=== PATIENT | female | born 1985 | race Caucasian/White ===

== ENCOUNTER → 2016-06-22 | Outpatient (CLI) | payer OTHER ==
[2016-06-22 13:43] VITALS: BP 97/74; PULSE 100; RESP 16; TEMP 97.7
--- NOTE | 2016-06-22 14:23 | P.PN ---
Subjective This is follow-up visit for this patient with a history of severe and chronic headache and back pain with radiation to the lower extremity, and she was diagnosed with occipital neuralgia, and also is being worked up for MS, and she had occipital nerve block x1 , and patient reports she has no relief after occipital nerve block , and she had poor reaction to the steroid which increased her anxiety , and she reported that her weakness in the upper and lower extremity increased after occipital nerve block , and is currently on pain medications 1- Motrin 800 mg 3 times a day 2-Neurontin 100 mg 2 tablets 3 times a day Patient denies any side effects of the medication, denies excessive drowsiness or sleepiness, denies suicidal ideation, and reports that the current pain medication is NOT helping To control the pain and improve activity of daily living, she denies any bowel or bladder incontinence Physical Examinations : 1-Constitutiona : Cooperative , not in acute distress . 2-HEENT : nech ; supple , no Lymphadenopathy , no Thyromegaly , normal thyroid size . eyes : no ptosis , no icterus, no photophobia . ENT : normal of hearing , normal oropharynx , no Thrush . 3- Respiratory : Chest clear to auscultations Bilaterally , no wheezing , no Rhonchi . 4- Cardiovascular : regular rate and rhythem , S1 , S2 , no S3 , no S4. 5- Gastrointestinal : abdomen soft no tenderness , bowel sounds positive all four quadrents , no organomegally . 6- Genitourinary : Defferred . 7- neurologic : Cranial nerve II to XII intact , no focal neurological deffecit . 8-psychatric : alert , oriented X 3 , appropriate affect , intact judgment and insight . 9-Lymphatic : no Lymphadenopathy . 10- musculoskeltal : exams of the cervical spine = motor strength normal bilateral upper extremities , normal sensations in the upper extremities Tenderness in the right side in the occipital area, Positive cervical facet loading tenderness exams of the Lumber spine = motor strength lower extremities ,thigh and legs .5/5 deep tendon reflexes : normal Knee Jerk , normal ankle Jerk . lumber facet Loading Test positive strait leg raising test positive at 30 degree RT , 60 degree LT , Assessment and plan = 1-occipital neuralgia 2-cervicogenic headache 3-lumbar spondylosis Patient had a reaction to the occipital nerve block (significant anxiety from the steroid after the block ), also she reports increased pain especially on the right side occipital area, she reports on and off weakness in the upper and lower extremity, the exam was negative for any motor or sensory deficit,, patient walking normally , patient being worked up for MS, and she had the new MRI of the brain done recently at [facility], and she had MRI of the lumbar spine done also recently, she will bring the report in the next few days, I will order MRI of the cervical spine, to evaluate there is any etiology causing her increased pain and headache, patient should continue her current medications Motrin 800 mg when necessary for headache and pain, and also continue on Neurontin 100 mg 2 tablets every 8 hours, and will see the patient in 4 weeks Objective - Vital Signs Vital signs: Vital Signs Temp 97.7 F 06/22/16 13:34 Pulse 100 06/22/16 13:34 Resp 16 06/22/16 13:34 BP 97/74 06/22/16 13:34 Pulse Ox 96 06/22/16 13:34 Intake & Output 06/21/16 06/22/16 06/22/16 18:59 06:59 18:59 Weight 52.617 kg
== END | disposition home or self-care (01) ==
LOC: PNWHC3 12:57
PROVIDERS: ATTEND Specialist
DX: M54.81 Occipital neuralgia (principal); M47.896 Other spondylosis, lumbar region; T38.0X5A Adverse effect of glucocorticoids and synthetic analogues, initial encounter; F41.9 Anxiety disorder, unspecified; Z79.899 Other long term (current) drug therapy
CPT/HCPCS: 99211

== ENCOUNTER 2016-07-14 18:48 | Emergency (ER) | payer OTHER ==
[2016-07-14] MEDS ORDERED: IPRATROPIUM-ALBUTEROL 3 ML NEB INHALATION STA (19:41)
[2016-07-14] MEDS ORDERED: predniSONE 20 MG TAB PO STA (19:41)
--- NOTE | 2016-07-14 20:38 | XR ---
EXAMINATION TYPE: XR chest 2V DATE OF EXAM: 07/14/2016 8:07 PM COMPARISON: December 03, 2013 HISTORY: Dyspnea and cough TECHNIQUE: Frontal and lateral views of the chest are obtained. FINDINGS: There is no focal air space opacity, pleural effusion, or pneumothorax seen. The cardiac silhouette size is within normal limits. The osseous structures are intact. IMPRESSION: No acute cardiopulmonary process.
--- NOTE | 2016-07-14 20:51 | ED ---
SOB HPI - General Chief Complaint: Shortness of Breath Stated Complaint: difficulty breathing Time Seen by Provider: 07/14/16 19:31 Source: patient Mode of arrival: ambulatory Limitations: no limitations - History of Present Illness Initial Comments: Patient complains of a cough. She smokes daily. She feels like her cough is not getting any better. She just started an antibiotic today. She has no fevers, chills, belly or back pain. She has no nausea or vomiting. She has no lightheadedness or dizziness. She has no neck pain or stiffness. - Related Data Home Medications Medication Instructions Recorded Confirmed Ibuprofen [Motrin] 800 mg PO DAILY PRN 02/10/16 07/14/16 Albuterol Inhaler [Ventolin Hfa 1 - 2 puff INHALATION RT-QID PRN 07/14/16 Inhaler] Fluticasone Nasal [place] [Flonase 1 spray EA NOSTRIL DAILY PRN 07/14/16 07/14/16 Nasal [place]] Levofloxacin [Levaquin] 500 mg PO DAILY 07/14/16 07/14/16 Meclizine [Antivert] 12.5 - 25 mg PO BID PRN 07/14/16 07/14/16 Montelukast Sodium [Singulair] 10 mg PO DAILY PRN 07/14/16 07/14/16 Promethazine 6.25MG/5Ml [Phenergan 5 - 10 ml PO QID PRN 07/14/16 07/14/16 Syrup] predniSONE See Taper PO DAILY 07/14/16 07/14/16 Previous Rx's Medication Instructions Recorded Gabapentin [Neurontin] 200 mg PO TID #90 cap 05/18/16 Allergies Allergy/AdvReac Type Severity Reaction Status Date / Time adhesive tape Allergy Rash/Hives Verified 07/14/16 19:55 triamcinolone [From Kenalog] Allergy Dyspnea Verified 07/14/16 19:55 Review of Systems ROS Statement: Those systems with pertinent positive or pertinent negative responses have been documented in the HPI. ROS Other: All systems not noted in ROS Statement are negative. Past Medical History Past Medical History: No Reported History Additional Past Medical History / Comment(s): BACK PAIN AND DEGENERATIVE DISC ISSUES, Migraines,. 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 Will have another MRI 2nd week of November - R/O multiple sclerosis History of Any Multi-Drug Resistant Organisms: None Reported Past Surgical History: Appendectomy Past Anesthesia/Blood Transfusion Reactions: No Reported Reaction Past Psychological History: Anxiety, Depression Smoking Status: Current every day smoker Past Alcohol Use History: None Reported Additional Past Alcohol Use History / Comment(s): started smoking age 14 1ppd Past Drug Use History: None Reported - Past Family History Brother(s) Additional Family Medical History / Comment(s): purnima-sachs General Exam Limitations: no limitations General appearance: alert, in no apparent distress Head exam: Present: atraumatic, normocephalic, normal inspection Eye exam: Present: normal appearance, PERRL, EOMI. Absent: scleral icterus, conjunctival injection, periorbital swelling ENT exam: Present: normal exam, mucous membranes moist Neck exam: Present: normal inspection. Absent: tenderness, meningismus, lymphadenopathy Respiratory exam: Present: normal lung sounds bilaterally. Absent: respiratory distress, wheezes, rales, rhonchi, stridor Cardiovascular Exam: Present: regular rate, normal rhythm, normal heart sounds. Absent: systolic murmur, diastolic murmur, rubs, gallop, clicks GI/Abdominal exam: Present: soft, normal bowel sounds. Absent: distended, tenderness, guarding, rebound, rigid Extremities exam: Present: normal inspection, full ROM, normal capillary refill. Absent: tenderness, pedal edema, joint swelling, calf tenderness Back exam: Present: normal inspection Neurological exam: Present: alert, oriented X3, CN II-XII intact Psychiatric exam: Present: normal affect, normal mood Skin exam: Present: warm, dry, intact, normal color. Absent: rash Course Vital Signs 07/14/16 07/14/16 07/14/16 19:21 20:02 20:21 Temperature 98.4 F Pulse Rate 94 94 Respiratory 20 20 Rate Blood Pressure 132/69 O2 Sat by Pulse 99 Oximetry 07/14/16 20:40 Temperature Pulse Rate 94 Respiratory Rate Blood Pressure O2 Sat by Pulse Oximetry Medical Decision Making - Medical Decision Making Patient complains of a cough. Her physical exam is benign. Patient is feeling better after a breathing treatment. I obtained a chest x-ray which is negative. She has no risk factors for pulmonary embolism or acute coronary syndrome. I don't think there is any other underlying emergency condition. Patient is stable for discharge. Disposition Clinical Impression: Upper respiratory infection Disposition: HOME SELF-CARE Condition: Good Instructions: Upper Respiratory Infection (ED) Time of Disposition: 20:51
[2016-07-14 21:05] VITALS: BP 106/66; PULSE 90; RESP 18; TEMP 98
== END 2016-07-14 21:05 | disposition home or self-care (01) ==
LOC: EC 18:48
DX: J06.9 Acute upper respiratory infection, unspecified (principal); F17.200 Nicotine dependence, unspecified, uncomplicated; Z79.51 Long term (current) use of inhaled steroids; Z79.899 Other long term (current) drug therapy; Z88.8 Allergy status to other drugs, medicaments and biological substances
CPT/HCPCS: 71020; 94640; 99285

== ENCOUNTER → 2016-07-18 | Outpatient (CLI) | payer OTHER ==
--- NOTE | 2016-07-18 23:12 | MR ---
EXAMINATION TYPE: MR cervical spine wo con DATE OF EXAM: 07/18/2016 8:37 PM COMPARISON: NONE HISTORY: Cervicalgia TECHNIQUE: Multiplanar, multisequence images of the cervical spine were acquired. C2-C3: No evidence for degenerative disc disease. No disc bulge/herniation or protrusion. No Canal stenosis. Foramina are patent bilaterally. C3-C4: Mild disc desiccation. Mild uncovertebral joint hypertrophy on the left. No canal stenosis or foraminal encroachment. C4-C5: No evidence for degenerative disc disease. No disc bulge/herniation or protrusion. No Canal stenosis. Foramina are patent bilaterally. C5-C6: No evidence for degenerative disc disease. No disc bulge/herniation or protrusion. No Canal stenosis. Foramina are patent bilaterally. C6-C7: No evidence for degenerative disc disease. No disc bulge/herniation or protrusion. No Canal stenosis. Foramina are patent bilaterally. C7-T1: No evidence for degenerative disc disease. No disc bulge/herniation or protrusion. No Canal stenosis. Foramina are patent bilaterally. Cervical segments are intact. There is normal alignment. Cervical spinal cord is of normal signal. Craniovertebral junction relationships are within normal limits. IMPRESSION: 1. Mild disc desiccation and degenerative disc disease C3-C4.
== END | disposition home or self-care (01) ==
LOC: RADMRIMAIN 20:04
PROVIDERS: ATTEND Specialist
DX: M50.31 Other cervical disc degeneration, high cervical region (principal); G44.89 Other headache syndrome
CPT/HCPCS: 72141

== ENCOUNTER → 2016-07-20 | Outpatient (CLI) | payer OTHER ==
[2016-07-20 14:56] VITALS: BP 107/71; PULSE 86; RESP 16; TEMP 98.3
--- NOTE | 2016-07-22 07:43 | P.PN ---
Subjective This is follow-up visit for this patient with a history of severe and chronic pain and headache and low back pain , diagnosed with occipital neuralgia we have Done occipital nerve block x1 , and she reported that she continued to have headache and neck pain, occasional numbness in the upper extremity Currently. Most of her pain in the low back area, she had a new MRI done recently and it showed patient had multilevel lumbar facet arthropathy She used Neurontin in the past and she had side effects (and her angry and mean ) she stopped using, she denies any motor or sensory deficit Denies any change in the bowel movement or urination, she tried the Topamax in the past without any benefit and she tried Fioricet minimal or no relief Physical examination 1-Constitutiona : Cooperative , not in acute distress . 2-HEENT : nech ; supple , no Lymphadenopathy , no Thyromegaly , normal thyroid size . eyes : no ptosis , no icterus, no photophobia . ENT : normal of hearing , normal oropharynx , no Thrush . 3- Respiratory : Chest clear to auscultations Bilaterally , no wheezing , no Rhonchi . 4- Cardiovascular : regular rate and rhythem , S1 , S2 , no S3 , no S4. 5- Gastrointestinal : abdomen soft no tenderness , bowel sounds positive all four quadrents , no organomegally . 6- Genitourinary : Defferred . 7- neurologic : Cranial nerve II to XII intact , no focal neurological deffecit . 8-psychatric : alert , oriented X 3 , appropriate affect , intact judgment and insight . 9-Lymphatic : no Lymphadenopathy . 10- musculoskeltal : exams of the cervical spine = motor strength normal bilateral upper extremities facet loading test cervical area positive. Multiple trigger point in the cervical paravertebral muscles Tenderness over the occipital nerve bilaterally exams of the Lumber spine = motor strength lower extremities ,thigh and legs .5/5 deep tendon reflexes : normal Knee Jerk , normal ankle Jerk . lumber facet Loading Test positive strait leg raising test negative bilaterally Fabere test negative bilaterally Range of motion: Range of motion in flexion of the lumbar spine 30 degrees Range of motion range of motion of extension of the lumbar spine 10 Assessment and plan = Occipital neuralgia status post occipital nerve block without any benefit Cervical radiculopathy . Myofascial pain syndrome and cervical area Lumbar spondylosis with facet arthropathy without myelopathy - diagnoses, prognosis, and treatment options including but not limited to physical therapy, surgical interventions, interventional therapies , and medication management including narcotics and adjuvant medication were discussed with the patient and all The questions answered -medication management =1-discontinue the Neurontin and start patient on Lyrica 25 mg 3 times a day 2-degrees Motrin to 600 mg every 8 hours -procedure= patient could benefit from diagnostic medial branch block lumbar area at L3 4/L4-5/L5-S1 facets positive twice then we will do radiofrequency ablation of the medial branch lumbar area Patient will be referred to have physical therapy and myofascial release in her cervical area Objective - Vital Signs Vital signs: Vital Signs Temp 98.3 F 07/20/16 14:47 Pulse 86 07/20/16 14:47 Resp 16 07/20/16 14:47 BP 107/71 07/20/16 14:47 Pulse Ox 97 07/20/16 14:47 Intake & Output 07/19/16 07/20/16 07/20/16 18:59 06:59 18:59 Weight 52.163 kg
== END | disposition home or self-care (01) ==
LOC: PNWHC3 14:01
PROVIDERS: ATTEND Specialist
DX: M54.81 Occipital neuralgia (principal); M54.12 Radiculopathy, cervical region; M79.1 Myalgia; M47.816 Spondylosis without myelopathy or radiculopathy, lumbar region; M46.96 Unspecified inflammatory spondylopathy, lumbar region; Z79.899 Other long term (current) drug therapy; T42.6X5A Adverse effect of other antiepileptic and sedative-hypnotic drugs, initial encounter
CPT/HCPCS: 99211

== ENCOUNTER 2016-09-16 10:46 | Observation (INO) | payer OTHER ==
[2016-09-16] MEDS ORDERED: ASPIRIN 81 MG CHEW PO STA (11:37)
[2016-09-16] MEDS ORDERED: NITROGLYCERIN SL TABS 0.4 MG TAB SUBLINGUAL STA (11:37)
--- NOTE | 2016-09-16 11:40 | ED ---
General Adult HPI - General Chief complaint: Chest Pain Stated complaint: SOB,chest pain Time Seen by Provider: 09/16/16 11:15 Source: patient, RN notes reviewed Mode of arrival: wheelchair Limitations: no limitations - History of Present Illness Initial comments: Patient is a pleasant 30-year-old female presenting to the emergency department complaining of chest discomfort. Onset was around 5 AM. Symptoms woke her from sleep. Symptoms have been waxing and waning however generally worsening. Patient states symptoms do increase with deep breaths and certain positions. Discomfort feels like tightness. No history of similar symptoms previously. There is some associated dyspnea. No nausea or diaphoresis. - Related Data Home Medications Medication Instructions Recorded Confirmed Albuterol Inhaler [Ventolin Hfa 1 - 2 puff INHALATION RT-QID PRN 07/14/16 Inhaler] Fluticasone Nasal [place] [Flonase 1 spray EA NOSTRIL DAILY PRN 07/14/16 09/16/16 Nasal [place]] Pregabalin [Lyrica] 25 mg PO TID 08/23/16 09/16/16 Ibuprofen [Motrin] 600 mg PO Q8HR 09/16/16 09/16/16 Allergies Allergy/AdvReac Type Severity Reaction Status Date / Time adhesive tape Allergy Rash/Hives Verified 09/16/16 11:39 triamcinolone [From Kenalog] Allergy Dyspnea/Yony Verified 09/16/16 11:39 h Review of Systems ROS Statement: Those systems with pertinent positive or pertinent negative responses have been documented in the HPI. ROS Other: All systems not noted in ROS Statement are negative. Constitutional: Denies: fever Eyes: Denies: eye pain ENT: Denies: ear pain Respiratory: Reports: dyspnea. Denies: cough Cardiovascular: Reports: chest pain Endocrine: Denies: fatigue Gastrointestinal: Denies: abdominal pain Genitourinary: Denies: dysuria Musculoskeletal: Denies: back pain Skin: Denies: rash Neurological: Denies: weakness Past Medical History Past Medical History: Fibromyalgia Additional Past Medical History / Comment(s): BACK PAIN AND DEGENERATIVE DISC ISSUES, Migraines,. nerve damage to marlene ring and pinky finger up marlene arms, scoliosis, History of Any Multi-Drug Resistant Organisms: None Reported Past Surgical History: Appendectomy Additional Past Surgical History / Comment(s): pain procedure on neck 03/13 Past Anesthesia/Blood Transfusion Reactions: No Reported Reaction Past Psychological History: Anxiety, Depression Smoking Status: Current every day smoker Past Alcohol Use History: None Reported Additional Past Alcohol Use History / Comment(s): started smoking age 14 1ppd Past Drug Use History: None Reported - Past Family History Brother(s) Additional Family Medical History / Comment(s): purnima-sachs General Exam Limitations: no limitations General appearance: alert, in no apparent distress Head exam: Present: atraumatic Eye exam: Present: normal appearance, PERRL ENT exam: Present: normal oropharynx Neck exam: Present: normal inspection Respiratory exam: Present: normal lung sounds bilaterally Cardiovascular Exam: Present: regular rate, normal rhythm Expanded Peripheral pulses: 2+: Radial (R), Radial (L), Posterior Tibialis (R), Posterior Tibialis (L) GI/Abdominal exam: Present: soft. Absent: tenderness Extremities exam: Present: normal inspection. Absent: pedal edema, calf tenderness Neurological exam: Present: alert Psychiatric exam: Present: normal affect, normal mood Skin exam: Absent: rash Course Vital Signs 09/16/16 09/16/16 10:54 11:56 Temperature 98.2 F Pulse Rate 86 67 Respiratory 16 18 Rate Blood Pressure 127/78 98/64 O2 Sat by Pulse 100 97 Oximetry EKG Findings - EKG Comments: EKG Findings:: Normal sinus rhythm 72. Normal intervals. Normal axis. Normal QRS. Normal ST-T. Medical Decision Making - Medical Decision Making Patient reexamined and resting comfortably in bed. Symptoms have improved. Patient is not certain that the nitroglycerin actually helped her however. Patient updated on results and plan. Case discussed with Dr. Knight, who will admit for Dr. Donaldson. - Lab Data Result diagrams: 09/16/16 11:00 09/16/16 11:00 Lab Results 09/16/16 09/16/16 09/16/16 Range/Units 11:00 11:00 11:00 WBC 5.6 (3.8-10.6) k/uL RBC 4.49 (3.80-5.40) m/uL Hgb 13.3 (11.4-16.0) gm/dL Hct 40.0 (34.0-46.0) % MCV 89.3 (80.0-100.0) fL MCH 29.7 (25.0-35.0) pg MCHC 33.3 (31.0-37.0) g/dL RDW 12.6 (11.5-15.5) % Plt Count 270 (150-450) k/uL Neutrophils % 64 % Lymphocytes % 28 % Monocytes % 4 % Eosinophils % 2 % Basophils % 1 % Neutrophils # 3.6 (1.3-7.7) k/uL Lymphocytes # 1.6 (1.0-4.8) k/uL Monocytes # 0.2 (0-1.0) k/uL Eosinophils # 0.1 (0-0.7) k/uL Basophils # 0.0 (0-0.2) k/uL PT (9.0-12.0) sec INR (<1.1) APTT (22.0-30.0) sec D-Dimer (<0.60) mg/L FEU Sodium 144 (137-145) mmol/L Potassium 4.3 (3.5-5.1) mmol/L Chloride 108 H (98-107) mmol/L Carbon Dioxide 24 (22-30) mmol/L Anion Gap 12 mmol/L BUN 12 (7-17) mg/dL Creatinine 0.60 (0.52-1.04) mg/dL Est GFR (MDRD) Af Amer >60 (>60 ml/min/1.73 sqM) Est GFR (MDRD) Non-Af >60 (>60 ml/min/1.73 sqM) Glucose 87 (74-99) mg/dL Calcium 9.9 (8.4-10.2) mg/dL Magnesium 1.8 (1.6-2.3) mg/dL Total Bilirubin 0.4 (0.2-1.3) mg/dL AST 16 (14-36) U/L ALT 21 (9-52) U/L Alkaline Phosphatase 71 (38-126) U/L Total Creatine Kinase 69 (30-135) U/L CK-MB (CK-2) 0.6 (0.0-2.4) ng/mL CK-MB (CK-2) Rel Index 0.9 Troponin I <0.012 (0.000-0.034) ng/mL Total Protein 7.9 (6.3-8.2) g/dL Albumin 4.6 (3.5-5.0) g/dL 09/16/16 Range/Units 11:00 WBC (3.8-10.6) k/uL RBC (3.80-5.40) m/uL Hgb (11.4-16.0) gm/dL Hct (34.0-46.0) % MCV (80.0-100.0) fL MCH (25.0-35.0) pg MCHC (31.0-37.0) g/dL RDW (11.5-15.5) % Plt Count (150-450) k/uL Neutrophils % % Lymphocytes % % Monocytes % % Eosinophils % % Basophils % % Neutrophils # (1.3-7.7) k/uL Lymphocytes # (1.0-4.8) k/uL Monocytes # (0-1.0) k/uL Eosinophils # (0-0.7) k/uL Basophils # (0-0.2) k/uL PT 10.8 (9.0-12.0) sec INR 1.1 (<1.1) APTT 24.3 (22.0-30.0) sec D-Dimer 0.19 (<0.60) mg/L FEU Sodium (137-145) mmol/L Potassium (3.5-5.1) mmol/L Chloride (98-107) mmol/L Carbon Dioxide (22-30) mmol/L Anion Gap mmol/L BUN (7-17) mg/dL Creatinine (0.52-1.04) mg/dL Est GFR (MDRD) Af Amer (>60 ml/min/1.73 sqM) Est GFR (MDRD) Non-Af (>60 ml/min/1.73 sqM) Glucose (74-99) mg/dL Calcium (8.4-10.2) mg/dL Magnesium (1.6-2.3) mg/dL Total Bilirubin (0.2-1.3) mg/dL AST (14-36) U/L ALT (9-52) U/L Alkaline Phosphatase (38-126) U/L Total Creatine Kinase (30-135) U/L CK-MB (CK-2) (0.0-2.4) ng/mL CK-MB (CK-2) Rel Index Troponin I (0.000-0.034) ng/mL Total Protein (6.3-8.2) g/dL Albumin (3.5-5.0) g/dL - Radiology Data Radiology results: image reviewed (Chest x-ray shows suspected nipple shadow otherwise no acute process) Disposition Clinical Impression: Chest pain Disposition: ADMITTED IP TO THIS [facility] Time of Disposition: 13:40
[2016-09-16 11:54] LABS: Basophils % (A) 1 %; CH 30.2; CHCM 33.9; Eosinophils # (A) 0.1 k/uL (0-0.7); Eosinophils % (A) 2 %; HDW 2.51; HGB 13.3 gm/dL (11.4-16.0); Luc # (Auto) 0.08; Luc % (Auto) 2; Lymphocytes # (A) 1.6 k/uL (1.0-4.8); Lymphocytes % (A) 28 %; MCH 29.7 pg (25.0-35.0); MCHC 33.3 g/dL (31.0-37.0); MCV 89.3 fL (80.0-100.0); Monocytes # (A) 0.2 k/uL (0-1.0); Monocytes % (A) 4 %; Neutrophils # (A) 3.6 k/uL (1.3-7.7); Neutrophils % (A) 64 %; RBC 4.49 m/uL (3.80-5.40); RDW 12.6 % (11.5-15.5); WBC 5.6 k/uL (3.8-10.6); WBC (Perox) 5.77
--- NOTE | 2016-09-16 11:59 | XR ---
EXAMINATION TYPE: XR chest 2V DATE OF EXAM: 09/16/2016 11:54 AM COMPARISON: 07/14/2016 HISTORY: 35-year-old female with chest pain and shortness of breath today TECHNIQUE: PA and lateral views FINDINGS: A nodular density at the right base was seen previously and a suspected to represent nipple shadow. T he heart is normal size. Aorta and pulmonary vasculature within normal limits. No consolidation or pl eural effusion. There is a dextroconvex scoliosis of the thoracic spine. IMPRESSION: Nodular density at the right base was seen previously and is suspected to represent nipple shadow. Ot herwise, no acute process seen. Scoliosis.
[2016-09-16 12:07] LABS: ALT 21 U/L (9-52); AST 16 U/L (14-36); Alkaline Phosphatase 71 U/L (38-126); Anion Gap 12 mmol/L; Blood Urea Nitrogen 12 mg/dL (7-17); Calcium 9.9 mg/dL (8.4-10.2); Carbon Dioxide 24 mmol/L (22-30); Chloride 108 mmol/L (98-107); Glucose 87 mg/dL (74-99); Magnesium 1.8 mg/dL (1.6-2.3); Non-African American GFR(MDRD) >60 (>60 ml/min/1.73 sqM); Potassium 4.3 mmol/L (3.5-5.1); Sodium 144 mmol/L (137-145); Total Bilirubin 0.4 mg/dL (0.2-1.3); Total Protein 7.9 g/dL (6.3-8.2)
[2016-09-16 12:09] LABS: INR 1.1 (<1.1); Partial Thromboplastin Time 24.3 sec (22.0-30.0); Prothrombin Time 10.8 sec (9.0-12.0)
[2016-09-16 12:31] LABS: Creatine Kinase 69 U/L (30-135)
[2016-09-16 12:44] LABS: Creatine Kinase MB 0.6 ng/mL (0.0-2.4); Troponin I <0.012 ng/mL (0.000-0.034)
[2016-09-16] MEDS ORDERED: NITROGLYCERIN SL TABS 0.4 MG TAB SUBLINGUAL PRN (13:44)
[2016-09-16] MEDS: NITROGLYCERIN OINT 1 INCH/GM PACKET TOPICAL SCH (17:59)
[2016-09-16] MEDS ORDERED: MAG HYDROX/AL HYDROX/SIMETH 30 ML CUP PO PRN (17:59)
[2016-09-16 18:00] LABS: Creatine Kinase 60 U/L (30-135)
[2016-09-16 18:10] LABS: Creatine Kinase MB 0.5 ng/mL (0.0-2.4); Troponin I <0.012 ng/mL (0.000-0.034)
[2016-09-16 18:16] VITALS: BMI 19.7
[2016-09-16] MEDS: HYDROcodone/APAP 5-325MG 1 EACH TAB PO PRN (18:28)
[2016-09-16] MEDS: PANTOPRAZOLE 40 MG TABLET PO SCH (20:53)
[2016-09-16] MEDS: PREGABALIN 25 MG CAP PO SCH (22:19)
[2016-09-16 23:39] LABS: Creatine Kinase 59 U/L (30-135)
[2016-09-16 23:48] LABS: Creatine Kinase MB 0.6 ng/mL (0.0-2.4); Troponin I <0.012 ng/mL (0.000-0.034)
[2016-09-17] MEDS: NITROGLYCERIN OINT 1 INCH/GM PACKET TOPICAL SCH ×3 (00:02→11:59)
--- NOTE | 2016-09-17 07:40 | HP ---
DATE OF ADMISSION: 09/16/2016 CHIEF COMPLAINT: Chest pain and shortness of breath. HISTORY OF PRESENT ILLNESS: Ms. Richey is a 30-year-old female with known history of probably fibromyalgia and recently getting work-up for MS, came to the hospital with complaints of chest pain. Started on 5 a.m. this morning. Since then the patient is having constant chest pain on and off, lasting usually about 10 minutes, and also she felt left arm numbness in the morning as well. Otherwise the patient denied any dizziness or lightheadedness. No nausea or vomiting. Patient says that she felt hot flashes. The chest pain sometimes worsens with deep breathing. Denied any recent illnesses. No fevers, no chills. No recent travel or sick contacts. The patient otherwise has been taking her Motrin and Pregabalin on a daily basis for her fibromyalgia pain. No nausea or vomiting, no abdominal pain. Patient does smoke about 1 pack per day. Denied any alcohol use. The patient does not have a history of hypertension or hyperlipidemia. Denied any family history of coronary artery disease. The patient is adopted. Patient has been stressed out recently, patient is alone and having 5 kids. REVIEW OF SYSTEMS: CONSTITUTIONAL: No fever. No chills. RESPIRATORY: No cough or sputum production. CARDIOVASCULAR: Chest pain, midsternal. No leg swelling. No palpitations. GASTROINTESTINAL: No nausea, vomiting, abdominal pain. No diarrhea. GENITOURINARY: No dysuria. No hematuria. ENDOCRINE: Negative. PSYCHIATRIC: Anxious. MUSCULOSKELETAL: Negative. All other 14-point review of systems negative except as above. 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 Brice. PAST SURGICAL HISTORY: Appendectomy, pain procedure on neck in 2016. PSYCHOSOCIAL HISTORY: Anxiety and depression. SOCIAL HISTORY: Currently an everyday smoker since age 14, one pack per day. Denied any alcohol use. Denied any drugs or IVDU. FAMILY HISTORY: Brother had Fabrice-Sachs disease. Home medications include: 1. Albuterol. 2. Fluticasone nasal spray. 3. Pregabalin. 4. Ibuprofen. ALLERGIES: ADHESIVE TAPE, TRIAMCINOLONE. PHYSICAL EXAM: A 30-year-old female, lying on the bed, awake, alert, oriented, x3. Appears to be in no apparent distress. VITALS: Blood pressure is 98/61, pulse is 67, respirations 18, temperature afebrile, pulse ox 97% on room air. HEENT: Atraumatic, normocephalic. NECK: Supple. No JVD. CVS: S1, S2 heard. No murmurs, no gallop. LUNGS: Bilateral air entry is present. No wheezing. No crackles. Nonlabored breathing. ABDOMEN: Soft, nontender. Bowel sounds are present. SPECTROGRAPHIC ANALYST: Awake, alert, oriented, x3. No focal deficit. EXTREMITIES: No edema. Pulses palpable bilaterally. No clubbing or cyanosis. PSYCHIATRIC: Cooperative, anxious. LABORATORY DATA: WBC 5.6, hemoglobin 13.3, MCV 89.3, platelets 270, INR 1.1. D-dimer is 0.19, not elevated. Sodium 141, potassium 4.3, chloride 108, bicarb is 24. BUN 12, creatinine 0.6. Liver enzymes are not elevated. Troponin x2 negative. Albumin 4.6. Chest x-ray, nodular density at the right base was seen previously and is suspected to represent nipple shadow. Otherwise no acute process is seen. Scoliosis. EKG showed normal sinus rhythm. IMPRESSION: 1. Chest pain, most likely musculoskeletal. This is also reproducible minimally; rule out acute coronary syndrome. 2. D-dimer negative. 3. Fibromyalgia. 4. Currently being worked up MS. 5. Anxiety and depression. 6. Stressful situation at home. 7. Nicotine addiction 1 pack per day. 8. Chronic NSAID use. PLAN: Patient will be continued on telemetry monitoring with serial EKGs and troponins. Cardiac work-up has been negative so far. Cardiology has been consulted. We will continue the pain medication with [place] 5 and start the patient on Protonix as well. Hold ibuprofen. Follow closely. D-dimer is not elevated, unlikely pulmonary embolism at this time. We will check her TSH level due to hot flashes. Follow closely. Further recommendations based on the clinical course.
[2016-09-17] MEDS: PANTOPRAZOLE 40 MG TABLET PO SCH (08:10)
[2016-09-17] MEDS: PREGABALIN 25 MG CAP PO SCH ×2 (08:10→15:56)
[2016-09-17] MEDS: HYDROcodone/APAP 5-325MG 1 EACH TAB PO PRN ×2 (08:13)
[2016-09-17] MEDS ORDERED: ASPIRIN 325 MG TAB PO SCH (09:00)
--- NOTE | 2016-09-17 11:07 | P.CRDCN ---
History of Present Illness Consult date: 09/17/16 History of present illness: This is a 30-year-old female with no significant past medical history who apparently woke up around 5 AM with severe left-sided chest discomfort. The pain was intermittent and lasted up to 5 hours. Patient finally came to the emergency room. She denied any shortness of breath. The pain doesn't increase on deep breathing. No nausea vomiting or sweating. Since admission patient was treated with sublingual nitro and also Jay. Jay seemed to help to some extent. EKG did not reveal any acute changes. Cardiac enzymes are negative. Her chest pains appear to be atypical. We'll get an echo. If echo doesn't show any wall motion abnormalities, patient could be discharged home. Outpatient Regular stress test could be arranged. Follow-up with primary care physician unless the stress test is positive. Review of Systems As per the chart Past Medical History Past Medical History: Fibromyalgia Additional Past Medical History / Comment(s): BACK PAIN AND DEGENERATIVE DISC ISSUES, Migraines,. nerve damage to marlene ring and pinky finger up marlene arms, scoliosis, possibel MS stephanie worked up for this (dr. Cm managing) History of Any Multi-Drug Resistant Organisms: None Reported Past Surgical History: Appendectomy Additional Past Surgical History / Comment(s): pain procedure on neck 03/13, pain procedure on back at begining of month (August 2016). Past Anesthesia/Blood Transfusion Reactions: No Reported Reaction Past Psychological History: Anxiety, Depression Smoking Status: Current every day smoker Past Alcohol Use History: None Reported Additional Past Alcohol Use History / Comment(s): started smoking age 14 1ppd Past Drug Use History: None Reported - Past Family History Brother(s) Additional Family Medical History / Comment(s): purnima-[facility] Medications and Allergies Home Medications Medication Instructions Recorded Confirmed Type Albuterol Inhaler [Ventolin Hfa 1 - 2 puff INHALATION RT-QID PRN 07/14/16 History Inhaler] Fluticasone Nasal [place] [Flonase 1 spray EA NOSTRIL DAILY PRN 07/14/16 09/16/16 History Nasal [place]] Pregabalin [Lyrica] 25 mg PO TID 08/23/16 09/16/16 History Ibuprofen [Motrin] 600 mg PO Q8HR 09/16/16 09/16/16 History Allergies Allergy/AdvReac Type Severity Reaction Status Date / Time adhesive tape Allergy Rash/Hives Verified 09/16/16 11:39 triamcinolone [From Kenalog] Allergy Dyspnea/Yony Verified 09/16/16 11:39 h Physical Exam Vitals: Vital Signs Temp Pulse Pulse Resp BP BP Pulse Ox 09/17/16 08:00 98.3 F 64 16 95/55 99 09/17/16 04:00 97.9 F 58 L 18 92/60 100 09/17/16 00:00 52 L 16 09/16/16 23:20 57 L 16 88/54 98 09/16/16 20:00 54 L 16 09/16/16 19:53 97.7 F 67 18 116/70 97 09/16/16 17:00 97.8 F 55 L 16 112/71 100 09/16/16 16:32 97.0 F L 63 18 113/71 99 09/16/16 14:16 96.8 F L 69 18 105/72 97 Intake and Output 09/16/16 09/17/16 09/17/16 22:59 06:59 14:59 Intake Total 600 Balance 600 Intake: Oral 600 Other: Voiding Method Toilet Toilet Toilet # Voids 2 2 Weight 53.8 kg GENERAL EXAM: Patient is alert and oriented and doesn't appear to be in any acute distress HEENT: Normocephalic. Normal reaction of pupils, equal size, normal range of extraocular motion. No erythema or exudates in the throat. NECK: No masses, no nuchal rigidity. CHEST: No chest wall deformity. LUNGS: Equal air entry with no crackles or wheeze. HEART: S1 and S2 normal with no audible mumurs or gallops. Regular rhythm, femorals equal on both sides.. ABDOMEN: No hepatosplenomegaly, normal bowel sounds, no guarding or rigidity. SKIN: No rashes CENTRAL NERVOUS SYSTEM: No focal deficits. EXTREMITIES: No cyanosis, clubbing or edema. Results 09/16/16 11:00 09/16/16 11:00 Cardiac Enzymes 09/16/16 09/16/16 Range/Units 17:14 22:43 CK-MB (CK-2) 0.5 0.6 (0.0-2.4) ng/mL Troponin I <0.012 <0.012 (0.000-0.034) ng/mL Current Medications Generic Name Dose Route Start Last Admin Trade Name Freq PRN Reason Stop Dose Admin Hydrocodone Bitart/Acetaminophen 1 each 09/16/16 18:11 09/17/16 08:13 Jay 5-325 PO 1 each Q6HR PRN Administration Pain Al Hydroxide/Mg Hydroxide 30 ml 09/16/16 17:59 Maalox PO Q4HR PRN GI Upset Aspirin 325 mg 09/17/16 09:00 09/17/16 08:11 Aspirin PO 325 mg DAILY MIGUEL A Administration Nitroglycerin 1 inch 09/16/16 18:00 09/17/16 06:25 Nitro-Bid Oint TOPICAL Not Given Q6HR MIGUEL A Nitroglycerin 0.4 mg 09/16/16 13:44 Nitrostat SUBLINGUAL Q5M PRN Chest Pain Pantoprazole Sodium 40 mg 09/16/16 18:15 09/17/16 08:10 Protonix PO 40 mg AC-BRKFST MIGUEL A Administration Pregabalin 25 mg 09/16/16 22:00 09/17/16 08:10 Lyrica PO 25 mg TID MIGUEL A Administration Intake and Output 09/16/16 09/17/16 09/17/16 22:59 06:59 14:59 Intake Total 600 Balance 600 Intake: Oral 600 Other: Voiding Method Toilet Toilet Toilet # Voids 2 2 Weight 53.8 kg EKG Interpretations (text) Sinus rhythm Assessment and Plan (1) Fibromyalgia Status: Acute (2) Chest pain Status: Acute (3) Environmental allergies Status: Acute Plan: Her chest pains are atypical. Enzymes and EKGs are normal. Echocardiogram to be done today. If that is negative patient could be discharged home.
[2016-09-17 12:05] VITALS: BP 91/56; PULSE 59; RESP 18; TEMP 98.2
--- NOTE | 2016-09-17 16:13 | ECHOF ---
Referral Reason:Chest pain and cardiomyopathy MEASUREMENTS -------- HEIGHT: 165.1 cm WEIGHT: 53.5 kg BP: 120/60 RVIDd: 2.1 cm (< 3.3) IVSd: 0.9 cm (0.6 - 1.1) LVIDd: 4.3 cm (3.9 - 5.3) LVPWd: 0.9 cm (0.6 - 1.1) IVSs: 1.0 cm LVIDs: 3.0 cm LVPWs: 1.4 cm LA Diam: 2.5 cm (2.7 - 3.8) Ao Diam: 2.5 cm (2.0 - 3.7) AV Cusp: 1.9 cm (1.5 - 2.6) LA Diam: 3.0 cm (2.7 - 3.8) MV EXCURSION: 19.176 mm (> 18.000) MV EF SLOPE: 124 mm/s (70 - 150) EPSS: 0.4 cm MV E Devon: 0.77 m/s MV DecT: 201 ms MV A [place]: 0.39 m/s MV E/A Ratio: 1.96 RAP: 5.00 mmHg RVSP: 16.07 mmHg FINDINGS -------- Sinus rhythm. This was a technically good study. LV size, wall thickness and systolic function are normal, with an EF greater than 55%. The right ventricle is normal in size. The left atrial size is normal. The right atrial size is normal. The aortic valve is trileaflet, and appears structurally normal. No aortic stenosis or regurgitation. Mild mitral annular calcification present. There is trace mitral regurgitation. Mild tricuspid regurgitation present. There is no evidence of pulmonary hypertension. The right ventricular systolic pressure, as measured by Doppler, is 16.07mmHg. There is no pulmonic regurgitation present. The aortic root size is normal. There is no pericardial effusion. CONCLUSIONS -------- 1. LV size, wall thickness and systolic function are normal, with an EF greater than 55%. 2. Mild mitral annular calcification present. 3. There is trace mitral regurgitation. 4. Mild tricuspid regurgitation present. 5. There is no evidence of pulmonary hypertension. 6. The right ventricular systolic pressure, as measured by Doppler, is 16.07mmHg. 7. There is no pulmonic regurgitation present. 8. There is no pericardial effusion. PACKER DENTURE: Chasity Serrano RDCS
--- NOTE | 2016-09-21 05:26 | DS ---
DATE OF ADMISSION: 09/16/2016 DATE OF DISCHARGE: 09/17/2016 DISCHARGE DIAGNOSES: 1. Chest pain most likely musculoskeletal and reproducible, ruled out coronary artery syndrome. 2. Fibromyalgia. 3. D-dimer negative. 4. Currently being worked for multiple sclerosis as an outpatient. 5. Anxiety and depression. 6. Stressful situation at home. 7. Nicotine addiction 1 pack per day. 8. Chronic NSAID use, recommended stop using Motrin. HOSPITAL COURSE: Ms. Richey is a 30-year-old female with known history of fibromyalgia and currently being worked up for multiple sclerosis. Admitted to the hospital with complaints of ( ) that started about 5 a.m. in the morning, constant on and off lasting about 10 minutes and also question left arm numbness as well. Was on telemonitor in the hospital. Serial EKGs and troponins are negative. Chest pain is more of a musculoskeletal and is reproducible. Cardiology seen the patient, recommended no further workup and 2-D echocardiogram was done and ejection fraction normal and no valvular abnormalities noted. Otherwise, the patient is currently chest pain free and is being discharged home in stable condition. The patient was also advised to quit NSAID use. DISCHARGE PHYSICAL EXAMINATION: A 30-year-old female lying on the bed, comfortable, awake, alert and oriented x3. Appears to be in no apparent distress. VITALS: Blood pressure 91/56, pulse is 59, respirations 18, temperature afebrile, pulse ox 98% on melvin air. LABORATORY DATA: Reviewed. Discharge physical examination done. Discharge medications include: 1. Flonase 1 spray each nostril daily. 2. Lyrica 25 mg p.o. t.i.d. 3. Tylenol 650 mg p.o. q.6 hourly p.r.n. for pain. Activity as tolerated. Heart healthy diet. MTDD
== END 2016-09-17 16:00 | disposition home or self-care (01) ==
LOC: EC 10:46 → 3OBS 13:44
PROVIDERS: ADMIT Internal Medicine; ATTEND Internal Medicine
DX: R07.89 Other chest pain (principal); R06.02 Shortness of breath; R20.0 Anesthesia of skin; M79.7 Fibromyalgia; F41.9 Anxiety disorder, unspecified; F32.9 Major depressive disorder, single episode, unspecified; F17.200 Nicotine dependence, unspecified, uncomplicated; Z79.1 Long term (current) use of non-steroidal anti-inflammatories (NSAID); Z88.8 Allergy status to other drugs, medicaments and biological substances; F43.9 Reaction to severe stress, unspecified; Z79.899 Other long term (current) drug therapy; Z91.048 Other nonmedicinal substance allergy status; N95.1 Menopausal and female climacteric states
CPT/HCPCS: 99285; 36415; 93005; 93306; 85379; 80061; 80053; 84443; 82550; 82553; 83735; 84484; 85025; 85610; 85730; 71020; G0378 ×2

== ENCOUNTER 2016-09-19 14:09 | Emergency (ER) | payer OTHER ==
[2016-09-19] MEDS ORDERED: RX INFO: IV CONTRAST WAS GIVEN 1 EACH MISC MISCELLANE PRN (15:09)
[2016-09-19] MEDS ORDERED: SODIUM CHLORIDE 0.9% 500 ML IV STA (15:09)
[2016-09-19] MEDS ORDERED: SODIUM CHLORIDE 0.9% 1,000 ML IV STA ×2 (15:09)
[2016-09-19] MEDS ORDERED: MORPHINE SULFATE 4 MG/ML SYRINGE IV STA (15:09)
[2016-09-19 15:30] LABS: Basophils % (A) 1 %; CH 30.8; CHCM 34.6; Eosinophils % (A) 1 %; HCT 38.4 % (34.0-46.0); HDW 2.46; HGB 12.7 gm/dL (11.4-16.0); Luc # (Auto) 0.12; Luc % (Auto) 2; Lymphocytes # (A) 1.8 k/uL (1.0-4.8); Lymphocytes % (A) 34 %; MCH 29.6 pg (25.0-35.0); MCHC 33.2 g/dL (31.0-37.0); MCV 89.3 fL (80.0-100.0); Mean Platelet Volume 7.9; Monocytes # (A) 0.2 k/uL (0-1.0); Monocytes % (A) 4 %; Neutrophils % (A) 58 %; RDW 12.5 % (11.5-15.5); WBC 5.2 k/uL (3.8-10.6); WBC (Perox) 5.32
[2016-09-19 15:43] LABS: Partial Thromboplastin Time 23.4 sec (22.0-30.0); Prothrombin Time 10.6 sec (9.0-12.0)
[2016-09-19 15:44] LABS: Creatine Kinase 91 U/L (30-135)
[2016-09-19 15:47] LABS: ALT 22 U/L (9-52); AST 18 U/L (14-36); Alkaline Phosphatase 65 U/L (38-126); Anion Gap 12 mmol/L; Blood Urea Nitrogen 14 mg/dL (7-17); Calcium 9.5 mg/dL (8.4-10.2); Carbon Dioxide 23 mmol/L (22-30); Chloride 106 mmol/L (98-107); Glucose 129 mg/dL (74-99); Non-African American GFR(MDRD) >60 (>60 ml/min/1.73 sqM); Potassium 3.9 mmol/L (3.5-5.1); Sodium 141 mmol/L (137-145); Total Bilirubin 0.5 mg/dL (0.2-1.3); Total Protein 8.3 g/dL (6.3-8.2)
--- NOTE | 2016-09-19 15:54 | ED ---
General Adult HPI - General Stated complaint: chest pain Time Seen by Provider: 09/19/16 14:49 Source: patient, RN notes reviewed, old records reviewed Mode of arrival: wheelchair Limitations: no limitations - History of Present Illness Initial comments: This is a 28-year-old female out of the ER for evaluation. Patient presents here today for evaluation of chest pain. History of chest pain. History of fibromyalgia, no pain medication at this time. Recent hospital admission for chest pain, had echo is negative lab work is negative. Patient states pain is worse now than it was then. No fevers no cough congestion. No significant shards of breath or travel history. - Related Data Home Medications Medication Instructions Recorded Confirmed Fluticasone Nasal [place] [Flonase 1 spray EA NOSTRIL DAILY PRN 07/14/16 09/19/16 Nasal [place]] Pregabalin [Lyrica] 25 mg PO TID 08/23/16 09/19/16 Acetaminophen Tab [Tylenol Tab] 650 mg PO Q6H PRN 09/19/16 09/19/16 Aspirin 325 mg PO DAILY 09/19/16 09/19/16 Allergies Allergy/AdvReac Type Severity Reaction Status Date / Time adhesive tape Allergy Rash/Hives Verified 09/19/16 15:47 triamcinolone [From Kenalog] Allergy Dyspnea/Yony Verified 09/19/16 15:47 h Review of Systems ROS Statement: Those systems with pertinent positive or pertinent negative responses have been documented in the HPI. ROS Other: All systems not noted in ROS Statement are negative. Past Medical History Past Medical History: Fibromyalgia Additional Past Medical History / Comment(s): BACK PAIN AND DEGENERATIVE DISC ISSUES, Migraines,. nerve damage to marlene ring and pinky finger up marlene arms, scoliosis, possibel MS stephanie worked up for this (dr. Cm managing) History of Any Multi-Drug Resistant Organisms: None Reported Past Surgical History: Appendectomy Additional Past Surgical History / Comment(s): pain procedure on neck 03/13, pain procedure on back at begining of month (August 2016). Past Anesthesia/Blood Transfusion Reactions: No Reported Reaction Past Psychological History: Anxiety, Depression Smoking Status: Current every day smoker Past Alcohol Use History: None Reported Additional Past Alcohol Use History / Comment(s): started smoking age 14 1ppd Past Drug Use History: None Reported - Past Family History Brother(s) Additional Family Medical History / Comment(s): purnima-sachs General Exam Limitations: no limitations General appearance: alert, in no apparent distress Head exam: Present: atraumatic, normocephalic, normal inspection Eye exam: Present: normal appearance, PERRL, EOMI. Absent: scleral icterus, conjunctival injection, periorbital swelling ENT exam: Present: normal exam, mucous membranes moist Neck exam: Present: normal inspection. Absent: tenderness, meningismus, lymphadenopathy Respiratory exam: Present: normal lung sounds bilaterally. Absent: respiratory distress, wheezes, rales, rhonchi, stridor Cardiovascular Exam: Present: regular rate, normal rhythm, normal heart sounds. Absent: systolic murmur, diastolic murmur, rubs, gallop, clicks GI/Abdominal exam: Present: soft, normal bowel sounds. Absent: distended, tenderness, guarding, rebound, rigid Extremities exam: Present: normal inspection, full ROM, normal capillary refill. Absent: tenderness, pedal edema, joint swelling, calf tenderness Back exam: Present: normal inspection Neurological exam: Present: alert, oriented X3, CN II-XII intact Psychiatric exam: Present: normal affect, normal mood Skin exam: Present: warm, dry, intact, normal color. Absent: rash Course Vital Signs 09/19/16 09/19/16 09/19/16 14:09 15:18 16:00 Temperature 97.1 F L Pulse Rate 99 85 76 Respiratory 20 18 18 Rate Blood Pressure 127/78 107/67 100/60 O2 Sat by Pulse 97 100 100 Oximetry 09/19/16 16:55 Temperature 98 F Pulse Rate 70 Respiratory 16 Rate Blood Pressure 108/72 O2 Sat by Pulse 99 Oximetry - Reevaluation(s) Reevaluation #1: 09/19/16 15:54 Medical record is completely reviewed including prior hospital visit and hospitalization Medical Decision Making - Medical Decision Making 30 female geothermal myalgia, patient chest pain is controlled, CT negative, lab work and EKG are normal. Throat cardiology to follow patient as an outpatient. Patient is low cardiac risk, we'll discharge home - Lab Data Result diagrams: 09/19/16 15:10 09/19/16 15:10 Lab Results 09/19/16 09/19/16 09/19/16 Range/Units 15:10 15:10 15:10 WBC 5.2 (3.8-10.6) k/uL RBC 4.30 (3.80-5.40) m/uL Hgb 12.7 (11.4-16.0) gm/dL Hct 38.4 (34.0-46.0) % MCV 89.3 (80.0-100.0) fL MCH 29.6 (25.0-35.0) pg MCHC 33.2 (31.0-37.0) g/dL RDW 12.5 (11.5-15.5) % Plt Count 252 (150-450) k/uL Neutrophils % 58 % Lymphocytes % 34 % Monocytes % 4 % Eosinophils % 1 % Basophils % 1 % Neutrophils # 3.0 (1.3-7.7) k/uL Lymphocytes # 1.8 (1.0-4.8) k/uL Monocytes # 0.2 (0-1.0) k/uL Eosinophils # 0.0 (0-0.7) k/uL Basophils # 0.0 (0-0.2) k/uL PT (9.0-12.0) sec INR (<1.1) APTT (22.0-30.0) sec D-Dimer (<0.60) mg/L FEU Sodium 141 (137-145) mmol/L Potassium 3.9 (3.5-5.1) mmol/L Chloride 106 (98-107) mmol/L Carbon Dioxide 23 (22-30) mmol/L Anion Gap 12 mmol/L BUN 14 (7-17) mg/dL Creatinine 0.56 (0.52-1.04) mg/dL Est GFR (MDRD) Af Amer >60 (>60 ml/min/1.73 sqM) Est GFR (MDRD) Non-Af >60 (>60 ml/min/1.73 sqM) Glucose 129 H (74-99) mg/dL Calcium 9.5 (8.4-10.2) mg/dL Magnesium 2.0 (1.6-2.3) mg/dL Total Bilirubin 0.5 (0.2-1.3) mg/dL AST 18 (14-36) U/L ALT 22 (9-52) U/L Alkaline Phosphatase 65 (38-126) U/L Total Creatine Kinase 91 (30-135) U/L CK-MB (CK-2) 0.7 (0.0-2.4) ng/mL CK-MB (CK-2) Rel Index 0.8 Troponin I <0.012 (0.000-0.034) ng/mL NT-Pro-B Natriuret Pep pg/mL Total Protein 8.3 H (6.3-8.2) g/dL Albumin 4.7 (3.5-5.0) g/dL Lipase 109 (23-300) U/L 09/19/16 09/19/16 Range/Units 15:10 15:10 WBC (3.8-10.6) k/uL RBC (3.80-5.40) m/uL Hgb (11.4-16.0) gm/dL Hct (34.0-46.0) % MCV (80.0-100.0) fL MCH (25.0-35.0) pg MCHC (31.0-37.0) g/dL RDW (11.5-15.5) % Plt Count (150-450) k/uL Neutrophils % % Lymphocytes % % Monocytes % % Eosinophils % % Basophils % % Neutrophils # (1.3-7.7) k/uL Lymphocytes # (1.0-4.8) k/uL Monocytes # (0-1.0) k/uL Eosinophils # (0-0.7) k/uL Basophils # (0-0.2) k/uL PT 10.6 (9.0-12.0) sec INR 1.0 (<1.1) APTT 23.4 (22.0-30.0) sec D-Dimer 0.18 (<0.60) mg/L FEU Sodium (137-145) mmol/L Potassium (3.5-5.1) mmol/L Chloride (98-107) mmol/L Carbon Dioxide (22-30) mmol/L Anion Gap mmol/L BUN (7-17) mg/dL Creatinine (0.52-1.04) mg/dL Est GFR (MDRD) Af Amer (>60 ml/min/1.73 sqM) Est GFR (MDRD) Non-Af (>60 ml/min/1.73 sqM) Glucose (74-99) mg/dL Calcium (8.4-10.2) mg/dL Magnesium (1.6-2.3) mg/dL Total Bilirubin (0.2-1.3) mg/dL AST (14-36) U/L ALT (9-52) U/L Alkaline Phosphatase (38-126) U/L Total Creatine Kinase (30-135) U/L CK-MB (CK-2) (0.0-2.4) ng/mL CK-MB (CK-2) Rel Index Troponin I (0.000-0.034) ng/mL NT-Pro-B Natriuret Pep 89 pg/mL Total Protein (6.3-8.2) g/dL Albumin (3.5-5.0) g/dL Lipase (23-300) U/L - Radiology Data Radiology results: report reviewed (CTA negative for acute disease), image reviewed Disposition Clinical Impression: Chest pain Disposition: HOME SELF-CARE Condition: Good Instructions: Chest Pain (ED) Referrals: Rodriguez Power MD [Primary Care Provider] - 1-2 days
[2016-09-19 15:56] LABS: Creatine Kinase MB 0.7 ng/mL (0.0-2.4); Troponin I <0.012 ng/mL (0.000-0.034)
--- NOTE | 2016-09-19 15:59 | CT ---
EXAMINATION TYPE: CT angio chest DATE OF EXAM: 09/19/2016 3:46 PM COMPARISON: 04/09/2011 HISTORY: 30-year-old female with left-sided chest pain for 4 days. TECHNIQUE: Contiguous axial scanning of the chest performed with IV Contrast, patient injected with 7 4 mL of Omnipaque 350. Coronal/sagittal MIP reconstructions performed. CT DLP: 440.14 mGycm Automated exposure control for dose reduction was used. FINDINGS: The heart is normal size without pericardial effusion. Aorta is normal caliber with conventional arch vessel branching anatomy. No thoracic lymphadenopathy by CT size criteria. Satisfactory opacification of the pulmonary arterial system. There is some respiratory motion without evidence for pulmonary embolus. Mild diffuse bronchial wall thickening. No consolidation or pleural effusion. Centrilobular emphysema tous cysts are noted in the posteromedial right upper lobe, axial image 44. Visualized upper abdomen shows no gross abnormality. Bones: No osseous destructive process. IMPRESSION: 1. ALLOWING FOR SOME RESPIRATORY MOTION ARTIFACT, NO EVIDENCE FOR PULMONARY EMBOLUS. 2. MILD DIFFUSE BRONCHIAL WALL THICKENING COULD REPRESENT BRONCHITIS OR CHRONIC ASTHMA. 3. SOME UNDERLYING EMPHYSEMATOUS CYSTS ARE NOTED. CORRELATE FOR SMOKING HISTORY.
[2016-09-19 16:59] VITALS: BP 108/72; PULSE 70; RESP 16; TEMP 98
== END 2016-09-19 16:56 | disposition home or self-care (01) ==
LOC: EC 14:09
DX: R07.9 Chest pain, unspecified (principal); F32.9 Major depressive disorder, single episode, unspecified; F41.9 Anxiety disorder, unspecified; Z79.82 Long term (current) use of aspirin; Z79.899 Other long term (current) drug therapy; Z91.048 Other nonmedicinal substance allergy status; Z88.8 Allergy status to other drugs, medicaments and biological substances
CPT/HCPCS: 36415; 93005; 85379; 83880; 80053; 82550; 82553; 83690; 83735; 84484; 85025; 85610; 85730; 71275; 99285; 96374; 96361 ×2; J2270; Q9967

== ENCOUNTER 2016-09-29 10:42 | Day surgery (SDC) | payer OTHER ==
[~2016-09-29 10:42] MED LIST: LACTATED RINGERS 1,000 ML IV SCH
[2016-09-29] MEDS ORDERED: LIDOCAINE 1% 20 ML VIAL (10MG/ML) FOR IV START INTRADERMA ONE (10:53)
[2016-09-29 10:57] VITALS: RESP 16; TEMP 83
[2016-09-29] MEDS ORDERED: BUPIVACAINE (PF) 0.5% 30 ML VIAL ONE (11:12)
[2016-09-29] MEDS ORDERED: fentaNYL (PF) 50 MCG/ML 2 ML AMP ONE (11:12)
[2016-09-29] MEDS ORDERED: MIDAZOLAM 2 MG/2 ML VIAL ONE (11:12)
--- NOTE | 2016-09-29 11:34 | P.PCN ---
Date of Procedure: 09/29/16 Procedure(s) Performed: PREOPERATIVE DIAGNOSIS : 1- Lumbar spondylosis with Facet Arthropathy without myelopathy . 2-fibromyalgia POSTOPERATIVE DIAGNOSIS: 1- Lumbar spondylosis with Facet Arthropathy without myelopathy . 2- fibromyalgia PROCEDURE: Diagnostic bilateral L3 -4 , L4 -5 , and L5-S1 medial branch block under fluoroscopy#2nd ANESTHESIA: Local with 1% lidocaine 6 ml ; IV sedation with Versed 2 mg and Fentanyl 100 mcg. EBL: Minimal COMPLICATION: None. IV FLUIDS: 100 mL of normal saline. PROCEDURE INDICATION: Chronic low back pain secondary to Facet arthropathy unresponsive to conservative treatment. PROCEDURE DESCRIPTION: the patient was seen and identified in the preop holding area , risks and benefits and possible complications of the procedure and alternative were discussed with the patient, and the patient agreed to proceed with the procedure and signed the consent IV was started and vital signs monitored during the procedure and fluoroscopy was used to maximize the benefit and accuracy of the needle placement, and sedation was given to decrease patient anxiety, patient was taken to the procedure room and placed in prone position vital signs monitored in the back prepped with chlorhexidine X3 then under strict sterile technique using a right oblique fluoroscopy ,the junction of the transverse process and the superior articulating process of the right L3- 4 , L4- 5, and L5-S1 vertebra which corresponding to the fluoroscopy image of the eye of the Zurdo dog on the block side for the medial branches and subsequently , after local infiltration of skin and subcu tissuies with lidocaine 1% one mL at each level ,then 25- gauge Quincke-type needles , 3 needle was used , each one of them placed at the junction of the base of the transverse process and the superior articular process at the appropriate level, and the needle was advanced until the periosteum contacted, needle placement confirmed with AP oblique and lateral view and after appropriate needle placement confirmed, and after negative aspiration for heme and CSF and there was no paresthesia 1-1/2 mL of Marcaine 0.5% used , then half mL injected at each level after negative aspiration the needle subsequently removed and the same procedure repeated for the left side at left side at L3-4, L4- 5 and L5-S1 levels. At the end of the procedure and the needles removed and a bandage applied after the skin was cleaned the cleaning solution patient taken to recovery room in stable condition and monitors in the recovery room for 20-30 minutes and discharged home in stable condition after discharge criteria met and patient will follow up with the pain clinic in 2-4 weeks No steroid was used for the procedure today
--- NOTE | 2016-09-29 11:41 | FL ---
EXAMINATION TYPE: FL guided pain mgmt statistic DATE OF EXAM: 09/29/2016 11:32 AM HISTORY: Pain BILATERAL LUMBAR FACET, FLUORO TIME 7 SECONDS, 4 IMAGES SCANNED,
[2016-09-29] MEDS ORDERED: IV FLUID CONTINUATION 800 ML IV ONE (11:43)
[2016-09-29 11:57] VITALS: BP 96/65; PULSE 68
== END 2016-09-29 12:09 | disposition home or self-care (01) ==
LOC: ORPAIN 10:42
PROVIDERS: ATTEND Specialist
DX: G89.29 Other chronic pain (principal); M54.5 Low back pain; M47.816 Spondylosis without myelopathy or radiculopathy, lumbar region; M46.96 Unspecified inflammatory spondylopathy, lumbar region; M79.7 Fibromyalgia; Z88.8 Allergy status to other drugs, medicaments and biological substances; Z91.09 Other allergy status, other than to drugs and biological substances
CPT/HCPCS: 81025; 64493; 64494; 64495; 99152; J2250; J3010

== ENCOUNTER 2016-10-09 10:22 | Emergency (ER) | payer OTHER ==
[2016-10-09 10:26] VITALS: BP 150/82; PULSE 106; RESP 18; TEMP 97.5
[2016-10-09] MEDS ORDERED: PENICILLIN V POTASSIUM 250 MG TAB PO STA (10:34)
[2016-10-09] MEDS ORDERED: ACETAMINOPHEN TAB 325 MG TAB PO STA (10:38)
--- NOTE | 2016-10-09 10:38 | ED ---
ENT HPI - General Chief complaint: Dental/Oral Stated complaint: DENTAL PAIN Time Seen by Provider: 10/09/16 10:28 Source: patient, RN notes reviewed Mode of arrival: ambulatory Limitations: no limitations - History of Present Illness Initial comments: Patient is a 30-year-old female presents emergency room for evaluation dental pain. Patient states she has a broken left lower tooth. Patient states the pain is bothering her for the past few days. Patient states she was unable to sleep last night due to pain. Patient states she called her dentist on and cannot get an appointment until the end of this month. patient denies any fevers or chills. Patient denies dizziness. Patient denies chest pain or shortness of breath. Patient denies trouble swallowing. Patient denies neck pain. - Related Data Home Medications Medication Instructions Recorded Confirmed Fluticasone Nasal [place] [Flonase 1 spray EA NOSTRIL DAILY PRN 07/14/16 09/28/16 Nasal [place]] Pregabalin [Lyrica] 25 mg PO TID 08/23/16 09/28/16 Acetaminophen Tab [Tylenol Tab] 650 mg PO Q6H PRN 09/19/16 09/28/16 Aspirin 325 mg PO DAILY 09/19/16 09/28/16 Previous Rx's Medication Instructions Recorded HYDROcodone/APAP 5-325MG [[place] 1 tab PO Q6HR PRN #12 tab 10/09/16 5-325] Penicillin V Potassium [Pen Vee K] 500 mg PO QID #28 tab 10/09/16 Allergies Allergy/AdvReac Type Severity Reaction Status Date / Time adhesive tape Allergy Rash/Hives Verified 10/09/16 10:26 triamcinolone [From Kenalog] Allergy Dyspnea/Yony Verified 10/09/16 10:26 h Review of Systems ROS Statement: Those systems with pertinent positive or pertinent negative responses have been documented in the HPI. ROS Other: All systems not noted in ROS Statement are negative. Past Medical History Past Medical History: Fibromyalgia Additional Past Medical History / Comment(s): BACK PAIN AND DEGENERATIVE DISC ISSUES, Migraines,. nerve damage to marlene ring and pinky finger up marlene arms, scoliosis, possibel MS beign worked up for this (dr. Cm managing) History of Any Multi-Drug Resistant Organisms: None Reported Past Surgical History: Appendectomy Additional Past Surgical History / Comment(s): pain procedure on neck 03/13, pain procedure on back at begining of month (August 2016). Past Anesthesia/Blood Transfusion Reactions: No Reported Reaction Past Psychological History: Anxiety, Depression Smoking Status: Current every day smoker Past Alcohol Use History: None Reported Additional Past Alcohol Use History / Comment(s): started smoking age 14 1ppd Past Drug Use History: None Reported - Past Family History Brother(s) Additional Family Medical History / Comment(s): purnima-sachs General Exam - General Exam Comments Initial Comments: exam room , slightly anxious secondary to pain. Limitations: no limitations General appearance: alert Head exam: Present: atraumatic, normocephalic, normal inspection Eye exam: Present: normal appearance, PERRL, EOMI ENT exam: Present: TM's normal bilaterally, normal external ear exam, other ( slight edema along left mandible) Expanded Teeth exam: Present: fractured tooth # (18), dental tenderness # (18) Throat exam: normal inspection Neck exam: Present: normal inspection, full ROM. Absent: tenderness, lymphadenopathy Respiratory exam: Absent: respiratory distress Extremities exam: Present: normal inspection Back exam: Present: normal inspection Neurological exam: Present: alert, oriented X3, CN II-XII intact, normal gait Psychiatric exam: Present: normal affect, normal mood Skin exam: Present: warm, dry, intact, normal color. Absent: rash Course Vital Signs 10/09/16 10:24 Temperature 97.5 F L Pulse Rate 106 H Respiratory 18 Rate Blood Pressure 150/82 O2 Sat by Pulse 100 Oximetry Medical Decision Making - Medical Decision Making patient is a 30-year-old female presents emergency room for evaluation of dental pain from fractured tooth. Place patient on antibiotics and pain medications until she can follow up with a dentist. Will provide patient with dental clinics. Patient states she understands everything that was discussed with her. Return parameters discussed. Case discussed Dr. Kwon. Disposition Clinical Impression: Pain, dental Disposition: HOME SELF-CARE Condition: Good Instructions: Dental Caries (ED), Toothache (ED) Additional Instructions: Please follow up with a dentist. If you do not have a dentist, you may contact [facility]. Phone number is [phone] for existing clients. For new clients you may call [phone]. Another option is you have is the [facility] dental school. Phone number is [phone]. Medications as directed. [place] gargles. Cold fluids can sometimes help with pain as well. Return to the Emergency Room for any worsening or changing symptoms. Use cold compresses to the outside of the face. Prescriptions: HYDROcodone/APAP 5-325MG [[place] 5-325] 1 tab PO Q6HR PRN #12 tab PRN Reason: Pain Penicillin V Potassium [Pen Vee K] 500 mg PO QID #28 tab Referrals: Rodriguez Power MD [Primary Care Provider] - 1-2 days Time of Disposition: 10:36
== END 2016-10-09 10:57 | disposition home or self-care (01) ==
LOC: EC 10:22
DX: K08.89 Other specified disorders of teeth and supporting structures (principal); M79.7 Fibromyalgia; F17.200 Nicotine dependence, unspecified, uncomplicated; Z91.048 Other nonmedicinal substance allergy status; Z88.8 Allergy status to other drugs, medicaments and biological substances; Z79.82 Long term (current) use of aspirin; Z79.899 Other long term (current) drug therapy
CPT/HCPCS: 99282

== ENCOUNTER 2016-10-25 06:42 | Day surgery (SDC) | payer OTHER ==
[2016-10-25 06:57] VITALS: RESP 16; TEMP 98.4
[2016-10-25] MEDS ORDERED: LIDOCAINE 1% 20 ML VIAL (10MG/ML) FOR IV START INTRADERMA ONE (07:00)
[2016-10-25] MEDS ORDERED: fentaNYL (PF) 50 MCG/ML 2 ML AMP ONE (07:45)
[2016-10-25] MEDS ORDERED: DEXAMETHASONE SOD PHOSPHATE 10 MG/ML 1 ML VIAL ONE (07:45)
[2016-10-25] MEDS ORDERED: BUPIVACAINE (PF) 0.5% 30 ML VIAL ONE (07:45)
[2016-10-25] MEDS ORDERED: MIDAZOLAM 2 MG/2 ML VIAL ONE (07:45)
--- NOTE | 2016-10-25 08:26 | P.PCN ---
Date of Procedure: 10/25/16 Preoperative Diagnosis: Postoperative Diagnosis: Procedure(s) Performed: PREOPERATIVE DIAGNOSIS: 1-Lumbar Spondylosis with Facet Arthropathy without myelopathy. POSTOPERATIVE DIAGNOSIS: 1- Lumbar Spondylosis with Facet Arthropathy without myelopathy. PROCEDURES : Right Radiofrequency thermocoagulation, L3-L4, L4-L5, and L5-S1 medial branch, with fluoroscopic guidance ANESTHESIA: IV sedation with versed 4 mg and fentaneyl 100 mcg and local infiltration with lidocaine 1% 6 ml EBL: Minimal PROCEDURE INDICATION: The patient with low back pain secondary to lumbar facet arthropathy who had more than 50% relief of her pain with previous diagnostic lumbar medial branch block with bupivacaine. PROCEDURE DESCRIPTION / TECHNIQUE: The patient was seen and identified in the preoperative area. Risks, benefits, complications, including but not limited to risk of infection ,bleeding , allergic reactions to the medications and no complete pain releife , and alternatives were discussed with the patient, the patient agreed to proceed with the procedure and signed the consent. IV was started. Vital signs remained stable throughout the procedure. Patient was taken to the OR and time out was completed. The patient was placed in the prone position on the procedure table. The lumber area was prepped and draped in the usual sterile fashion. . Vital signs were closely monitored during the procedure .IV sedation was used during the procedure to decrease patients anxiety. Using AP and then oblique fluoroscopy, the ``eye of the Zurdo dog corresponding to the connection between the superior and transverse articular processes of right L3, L4, and L5 were identified, marked, and localized with 1 % lidocaine. Subsequently, a 18 -tu radiofrequency cannula with a 10- mm active tip was advanced guided by fluoroscopy to each of the ``eyes of the Zurdo dog at right L3, L4, and L5. Each site then underwent sensory testing at 50 Hz and 0 to 1 volt and motor testing at 2.5 Hz and 0 to 3 volt with local stimulation, but no radicular symptoms down the legs. Thereafter the right L3-4, L4-5, and L5-S1 sites underwent radiofrequency thermocoagulation at 80 degrees celsius for 90 seconds after injecting 0.5 ml of PF lidocaine 1%. then After the thermocoagulation done , 1 ml of the block solution containing decadrone 10 mg, and 3 ml of marain 0.5% was injected at the right L3-4 , L4-5 , and L5-S1, levels after negative aspiration of CSF and blood and with no paresthesias. Cannulas were retracted while injecting lidocaine 1% until the needle is out. At the end of the procedure, the skin was cleansed and bandages were applied. COMPLICATIONS: No acute complications. DISPOSITION / PLANS: The patient was placed in a supine position and transferred to the recovery area in a stable condition for observation and was discharged from the recovery room after meeting discharge criteria. Home discharge instructions given to the patient by the staff. The patient was reexamined prior to discharge. The patient will schedule a follow up in the clinic in 2-4 weeks. Implants: Indications for Procedure: Operative Findings: Description of Procedure:
[2016-10-25] MEDS ORDERED: IV FLUID CONTINUATION 500 ML IV ONE (08:35)
--- NOTE | 2016-10-25 08:35 | FL ---
Fluoroscopy INDICATION: Pain FINDINGS: Fluoroscopy time: 12 seconds. Images obtained: 3. IMPRESSIONS: 1. Documentation of fluoroscopy.
[2016-10-25 09:12] VITALS: BP 97/67; PULSE 68
== END 2016-10-25 09:15 | disposition home or self-care (01) ==
LOC: ORPAIN 06:42
PROVIDERS: ATTEND Specialist
DX: M46.96 Unspecified inflammatory spondylopathy, lumbar region (principal); M47.816 Spondylosis without myelopathy or radiculopathy, lumbar region; Z88.8 Allergy status to other drugs, medicaments and biological substances
CPT/HCPCS: 81025; 64635; 64636 ×2; 99152; 99153 ×2; J2250; J1100; J3010

== ENCOUNTER 2016-10-30 13:23 | Emergency (ER) | payer OTHER ==
[2016-10-30 13:30] VITALS: BP 128/87; PULSE 90; RESP 20; TEMP 98.6
--- NOTE | 2016-10-30 13:48 | ED ---
General Adult HPI - General Chief complaint: Recheck/Abnormal Lab/Rx Stated complaint: finger injury/nausea Time Seen by Provider: 10/30/16 13:31 Source: patient, RN notes reviewed, old records reviewed Mode of arrival: ambulatory Limitations: no limitations - History of Present Illness Initial comments: This is a 31-year-old female presenting to the emergency department with chief complaint of right finger pain. Patient reports that yesterday she cut it with hedge clippers and went to [facility]. Patient reports that she was safe stitches. No x-ray was completed. Patient reports that she was given sutures and discharge of antibiotics. Patient reports that the pain is severe and that she's having a hard time dealing with the pain. Patient states she feels nauseated. Denies any fever or chills. She states that she is The area covered. No drainage or any signs of infection from the cut.Patient denies any recent fever, chills, shortness of breath, chest pain, back pain, abdominal pain , nausea vomiting, numbness or tingling, dysuria or hematuria, constipation or diarrhea, headaches or visual changes, or any other current symptoms - Related Data Home Medications Medication Instructions Recorded Confirmed Pregabalin [Lyrica] 50 mg PO TID 10/30/16 10/30/16 Previous Rx's Medication Instructions Recorded Acetaminophen-Codeine 300-30mg 1 tab PO Q4H PRN #12 tablet 10/30/16 [Tylenol #3] Allergies Allergy/AdvReac Type Severity Reaction Status Date / Time adhesive tape Allergy Rash/Hives Verified 10/30/16 13:30 triamcinolone [From Kenalog] Allergy Dyspnea/Yony Verified 10/30/16 13:30 h Review of Systems ROS Statement: Those systems with pertinent positive or pertinent negative responses have been documented in the HPI. ROS Other: All systems not noted in ROS Statement are negative. Past Medical History Past Medical History: Fibromyalgia Additional Past Medical History / Comment(s): BACK PAIN AND DEGENERATIVE DISC ISSUES, Migraines,. nerve damage to marlene ring and pinky finger up marlene arms, scoliosis, possibel MS stephanie worked up for this (dr. Cm managing) History of Any Multi-Drug Resistant Organisms: None Reported Past Surgical History: Appendectomy Additional Past Surgical History / Comment(s): pain procedure on neck 03/13, pain procedure on back at begining of month (August 2016). Past Anesthesia/Blood Transfusion Reactions: No Reported Reaction Past Psychological History: Anxiety, Depression Smoking Status: Current every day smoker Past Alcohol Use History: None Reported Additional Past Alcohol Use History / Comment(s): started smoking age 14 1ppd Past Drug Use History: None Reported - Past Family History Brother(s) Additional Family Medical History / Comment(s): purnima-pam General Exam - General Exam Comments Initial Comments: Pleasant 31-year-old female. No acute distress. Limitations: no limitations General appearance: alert, in no apparent distress Head exam: Present: atraumatic, normocephalic, normal inspection Eye exam: Present: normal appearance, PERRL, EOMI. Absent: scleral icterus, conjunctival injection, periorbital swelling ENT exam: Present: normal exam, mucous membranes moist Neck exam: Present: normal inspection. Absent: tenderness, meningismus, lymphadenopathy Respiratory exam: Present: normal lung sounds bilaterally. Absent: respiratory distress, wheezes, rales, rhonchi, stridor Cardiovascular Exam: Present: regular rate, normal rhythm, normal heart sounds. Absent: systolic murmur, diastolic murmur, rubs, gallop, clicks GI/Abdominal exam: Present: soft, normal bowel sounds. Absent: distended, tenderness, guarding, rebound, rigid Extremities exam: Present: normal inspection, full ROM, normal capillary refill. Absent: tenderness, pedal edema, joint swelling, calf tenderness Back exam: Present: normal inspection Neurological exam: Present: alert, oriented X3, CN II-XII intact Psychiatric exam: Present: normal affect, normal mood Skin exam: Present: warm, dry, intact, normal color, other (evidence of finger laceartionclosed with approximately 8 sutures. ). Absent: rash Course Vital Signs 10/30/16 13:27 Temperature 98.6 F Pulse Rate 90 Respiratory 20 Rate Blood Pressure 128/87 O2 Sat by Pulse 99 Oximetry Medical Decision Making - Medical Decision Making This is a 31-year-old female presenting to the emergency department with chief complaint of right finger pain. Patient reports that yesterday she cut it with hedge clippers and went to [facility]. Patient reports that she was safe stitches. No x-ray was completed. Patient reports that she was given sutures and discharge of antibiotics. Patient reports that the pain is severe and that she's having a hard time dealing with the pain. Patient states she feels nauseated. Denies any fever or chills. She states that she is The area covered. No drainage or any signs of infection from the cut.Patient denies any recent fever, chills, shortness of breath, chest pain, back pain, abdominal pain , nausea vomiting, numbness or tingling, dysuria or hematuria, constipation or diarrhea, headaches or visual changes, or any other current symptoms. Xray negative for fracture. No evidence of infection around sutures. PAtietn will be given a short course of pain medication .Discussed monitor for infection and follow up with [facility] for suture removal. Disposition Clinical Impression: Finger pain Disposition: HOME SELF-CARE Condition: Good Instructions: Finger Laceration (ED) Additional Instructions: Patient advised to continue to take antibiotics. He is a medicine as needed. Return to emergency department if any alarming signs or symptoms occur. Prescriptions: Acetaminophen-Codeine 300-30mg [Tylenol #3] 1 tab PO Q4H PRN #12 tablet PRN Reason: Pain Referrals: Rodriguez Power MD [Primary Care Provider] - 1-2 days Jeet Sanchez DO [Doctor of Osteopathic Medicine] - 1-2 days Time of Disposition: 13:55
--- NOTE | 2016-10-30 14:48 | XR ---
EXAMINATION TYPE: XR finger RT DATE OF EXAM: 10/30/2016 1:51 PM COMPARISON: NONE HISTORY: Laceration TECHNIQUE: 3 views FINDINGS: There is soft tissue deformity at the lateral aspect of the proximal phalanx consistent wit h laceration. I see no foreign body. Joint spaces are normal. There is no sign of a fracture. IMPRESSION: Laceration deformity. No fracture.
== END 2016-10-30 14:05 | disposition home or self-care (01) ==
LOC: EC 13:23
DX: M79.644 Pain in right finger(s) (principal); R11.0 Nausea; F17.200 Nicotine dependence, unspecified, uncomplicated; Z79.899 Other long term (current) drug therapy; Z88.8 Allergy status to other drugs, medicaments and biological substances; Z91.09 Other allergy status, other than to drugs and biological substances
CPT/HCPCS: 99283

== ENCOUNTER → 2016-11-01 | Outpatient (CLI) | payer OTHER ==
--- NOTE | 2016-11-01 11:52 | EST ---
DATE OF SERVICE: 11/01/2016 AGE: 31Y SEX: F HT: 65 WT: 120 lbs. Protocol Rock: X Other: Stage: III Dur. of Exercise: 10 minutes *Heart Rate Blood Pressure *Rest: 79 Rest: 112/72 * *Max. Achieved: 139 Maximum BP: 176/58 85% PMHR: 159 100% PMHR: 187 *METS: 11.7 INDICATION OF THE STUDY: Chest pain. MEDICATIONS: STRESS DATA: Pretesting physical examination showed a heart rate of 79, pressure is 112/72 mmHg. Baseline EKG showed sinus rhythm. The patient exercised on the treadmill according to Rock protocol for a total of 10 minutes and achieved 11.7 METs. The max heart rate was 139, which is about 74% of maximum predicted heart rate. Maximum blood pressure was 176/58 mmHg. Clinically, the patient developed chest discomfort in response to exercise. The EKG did not show any significant ST or T wave abnormalities consistent with ischemia or meeting the criteria for ischemia. CONCLUSION: 1. Excellent exercise capacity. 2. The patient developed chest discomfort in response to exercise. 3. Normal EKG in response to exercise up to the level was achieved, which is only 74% of maximum predicted heart rate. 4. Overall this is indeterminate stress test due to patient not achieving 85% of maximum predicted heart rate.
== END | disposition home or self-care (01) ==
LOC: RADNMMAIN 10:21
PROVIDERS: ATTEND Internal Medicine
DX: R07.89 Other chest pain (principal)
CPT/HCPCS: 93017

== ENCOUNTER 2016-12-01 12:32 | Day surgery (SDC) | payer OTHER ==
[2016-11-25 12:20] VITALS: BMI 19.6
[~2016-12-01 12:32] MED LIST changes: +LACTATED RINGERS 1,000 ML IV ONE; -LACTATED RINGERS 1,000 ML IV SCH
[2016-12-01] MEDS ORDERED: LIDOCAINE 1% 20 ML VIAL (10MG/ML) FOR IV START INTRADERMA ONE (12:55)
[2016-12-01 13:00] VITALS: TEMP 98.4
[2016-12-01] MEDS ORDERED: BUPIVACAINE (PF) 0.25% 30 ML VIAL ONE (13:57)
[2016-12-01] MEDS ORDERED: MIDAZOLAM 2 MG/2 ML VIAL ONE (13:57)
[2016-12-01] MEDS ORDERED: fentaNYL (PF) 50 MCG/ML 2 ML AMP ONE (13:57)
--- NOTE | 2016-12-01 14:24 | P.PCN ---
Date of Procedure: 12/01/16 Preoperative Diagnosis: Postoperative Diagnosis: Procedure(s) Performed: PREOPERATIVE DIAGNOSIS: 1-Lumbar Spondylosis with Facet Arthropathy without myelopathy. POSTOPERATIVE DIAGNOSIS: 1- Lumbar Spondylosis with Facet Arthropathy without myelopathy. PROCEDURES : Left Radiofrequency thermocoagulation, L3-L4, L4-L5, and L5-S1 medial branch, with fluoroscopic guidance ANESTHESIA: IV sedation with versed 4 mg and fentaneyl 100 mcg and local infiltration with lidocaine 1% 6 ml EBL: Minimal PROCEDURE INDICATION: The patient with low back pain secondary to lumbar facet arthropathy who had more than 50% relief of her pain with previous diagnostic lumbar medial branch block with bupivacaine. PROCEDURE DESCRIPTION / TECHNIQUE: The patient was seen and identified in the preoperative area. Risks, benefits, complications, including but not limited to risk of infection ,bleeding , allergic reactions to the medications and no complete pain releife , and alternatives were discussed with the patient, the patient agreed to proceed with the procedure and signed the consent. IV was started. Vital signs remained stable throughout the procedure. Patient was taken to the OR and time out was completed. The patient was placed in the prone position on the procedure table. The lumber area was prepped and draped in the usual sterile fashion. . Vital signs were closely monitored during the procedure .IV sedation was used during the procedure to decrease patients anxiety. Using AP and then oblique fluoroscopy, the ``eye of the Zurdo dog corresponding to the connection between the superior and transverse articular processes of left L3, L4, and L5 were identified, marked, and localized with 1 % lidocaine. Subsequently, a [id number] radiofrequency cannula with a 10- mm active tip was advanced guided by fluoroscopy to each of the ``eyes of the Zurdo dog at left L3, L4, and L5. Each site then underwent sensory testing at 50 Hz and 0 to 1 volt and motor testing at 2.5 Hz and 0 to 3 volt with local stimulation, but no radicular symptoms down the legs. Thereafter the left L3-4, L4-5, and L5-S1 sites underwent radiofrequency thermocoagulation at 80 degrees celsius for 90 seconds after injecting 0.5 ml of PF lidocaine 1%. then After the thermocoagulation done , 1 ml of the block solution containing Kenalog 40 mg and 3 ml of marain 0.5% was injected at the left L3-4 , L4-5 , and L5-S1, levels after negative aspiration of CSF and blood and with no paresthesias. Cannulas were retracted while injecting lidocaine 1% until the needle is out. At the end of the procedure, the skin was cleansed and bandages were applied. COMPLICATIONS: No acute complications. DISPOSITION / PLANS: The patient was placed in a supine position and transferred to the recovery area in a stable condition for observation and was discharged from the recovery room after meeting discharge criteria. Home discharge instructions given to the patient by the staff. The patient was reexamined prior to discharge. The patient will schedule a follow up in the clinic in 2-4 weeks. Implants: Indications for Procedure: Operative Findings: Description of Procedure:
[2016-12-01] MEDS ORDERED: IV FLUID CONTINUATION 1,000 ML IV ONE (14:34)
--- NOTE | 2016-12-01 14:37 | FL ---
EXAMINATION TYPE: FL guided pain mgmt statistic DATE OF EXAM: 12/01/2016 HISTORY: Pain 17sec fluoro time. 3 images scanned.
[2016-12-01 14:40] VITALS: RESP 18
[2016-12-01 14:56] VITALS: PULSE 60
[2016-12-01] MEDS ORDERED: KETOROLAC 30 MG/ML 1 ML VIAL IVP ONE (15:10)
[2016-12-01 15:44] VITALS: BP 96/56
== END 2016-12-01 15:44 | disposition home or self-care (01) ==
LOC: ORPAIN 12:32
PROVIDERS: ATTEND Specialist
DX: M47.816 Spondylosis without myelopathy or radiculopathy, lumbar region (principal); M46.96 Unspecified inflammatory spondylopathy, lumbar region; Z88.8 Allergy status to other drugs, medicaments and biological substances; Z91.048 Other nonmedicinal substance allergy status
CPT/HCPCS: 99152; 81025; 64635; 64636; J2250; J3010; J1885

== ENCOUNTER 2017-01-09 15:23 | Emergency (ER) | payer OTHER ==
[2017-01-09 15:30] VITALS: BP 132/82; PULSE 109; RESP 18; TEMP 98.6
--- NOTE | 2017-01-09 16:04 | ED ---
ENT HPI - General Chief complaint: Dental/Oral Stated complaint: dental pain Time Seen by Provider: 01/09/17 15:47 Source: patient, RN notes reviewed Mode of arrival: ambulatory Limitations: no limitations - History of Present Illness Initial comments: 31-year-old female presents emergency Department chief complaint of left lower dental pain. Patient states she had a bad tooth but states that she had cancer appointment because she is having nerves burn to her back and they told her that they did not know when she can get back in foot. Patient states that she has broken tooth and another one cracked. She did call a dentist and has an appointment in over 2 weeks. Patient states that she's had no fever no chills. Patient states that she does not currently take any pain medications. - Related Data Home Medications Medication Instructions Recorded Confirmed Pregabalin [Lyrica] 50 mg PO TID 10/30/16 12/01/16 Acetaminophen Tab [Tylenol Tab] 1,000 mg PO Q6HR PRN 01/09/17 01/09/17 Previous Rx's Medication Instructions Recorded Hydrocodone/Acetaminophen [[address] 1 tab PO Q6HR PRN #20 tab 01/09/17 5-325] Penicillin V Potassium [Pen Vee K] 500 mg PO QID #40 tab 01/09/17 Allergies Allergy/AdvReac Type Severity Reaction Status Date / Time triamcinolone [From Kenalog] Allergy Dyspnea/Yony Verified 01/09/17 15:56 h adhesive tape AdvReac Rash/Hives Verified 01/09/17 15:56 ibuprofen AdvReac GERD Verified 01/09/17 15:56 Review of Systems ROS Statement: Those systems with pertinent positive or pertinent negative responses have been documented in the HPI. ROS Other: All systems not noted in ROS Statement are negative. Past Medical History Past Medical History: Fibromyalgia Additional Past Medical History / Comment(s): BACK PAIN AND DEGENERATIVE DISC ISSUES, Migraines,. nerve damage to marlene ring and pinky finger up marlene arms, scoliosis, possibel MS beign worked up for this (dr. Cm managing) History of Any Multi-Drug Resistant Organisms: None Reported Past Surgical History: Appendectomy Additional Past Surgical History / Comment(s): pain procedure on neck 03/13, pain procedure on back at begining of month (August 2016). Past Anesthesia/Blood Transfusion Reactions: No Reported Reaction Past Psychological History: Anxiety, Depression Smoking Status: Current every day smoker - Past Family History Brother(s) Additional Family Medical History / Comment(s): purnima-sachs General Exam Limitations: no limitations General appearance: alert, in no apparent distress Head exam: Present: atraumatic, normocephalic, normal inspection Eye exam: Present: normal appearance, PERRL, EOMI. Absent: scleral icterus, conjunctival injection, periorbital swelling ENT exam: Present: mucous membranes moist, TM's normal bilaterally, normal external ear exam. Absent: normal oropharynx (Left lower dental fracture, no drainable abscess there is mild erythema of the gumline) Neck exam: Present: normal inspection, full ROM. Absent: tenderness, meningismus, lymphadenopathy Respiratory exam: Present: normal lung sounds bilaterally. Absent: respiratory distress, wheezes, rales, rhonchi, stridor Cardiovascular Exam: Present: regular rate, normal rhythm, normal heart sounds. Absent: systolic murmur, diastolic murmur, rubs, gallop, clicks Course Vital Signs 01/09/17 15:28 Temperature 98.6 F Pulse Rate 109 H Respiratory 18 Rate Blood Pressure 132/82 O2 Sat by Pulse 100 Oximetry Medical Decision Making - Medical Decision Making 31-year-old female presented for dental pain. Patient be started on antibiotics and pain medication she is advised follow-up with dentist as soon as possible return parameters were discussed. Disposition Clinical Impression: Dental abscess, Fracture of tooth Disposition: HOME SELF-CARE Condition: Stable Instructions: Dental Abscess (ED) Additional Instructions: Please return to the Emergency Department if symptoms worsen or any other concerns. Prescriptions: Hydrocodone/Acetaminophen [[address] 5-325] 1 tab PO Q6HR PRN #20 tab PRN Reason: Pain Penicillin V Potassium [Pen Vee K] 500 mg PO QID #40 tab Referrals: Rodriguez Power MD [Primary Care Provider] - 1-2 days Time of Disposition: 16:04
== END 2017-01-09 16:10 | disposition home or self-care (01) ==
LOC: EC 15:23
DX: S02.5XXA Fracture of tooth (traumatic), initial encounter for closed fracture (principal); K04.7 Periapical abscess without sinus; M79.7 Fibromyalgia; F41.9 Anxiety disorder, unspecified; F17.200 Nicotine dependence, unspecified, uncomplicated; Z79.899 Other long term (current) drug therapy; Z88.6 Allergy status to analgesic agent; Z88.8 Allergy status to other drugs, medicaments and biological substances; Z91.048 Other nonmedicinal substance allergy status
CPT/HCPCS: 99282

== ENCOUNTER → 2017-01-18 | Outpatient (CLI) | payer OTHER ==
[2017-01-18 14:22] VITALS: BP 114/70; PULSE 82; RESP 18; TEMP 97.9
--- NOTE | 2017-01-18 20:39 | P.CONS ---
History of Present Illness - Reason for Consult Consult date: 01/18/17 - History of Present Illness This is a follow-up visit for this 31 years old female with a chronic history of severe low back pain she was diagnosed with lumbar spondylosis with facet arthropathy, recently we did a radiofrequency ablation of the medial branch lumbar area, reported that her low back pain improved significantly, but currently she is experiencing mid back pain, otherwise around the shoulder blade area and midthoracic area, denies any fever or night sweats which she denies any change in the bowel movement or urination and she reported that she used Neurontin in the past without any benefit and she is currently on Lyrica without any benefit Past Medical History Past Medical History: Fibromyalgia Additional Past Medical History / Comment(s): BACK PAIN AND DEGENERATIVE DISC ISSUES, Migraines,. nerve damage to marlene ring and pinky finger up marlene arms, scoliosis, possibel MS brown worked up for this (dr. Cm managing) History of Any Multi-Drug Resistant Organisms: None Reported Past Surgical History: Appendectomy Additional Past Surgical History / Comment(s): pain procedure on neck 03/13, pain procedure on back at begining of month (August 2016). Past Anesthesia/Blood Transfusion Reactions: No Reported Reaction Past Psychological History: Anxiety, Depression Smoking Status: Current every day smoker Past Alcohol Use History: None Reported Additional Past Alcohol Use History / Comment(s): started smoking age 14 1ppd Past Drug Use History: None Reported - Past Family History Brother(s) Additional Family Medical History / Comment(s): purnima-sac Medications and Allergies Home Medications Medication Instructions Recorded Confirmed Type Pregabalin [Lyrica] 50 mg PO TID 10/30/16 01/18/17 History Acetaminophen Tab [Tylenol Tab] 1,000 mg PO Q6HR PRN 01/09/17 01/09/17 History Allergies Allergy/AdvReac Type Severity Reaction Status Date / Time triamcinolone [From Kenalog] Allergy Dyspnea/Yony Verified 01/18/17 14:13 h adhesive tape AdvReac Rash/Hives Verified 01/18/17 14:13 ibuprofen AdvReac GERD Verified 01/18/17 14:13 Physical Exam Vitals: Vital Signs Temp Pulse Resp BP 01/18/17 14:15 97.9 F 82 18 114/70 Intake and Output 01/18/17 01/18/1717 06:59 14:59 22:59 Other: Weight 52.617 kg Patient Weight 01/19/17 06:59 Weight 52.617 kg Physical Examinations : 1-Constitutiona : Cooperative , not in acute distress . 2-HEENT : nech ; supple , no Lymphadenopathy , normal thyroid size . eyes : no ptosis , no icterus, no photophobia . ENT : normal of hearing , normal oropharynx , no Thrush . 3- Respiratory : Chest clear to auscultations Bilaterally , no wheezing , no Rhonchi . 4- Cardiovascular : regular rate and rhythem , S1 , S2 , no S3 , no S4. 5- Gastrointestinal : abdomen soft no tenderness , bowel sounds positive all four quadrents , no organomegally . 6- Genitourinary : Defferred . 7- neurologic : Cranial nerve II to XII intact , no focal neurological deffecit . 8-psychatric : alert , oriented X 3 , appropriate affect , intact judgment and insight . 9-Lymphatic : no Lymphadenopathy . 10- musculoskeltal : Low trigger point identified in the thoracic paravertebral muscles from T4 through T9 Lumber spine = normal moter stegnth lower extremities ,thigh and legs .5/5 Assessment and Plan Plan: Assessment and plan= chronic low back pain secondary to lumbar spondylosis with lumbar facet arthropathy , moved after the radiofrequency ablation of the median branch Back pain secondary to myofascial component (new ) Medication managements= patient will be given prescription for 1-Ultram 50 mg half a tablet to 1 tablet twice a day is spent 60 with 1 refile , Flexeril 10 mg twice a day dispence 60 with one refle, Also she could benefit from Voltaren gel 1% to be applied to the midback area twice daily , also patient could benefit from trigger point injections and physical therapy , she reported that she is working currently ,and she cannot go to physical therapy , she will try interventional pain management, before she can commit to physical therapy Time with Patient: Less than 30
== END | disposition home or self-care (01) ==
LOC: PNWHC3 13:50
PROVIDERS: ATTEND Specialist
DX: M47.816 Spondylosis without myelopathy or radiculopathy, lumbar region (principal); M46.86 Other specified inflammatory spondylopathies, lumbar region; M79.7 Fibromyalgia; F41.9 Anxiety disorder, unspecified; F32.9 Major depressive disorder, single episode, unspecified; F17.200 Nicotine dependence, unspecified, uncomplicated; Z79.899 Other long term (current) drug therapy; Z88.6 Allergy status to analgesic agent; Z91.09 Other allergy status, other than to drugs and biological substances
CPT/HCPCS: 99211

== ENCOUNTER 2017-02-03 14:05 | Emergency (ER) | payer OTHER ==
[2017-02-03 14:16] VITALS: BP 138/85; PULSE 112; RESP 18; TEMP 98.8
--- NOTE | 2017-02-03 14:27 | ED ---
ENT HPI - General Chief complaint: ENT Stated complaint: Dental Pain Time Seen by Provider: 02/03/17 14:14 Source: patient, RN notes reviewed, old records reviewed Mode of arrival: ambulatory - History of Present Illness Initial comments: 31-year-old female presents emergency room chief complaint of dental pain. Patient which is any an apple 2 days ago and chipped her tooth 6. Patient states that she has chronically poor dentition. She does see a dentist in [place] but was unable to get in to see them. Patient reports that she has not been able to eat or drink anything due to pain. She is using Orajel regularly. Patient denies any fever or chills. She did take some penicillin she had left over from previous prescription last night. Patient denies any foul odor or discharge around the tooth. Patient that she is normal see Trudy sanchez.Patient denies any recent fever, chills, shortness of breath, chest pain, back pain, abdominal pain, nausea vomiting, numbness or tingling, dysuria or hematuria, constipation or diarrhea, headaches or visual changes, or any other current symptoms - Related Data Home Medications Medication Instructions Recorded Confirmed Pregabalin [Lyrica] 50 mg PO TID 10/30/16 01/18/17 Acetaminophen Tab [Tylenol Tab] 1,000 mg PO Q6HR PRN 01/09/17 01/09/17 traMADol HCl [Ultram] 50 mg PO BID 01/19/17 01/19/17 Previous Rx's Medication Instructions Recorded Acetaminophen-Codeine 300-30mg 1 tab PO Q6H PRN #12 tablet 02/03/17 [Tylenol #3] Penicillin V Potassium [Pen Vee K] 500 mg PO QID #40 tab 02/03/17 Allergies Allergy/AdvReac Type Severity Reaction Status Date / Time triamcinolone [From Kenalog] Allergy Dyspnea/Yony Verified 01/18/17 14:13 h adhesive tape AdvReac Rash/Hives Verified 01/18/17 14:13 ibuprofen AdvReac GERD Verified 01/18/17 14:13 Review of Systems ROS Statement: Those systems with pertinent positive or pertinent negative responses have been documented in the HPI. ROS Other: All systems not noted in ROS Statement are negative. Past Medical History Past Medical History: Fibromyalgia Additional Past Medical History / Comment(s): BACK PAIN AND DEGENERATIVE DISC ISSUES, Migraines,. nerve damage to marlene ring and pinky finger up marlene arms, scoliosis, possibel MS stephanie worked up for this (dr. Cm managing) History of Any Multi-Drug Resistant Organisms: None Reported Past Surgical History: Appendectomy Additional Past Surgical History / Comment(s): pain procedure on neck 03/13, pain procedure on back at begining of month (August 2016). Past Anesthesia/Blood Transfusion Reactions: No Reported Reaction Past Psychological History: Anxiety, Depression Smoking Status: Current every day smoker Past Alcohol Use History: None Reported Past Drug Use History: None Reported - Past Family History Brother(s) Additional Family Medical History / Comment(s): purnima-sachs General Exam - General Exam Comments Initial Comments: Patient is a 31-year-old female. Patient is tearful on exam. General appearance: alert, in no apparent distress Head exam: Present: atraumatic, normocephalic, normal inspection Eye exam: Present: normal appearance, PERRL, EOMI. Absent: scleral icterus, conjunctival injection, periorbital swelling ENT exam: Present: normal exam, mucous membranes moist. Absent: normal oropharynx (Patient has fractured tooth #6 and 7. Multiple dental caries.) Neck exam: Present: normal inspection. Absent: tenderness, meningismus, lymphadenopathy Respiratory exam: Present: normal lung sounds bilaterally Cardiovascular Exam: Present: regular rate, normal rhythm, normal heart sounds. Absent: systolic murmur, diastolic murmur, rubs, gallop, clicks Psychiatric exam: Present: normal affect, normal mood Skin exam: Present: warm, dry, intact, normal color. Absent: rash Course Vital Signs 02/03/17 14:10 Temperature 98.8 F Pulse Rate 112 H Respiratory 18 Rate Blood Pressure 138/85 O2 Sat by Pulse 99 Oximetry Medical Decision Making - Medical Decision Making 31-year-old female with chief complaint of dental pain. Patient has fractured tooth #6 and 7 after biting into an apple 2 days ago. Evidence of what appears to be small abscess behind the tooth. Patient will be started on Pen-Vee K. Patient also instructed reports pain medicine. Discussed follow-up with dental clinic. Discussed return to emergency department if the area of swelling or pain gets worse or return to emergency department if any other alarming symptoms occur. Patient originally plan will comply. Return parameters were discussed. Disposition Clinical Impression: Broken tooth Disposition: HOME SELF-CARE Condition: Good Instructions: Toothache (ED) Additional Instructions: [facility] [address] [place] [address] [phone] (existing clients only) For new clients: [phone] 1st consult: $50 (includes Xrays) Usually 30% less then private dentist for visits after. [employer] Have to pay $50 for Xrays anmd rest is covered. [phone] With anabiotic prescription. Return to emergency department if any alarming signs or symptoms occur. Prescriptions: Acetaminophen-Codeine 300-30mg [Tylenol #3] 1 tab PO Q6H PRN #12 tablet PRN Reason: Pain Penicillin V Potassium [Pen Vee K] 500 mg PO QID #40 tab Referrals: Rodriguez Power MD [Primary Care Provider] - 1-2 days Time of Disposition: 14:25
== END 2017-02-03 14:40 | disposition home or self-care (01) ==
LOC: EC 14:05
DX: S02.5XXA Fracture of tooth (traumatic), initial encounter for closed fracture (principal); M79.7 Fibromyalgia; F17.200 Nicotine dependence, unspecified, uncomplicated; Z88.6 Allergy status to analgesic agent; Z88.8 Allergy status to other drugs, medicaments and biological substances; Z91.048 Other nonmedicinal substance allergy status; Z79.891 Long term (current) use of opiate analgesic; Z79.899 Other long term (current) drug therapy; X58.XXXA Exposure to other specified factors, initial encounter
CPT/HCPCS: 99283

== ENCOUNTER 2017-03-15 07:34 | Day surgery (SDC) | payer OTHER ==
[2017-02-09 15:32] VITALS: BMI 19.3
[~2017-03-15 07:34] MED LIST changes: -LACTATED RINGERS 1,000 ML IV ONE; +LACTATED RINGERS 1,000 ML IV SCH
[2017-03-15 07:58] VITALS: RESP 16; TEMP 97.9
[2017-03-15] MEDS ORDERED: LIDOCAINE 1% 20 ML VIAL (10MG/ML) FOR IV START INTRADERMA ONE (07:59)
[2017-03-15] MEDS ORDERED: IV FLUID CONTINUATION 1,000 ML IV ONE (08:58)
--- NOTE | 2017-03-15 09:00 | P.PCN ---
Date of Procedure: 03/15/17 Procedure(s) Performed: Preoperative diagnoses= 1-myofascial pain syndrome cervicothoracic and lumbar area, 2-lumbar spondylosis and lumbar facet arthropathy without myelopathy Postoperative diagnoses= same as preoperative diagnosis. Procedure= point injections cervical/thoracic/lumbar area total of 10 trigger point injections , 5 on the right (2 cervical , 2 thoracic , 1 lumbar ) 5 on the left side ( 2 cervical, 2 thoracic ,1 lumbar ) Anesthesia= conscious sedation with Versed 2 mg and fentanyl 100 micrograms Estimated blood loss=minimal. Procedure indication= the patient had a history of severe chronic neck , mid , low back pain, diagnosed with myofascial pain syndrome unresponsive to conservative treatment. Procedure description= the patient was seen and identified in the preoperative holding area, risks and benefits and alternative of the procedure and possible complications discussed with the patient, and he agreed with the preceding, patient signed the consent, an IV was started, and vital signs were monitored and were stable throughout the procedure, patient was placed in the prone position or table and the cervical ,thoracic ,,lumbosacral area was prepped and draped with a sterile fashion, vital signs were closely monitored during the procedure, and using 25-gauge needle, each of the trigger point that is marked in the preop holding area, each of the trigger point injected with 2 mL of the mixture of Decadron 20 mg and bupivacaine 0.75 % 20 ml , after negative aspiration for heme and CSF and there was no paresthesia during the injection, , the needle removed, Patient tolerated the procedure well without any complication, The patient returned to supine position after the back was cleaned and a Band- Aid applied, the patient transported to recovery room in stable condition and he was monitored for 30 minutes before he was discharged home and then patient was reexamined before going home and patient was discharged in stable condition and patient will follow up with the pain clinic in a few weeks Patient given prescription for Lyrica 50 mg twice a day increased after on week to 3 times a day, as patient had symptoms suggestive of fibromyalgia, and Lyrica could be beneficial in improving her symptoms, also patient given prescription refill for Ultram 50 mg half to 1 tablet every 6 hours dispensed 60 with 1 refill, and patient will be seen in the pain clinic in 6 weeks, I suggested to the patient referring her to have physical therapy patient applied that she is working and is hard for her to take time off from work , and she will try medication management and injection ,before she can try physical therapy
[2017-03-15 09:16] VITALS: BP 134/80; PULSE 74
== END 2017-03-15 09:34 | disposition home or self-care (01) ==
LOC: ORPAIN 07:34
PROVIDERS: ATTEND Specialist
DX: M79.1 Myalgia (principal); M47.816 Spondylosis without myelopathy or radiculopathy, lumbar region; M46.96 Unspecified inflammatory spondylopathy, lumbar region; Z88.6 Allergy status to analgesic agent; Z91.048 Other nonmedicinal substance allergy status; Z91.09 Other allergy status, other than to drugs and biological substances
CPT/HCPCS: 81025; 20553; J2250; J1100; J3010; 99152

== ENCOUNTER → 2017-06-07 | Outpatient (CLI) | payer OTHER ==
[2017-06-07 14:28] VITALS: BP 112/75; PULSE 85; RESP 16
--- NOTE | 2017-06-07 14:48 | P.PN ---
Subjective Progress Note Date: 06/07/17 This is follow-up visit for this patient with a history of severe and chronic low back pain secondary to myofascial pain syndrome,, lumbar spondylosis with facet arthropathy, we did interventional pain management injection,, radiofrequency ablation of the medial branch lumbar area and trigger point injection , and this helped her low back pain patient recently had the diagnostic lumbar puncture to rule out MS and the patient developed postdural puncture headache and we have to do epidural blood patch , patient needed to the for medication refill and follow-up visit she reported that she is being referred to neurologist to rule out MS , and she is currently undergoing diagnostics to the patient currently on Ultram 50 mg every 6 hours , Lyrica 50 mg twice a day , Flexeril 10 mg daily at bedtime Patient denies any side effects of the medication, denies excessive drowsiness or sleepiness, denies suicidal ideation, and reports that the current pain medication is helping To control the pain and improve activity of daily living . Patient denies any motor or sensory deficit, denies change in bowel movement or urination, patient denies any fever or night sweats and patient here for follow-up visit and medication refill Objective - Vital Signs Vital signs: Vital Signs Temp Pulse 85 06/07/17 14:19 Resp 16 06/07/17 14:19 BP 112/75 06/07/17 14:19 Pulse Ox 99 06/07/17 14:19 Intake & Output 06/06/17 06/07/17 06/07/17 18:59 06:59 18:59 Weight 52.163 kg - Exam Physical Examinations : 1-Constitutiona : Cooperative , not in acute distress . 2-HEENT : nech ; supple , no Lymphadenopathy , normal thyroid size . eyes : no ptosis , no icterus, no photophobia . ENT : normal of hearing , normal oropharynx , no Thrush . 3- Respiratory : Chest clear to auscultations Bilaterally , no wheezing , no Rhonchi . 4- Cardiovascular : regular rate and rhythem , S1 , S2 , no S3 , no S4. 5- Gastrointestinal : abdomen soft no tenderness , bowel sounds positive all four quadrents , no organomegally . 6- Genitourinary : Defferred . 7- neurologic : Cranial nerve II to XII intact , no focal neurological deffecit . 8-psychatric : alert , oriented X 3 , appropriate affect , intact judgment and insight . 9-Lymphatic : no Lymphadenopathy . 10- musculoskeltal : cervical spine = motor stregnth in the deltoid and biceps, motor stregnth biceps and the wrist extensors (C6) . motor stregnth in the triceps muscle . deep tendon reflexes normal at the biceps , normal at Brachioradialis , normal at the Triceps positive cervical facet loading test . , Lumber spine = normal moter stegnth lower extremities ,thigh and legs .5/5 deep tendon reflexes : normal Knee Jerk , normal ankle Jerk . lumber facet Loading Test positive Multiple trigger points identified in the thoracic and lumbar paravertebral muscles and cervical paravertebral muscles Sever tenderness over the Sacroiliac joint on the Right , and Left side Assessment and Plan Plan: Assessment and plan= chronic low back pain secondary to myofascial pain syndrome ,cervical , thoracic and lumbar area , lumbar spondylosis with lumbar facet arthropathy chronic and current use of high-risk medication (opioids) Patient denies any side effects of the current pain medication and the current treatment/medication ML and the patient to do activity of daily living , Diagnoses, prognosis, treatment options, including but not limited to physical therapy, medication management, interventional therapies, and surgery, were discussed with the patient All the questions answered Patient signed the narcotic agreement, and he was orally counseled, not to overuse, not to abuse, not to Divert , not tp sell pain medication, and to take it as prescribed only, Patient was counseled not to drive or operate heavy equipment while using narcotic medication, and advised not to use alcohol or any Illicit drugs while using the narcotis, the patient's verbalized understanding that lack of compliance with any of the above instructions and will likely to cause discharge from the pain service, not to renew his narcotic prescriptions Medication managements= patient will be given prescription refills for 1-Lyrica 50 mg twice a day dispense 60 with 1 refill 2- lyrica 50 mg every 8 hours dispense 120 with one refill 3-Flexeril 10 mg daily at bedtime dispense 30 with one refill Interventional pain management=none Refferal = Follow-up= 2 months , Time with Patient: Less than 30
== END | disposition home or self-care (01) ==
LOC: PNWHC3 13:50
PROVIDERS: ATTEND Specialist
DX: G89.29 Other chronic pain (principal); M54.5 Low back pain; M47.816 Spondylosis without myelopathy or radiculopathy, lumbar region; M46.86 Other specified inflammatory spondylopathies, lumbar region; M79.1 Myalgia; Z79.899 Other long term (current) drug therapy; Z79.891 Long term (current) use of opiate analgesic
CPT/HCPCS: 99211

== ENCOUNTER → 2017-08-02 | Outpatient (CLI) | payer OTHER ==
[2017-08-02 11:34] VITALS: BP 100/64; PULSE 87; RESP 16
--- NOTE | 2017-08-02 11:56 | P.PN ---
Subjective Progress Note Date: 08/02/17 This is follow-up visit for this patient with a history of severe and chronic low back pain secondary to lumbar degenerative disc diseases , lumbar spondylosis with facet arthropathy, And myofascial pain syndrome, Patients currently on Ultram 50 mg every 6 hours when necessary , Flexeril 10 mg daily at bedtime, Lyrica 50 mg twice a day Patient denies any side effects of the medication, denies excessive drowsiness or sleepiness, denies suicidal ideation, and reports that the current pain medication is helping To control the pain , patient currently worked up to rule out MS. And she is complaining of increased frequency of muscle spasm and improve activity of daily living Patient denies any motor or sensory deficit , patient denies any fever or night sweats, denies any change in the bowel movements or urination Physical Examinations : 1-Constitutiona : Cooperative , not in acute distress . 2-HEENT : nech ; supple , no Lymphadenopathy , no Thyromegaly , normal thyroid size . eyes : no ptosis , no icterus, no photophobia . ENT : normal of hearing , normal oropharynx , no Thrush . 3- Respiratory : Chest clear to auscultations Bilaterally , no wheezing , no Rhonchi . 4- Cardiovascular : regular rate and rhythem , S1 , S2 , no S3 , no S4. 5- Gastrointestinal : abdomen soft no tenderness , bowel sounds positive all four quadrents , no organomegally . 6- Genitourinary : Defferred . 7- neurologic : Cranial nerve II to XII intact , no focal neurological deffecit . 8-psychatric : alert , oriented X 3 , appropriate affect , intact judgment and insight . 9-Lymphatic : no Lymphadenopathy . 10- musculoskeltal : exams of the cervical spine = motor strength normal bilateral upper extremities facet loading test cervical area positive. exams of the Lumber spine = motor strength lower extremities ,thigh and legs .5/5 Assessment and plan = Chronic low back pain secondary to lumbar degenerative disc disease , lumbar spondylosis with facet arthropathy without myelopathy , myofascial pain syndrome lumbar area chronic and current use of high-risk medication (Opioids). The patient was counseled about risk of opioid use, psychological risk associated with opioids and was orally counseled to not overuse , divert,or sell dictations to take medications as prescribed only , and to restore medication in safe location , and the patient counseled against driving while using narcotic medications, and also not to use alcohol or any illicit recreational drugs, the patient's verbalized understanding that the lack of compliance will result in failure to renew narcotic prescription and possible discharge from the clinic - diagnoses, prognosis, and treatment options including but not limited to physical therapy, surgical interventions, interventional therapies , and medication management including narcotics and adjuvant medication were discussed with the patient and all the questions answered , patient given e prescription, for 2 months Objective - Vital Signs Vital signs: Vital Signs Temp Pulse 87 08/02/17 11:26 Resp 16 08/02/17 11:26 BP 100/64 08/02/17 11:26 Pulse Ox 98 08/02/17 11:26 Intake & Output 08/01/17 08/02/17 08/02/17 18:59 06:59 18:59 Weight 52.163 kg
== END | disposition home or self-care (01) ==
LOC: PNWHC3 11:18
PROVIDERS: ATTEND Specialist
DX: G89.29 Other chronic pain (principal); M51.36 Other intervertebral disc degeneration, lumbar region; M47.816 Spondylosis without myelopathy or radiculopathy, lumbar region; M46.86 Other specified inflammatory spondylopathies, lumbar region; M79.1 Myalgia; Z79.891 Long term (current) use of opiate analgesic; Z79.899 Other long term (current) drug therapy
CPT/HCPCS: 99211

== ENCOUNTER 2017-08-09 22:58 | Emergency (ER) | payer OTHER ==
[2017-08-09 23:03] VITALS: BP 138/88; PULSE 90; RESP 18; TEMP 97.9
[2017-08-09] MEDS ORDERED: HYDROcodone/APAP 5-325MG 1 EACH TAB PO STA (23:21)
[2017-08-09] MEDS ORDERED: PENICILLIN VK 500MG STARTER 4 TAB BTL PO STA (23:21)
--- NOTE | 2017-08-09 23:21 | ED ---
ENT HPI - General Chief complaint: Dental/Oral Stated complaint: Dental Pain Time Seen by Provider: 08/09/17 23:07 Source: patient, RN notes reviewed, old records reviewed Mode of arrival: ambulatory Limitations: no limitations - History of Present Illness Initial comments: Is a 31-year-old female presents for his records a chief complaint of dental pain. Patient reports that the pain is in the tooth #10. She states that she broke this tooth many months ago but now there is a hole in it whenever she has had a couple drinks it's painful. Patient states she is planning on getting her tooth removed on Monday. She states that the pain is referring to her left ear. She denies any fever or chills. Denies any trismus. No foul taste in her mouth.Patient denies any recent fever, chills, shortness of breath, chest pain, back pain, abdominal pain, nausea vomiting, numbness or tingling, dysuria or hematuria, constipation or diarrhea, headaches or visual changes, or any other current symptoms - Related Data Home Medications Medication Instructions Recorded Confirmed Acetaminophen-Codeine 300-30mg 1 tab PO Q8H PRN 08/09/17 08/09/17 [Tylenol #3] Previous Rx's Medication Instructions Recorded Cyclobenzaprine [Flexeril] 10 mg PO HS #30 tab 08/02/17 Pregabalin [Lyrica] 50 mg PO BID #60 cap 08/02/17 traMADol HCl [Ultram] 50 mg PO Q6H PRN #120 tab 08/02/17 HYDROcodone/APAP 5-325MG [[place] 5] 1 each PO Q6HR PRN #10 tab 08/09/17 Penicillin V Potassium [Pen Vee K] 500 mg PO QID #40 tablet 08/09/17 Allergies Allergy/AdvReac Type Severity Reaction Status Date / Time triamcinolone [From Kenalog] Allergy Dyspnea/Yony Verified 08/09/17 23:10 h adhesive tape AdvReac Rash/Hives Verified 08/09/17 23:10 ibuprofen AdvReac GERD Verified 08/09/17 23:10 Review of Systems ROS Statement: Those systems with pertinent positive or pertinent negative responses have been documented in the HPI. ROS Other: All systems not noted in ROS Statement are negative. Past Medical History Past Medical History: Fibromyalgia, GERD/Reflux Additional Past Medical History / Comment(s): BACK PAIN AND DDD, Migraines,. 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 Cm managing), anemia History of Any Multi-Drug Resistant Organisms: None Reported Past Surgical History: Appendectomy, Back Surgery Additional Past Surgical History / Comment(s): PAIN CLINIC PROCEDURES Past Anesthesia/Blood Transfusion Reactions: No Reported Reaction Past Psychological History: Anxiety, Depression Smoking Status: Current every day smoker Past Alcohol Use History: None Reported Past Drug Use History: None Reported - Past Family History Brother(s) Additional Family Medical History / Comment(s): purnima-[place] Mother Family Medical History: Cancer Additional Family Medical History / Comment(s): LIVER CANCER General Exam - General Exam Comments Initial Comments: This is a 31-year-old female. No distress. Limitations: no limitations General appearance: alert Head exam: Present: atraumatic, normocephalic, normal inspection Eye exam: Present: normal appearance, PERRL, EOMI. Absent: scleral icterus, conjunctival injection, periorbital swelling ENT exam: Present: normal exam, mucous membranes moist. Absent: normal oropharynx (Patient has poor dentition. Patient has evidence of multiple dental caries. She has a decaying tooth #10 with gingival erythema.) Neck exam: Present: normal inspection. Absent: tenderness, meningismus, lymphadenopathy Respiratory exam: Present: normal lung sounds bilaterally. Absent: respiratory distress, wheezes, rales, rhonchi, stridor Cardiovascular Exam: Present: regular rate, normal rhythm, normal heart sounds. Absent: systolic murmur, diastolic murmur, rubs, gallop, clicks Extremities exam: Present: normal inspection, full ROM, normal capillary refill. Absent: tenderness, pedal edema, joint swelling, calf tenderness Back exam: Present: normal inspection Neurological exam: Present: alert, oriented X3, CN II-XII intact Psychiatric exam: Present: normal affect, normal mood Course Vital Signs 08/09/17 23:00 Temperature 97.9 F Pulse Rate 90 Respiratory 18 Rate Blood Pressure 138/88 O2 Sat by Pulse 98 Oximetry Medical Decision Making - Medical Decision Making This is a 31-year-old female presents weren't started to complain of dental pain. She has a fractured tooth #10 with decaying and significant gingival erythema. Patient will be placed on antibiotics for infection as well as internal medicine. Discussed following up with primary care provider. She does plan to get the tooth removed on Monday. Discussed teabags and pain management measures such as Orajel. She understands treatment plan will comply. Return parameters were discussed. Disposition Clinical Impression: Pain, dental Disposition: HOME SELF-CARE Condition: Good Instructions: Dental Caries (ED) Additional Instructions: Patient is advised to use saltwater rinses. Patient should take the medication as prescribed. Follow-up with a dentist on Monday to have sutures removed. Return to the emergency department if any alarming signs or symptoms occur. Prescriptions: HYDROcodone/APAP 5-325MG [[place] 5] 1 each PO Q6HR PRN #10 tab PRN Reason: Pain Penicillin V Potassium [Pen Vee K] 500 mg PO QID #40 tablet Referrals: Rodriguez Power MD [Primary Care Provider] - 1-2 days Time of Disposition: 23:19
== END 2017-08-09 23:40 | disposition home or self-care (01) ==
LOC: EC 22:58
DX: S02.5XXA Fracture of tooth (traumatic), initial encounter for closed fracture (principal); K02.9 Dental caries, unspecified; K04.7 Periapical abscess without sinus; H92.02 Otalgia, left ear; F17.200 Nicotine dependence, unspecified, uncomplicated; Z88.6 Allergy status to analgesic agent; Z88.8 Allergy status to other drugs, medicaments and biological substances; Z91.048 Other nonmedicinal substance allergy status
CPT/HCPCS: 99283

== ENCOUNTER 2017-09-22 00:48 | Emergency (ER) | payer OTHER ==
[2017-09-22 00:52] VITALS: BP 144/91; PULSE 101; RESP 16; TEMP 97.7
[2017-09-22] MEDS ORDERED: BUPIVACAINE (PF) 0.5% 30 ML VIAL SQ STA (01:12)
[2017-09-22] MEDS ORDERED: PENICILLIN VK 500MG STARTER 4 TAB BTL PO STA (01:13)
--- NOTE | 2017-09-22 01:49 | ED ---
ENT HPI - General Chief complaint: Dental/Oral Stated complaint: Dental Pain Time Seen by Provider: 09/22/17 00:57 Source: patient Mode of arrival: ambulatory Limitations: no limitations - History of Present Illness Initial comments: 31-year-old female patient presents to the emergency department today for evaluation of left upper and left lower dental pain. Patient states that she broke her teeth earlier in the day and a cause acute onset of the pain. Patient states that the pain radiates up into her ear. She denies any fevers or chills with this. Denies any facial swelling. Denies any nausea, vomiting, trismus, or difficulty swallowing. He does have an appointment to have the teeth removed and approximate one week. States that she is taking tramadol without relief of symptoms. Patient denies any recent rash, fever, chills, shortness breath, chest pain, abdominal pain, diarrhea, constipation, back pain , numbness, tingling, dizziness, weakness, hematuria, dysuria, urinary urgency, urinary frequency, headache, visual changes, or any other complaints. - Related Data Home Medications Medication Instructions Recorded Confirmed Acetaminophen-Codeine 300-30mg 1 tab PO Q8H PRN 08/09/17 08/09/17 [Tylenol #3] Previous Rx's Medication Instructions Recorded Cyclobenzaprine [Flexeril] 10 mg PO HS #30 tab 08/02/17 Pregabalin [Lyrica] 50 mg PO BID #60 cap 08/02/17 traMADol HCl [Ultram] 50 mg PO Q6H PRN #120 tab 08/02/17 HYDROcodone/APAP 5-325MG [[place] 5] 1 each PO Q6HR PRN #10 tab 08/09/17 Penicillin V Potassium [Pen Vee K] 500 mg PO QID #40 tablet 08/09/17 Hydrocodone/Acetaminophen [[place] 1 tab PO Q6HR PRN #12 tab 09/22/17 5-325] Penicillin V Potassium [Pen Vee K] 500 mg PO Q6H #40 tablet 09/22/17 Allergies Allergy/AdvReac Type Severity Reaction Status Date / Time triamcinolone [From Kenalog] Allergy Dyspnea/Yony Verified 09/22/17 00:52 h adhesive tape AdvReac Rash/Hives Verified 09/22/17 00:52 ibuprofen AdvReac GERD Verified 09/22/17 00:52 Review of Systems ROS Statement: Those systems with pertinent positive or pertinent negative responses have been documented in the HPI. ROS Other: All systems not noted in ROS Statement are negative. Past Medical History Past Medical History: Fibromyalgia, GERD/Reflux Additional Past Medical History / Comment(s): BACK PAIN AND DDD, Migraines,. 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 Cm managing), anemia History of Any Multi-Drug Resistant Organisms: None Reported Past Surgical History: Appendectomy, Back Surgery Additional Past Surgical History / Comment(s): PAIN CLINIC PROCEDURES Past Anesthesia/Blood Transfusion Reactions: No Reported Reaction Past Psychological History: Anxiety, Depression Smoking Status: Current every day smoker Past Alcohol Use History: None Reported Past Drug Use History: None Reported - Past Family History Brother(s) Additional Family Medical History / Comment(s): purnima-[place] Mother Family Medical History: Cancer Additional Family Medical History / Comment(s): LIVER CANCER General Exam Limitations: no limitations General appearance: alert, in no apparent distress, other (This is a well- developed, well-nourished adult female patient in no acute distress. Vital signs upon presentation are temperature 97.7F, pulse 101, respirations 16, blood pressure 144/91, pulse ox 100% on room air.) Eye exam: Present: normal appearance, PERRL, EOMI. Absent: scleral icterus, conjunctival injection, periorbital swelling ENT exam: Present: normal exam, normal oropharynx, mucous membranes moist, other (There is multiple broken teeth and extensive dental caries. There is minimal surrounding erythema noted to the gingiva. No evidence of drainable abscess) Neck exam: Present: normal inspection. Absent: tenderness, meningismus, lymphadenopathy Respiratory exam: Present: normal lung sounds bilaterally. Absent: respiratory distress, wheezes, rales, rhonchi, stridor Cardiovascular Exam: Present: regular rate, normal rhythm, normal heart sounds. Absent: systolic murmur, diastolic murmur, rubs, gallop, clicks Neurological exam: Present: alert, oriented X3, CN II-XII intact Psychiatric exam: Present: normal affect, normal mood Skin exam: Present: warm, dry, intact, normal color. Absent: rash Course Vital Signs 09/22/17 00:50 Temperature 97.7 F Pulse Rate 101 H Respiratory 16 Rate Blood Pressure 144/91 O2 Sat by Pulse 100 Oximetry Procedures - Nerve Block Consent Obtained: verbal consent Local Anesthetic Used: Marcaine 0.5% Amount of anesthesia used: 6 Side: left Intraoral Nerve Block: superior alveolar, inferior alveolar Procedure Successful: Yes Complications: none Patient Tolerated Procedure: well Medical Decision Making - Medical Decision Making 31-year-old female patient presented to the emergency department today for evaluation of left-sided dental pain. Physical examination did reveal poor dentition with multiple dental caries and fractured teeth. There is minimal surrounding erythema to the gingiva noted. No evidence of drainable abscess. Patient did request a oral nerve block. Did perform an inferior alveolar and a superior alveolar nerve block. Patient did have good pain relief with this. We did give her prescription for Pen-Vee K and pain medication. She is instructed follow up with dentistry as soon as possible. She is instructed to return here for any new, worsening, or concerning symptoms. She verbalizes understanding and agrees with this plan. Disposition Clinical Impression: Pain, dental, Fractured tooth Disposition: HOME SELF-CARE Condition: Good Instructions: Dental Caries (ED), Toothache (ED) Additional Instructions: Take medications as instructed. Apply warm compresses to the left side of the face. Follow-up with the dentist as soon as possible. Return here immediately for any new, worsening, or concerning symptoms. Prescriptions: Hydrocodone/Acetaminophen [[place] 5-325] 1 tab PO Q6HR PRN #12 tab PRN Reason: Pain Penicillin V Potassium [Pen Vee K] 500 mg PO Q6H #40 tablet Is patient prescribed a controlled substance at d/c from ED?: Yes If prescribed controlled substance>3 days was MAPS reviewed?: Yes When asked, does pt state using other controlled substances?: Yes Referrals: Rodriguez Power MD [Primary Care Provider] - 1-2 days Time of Disposition: 01:49
[2017-09-22] MEDS ORDERED: HYDROcodone/APAP 5-325MG 1 EACH TAB PO STA (01:57)
== END 2017-09-22 02:02 | disposition home or self-care (01) ==
LOC: EC 00:48
DX: S02.5XXA Fracture of tooth (traumatic), initial encounter for closed fracture (principal); K02.9 Dental caries, unspecified; H92.02 Otalgia, left ear; F17.200 Nicotine dependence, unspecified, uncomplicated; Z88.6 Allergy status to analgesic agent; Z88.8 Allergy status to other drugs, medicaments and biological substances; Z91.048 Other nonmedicinal substance allergy status; X58.XXXA Exposure to other specified factors, initial encounter
CPT/HCPCS: 64400; 99282

== ENCOUNTER → 2017-09-27 | Outpatient (CLI) | payer OTHER ==
[2017-09-27 12:45] VITALS: RESP 16
[2017-09-27 13:08] VITALS: BP 111/78; PULSE 90
--- NOTE | 2017-09-27 13:21 | P.PN ---
Progress Note - Text Progress Note Date: 09/27/17 This is a very pleasant 31-year-old woman with a long-standing history of low back pain. She also has some neurologic symptoms which are currently being evaluated by a neurologist. He has been treated with radiofrequency ablation previously in her back and she reported this was very helpful. It is been greater than 1 year since she had this. She reports decreased sensation in her right arm as well as her right leg. She denies any motor deficits. She reports that her symptoms have been getting worse recently. In addition to above, 13-point review of systems is also negative for chest pain , shortness of breath, changes in vision, changes in hearing, new onset weakness , abdominal pain, diarrhea, extreme fatigue, malaise, fever, skin changes, homicidal or suicidal ideation, or bowel or bladder incontinence. Vital Signs: Reviewed in EMR Gen: WDWN, AAOx3, NAD HEENT: NCAT, EOMI, hearing grossly normal Pulm: resp unlabored Abd: soft, NT, ND Neck: supple, trachea midline TTP lower thoracic spine paravertebral area ROM in flexion lumbar spine: reduced ROM in extension lumbar spine: reduced Lumbar paravertebral tenderness: + Facet loading: + bilateral. Worse on the right side. SI joint tenderness: None Adryan's test: Negative Straight leg raise: Negative Lower extremity: decreased ROM dorsiflexion/plantarflexion strength, hip flexion/extension, and knee flexion/extension secondary to pain Neuro: CN II-XII grossly intact, muscle strength lower extremities PRESERVED Imaging: Reviewed in EMR Assessment: 1. lumbar spinal stenosis 2. lumbar radiculopathy 3. lumbar spondylosis Plan: 1. Explanation: Opioid and psychological risk scores were reviewed. Diagnoses , prognoses, and multiple treatment options including but not limited to physical therapy, interventional therapies, adjuvant medical therapies, narcotic medication therapies, and surgery were discussed with the patient and all questions were answered to the patient's satisfaction. Mass report was reviewed. She has had a couple instances of small amounts of opiate being given by a family practitioner. She was counseled on this and will discontinue this. 2. Opioid agreement: 3. Counseling: The patient was counseled extensively on SMOKING CESSATION, BODY MASS INDEX, EXERCISE. Specifically, the patient was instructed regarding the importance of smoking cessation, obesity, and exercise in the context of both chronic pain and overall health. 4. Procedures: Patient is a good candidate for bilateral lumbar radio frequency ablation in the future. I would like to wait until her workup for multiple sclerosis is complete prior to engaging in this plan. 5. Consultations: None 6. Investigations: None 7. Medications: Patient was given refills for Flexeril, Lyrica, tramadol. She reports that these medicines do seem to help her somewhat. 8. Disposition: She will follow-up for medication management in 1 month PQRS measures: 1-Patient's medications are documented in the chart. 2-Tobacco use is positive, counseling given 3-Patient has not had a pneumococcal vaccine. 4-Advanced care planning discussed, patient unable to give. 5-Opioid contract signed with the patient. 6-Pain positive, follow-up visit or procedure scheduled 7-Patient's blood pressure measured and documented, and WNL. 8-Patient's weight was measured, and body mass index ABOVE the normal limits, and counseling was done. Patient instructed to follow up with PCP. 9-Patient WAS NOT identified as an unhealthy alcohol user.
== END | disposition home or self-care (01) ==
LOC: PNWHC3 12:30
PROVIDERS: ATTEND Pain Medicine Pain Medicine
DX: G89.29 Other chronic pain (principal); M54.5 Low back pain; M48.061 Spinal stenosis, lumbar region without neurogenic claudication; M47.26 Other spondylosis with radiculopathy, lumbar region; Z72.0 Tobacco use
CPT/HCPCS: 99211

== ENCOUNTER 2017-10-18 11:52 | Emergency (ER) | payer OTHER ==
[2017-10-18 12:10] VITALS: BP 127/84; PULSE 83; RESP 16; TEMP 97.7
--- NOTE | 2017-10-18 13:26 | ED ---
General Adult HPI - General Chief complaint: Recheck/Abnormal Lab/Rx Stated complaint: tick bites Time Seen by Provider: 10/18/17 12:16 Source: patient, RN notes reviewed Mode of arrival: ambulatory Limitations: no limitations - History of Present Illness Initial comments: This is a 31-year-old female presents emergency Department with multiple complaints. Patient complains of fatigue, weight loss. She also states that she has nose multiple ticks on her. She states that she thinks her hair is full ticks and that she has ticks all over her body. Patient states that she has no energy. She denies any change in medications. She states she is currently on Lyrica. Patient denies any chest or shortness of breath. Patient states she has sores opening up all over her face, back and abdomen region. and room states that she's had strength behavior recently change in her normal behavior and she does admit that she is under a large amount of stress. Patient denies any nausea vomiting diarrhea constipation. Patient reports no fever no chills. - Related Data Previous Rx's Medication Instructions Recorded Pregabalin [Lyrica] 50 mg PO BID #60 cap 09/27/17 traMADol HCl [Ultram] 50 mg PO Q6H PRN #120 tab 09/27/17 Allergies Allergy/AdvReac Type Severity Reaction Status Date / Time triamcinolone [From Kenalog] Allergy Dyspnea/Yony Verified 10/18/17 12:25 h adhesive tape AdvReac Rash/Hives Verified 10/18/17 12:25 ibuprofen AdvReac GERD Verified 10/18/17 12:25 Review of Systems ROS Statement: Those systems with pertinent positive or pertinent negative responses have been documented in the HPI. ROS Other: All systems not noted in ROS Statement are negative. Past Medical History Past Medical History: Fibromyalgia, GERD/Reflux Additional Past Medical History / Comment(s): BACK PAIN AND DDD, Migraines,. 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 Cm managing), anemia History of Any Multi-Drug Resistant Organisms: None Reported Past Surgical History: Appendectomy, Back Surgery Additional Past Surgical History / Comment(s): PAIN CLINIC PROCEDURES Past Anesthesia/Blood Transfusion Reactions: No Reported Reaction Past Psychological History: Anxiety, Depression Smoking Status: Current every day smoker Past Alcohol Use History: None Reported Past Drug Use History: None Reported - Past Family History Brother(s) Additional Family Medical History / Comment(s): purnima-[place] Mother Family Medical History: Cancer Additional Family Medical History / Comment(s): LIVER CANCER General Exam Limitations: no limitations General appearance: alert, in no apparent distress Head exam: Present: atraumatic, normocephalic, normal inspection, other (No ticks evident on the scalp) Eye exam: Present: normal appearance, PERRL, EOMI. Absent: scleral icterus, conjunctival injection, periorbital swelling ENT exam: Present: normal exam, normal oropharynx, mucous membranes moist, TM's normal bilaterally, normal external ear exam Neck exam: Present: normal inspection, full ROM. Absent: tenderness, meningismus, lymphadenopathy Respiratory exam: Present: normal lung sounds bilaterally. Absent: respiratory distress, wheezes, rales, rhonchi, stridor Cardiovascular Exam: Present: regular rate, normal rhythm, normal heart sounds. Absent: systolic murmur, diastolic murmur, rubs, gallop, clicks Neurological exam: Present: alert, oriented X3, CN II-XII intact Psychiatric exam: Present: anxious, other (Patient is constantly fidgeting in the room) Skin exam: Present: warm, dry, rash (Patient has open wounds and sores noted on the face, back and arm region) Course Vital Signs 10/18/17 12:06 Temperature 97.7 F Pulse Rate 83 Respiratory 16 Rate Blood Pressure 127/84 O2 Sat by Pulse 100 Oximetry Medical Decision Making - Lab Data Result diagrams: 10/18/17 13:09 10/18/17 13:09 Lab Results 10/18/17 10/18/17 10/18/17 Range/Units 13:09 13:09 13:15 WBC 7.6 (3.8-10.6) k/uL RBC 4.54 (3.80-5.40) m/uL Hgb 13.5 (11.4-16.0) gm/dL Hct 39.9 (34.0-46.0) % MCV 87.7 (80.0-100.0) fL MCH 29.8 (25.0-35.0) pg MCHC 34.0 (31.0-37.0) g/dL RDW 12.6 (11.5-15.5) % Plt Count 298 (150-450) k/uL Neutrophils % 65 % Lymphocytes % 26 % Monocytes % 5 % Eosinophils % 1 % Basophils % 1 % Neutrophils # 4.9 (1.3-7.7) k/uL Lymphocytes # 2.0 (1.0-4.8) k/uL Monocytes # 0.4 (0-1.0) k/uL Eosinophils # 0.1 (0-0.7) k/uL Basophils # 0.0 (0-0.2) k/uL Sodium 141 (137-145) mmol/L Potassium 3.7 (3.5-5.1) mmol/L Chloride 103 (98-107) mmol/L Carbon Dioxide 25 (22-30) mmol/L Anion Gap 13 mmol/L BUN 16 (7-17) mg/dL Creatinine 0.57 (0.52-1.04) mg/dL Est GFR (CKD-EPI)AfAm >90 (>60 ml/min/1.73 sqM) Est GFR (CKD-EPI)NonAf >90 (>60 ml/min/1.73 sqM) Glucose 107 H (74-99) mg/dL Calcium 9.5 (8.4-10.2) mg/dL Total Bilirubin 0.4 (0.2-1.3) mg/dL AST 24 (14-36) U/L ALT 36 (9-52) U/L Alkaline Phosphatase 61 (38-126) U/L Total Protein 7.4 (6.3-8.2) g/dL Albumin 4.6 (3.5-5.0) g/dL TSH 1.390 (0.465-4.680) mIU/L Urine Color Yellow Urine Appearance Cloudy H (Clear) Urine pH 6.0 (5.0-8.0) Ur Specific Kim 1.010 (1.001-1.035) Urine Protein Negative (Negative) Urine Glucose (UA) Negative (Negative) Urine Ketones Negative (Negative) Urine Blood Trace H (Negative) Urine Nitrite Positive H (Negative) Urine Bilirubin Negative (Negative) Urine Urobilinogen <2.0 (<2.0) mg/dL Ur Leukocyte Esterase Moderate H (Negative) Urine RBC 1 (0-5) /hpf Urine WBC 6 H (0-5) /hpf Ur Squamous Epith Cells 17 H (0-4) /hpf Urine Bacteria Many H (None) /hpf Urine Mucus Many H (None) /hpf Urine HCG, Qual (Not Detectd) Urine Opiates Screen Detected H (NotDetected) Ur Oxycodone Screen Not Detected (NotDetected) Urine Methadone Screen Not Detected (NotDetected) Ur Propoxyphene Screen Not Detected (NotDetected) Ur Barbiturates Screen Not Detected (NotDetected) U Tricyclic Antidepress Not Detected (NotDetected) Ur Phencyclidine Scrn Not Detected (NotDetected) Ur Amphetamines Screen Detected H (NotDetected) U Methamphetamines Scrn Detected H (NotDetected) U Benzodiazepines Scrn Not Detected (NotDetected) Urine Cocaine Screen Not Detected (NotDetected) U Marijuana (THC) Screen Not Detected (NotDetected) Serum Alcohol <10 mg/dL 10/18/17 Range/Units 13:15 WBC (3.8-10.6) k/uL RBC (3.80-5.40) m/uL Hgb (11.4-16.0) gm/dL Hct (34.0-46.0) % MCV (80.0-100.0) fL MCH (25.0-35.0) pg MCHC (31.0-37.0) g/dL RDW (11.5-15.5) % Plt Count (150-450) k/uL Neutrophils % % Lymphocytes % % Monocytes % % Eosinophils % % Basophils % % Neutrophils # (1.3-7.7) k/uL Lymphocytes # (1.0-4.8) k/uL Monocytes # (0-1.0) k/uL Eosinophils # (0-0.7) k/uL Basophils # (0-0.2) k/uL Sodium (137-145) mmol/L Potassium (3.5-5.1) mmol/L Chloride (98-107) mmol/L Carbon Dioxide (22-30) mmol/L Anion Gap mmol/L BUN (7-17) mg/dL Creatinine (0.52-1.04) mg/dL Est GFR (CKD-EPI)AfAm (>60 ml/min/1.73 sqM) Est GFR (CKD-EPI)NonAf (>60 ml/min/1.73 sqM) Glucose (74-99) mg/dL Calcium (8.4-10.2) mg/dL Total Bilirubin (0.2-1.3) mg/dL AST (14-36) U/L ALT (9-52) U/L Alkaline Phosphatase (38-126) U/L Total Protein (6.3-8.2) g/dL Albumin (3.5-5.0) g/dL TSH (0.465-4.680) mIU/L Urine Color Urine Appearance (Clear) Urine pH (5.0-8.0) Ur Specific Kim (1.001-1.035) Urine Protein (Negative) Urine Glucose (UA) (Negative) Urine Ketones (Negative) Urine Blood (Negative) Urine Nitrite (Negative) Urine Bilirubin (Negative) Urine Urobilinogen (<2.0) mg/dL Ur Leukocyte Esterase (Negative) Urine RBC (0-5) /hpf Urine WBC (0-5) /hpf Ur Squamous Epith Cells (0-4) /hpf Urine Bacteria (None) /hpf Urine Mucus (None) /hpf Urine HCG, Qual Not Detected (Not Detectd) Urine Opiates Screen (NotDetected) Ur Oxycodone Screen (NotDetected) Urine Methadone Screen (NotDetected) Ur Propoxyphene Screen (NotDetected) Ur Barbiturates Screen (NotDetected) U Tricyclic Antidepress (NotDetected) Ur Phencyclidine Scrn (NotDetected) Ur Amphetamines Screen (NotDetected) U Methamphetamines Scrn (NotDetected) U Benzodiazepines Scrn (NotDetected) Urine Cocaine Screen (NotDetected) U Marijuana (THC) Screen (NotDetected) Serum Alcohol mg/dL Disposition Clinical Impression: Methamphetamine abuse, Drug-induced skin rash Disposition: HOME SELF-CARE Condition: Stable Instructions: Methamphetamine Abuse (ED) Additional Instructions: Please return to the Emergency Department if symptoms worsen or any other concerns. Is patient prescribed a controlled substance at d/c from ED?: No Referrals: Rodriguez Power MD [Primary Care Provider] - 1-2 days Time of Disposition: 14:28
[2017-10-18 13:32] LABS: ALT 36 U/L (9-52); AST 24 U/L (14-36); Albumin 4.6 g/dL (3.5-5.0); Alcohol <10 mg/dL; Alkaline Phosphatase 61 U/L (38-126); Anion Gap 13 mmol/L; Blood Urea Nitrogen 16 mg/dL (7-17); Calcium 9.5 mg/dL (8.4-10.2); Carbon Dioxide 25 mmol/L (22-30); Chloride 103 mmol/L (98-107); Glucose 107 mg/dL (74-99); Potassium 3.7 mmol/L (3.5-5.1); Sodium 141 mmol/L (137-145); Total Bilirubin 0.4 mg/dL (0.2-1.3); Total Protein 7.4 g/dL (6.3-8.2)
[2017-10-18 13:45] LABS: Basophils % (A) 1 %; Eosinophils # (A) 0.1 k/uL (0-0.7); Eosinophils % (A) 1 %; HCT 39.9 % (34.0-46.0); HGB 13.5 gm/dL (11.4-16.0); Lymphocytes % (A) 26 %; MCH 29.8 pg (25.0-35.0); MCV 87.7 fL (80.0-100.0); Mean Platelet Volume 7.4; Monocytes # (A) 0.4 k/uL (0-1.0); Monocytes % (A) 5 %; Neutrophils # (A) 4.9 k/uL (1.3-7.7); Neutrophils % (A) 65 %; Platelet Count 298 k/uL (150-450); RBC 4.54 m/uL (3.80-5.40); RDW 12.6 % (11.5-15.5); WBC 7.6 k/uL (3.8-10.6)
[2017-10-18 13:47] LABS: Appearance,Urine Cloudy (Clear); Bacteria,Urine Many /hpf; Bilirubin,Urine Negative (Negative); Blood,Urine Trace (Negative); Color,Urine Yellow; Glucose,Urine (UA) Negative (Negative); Ketones,Urine Negative (Negative); Leukocyte Esterase,Urine Moderate (Negative); Mucus,Urine Many /hpf; Nitrite,Urine Positive (Negative); Protein,Urine Negative (Negative); RBC,Urine 1 /hpf (0-5); Squamous Epithelial Cell,Urine 17 /hpf (0-4); Urobilinogen,Urine <2.0 mg/dL (<2.0); WBC,Urine 6 /hpf (0-5)
[2017-10-18 13:55] LABS: Amphetamine Screen,Urine Detected (NotDetected); Barbiturate Screen,Urine Not Detected (NotDetected); Benzodiazepines Screen,Urine Not Detected (NotDetected); Cocaine Screen,Urine Not Detected (NotDetected); Methadone Screen, Urine Not Detected (NotDetected); Opiate Screen,Urine Detected (NotDetected); Oxycodone Screen, Urine Not Detected (NotDetected); Phencyclidine Screen,Urine Not Detected (NotDetected); Tricyclic Antidepressant,Urine Not Detected (NotDetected); Urn Cannabinoid Scrn Not Detected (NotDetected)
[2017-10-20 13:29] LABS: Lyme IgG/IgM 0.1 Index
== END 2017-10-18 14:44 | disposition home or self-care (01) ==
LOC: EC 11:52
DX: F15.10 Other stimulant abuse, uncomplicated (principal); L27.0 Generalized skin eruption due to drugs and medicaments taken internally; F41.9 Anxiety disorder, unspecified; F17.200 Nicotine dependence, unspecified, uncomplicated; Z88.6 Allergy status to analgesic agent; Z88.8 Allergy status to other drugs, medicaments and biological substances; Z91.09 Other allergy status, other than to drugs and biological substances
CPT/HCPCS: 36415; 80053; 80306; 80320; 81001; 81025; 84443; 85025; 86618; 87086; 99283

== ENCOUNTER 2018-03-08 11:32 | Emergency (ER) | payer OTHER ==
--- NOTE | 2018-03-08 11:55 | ED ---
General Adult HPI - General Chief complaint: Psychiatric Symptoms Stated complaint: suicidal Source: patient Mode of arrival: ambulatory Limitations: no limitations - History of Present Illness Initial comments: Dictation was produced using [employer] dictation software. please excuse any grammatical, word or spelling errors. Chief Complaint: 32-year-old female with no significant history presents with suicidal ideation. History of Present Illness: 32-year-old female witha past medical history presents with suicidal ideation. Patient states that she was recently seen at [facility] whether told her she was crazy for her chief complaint of rash. Patient states she wants to overdose on medications. Patient does not go into detail about which medications. She states she's been suicidal in the past. Patient believes that there is somebody poising her water. She believes since her 's friend she knows doesn't like her. She also thinks that there are several critters in her basement. She states she cleans the basement feverishly however continues to get these rashes that she believes comes from being exposed to substances in the basement. The ROS documented in this emergency department record has been reviewed and confirmed by me. Those systems with pertinent positive or negative responses have been documented in the HPI. All other systems are other negative and/or noncontributory. - Related Data Home Medications Medication Instructions Recorded Confirmed Aspirin/Calcium Carbonate/Mag 650 mg PO Q4H PRN 03/08/18 03/08/18 [Bufferin 325 mg Tablet] Dm/PE/Acetaminophen/Doxylamine 2 cap PO Q6H PRN MDD 10 CAPS 03/08/18 03/08/18 [Chandrika-[place] Plus Day-Night Cp] Allergies Allergy/AdvReac Type Severity Reaction Status Date / Time triamcinolone [From Kenalog] Allergy Dyspnea/Yony Verified 03/08/18 12:03 h adhesive tape AdvReac Rash/Hives Verified 03/08/18 12:03 ibuprofen AdvReac GERD Verified 03/08/18 12:03 Review of Systems ROS Statement: Those systems with pertinent positive or pertinent negative responses have been documented in the HPI. ROS Other: All systems not noted in ROS Statement are negative. Past Medical History Past Medical History: Fibromyalgia, GERD/Reflux Additional Past Medical History / Comment(s): BACK PAIN AND DDD, Migraines,. 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 Cm managing), anemia History of Any Multi-Drug Resistant Organisms: ESBL Date of last positivie culture/infection: 10/18/17 MDRO Source:: ESBL URINE Past Surgical History: Appendectomy, Back Surgery Additional Past Surgical History / Comment(s): PAIN CLINIC PROCEDURES Past Anesthesia/Blood Transfusion Reactions: No Reported Reaction Past Psychological History: Anxiety, Depression Smoking Status: Current every day smoker Past Alcohol Use History: None Reported Past Drug Use History: None Reported - Past Family History Brother(s) Additional Family Medical History / Comment(s): purnima-pam Mother Family Medical History: Cancer Additional Family Medical History / Comment(s): LIVER CANCER General Exam - General Exam Comments Initial Comments: PHYSICAL EXAM: General Impression: Alert and oriented x3, tearful, acute distress HEENT: Normocephalic atraumatic, extra-ocular movements intact, pupils equal and reactive to light bilaterally, mucous membranes moist. Cardiovascular: Heart regular rate and rhythm, S1&S2 audible, no murmurs, rubs or gallops Chest: Lungs clear to auscultation bilaterally, no rhonchi, no wheeze, no rales Abdomen: Bowel sounds present, abdomen soft, non-tender, non-distended, no organomegaly Musculoskeletal: Pulses present and equal in all extremities, no peripheral edema Motor: Power 5/5 bilaterally, no focal deficits noted Neurological: CN II-XII grossly intact, no focal motor or sensory deficits noted Skin: Multiple crusted lesions to the extremities and back. No surrounding erythema. All these wounds are clean dry and intact. No Osler's nodes, splinter hemorrhages or palmar/plantar lesions Psych: Normal affect and mood Limitations: no limitations Course Vital Signs 03/08/18 11:39 Temperature 97.8 F Pulse Rate 105 H Respiratory 20 Rate Blood Pressure 126/81 O2 Sat by Pulse 99 Oximetry Medical Decision Making - Medical Decision Making ED course: 32-year-old female presents with suicidal ideation. Patient has a secondary complaint of rash of unknown etiology. Clinical presentation appears to be consistent with bug bite with localized reaction. Patient is exhibiting signs of psychosis. She is showing signs of delusions and paranoia. Vital signs upon arrival shows heart rate of 105, rest of vital signs within normal limits. Laboratory evaluation obtained showing no abnormal processes. Patient medically cleared for EPS evaluation. Patient evaluated by EPS. They recommend patient be discharged. They give her follow-up with outpatient psychiatry. Patient is agreeable to plan. - Lab Data Result diagrams: 03/08/18 12:09 03/08/18 12:09 Lab Results 03/08/18 03/08/18 03/08/18 Range/Units 12:09 12:09 12:14 WBC 4.8 (3.8-10.6) k/uL RBC 4.35 (3.80-5.40) m/uL Hgb 13.1 (11.4-16.0) gm/dL Hct 39.8 (34.0-46.0) % MCV 91.4 (80.0-100.0) fL MCH 30.0 (25.0-35.0) pg MCHC 32.9 (31.0-37.0) g/dL RDW 12.9 (11.5-15.5) % Plt Count 266 (150-450) k/uL Neutrophils % 65 % Lymphocytes % 26 % Monocytes % 6 % Eosinophils % 1 % Basophils % 0 % Neutrophils # 3.1 (1.3-7.7) k/uL Lymphocytes # 1.3 (1.0-4.8) k/uL Monocytes # 0.3 (0-1.0) k/uL Eosinophils # 0.0 (0-0.7) k/uL Basophils # 0.0 (0-0.2) k/uL Sodium 139 (137-145) mmol/L Potassium 3.6 (3.5-5.1) mmol/L Chloride 104 (98-107) mmol/L Carbon Dioxide 28 (22-30) mmol/L Anion Gap 7 mmol/L BUN 7 (7-17) mg/dL Creatinine 0.54 (0.52-1.04) mg/dL Est GFR (CKD-EPI)AfAm >90 (>60 ml/min/1.73 sqM) Est GFR (CKD-EPI)NonAf >90 (>60 ml/min/1.73 sqM) Glucose 94 (74-99) mg/dL Calcium 9.0 (8.4-10.2) mg/dL Total Bilirubin 0.2 (0.2-1.3) mg/dL AST 16 (14-36) U/L ALT 21 (9-52) U/L Alkaline Phosphatase 55 (38-126) U/L Total Protein 6.8 (6.3-8.2) g/dL Albumin 3.6 (3.5-5.0) g/dL Urine HCG, Qual Not Detected (Not Detectd) Urine Opiates Screen (NotDetected) Ur Oxycodone Screen (NotDetected) Urine Methadone Screen (NotDetected) Ur Propoxyphene Screen (NotDetected) Ur Barbiturates Screen (NotDetected) U Tricyclic Antidepress (NotDetected) Ur Phencyclidine Scrn (NotDetected) Ur Amphetamines Screen (NotDetected) U Methamphetamines Scrn (NotDetected) U Benzodiazepines Scrn (NotDetected) Urine Cocaine Screen (NotDetected) U Marijuana (THC) Screen (NotDetected) Serum Alcohol <10 mg/dL 03/08/18 Range/Units 12:14 WBC (3.8-10.6) k/uL RBC (3.80-5.40) m/uL Hgb (11.4-16.0) gm/dL Hct (34.0-46.0) % MCV (80.0-100.0) fL MCH (25.0-35.0) pg MCHC (31.0-37.0) g/dL RDW (11.5-15.5) % Plt Count (150-450) k/uL Neutrophils % % Lymphocytes % % Monocytes % % Eosinophils % % Basophils % % Neutrophils # (1.3-7.7) k/uL Lymphocytes # (1.0-4.8) k/uL Monocytes # (0-1.0) k/uL Eosinophils # (0-0.7) k/uL Basophils # (0-0.2) k/uL Sodium (137-145) mmol/L Potassium (3.5-5.1) mmol/L Chloride (98-107) mmol/L Carbon Dioxide (22-30) mmol/L Anion Gap mmol/L BUN (7-17) mg/dL Creatinine (0.52-1.04) mg/dL Est GFR (CKD-EPI)AfAm (>60 ml/min/1.73 sqM) Est GFR (CKD-EPI)NonAf (>60 ml/min/1.73 sqM) Glucose (74-99) mg/dL Calcium (8.4-10.2) mg/dL Total Bilirubin (0.2-1.3) mg/dL AST (14-36) U/L ALT (9-52) U/L Alkaline Phosphatase (38-126) U/L Total Protein (6.3-8.2) g/dL Albumin (3.5-5.0) g/dL Urine HCG, Qual (Not Detectd) Urine Opiates Screen Not Detected (NotDetected) Ur Oxycodone Screen Not Detected (NotDetected) Urine Methadone Screen Not Detected (NotDetected) Ur Propoxyphene Screen Not Detected (NotDetected) Ur Barbiturates Screen Not Detected (NotDetected) U Tricyclic Antidepress Not Detected (NotDetected) Ur Phencyclidine Scrn Not Detected (NotDetected) Ur Amphetamines Screen Not Detected (NotDetected) U Methamphetamines Scrn Not Detected (NotDetected) U Benzodiazepines Scrn Not Detected (NotDetected) Urine Cocaine Screen Not Detected (NotDetected) U Marijuana (THC) Screen Not Detected (NotDetected) Serum Alcohol mg/dL Disposition Clinical Impression: Acute anxiety Disposition: HOME SELF-CARE Condition: Good Is patient prescribed a controlled substance at d/c from ED?: No Referrals: None,Stated [Primary Care Provider] - 1-2 days Time of Disposition: 14:42
[2018-03-08 12:33] LABS: Basophils % (A) 0 %; Eosinophils % (A) 1 %; HCT 39.8 % (34.0-46.0); HGB 13.1 gm/dL (11.4-16.0); Lymphocytes # (A) 1.3 k/uL (1.0-4.8); Lymphocytes % (A) 26 %; MCHC 32.9 g/dL (31.0-37.0); MCV 91.4 fL (80.0-100.0); Mean Platelet Volume 7.2; Monocytes # (A) 0.3 k/uL (0-1.0); Monocytes % (A) 6 %; Neutrophils # (A) 3.1 k/uL (1.3-7.7); Neutrophils % (A) 65 %; Platelet Count 266 k/uL (150-450); RBC 4.35 m/uL (3.80-5.40); RDW 12.9 % (11.5-15.5); WBC 4.8 k/uL (3.8-10.6)
[2018-03-08 12:45] LABS: Amphetamine Screen,Urine Not Detected (NotDetected); Barbiturate Screen,Urine Not Detected (NotDetected); Benzodiazepines Screen,Urine Not Detected (NotDetected); Cocaine Screen,Urine Not Detected (NotDetected); Methadone Screen, Urine Not Detected (NotDetected); Opiate Screen,Urine Not Detected (NotDetected); Oxycodone Screen, Urine Not Detected (NotDetected); Phencyclidine Screen,Urine Not Detected (NotDetected); Tricyclic Antidepressant,Urine Not Detected (NotDetected); Urn Cannabinoid Scrn Not Detected (NotDetected)
[2018-03-08 12:49] LABS: ALT 21 U/L (9-52); AST 16 U/L (14-36); Albumin 3.6 g/dL (3.5-5.0); Alcohol <10 mg/dL; Alkaline Phosphatase 55 U/L (38-126); Anion Gap 7 mmol/L; Blood Urea Nitrogen 7 mg/dL (7-17); Carbon Dioxide 28 mmol/L (22-30); Chloride 104 mmol/L (98-107); Glucose 94 mg/dL (74-99); Potassium 3.6 mmol/L (3.5-5.1); Sodium 139 mmol/L (137-145); Total Bilirubin 0.2 mg/dL (0.2-1.3); Total Protein 6.8 g/dL (6.3-8.2)
[2018-03-08 14:52] VITALS: BP 111/79; PULSE 90; RESP 18; TEMP 98.1
== END 2018-03-08 14:53 | disposition home or self-care (01) ==
LOC: EC 11:32
DX: F41.9 Anxiety disorder, unspecified (principal); R45.851 Suicidal ideations; R21 Rash and other nonspecific skin eruption; F17.200 Nicotine dependence, unspecified, uncomplicated; Z90.49 Acquired absence of other specified parts of digestive tract; Z98.890 Other specified postprocedural states; Z88.6 Allergy status to analgesic agent; Z88.8 Allergy status to other drugs, medicaments and biological substances; Z91.048 Other nonmedicinal substance allergy status
CPT/HCPCS: 36415; 80053; 85025; 81025; 80306; 99285; G0480; 80320

== ENCOUNTER 2018-03-11 10:36 | Emergency (ER) | payer OTHER ==
[2018-03-11 10:52] VITALS: RESP 18
[2018-03-11] MEDS ORDERED: LORazepam 1 MG TAB PO STA (11:11)
[2018-03-11] MEDS ORDERED: PANTOPRAZOLE 40 MG/10 ML VIAL IVP STA (11:12)
--- NOTE | 2018-03-11 11:14 | ED ---
Chest Pain HPI - General Chief Complaint: Chest Pain Stated Complaint: chest pain Time Seen by Provider: 03/11/18 11:01 Source: patient, RN notes reviewed, old records reviewed Mode of arrival: wheelchair Limitations: no limitations - History of Present Illness Initial Comments: 32-year-old female well-known to emergency department with a history of anxiety presents today with chief complaint of chest pain. Patient states that she's been having chest pain and difficulty breathing for the past 2 days. Patient states that she has had numbness and tingling to the left side of her body and also complains of a headache. Patient reports that she was here 2 days ago and seen for psychiatric complaints. Patient states that she has had no recent fever or chills. She denies a productive cough. Patient she did vomit once today. - Related Data Home Medications Medication Instructions Recorded Confirmed Aspirin/Calcium Carbonate/Mag 650 mg PO Q4H PRN 03/08/18 03/11/18 [Bufferin 325 mg Tablet] Dm/PE/Acetaminophen/Doxylamine 2 cap PO Q6H PRN MDD 10 CAPS 03/08/18 03/11/18 [Chandrika-[place] Plus Day-Night Cp] Previous Rx's Medication Instructions Recorded Mupirocin 2% Oint [Bactroban 2% 1 applic TOPICAL TID #60 gm 03/11/18 Oint] Allergies Allergy/AdvReac Type Severity Reaction Status Date / Time triamcinolone [From Kenalog] Allergy Dyspnea/Yony Verified 03/11/18 12:32 h adhesive tape AdvReac Rash/Hives Verified 03/11/18 12:32 ibuprofen AdvReac GERD Verified 03/11/18 12:32 Review of Systems ROS Statement: Those systems with pertinent positive or pertinent negative responses have been documented in the HPI. ROS Other: All systems not noted in ROS Statement are negative. EKG Findings - EKG Comments: EKG Findings:: EKG performed at 1142 shows a sinus of the left atrial enlargement. When EKG. Ventricular rate of 90 bpm. AL interval is 146 ms. QRS ration 80 ms. QT QTc is 354/437 ms. Past Medical History Past Medical History: Fibromyalgia, GERD/Reflux Additional Past Medical History / Comment(s): BACK PAIN AND DDD, Migraines,. 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 Cm managing), anemia History of Any Multi-Drug Resistant Organisms: ESBL Date of last positivie culture/infection: 10/18/17 MDRO Source:: ESBL URINE Past Surgical History: Appendectomy, Back Surgery Additional Past Surgical History / Comment(s): PAIN CLINIC PROCEDURES Past Anesthesia/Blood Transfusion Reactions: No Reported Reaction Past Psychological History: Anxiety, Depression Smoking Status: Current every day smoker Past Alcohol Use History: None Reported Past Drug Use History: None Reported - Past Family History Brother(s) Additional Family Medical History / Comment(s): [place] Mother Family Medical History: Cancer Additional Family Medical History / Comment(s): LIVER CANCER General Exam - General Exam Comments Initial Comments: 32-year-old female. Patient appears anxious. Limitations: no limitations General appearance: alert, in no apparent distress Head exam: Present: atraumatic, normocephalic, normal inspection Eye exam: Present: normal appearance, PERRL, EOMI. Absent: scleral icterus, conjunctival injection, periorbital swelling ENT exam: Present: normal exam, mucous membranes moist Neck exam: Present: normal inspection. Absent: tenderness, meningismus, lymphadenopathy Respiratory exam: Present: normal lung sounds bilaterally. Absent: respiratory distress, wheezes, rales, rhonchi, stridor Cardiovascular Exam: Present: regular rate, normal rhythm, normal heart sounds. Absent: systolic murmur, diastolic murmur, rubs, gallop, clicks GI/Abdominal exam: Present: soft, normal bowel sounds. Absent: distended, tenderness, guarding, rebound, rigid Back exam: Present: normal inspection Neurological exam: Present: alert, oriented X3, CN II-XII intact Psychiatric exam: Present: normal mood, anxious Skin exam: Present: warm, dry, intact, normal color. Absent: rash Course Vital Signs 03/11/18 03/11/18 10:49 12:00 Temperature 97.9 F Pulse Rate 98 88 Respiratory 18 18 Rate Blood Pressure 103/64 122/83 O2 Sat by Pulse 98 99 Oximetry Chest Pain MDM - MDM Patient is a 32-year-old female presents emergency room stating multiple complaints. She states she's been having chest pain and a headache for the past 2 days. She has not taken any medication at this time. She states she's been about past few days due to pain and headache. Patient has no focal or lateralizing findings. EKG and troponins were reviewed and negative. Chest x- ray was normal. She also complains of bites over her skin. She wants antibiotic to treat these. Patient will be given Bactroban cream. I discussed that this time and not concerned for any cardiac etiology for chest pain. Discussed that was her symptoms are related to anxiety. Patient will be discharged at this time with antibiotic ointment and advised follow-up with her PCP. Disposition Clinical Impression: Atypical chest pain, Insect bite, Migraine Disposition: HOME SELF-CARE Condition: Good Instructions: Chest Pain (ED) Additional Instructions: Patient is follow-up with primary care provider. Return to emergency department if any alarming signs or symptoms occur. Prescriptions: Mupirocin 2% Oint [Bactroban 2% Oint] 1 applic TOPICAL TID #60 gm Is patient prescribed a controlled substance at d/c from ED?: No Referrals: None,Stated [Primary Care Provider] - 1-2 days Time of Disposition: 13:57
[2018-03-11 12:09] LABS: Basophils # (A) 0.1 k/uL (0-0.2); Basophils % (A) 1 %; Eosinophils # (A) 0.1 k/uL (0-0.7); Eosinophils % (A) 1 %; HCT 42.8 % (34.0-46.0); HGB 14.6 gm/dL (11.4-16.0); Lymphocytes % (A) 29 %; MCH 30.9 pg (25.0-35.0); MCHC 34.1 g/dL (31.0-37.0); MCV 90.6 fL (80.0-100.0); Mean Platelet Volume 7.1; Monocytes # (A) 0.4 k/uL (0-1.0); Monocytes % (A) 6 %; Neutrophils # (A) 4.1 k/uL (1.3-7.7); Neutrophils % (A) 60 %; Platelet Count 278 k/uL (150-450); RBC 4.73 m/uL (3.80-5.40); RDW 12.6 % (11.5-15.5); WBC 6.8 k/uL (3.8-10.6)
[2018-03-11 12:19] LABS: ALT 38 U/L (9-52); AST 21 U/L (14-36); Albumin 4.1 g/dL (3.5-5.0); Alkaline Phosphatase 48 U/L (38-126); Anion Gap 8 mmol/L; Blood Urea Nitrogen 19 mg/dL (7-17); Calcium 9.7 mg/dL (8.4-10.2); Carbon Dioxide 31 mmol/L (22-30); Chloride 100 mmol/L (98-107); Glucose 95 mg/dL (74-99); Lipase 98 U/L (23-300); Magnesium 2.2 mg/dL (1.6-2.3); Potassium 4.5 mmol/L (3.5-5.1); Sodium 139 mmol/L (137-145); Total Bilirubin 0.3 mg/dL (0.2-1.3); Total Protein 7.5 g/dL (6.3-8.2)
[2018-03-11 12:30] LABS: Partial Thromboplastin Time 22.3 sec (22.0-30.0)
[2018-03-11 12:33] LABS: Creatine Kinase 32 U/L (30-135)
--- NOTE | 2018-03-11 12:38 | XR ---
EXAMINATION TYPE: XR chest 2V DATE OF EXAM: 03/11/2018 HISTORY: Chest Pain. REFERENCE: Previous study dated 09/16/2016. FINDINGS: The lungs are clear. Pleural spaces are clear. The heart is not enlarged. There is a mild d extroscoliosis. IMPRESSION: NO ACTIVE INTRATHORACIC DISEASE.
[2018-03-11 12:45] LABS: Creatine Kinase MB <0.2 ng/mL (0.0-2.4); Troponin I <0.012 ng/mL (0.000-0.034)
[2018-03-11 13:36] LABS: Appearance,Urine Clear (Clear); Bilirubin,Urine Negative (Negative); Blood,Urine Negative (Negative); Color,Urine Light Yellow; Glucose,Urine (UA) Negative (Negative); Ketones,Urine Negative (Negative); Leukocyte Esterase,Urine Negative (Negative); Nitrite,Urine Negative (Negative); Protein,Urine Negative (Negative); Specific Gravity,Urine 1.009 (1.001-1.035); Urobilinogen,Urine <2.0 mg/dL (<2.0)
[2018-03-11] MEDS ORDERED: ONDANSETRON 4 MG/2 ML VIAL IVP STA (13:52)
[2018-03-11] MEDS ORDERED: KETOROLAC 30 MG/ML 1 ML VIAL IVP STA (13:52)
[2018-03-11 15:04] VITALS: BP 106/77; PULSE 80; TEMP 99.1
== END 2018-03-11 14:55 | disposition home or self-care (01) ==
LOC: EC 10:36
DX: G43.909 Migraine, unspecified, not intractable, without status migrainosus (principal); R07.89 Other chest pain; R06.00 Dyspnea, unspecified; R20.0 Anesthesia of skin; R20.2 Paresthesia of skin; F41.9 Anxiety disorder, unspecified; K21.9 Gastro-esophageal reflux disease without esophagitis; F17.200 Nicotine dependence, unspecified, uncomplicated; Z91.048 Other nonmedicinal substance allergy status; Z88.6 Allergy status to analgesic agent; Z88.8 Allergy status to other drugs, medicaments and biological substances; W57.XXXA Bitten or stung by nonvenomous insect and other nonvenomous arthropods, initial encounter
CPT/HCPCS: 36415; 93005; 80053; 82550; 82553; 83690; 83735; 84484; 85025; 85610; 85730; 81003; 71046; 99285; 96374; 96375 ×2; J2405; J1885; C9113

== ENCOUNTER 2018-11-27 19:01 | Emergency (ER) | payer OTHER ==
[2018-11-27 19:07] VITALS: BP 131/94; PULSE 90; RESP 18; TEMP 98.1
[2018-11-27] MEDS ORDERED: HYDROcodone/APAP 5-325MG 1 EACH TAB PO STA (19:31)
[2018-11-27] MEDS ORDERED: PENICILLIN VK 500MG STARTER 4 TAB BTL PO STA (19:32)
--- NOTE | 2018-11-27 19:32 | ED ---
General Adult HPI - General Chief complaint: Dental/Oral Stated complaint: dental pain Time Seen by Provider: 11/27/18 19:07 Source: patient, RN notes reviewed Mode of arrival: ambulatory Limitations: no limitations - History of Present Illness Initial comments: 33-year-old female with a past medical history of fibromyalgia, migraines, GERD, possible MS presents to the emergency department for a chief clinic dental pain. Patient states she has had broken teeth and poor dentition for several years. States that she is scheduled to have her teeth removed on December 06. However patient states over the past 3 days she has had right-sided dental pain on the upper and lower jaw. States that it is painful when hot or cold touches the area. Denies any injuries to the teeth. Denies any fevers or chills. States that she has been taking Tylenol without relief.Patient has no other complaints at this time including shortness of breath, chest pain, abdominal pain, nausea or vomiting, headache, or visual changes. - Related Data Home Medications Medication Instructions Recorded Confirmed Aspirin/Calcium Carbonate/Mag 650 mg PO Q4H PRN 03/08/18 03/11/18 [Bufferin 325 mg Tablet] Dm/PE/Acetaminophen/Doxylamine 2 cap PO Q6H PRN MDD 10 CAPS 03/08/18 03/11/18 [[facility]-[place] Plus Day-Night Cp] Previous Rx's Medication Instructions Recorded Mupirocin 2% Oint [Bactroban 2% 1 applic TOPICAL TID #60 gm 03/11/18 Oint] Penicillin V Potassium [Pen Vee K] 500 mg PO Q6H 10 Days #40 tablet 11/27/18 Allergies Allergy/AdvReac Type Severity Reaction Status Date / Time triamcinolone [From Kenalog] Allergy Dyspnea/Yony Verified 11/27/18 19:07 h adhesive tape AdvReac Rash/Hives Verified 11/27/18 19:07 ibuprofen AdvReac GERD Verified 11/27/18 19:07 Review of Systems ROS Statement: Those systems with pertinent positive or pertinent negative responses have been documented in the HPI. ROS Other: All systems not noted in ROS Statement are negative. Past Medical History Past Medical History: Fibromyalgia, GERD/Reflux Additional Past Medical History / Comment(s): BACK PAIN AND DDD, Migraines,. 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 Cm managing), anemia History of Any Multi-Drug Resistant Organisms: ESBL Date of last positivie culture/infection: 10/18/17 MDRO Source:: ESBL URINE Past Surgical History: Appendectomy, Back Surgery Additional Past Surgical History / Comment(s): PAIN CLINIC PROCEDURES Past Anesthesia/Blood Transfusion Reactions: No Reported Reaction Past Psychological History: Anxiety, Depression Smoking Status: Current every day smoker Past Alcohol Use History: None Reported Past Drug Use History: None Reported - Past Family History Brother(s) Additional Family Medical History / Comment(s): [place] Mother Family Medical History: Cancer Additional Family Medical History / Comment(s): LIVER CANCER General Exam Limitations: no limitations General appearance: alert, in no apparent distress Head exam: Present: atraumatic, normocephalic, normal inspection Eye exam: Present: normal appearance, PERRL, EOMI. Absent: scleral icterus, conjunctival injection, periorbital swelling ENT exam: Present: normal exam, mucous membranes moist, TM's normal bilaterally, normal external ear exam. Absent: normal oropharynx (Patient has very poor dentition noted with several fractured teeth noted along the right upper and lower jaws. No dental abscesses noted.) Neck exam: Present: normal inspection, full ROM. Absent: tenderness, meningismus, lymphadenopathy Respiratory exam: Present: normal lung sounds bilaterally. Absent: respiratory distress, wheezes, rales, rhonchi, stridor Cardiovascular Exam: Present: regular rate, normal rhythm, normal heart sounds. Absent: systolic murmur, diastolic murmur, rubs, gallop, clicks Neurological exam: Present: alert, oriented X3, CN II-XII intact Psychiatric exam: Present: normal affect, normal mood Course Vital Signs 11/27/18 19:03 Temperature 98.1 F Pulse Rate 90 Respiratory 18 Rate Blood Pressure 131/94 O2 Sat by Pulse 99 Oximetry Medical Decision Making - Medical Decision Making 33-year-old female presents to the emergency department for chief complaint dental pain. This has been ongoing for the past 3 days. Patient has chronically poor dentition and is scheduled to have teeth extracted on December 06. However pain has worsened in the past 3 days. States it is painful for hot and cold and she is now having pain with eating and drinking. On examination patient does have very poor dentition with several fractured teeth noted on the right side of the mouth. No dental abscesses with elevation of the gumline or visualization of the gumline. Patient was given one [place] for pain here as she is ALLERGIC to Motrin. Patient was given penicillin. Recommended follow-up with dentist. Recommended returning if she has any worsening symptoms or fevers. Disposition Clinical Impression: Pain, dental Disposition: HOME SELF-CARE Condition: Good Instructions (If sedation given, give patient instructions): Dental Caries (ED) Additional Instructions: Please take Motrin and Tylenol for pain. Take antibiotic as directed. Follow- up with primary care in 1-2 days. Return to the emergency department if you have any worsening symptoms. Prescriptions: Penicillin V Potassium [Pen Vee K] 500 mg PO Q6H 10 Days #40 tablet Is patient prescribed a controlled substance at d/c from ED?: No Referrals: Rodriguez Power MD [REFERRING] - 1-2 days Time of Disposition: 19:29
[2018-11-27] MEDS ORDERED: KETOROLAC 30 MG/ML 1 ML VIAL IM STA (19:37)
== END 2018-11-27 19:55 | disposition home or self-care (01) ==
LOC: EC 19:01
DX: K08.89 Other specified disorders of teeth and supporting structures (principal); F17.200 Nicotine dependence, unspecified, uncomplicated; Z88.6 Allergy status to analgesic agent; Z88.8 Allergy status to other drugs, medicaments and biological substances; Z91.048 Other nonmedicinal substance allergy status
CPT/HCPCS: 99282; J1885

== ENCOUNTER 2019-04-14 14:20 | Inpatient (IN) | payer OTHER ==
[2019-04-14] MEDS ORDERED: NITROGLYCERIN SL TABS 0.4 MG TAB SUBLINGUAL STA ×3 (15:11)
[2019-04-14] MEDS ORDERED: ASPIRIN 81 MG PO STA (15:11)
--- NOTE | 2019-04-14 15:22 | ED ---
General Adult HPI - General Chief complaint: Chest Pain Stated complaint: Chest pain Time Seen by Provider: 04/14/19 14:28 Source: patient, RN notes reviewed Mode of arrival: ambulatory Limitations: no limitations - History of Present Illness Initial comments: Patient is a pleasant 33-year-old female presenting to the emergency Department with chest discomfort. Onset of symptoms was yesterday. Discomfort is left anterior chest. Discomfort has been fairly steady. Patient has occasional nausea. No diaphoresis. No dyspnea. Patient did have similar symptoms once years ago however was told there was nothing wrong. Patient states discomfort is somewhat sharp. There is some radiation towards left arm. - Related Data Home Medications Medication Instructions Recorded Confirmed Acetaminophen Tab [Tylenol Tab] 650 mg PO Q4H PRN 04/14/19 04/14/19 Allergies Allergy/AdvReac Type Severity Reaction Status Date / Time triamcinolone [From Kenalog] Allergy Dyspnea/Yony Verified 04/14/19 16:35 h adhesive tape AdvReac Rash/Hives Verified 04/14/19 16:35 ibuprofen AdvReac GERD Verified 04/14/19 16:35 Review of Systems ROS Statement: Those systems with pertinent positive or pertinent negative responses have been documented in the HPI. ROS Other: All systems not noted in ROS Statement are negative. Constitutional: Denies: fever Eyes: Denies: eye pain ENT: Denies: ear pain Respiratory: Denies: cough Cardiovascular: Reports: chest pain Endocrine: Denies: fatigue Gastrointestinal: Denies: abdominal pain Genitourinary: Denies: dysuria Musculoskeletal: Denies: back pain Skin: Denies: rash Neurological: Denies: weakness Past Medical History Past Medical History: Fibromyalgia, GERD/Reflux Additional Past Medical History / Comment(s): BACK PAIN AND DDD, Migraines,. 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 Cm managing), anemia History of Any Multi-Drug Resistant Organisms: ESBL Date of last positivie culture/infection: 10/18/17 MDRO Source:: ESBL URINE Past Surgical History: Appendectomy, Back Surgery Additional Past Surgical History / Comment(s): PAIN CLINIC PROCEDURES Past Anesthesia/Blood Transfusion Reactions: No Reported Reaction Past Psychological History: Anxiety, Depression Smoking Status: Current every day smoker Past Alcohol Use History: None Reported Past Drug Use History: None Reported - Past Family History Brother(s) Additional Family Medical History / Comment(s): [place] Mother Family Medical History: Cancer Additional Family Medical History / Comment(s): LIVER CANCER General Exam Limitations: no limitations General appearance: alert, in no apparent distress Head exam: Present: normocephalic Eye exam: Present: normal appearance, PERRL ENT exam: Present: normal oropharynx Neck exam: Present: normal inspection Respiratory exam: Present: normal lung sounds bilaterally. Absent: chest wall tenderness Cardiovascular Exam: Present: regular rate, normal rhythm Expanded Peripheral pulses: 2+: Radial (R), Radial (L), Posterior Tibialis (R), Posterior Tibialis (L), Dorsalis Pedis (R), Dorsalis Pedis (L) GI/Abdominal exam: Present: soft. Absent: distended, tenderness Extremities exam: Present: normal inspection. Absent: pedal edema, calf tenderness Neurological exam: Present: alert Psychiatric exam: Present: normal affect, normal mood Skin exam: Present: normal color Course Vital Signs 04/14/19 04/14/19 14:24 14:44 Temperature 98 F Pulse Rate 110 H Pulse Rate [ 108 H Hand Flesher ] Respiratory 20 20 Rate Blood Pressure 107/66 O2 Sat by Pulse 96 Oximetry EKG Findings - EKG Comments: EKG Findings:: Sinus tachycardia 101. MA 136. QRS 92. QT 332. QTC 4:30. Normal axis. Normal QRS. No acute ST change. Medical Decision Making - Medical Decision Making Patient reevaluated and is improved following nitroglycerin. Patient updated on results and plan. Case was discussed with Dr. katz, covering for hospital call, who will admit. - Lab Data Result diagrams: 04/14/19 14:38 04/14/19 14:38 Lab Results 04/14/19 04/14/19 04/14/19 Range/Units 14:38 14:38 14:38 WBC 8.7 (3.8-10.6) k/uL RBC 4.49 (3.80-5.40) m/uL Hgb 14.0 (11.4-16.0) gm/dL Hct 40.9 (34.0-46.0) % MCV 91.2 (80.0-100.0) fL MCH 31.1 (25.0-35.0) pg MCHC 34.1 (31.0-37.0) g/dL RDW 12.5 (11.5-15.5) % Plt Count 307 (150-450) k/uL Neutrophils % 73 % Lymphocytes % 20 % Monocytes % 3 % Eosinophils % 2 % Basophils % 1 % Neutrophils # 6.3 (1.3-7.7) k/uL Lymphocytes # 1.7 (1.0-4.8) k/uL Monocytes # 0.3 (0-1.0) k/uL Eosinophils # 0.1 (0-0.7) k/uL Basophils # 0.1 (0-0.2) k/uL PT 9.8 (9.0-12.0) sec INR 0.9 (<1.2) APTT 23.2 (22.0-30.0) sec D-Dimer <0.17 (<0.60) mg/L FEU Sodium 139 (137-145) mmol/L Potassium 3.8 (3.5-5.1) mmol/L Chloride 103 (98-107) mmol/L Carbon Dioxide 25 (22-30) mmol/L Anion Gap 11 mmol/L BUN 17 (7-17) mg/dL Creatinine 0.66 (0.52-1.04) mg/dL Est GFR (CKD-EPI)AfAm >90 (>60 ml/min/1.73 sqM) Est GFR (CKD-EPI)NonAf >90 (>60 ml/min/1.73 sqM) Glucose 133 H (74-99) mg/dL Calcium 9.9 (8.4-10.2) mg/dL Magnesium 2.0 (1.6-2.3) mg/dL Total Bilirubin 0.2 (0.2-1.3) mg/dL AST 17 (14-36) U/L ALT 20 (9-52) U/L Alkaline Phosphatase 52 (38-126) U/L Troponin I (0.000-0.034) ng/mL Total Protein 8.2 (6.3-8.2) g/dL Albumin 4.8 (3.5-5.0) g/dL Urine Opiates Screen (NotDetected) Ur Oxycodone Screen (NotDetected) Urine Methadone Screen (NotDetected) Ur Propoxyphene Screen (NotDetected) Ur Barbiturates Screen (NotDetected) U Tricyclic Antidepress (NotDetected) Ur Phencyclidine Scrn (NotDetected) Ur Amphetamines Screen (NotDetected) U Methamphetamines Scrn (NotDetected) U Benzodiazepines Scrn (NotDetected) Urine Cocaine Screen (NotDetected) U Marijuana (THC) Screen (NotDetected) 04/14/19 04/14/19 Range/Units 14:38 14:38 WBC (3.8-10.6) k/uL RBC (3.80-5.40) m/uL Hgb (11.4-16.0) gm/dL Hct (34.0-46.0) % MCV (80.0-100.0) fL MCH (25.0-35.0) pg MCHC (31.0-37.0) g/dL RDW (11.5-15.5) % Plt Count (150-450) k/uL Neutrophils % % Lymphocytes % % Monocytes % % Eosinophils % % Basophils % % Neutrophils # (1.3-7.7) k/uL Lymphocytes # (1.0-4.8) k/uL Monocytes # (0-1.0) k/uL Eosinophils # (0-0.7) k/uL Basophils # (0-0.2) k/uL PT (9.0-12.0) sec INR (<1.2) APTT (22.0-30.0) sec D-Dimer (<0.60) mg/L FEU Sodium (137-145) mmol/L Potassium (3.5-5.1) mmol/L Chloride (98-107) mmol/L Carbon Dioxide (22-30) mmol/L Anion Gap mmol/L BUN (7-17) mg/dL Creatinine (0.52-1.04) mg/dL Est GFR (CKD-EPI)AfAm (>60 ml/min/1.73 sqM) Est GFR (CKD-EPI)NonAf (>60 ml/min/1.73 sqM) Glucose (74-99) mg/dL Calcium (8.4-10.2) mg/dL Magnesium (1.6-2.3) mg/dL Total Bilirubin (0.2-1.3) mg/dL AST (14-36) U/L ALT (9-52) U/L Alkaline Phosphatase (38-126) U/L Troponin I <0.012 (0.000-0.034) ng/mL Total Protein (6.3-8.2) g/dL Albumin (3.5-5.0) g/dL Urine Opiates Screen Not Detected (NotDetected) Ur Oxycodone Screen Not Detected (NotDetected) Urine Methadone Screen Not Detected (NotDetected) Ur Propoxyphene Screen Not Detected (NotDetected) Ur Barbiturates Screen Not Detected (NotDetected) U Tricyclic Antidepress Not Detected (NotDetected) Ur Phencyclidine Scrn Not Detected (NotDetected) Ur Amphetamines Screen Not Detected (NotDetected) U Methamphetamines Scrn Not Detected (NotDetected) U Benzodiazepines Scrn Not Detected (NotDetected) Urine Cocaine Screen Not Detected (NotDetected) U Marijuana (THC) Screen Not Detected (NotDetected) - Radiology Data Radiology results: image reviewed (Chest x-ray shows no acute process) Disposition Clinical Impression: Chest pain Disposition: ADMITTED IP TO THIS HOSP Is patient prescribed a controlled substance at d/c from ED?: No Decision Time: 16:21
[2019-04-14 15:28] LABS: Basophils # (A) 0.1 k/uL (0-0.2); Basophils % (A) 1 %; Eosinophils # (A) 0.1 k/uL (0-0.7); Eosinophils % (A) 2 %; HCT 40.9 % (34.0-46.0); Lymphocytes # (A) 1.7 k/uL (1.0-4.8); Lymphocytes % (A) 20 %; MCH 31.1 pg (25.0-35.0); MCHC 34.1 g/dL (31.0-37.0); MCV 91.2 fL (80.0-100.0); Mean Platelet Volume 7.2; Monocytes # (A) 0.3 k/uL (0-1.0); Monocytes % (A) 3 %; Neutrophils # (A) 6.3 k/uL (1.3-7.7); Neutrophils % (A) 73 %; Platelet Count 307 k/uL (150-450); RBC 4.49 m/uL (3.80-5.40); RDW 12.5 % (11.5-15.5); WBC 8.7 k/uL (3.8-10.6)
[2019-04-14 15:30] LABS: ALT 20 U/L (9-52); AST 17 U/L (14-36); African American GFR (CKD) >90 (>60 ml/min/1.73 sqM); Albumin 4.8 g/dL (3.5-5.0); Alkaline Phosphatase 52 U/L (38-126); Anion Gap 11 mmol/L; Blood Urea Nitrogen 17 mg/dL (7-17); Calcium 9.9 mg/dL (8.4-10.2); Carbon Dioxide 25 mmol/L (22-30); Chloride 103 mmol/L (98-107); Glucose 133 mg/dL (74-99); Non-African American GFR(CKD) >90 (>60 ml/min/1.73 sqM); Potassium 3.8 mmol/L (3.5-5.1); Sodium 139 mmol/L (137-145); Total Bilirubin 0.2 mg/dL (0.2-1.3); Total Protein 8.2 g/dL (6.3-8.2)
[2019-04-14 15:39] LABS: Cocaine Screen,Urine Not Detected (NotDetected); Phencyclidine Screen,Urine Not Detected (NotDetected); Urn Cannabinoid Scrn Not Detected (NotDetected)
[2019-04-14 15:40] LABS: Amphetamine Screen,Urine Not Detected (NotDetected); Barbiturate Screen,Urine Not Detected (NotDetected); Benzodiazepines Screen,Urine Not Detected (NotDetected); Methadone Screen, Urine Not Detected (NotDetected); Opiate Screen,Urine Not Detected (NotDetected); Oxycodone Screen, Urine Not Detected (NotDetected); Tricyclic Antidepressant,Urine Not Detected (NotDetected)
[2019-04-14 15:43] LABS: D-Dimer <0.17 mg/L FEU (<0.60); INR 0.9 (<1.2); Partial Thromboplastin Time 23.2 sec (22.0-30.0); Prothrombin Time 9.8 sec (9.0-12.0)
--- NOTE | 2019-04-14 16:02 | XR ---
EXAMINATION TYPE: XR chest 2V DATE OF EXAM: 04/14/2019 COMPARISON: 03/11/2018 HISTORY: Chest pain. Short of breath TECHNIQUE: Frontal and lateral views of the chest are obtained. FINDINGS: Heart and mediastinum are normal. Lungs are clear. Diaphragm is normal. There is mild thor acic dextroscoliosis. There are chest leads. IMPRESSION: Normal chest. No active cardiopulmonary disease. Mild thoracic dextroscoliosis.
[2019-04-14] MEDS ORDERED: NITROGLYCERIN SL TABS 0.4 MG TAB SUBLINGUAL PRN (16:21)
[2019-04-14] MEDS ORDERED: MORPHINE SULFATE 4 MG/ML SYRINGE IV STA (16:22)
[2019-04-14] MEDS: NITROGLYCERIN OINT 1 INCH/GM PACKET TOPICAL SCH (17:02)
[2019-04-14] MEDS: ACETAMINOPHEN TAB 325 MG TAB PO PRN (20:36)
[2019-04-15] MEDS: ACETAMINOPHEN TAB 325 MG TAB PO PRN ×3 (05:26→20:22)
[2019-04-15] MEDS: NITROGLYCERIN OINT 1 INCH/GM PACKET TOPICAL SCH ×2 (05:26)
[2019-04-15 06:40] LABS: Cholesterol 164 mg/dL (<200); HDL Cholesterol 49 mg/dL (40-60); LDL Cholesterol,Calculated 86 mg/dL (0-99); Triglycerides 146 mg/dL (<150)
[2019-04-15 08:04] LABS: HGB 12.4 gm/dL (11.4-16.0); MCH 31.1 pg (25.0-35.0); MCHC 33.5 g/dL (31.0-37.0); MCV 92.6 fL (80.0-100.0); Mean Platelet Volume 7.3; Platelet Count 236 k/uL (150-450); RDW 12.6 % (11.5-15.5); WBC 5.2 k/uL (3.8-10.6)
[2019-04-15 08:14] LABS: ALT 17 U/L (9-52); AST 16 U/L (14-36); African American GFR (CKD) >90 (>60 ml/min/1.73 sqM); Alkaline Phosphatase 39 U/L (38-126); Anion Gap 5 mmol/L; Blood Urea Nitrogen 15 mg/dL (7-17); Calcium 8.8 mg/dL (8.4-10.2); Carbon Dioxide 27 mmol/L (22-30); Chloride 107 mmol/L (98-107); Glucose 91 mg/dL (74-99); Non-African American GFR(CKD) >90 (>60 ml/min/1.73 sqM); Potassium 4.5 mmol/L (3.5-5.1); Sodium 139 mmol/L (137-145); Total Bilirubin 0.3 mg/dL (0.2-1.3); Total Protein 6.9 g/dL (6.3-8.2)
--- NOTE | 2019-04-15 08:21 | P.CRDCN ---
History of Present Illness Consult date: 04/15/19 Requesting physician: Amy Loredo Consult reason: chest pain Chief complaint: Chest pain History of present illness: This is a 33-year-old female with history of nicotine dependence, she denies any history of hypertension, no diabetes, no hyperlipidemia, she is unsure family history because she was adopted, she is 33 years of age, very frail looking younger all, she has 5 children. Patient states that over the past one year, actually since September of this year she has lost approximately 50 pounds in weight, she also noticed that her hair is starting to fall out. She has frequent diarrhea. According to her she used to use street drugs, she has not done this for a long time according to the patient. He presents to the hospital on this occasion with symptoms of sharp left-sided chest pain that radiates down her left arm. Pain worsens with deep breathing, and she does have some tenderness in the left chest wall area. She also has some notable bruising on her back, she states that these bruises just seemed to appear out of nowhere. Chest x-ray is normal, mild thoracic dextro scoliosis or EKG on presentation here showed a sinus tachycardia nonspecific ST-T wave changes. White blood cell count 5.2, hemoglobin 12.4, platelet count 236. D-dimer 0.17. Sodium 139, pot assium 3.8, BUN 17, creatinine 0.6. Troponins are negative 3. Cholesterol 164, LDL 86, HDL 49, triglycerides 146. Urine drug screen was negative, patient did use of methamphetamines in the past. Past Medical History Past Medical History: Fibromyalgia, GERD/Reflux Additional Past Medical History / Comment(s): BACK PAIN AND DDD, Migraines,. 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 Cm managing), anemia History of Any Multi-Drug Resistant Organisms: ESBL Date of last positivie culture/infection: 10/18/17 MDRO Source:: ESBL URINE Past Surgical History: Appendectomy, Back Surgery Additional Past Surgical History / Comment(s): PAIN CLINIC PROCEDURES Past Anesthesia/Blood Transfusion Reactions: No Reported Reaction Past Psychological History: Anxiety, Depression Smoking Status: Current every day smoker Past Alcohol Use History: None Reported Past Drug Use History: None Reported - Past Family History Brother(s) Additional Family Medical History / Comment(s): [facility] Mother Family Medical History: Cancer Additional Family Medical History / Comment(s): LIVER CANCER Medications and Allergies Home Medications Medication Instructions Recorded Confirmed Type Acetaminophen Tab [Tylenol Tab] 650 mg PO Q4H PRN 04/14/19 04/14/19 History Allergies Allergy/AdvReac Type Severity Reaction Status Date / Time triamcinolone [From Kenalog] Allergy Dyspnea/Yony Verified 04/14/19 16:35 h adhesive tape AdvReac Rash/Hives Verified 04/14/19 16:35 ibuprofen AdvReac GERD Verified 04/14/19 16:35 Physical Exam Vitals: Vital Signs Temp Pulse Pulse Pulse Resp BP BP 04/15/19 04:00 97.8 F 63 17 89/64 04/14/19 23:53 97.9 F 69 16 103/65 04/14/19 20:00 97.9 F 68 17 105/65 04/14/19 18:31 89 16 04/14/19 18:13 04/14/19 17:26 97.3 F L 89 18 105/62 04/14/19 16:54 85 18 110/72 04/14/19 16:36 97.9 F 89 16 105/62 04/14/19 16:00 87 18 04/14/19 14:44 108 H 20 04/14/19 14:24 98 F 110 H 20 107/66 Pulse Ox 04/15/19 04:00 99 04/14/19 23:53 97 04/14/19 20:00 99 04/14/19 18:31 04/14/19 18:13 98 04/14/19 17:26 99 04/14/19 16:54 98 04/14/19 16:36 99 04/14/19 16:00 98 04/14/19 14:44 04/14/19 14:24 96 Intake and Output 04/14/19 04/15/19 04/15/19 22:59 06:59 14:59 Intake Total 420 490 Balance 420 490 Intake: IV 10 0.9 10 Oral 420 480 Other: Voiding Method Toilet Toilet # Voids 2 4 Weight 51.8 kg PHYSICAL EXAMINATION: GENERAL: 83-year-old female frail, somewhat emaciated, in no acute distress at the time of my examination HEENT: Head is atraumatic, normocephalic. Pupils equal, round. Sclera anicte hernan. Conjunctiva are clear. Mucous membranes of the mouth are moist. Neck is supple. There is no elevated jugular venous pressure. No carotid bruit is heard. Patient has several areas, patches of hair loss HEART EXAMINATION: Heart S1, S2 normal. No murmur or gallop heard. CHEST EXAMINATION: Lungs are clear to auscultation and precussion. No chest wall tenderness is noted on palpation or with deep breathing. Areas of small bruising noted to the patient's back ABDOMEN: Soft, nontender. Bowel sounds are heard. No organomegaly noted. EXTREMITIES: 2+ peripheral pulses with no evidence of peripheral edema and no calf tenderness noted. NEUROLOGIC patient is awake, alert and oriented 3 . . Results 04/15/19 07:46 04/15/19 07:46 Cardiac Enzymes 04/14/19 04/14/19 04/14/19 Range/Units 14:38 14:38 21:18 AST 17 (14-36) U/L Troponin I <0.012 <0.012 (0.000-0.034) ng/mL Coagulation 04/14/19 Range/Units 14:38 PT 9.8 (9.0-12.0) sec APTT 23.2 (22.0-30.0) sec Lipids 04/15/19 Range/Units 05:29 Triglycerides 146 (<150) mg/dL Cholesterol 164 (<200) mg/dL HDL Cholesterol 49 (40-60) mg/dL CBC 04/14/19 Range/Units 14:38 WBC 8.7 (3.8-10.6) k/uL RBC 4.49 (3.80-5.40) m/uL Hgb 14.0 (11.4-16.0) gm/dL Hct 40.9 (34.0-46.0) % Plt Count 307 (150-450) k/uL Comprehensive Metabolic Panel 04/14/19 Range/Units 14:38 Sodium 139 (137-145) mmol/L Potassium 3.8 (3.5-5.1) mmol/L Chloride 103 (98-107) mmol/L Carbon Dioxide 25 (22-30) mmol/L BUN 17 (7-17) mg/dL Creatinine 0.66 (0.52-1.04) mg/dL Glucose 133 H (74-99) mg/dL Calcium 9.9 (8.4-10.2) mg/dL AST 17 (14-36) U/L ALT 20 (9-52) U/L Alkaline Phosphatase 52 (38-126) U/L Total Protein 8.2 (6.3-8.2) g/dL Albumin 4.8 (3.5-5.0) g/dL Current Medications Generic Name Dose Route Start Last Admin Trade Name Freq PRN Reason Stop Dose Admin Acetaminophen 650 mg 04/14/19 20:01 04/15/19 05:26 Tylenol Tab PO 650 mg Q6HR PRN Administration Fever and/ or Pain Aspirin 325 mg 04/15/19 09:00 Aspirin PO DAILY MIGUEL A Nitroglycerin 0.4 mg 04/14/19 16:21 Nitrostat SUBLINGUAL Q5M PRN Chest Pain Nitroglycerin 1 inch 04/14/19 18:00 04/15/19 05:26 Nitro-Bid Oint TOPICAL Not Given Q6HR MIGUEL A Sodium Chloride 10 ml 04/14/19 21:00 04/14/19 20:37 Saline Flush IV 10 ml BID MIGUEL A Administration Intake and Output 04/14/19 04/15/19 04/15/19 22:59 06:59 14:59 Intake Total 420 490 Balance 420 490 Intake: IV 10 0.9 10 Oral 420 480 Other: Voiding Method Toilet Toilet # Voids 2 4 Weight 51.8 kg 04/14/19 14:38 04/14/19 14:38 EKG Interpretations (text) EKG on presentation here shows a sinus tachycardia with nonspecific ST-T wave changes Assessment and Plan Plan: Assessment and plan #1 chest pain, atypical for acute coronary syndrome. Troponins negative 3. EKG shows a sinus tachycardia with nonspecific ST-T wave changes #2 nicotine dependence #3 history of methamphetamine abuse #4 significant weight loss with associated hair loss over the past several months Plan We will obtain an echocardiogram with Doppler study. Discontinue the Nitropaste. Request a TSH level. Check a sed rate. Patient will also be scheduled for stress echocardiographic study today. Further recommendations to follow. DNP note has been reviewed, I agree with a documented findings and plan of care. Patient was seen and examined.
[2019-04-15] MEDS ORDERED: ASPIRIN 325 MG TAB PO SCH (09:00)
--- NOTE | 2019-04-15 11:01 | ECHOF ---
Referral Reason:chest pain MEASUREMENTS -------- HEIGHT: 165.1 cm WEIGHT: 51.7 kg BP: 97/70 RVIDd: 3.2 cm (< 3.3) IVSd: 1.1 cm (0.6 - 1.1) LVIDd: 3.6 cm (3.9 - 5.3) LVPWd: 1.0 cm (0.6 - 1.1) IVSs: 1.5 cm LVIDs: 2.0 cm LVPWs: 1.5 cm LAESV Index (A-L): 15.93 ml/m Ao Diam: 2.7 cm (2.0 - 3.7) AV Cusp: 1.3 cm (1.5 - 2.6) MV E Devon: 0.83 m/s MV DecT: 187 ms MV A Devon: 0.32 m/s MV E/A Ratio: 2.56 RAP: 5.00 mmHg RVSP: 21.91 mmHg FINDINGS -------- Sinus rhythm. This was a technically good study. The left ventricular size is normal. Left ventricular wall thickness is normal. Overall left vent ricular systolic function is normal with, an EF between 60 - 65 %. The diastolic filling pattern is normal for the age of the patient 6.77. The right ventricle is normal in size. Normal LA size by volume 22+/-6 ml/m2. The right atrial size is normal. Interatrial and interventricular septum intact. The aortic valve is trileaflet and appears structurally normal. There is no evidence of aortic regu rgitation. There is no evidence of aortic stenosis. The mitral valve is normal. No mitral regurgitation. Trace tricuspid regurgitation present. There is no evidence of pulmonary hypertension. The right ventricular systolic pressure, as measured by Doppler, is 21.91mmHg. There is no pulmonic regurgitation present. The aortic root size is normal. The inferior vena cava is mildly dilated. There is no pericardial effusion. CONCLUSIONS -------- 1. Sinus rhythm. 2. This was a technically good study. 3. The left ventricular size is normal. 4. Left ventricular wall thickness is normal. 5. Overall left ventricular systolic function is normal with, an EF between 60 - 65 %. 6. The diastolic filling pattern is normal for the age of the patient 6.77 7. The right ventricle is normal in size. 8. Normal LA size by volume 22+/-6 ml/m2. 9. The right atrial size is normal. 10. Interatrial and interventricular septum intact. 11. The aortic valve is trileaflet and appears structurally normal. 12. There is no evidence of aortic regurgitation. 13. There is no evidence of aortic stenosis. 14. The mitral valve is normal. 15. No mitral regurgitation. 16. Trace tricuspid regurgitation present. 17. There is no evidence of pulmonary hypertension. 18. The right ventricular systolic pressure, as measured by Doppler, is 21.91mmHg. 19. There is no pulmonic regurgitation present. 20. The aortic root size is normal. 21. The inferior vena cava is mildly dilated. 22. There is no pericardial effusion. INSOLE PRESSER: Sharona Zhou RDCS
[2019-04-15] MEDS ORDERED: SODIUM CHLORIDE 0.9% 500 ML 500 ML IV ONE (12:01)
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
[2019-04-15] MEDS: ASPIRIN 81 MG PO SCH (12:09)
[2019-04-15] MEDS: FAMOTIDINE 20 MG/2 ML VIAL IV SCH ×2 (12:48→20:23)
[2019-04-15] MEDS: NICOTINE 21MG/24HR PATCH TRANSDERM SCH (12:48)
[2019-04-15] MEDS: SODIUM CHLORIDE 0.9% 1,000 ML IV SCH ×2 (12:49→22:55)
[2019-04-15] MEDS: HEPARIN SODIUM,PORCINE 5,000 UNIT/ML 1 ML VIAL SQ SCH (20:23)
[2019-04-15] MEDS: diphenhydrAMINE 25 MG CAP PO PRN (22:55)
[2019-04-16] MEDS: NICOTINE 21MG/24HR PATCH TRANSDERM SCH (09:03)
[2019-04-16] MEDS: FAMOTIDINE 20 MG/2 ML VIAL IV SCH ×2 (09:03→09:04)
[2019-04-16] MEDS: HEPARIN SODIUM,PORCINE 5,000 UNIT/ML 1 ML VIAL SQ SCH ×2 (09:03→23:19)
[2019-04-16] MEDS: ASPIRIN 81 MG PO SCH (09:03)
[2019-04-16 09:42] LABS: Basophils % (A) 1 %; Eosinophils # (A) 0.2 k/uL (0-0.7); Eosinophils % (A) 3 %; HCT 38.1 % (34.0-46.0); HGB 12.5 gm/dL (11.4-16.0); Lymphocytes # (A) 1.7 k/uL (1.0-4.8); Lymphocytes % (A) 32 %; MCH 30.5 pg (25.0-35.0); MCV 92.5 fL (80.0-100.0); Mean Platelet Volume 7.3; Monocytes # (A) 0.2 k/uL (0-1.0); Monocytes % (A) 4 %; Neutrophils % (A) 58 %; Platelet Count 236 k/uL (150-450); RBC 4.12 m/uL (3.80-5.40); RDW 12.5 % (11.5-15.5); WBC 5.2 k/uL (3.8-10.6)
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
[2019-04-16 09:56] LABS: African American GFR (CKD) >90 (>60 ml/min/1.73 sqM); Anion Gap 6 mmol/L; Blood Urea Nitrogen 19 mg/dL (7-17); Carbon Dioxide 25 mmol/L (22-30); Chloride 109 mmol/L (98-107); Glucose 84 mg/dL (74-99); Non-African American GFR(CKD) 89 (>60 ml/min/1.73 sqM); Potassium 4.5 mmol/L (3.5-5.1); Sodium 140 mmol/L (137-145)
--- NOTE | 2019-04-16 13:10 | P.PN ---
Subjective Progress Note Date: 04/16/19 This is a 33-year-old female with history of nicotine dependence, she denies any history of hypertension, no diabetes, no hyperlipidemia, she is unsure family history because she was adopted, she is 33 years of age, very frail looking younger all, she has 5 children. Patient states that over the past one year, actually since September of this year she has lost approximately 50 pounds in weight, she also noticed that her hair is starting to fall out. She has frequent diarrhea. According to her she used to use street drugs, she has not done this for a long time according to the patient. He presents to the hospital on this occasion with symptoms of sharp left-sided chest pain that radiates down her left arm. Pain worsens with deep breathing, and she does have some tenderness in the left chest wall area. She also has some notable bruising on her back, she states that these bruises just seemed to appear out of nowhere. Chest x-ray is normal, mild thoracic dextro scoliosis or EKG on presentation here showed a sinus tachycardia nonspecific ST-T wave changes. White blood cell count 5.2, hemoglobin 12.4, platelet count 236. D-dimer 0.17. Sodium 139, potassium 3.8, BUN 17, creatinine 0.6. Troponins are negative 3. Cholesterol 164, LDL 86, HDL 49, triglycerides 146. Urine drug screen was negative, patient did use of methamphetamines in the past. 04/16/2019 Patient seen and examined this morning, complaining of some abdominal discomfort, denies any chest pain. Was unable to complete the stress test yesterday and today is refusing to have a stress test. Echocardiogram with Doppler study revealed a normal left ventricular systolic function. Blood pressure 90/50 with a heart rate in the 70s, 90% on room air. White blood cell count 5.2, hemoglobin 12.5, platelet count 236. Sodium 140, potassium 4.5, BUN 19 and creatinine 0.8. Objective - Vital Signs Vital signs: Vital Signs Temp 98.4 F 04/16/19 03:52 Pulse 70 04/16/19 03:54 Resp 18 04/16/19 03:54 BP 91/55 04/16/19 03:52 Pulse Ox 98 04/16/19 03:53 Intake & Output 04/15/19 04/16/19 04/16/19 18:59 06:59 18:59 Intake Total 2009 400 240 Output Total 500 Balance 1510 400 240 Weight 51.8 kg 53.6 kg Intake: IV 10 400 0.9 400 Invasive Line 2 10 Intake, IV Titration 1200 Amount Sodium Chloride 0.9% 1, 700 000 ml @ 150 mls/hr IV . Q6H40M MIGUEL A Rx#:[id number] Sodium Chloride 0.9% 500 500 ml 500 ml @ 999 mls/hr IV .Q31M ONE Rx#:[id number] Oral 800 240 Output: Urine 500 Other: Voiding Method Toilet Toilet # Voids 1 1 - Exam PHYSICAL EXAMINATION: GENERAL: 83-year-old female frail, somewhat emaciated, in no acute distress at the time of my examination HEENT: Head is atraumatic, normocephalic. Pupils equal, round. Sclera anicteric. Conjunctiva are clear. Mucous membranes of the mouth are moist. Neck is supple. There is no elevated jugular venous pressure. No carotid bruit is heard. Patient has several areas, patches of hair loss HEART EXAMINATION: Heart S1, S2 normal. No murmur or gallop heard. CHEST EXAMINATION: Lungs are clear to auscultation and precussion. No chest wall tenderness is noted on palpation or with deep breathing. Areas of small bruising noted to the patient's back ABDOMEN: Soft, nontender. Bowel sounds are heard. No organomegaly noted. EXTREMITIES: 2+ peripheral pulses with no evidence of peripheral edema and no calf tenderness noted. - Labs CBC & Chem 7: 04/16/19 09:03 04/16/19 09:03 Labs: Abnormal Lab Results - Last 24 Hours (Table) 04/16/19 Range/Units 09:03 Chloride 109 H (98-107) mmol/L BUN 19 H (7-17) mg/dL Assessment and Plan Plan: Assessment and plan #1 chest pain, atypical for acute coronary syndrome. Troponins negative 3. EKG shows a sinus tachycardia with nonspecific ST-T wave changes #2 nicotine dependence #3 history of methamphetamine abuse #4 significant weight loss with associated hair loss over the past several months Plan Echocardiogram with Doppler study revealed a normal left ventricular systolic function. From cardiology's perspective, we will follow this patient along with you now on an as-needed basis only, please don't hesitate to call with any questions. We do recommend the patient have a follow-up appointment in the of fice post discharge. Stress test as an outpatient. DNP note has been reviewed, I agree with a documented findings and plan of care. Patient was seen and examined.
[2019-04-16 13:28] LABS: Hemoglobin A1C 5.2 % (4.0-6.0)
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
[2019-04-16 14:25] LABS: Folate, Serum 6.2 ng/mL
[2019-04-16] MEDS ORDERED: IOPAMIDOL CONTRAST (ORAL USE) VIAL PO PRN ×2 (16:53→17:00)
[2019-04-16] MEDS: ACETAMINOPHEN TAB 325 MG TAB PO PRN (17:03)
[2019-04-16 17:04] LABS: Hepatitis A Antibody IgM Non-Reactive (Non-Reactive); Hepatitis B Core IgM Non-Reactive (Non-Reactive); Hepatitis B Surface Antigen Non-Reactive (Non-Reactive); Hepatitis C IgG Antibody Non-Reactive (Non-Reactive)
[2019-04-16 18:20] LABS: HIV 1 AB Non-Reactive (Non-Reactive); HIV 2 AB Non-Reactive (Non-Reactive); HIV AB P24 Non-Reactive (Non-Reactive); HIV P24 AG Non-Reactive (Non-Reactive)
--- NOTE | 2019-04-16 19:14 | CT ---
EXAMINATION TYPE: CT abdomen pelvis w con DATE OF EXAM: 04/16/2019 COMPARISON: 04/09/2011 HISTORY: Generalized pain with nausea. CT DLP: 571.4 mGycm Automated exposure control for dose reduction was used. TECHNIQUE: Helical acquisition of images was performed from the lung bases through the pelvis. CONTRAST: Performed without Oral Contrast and with IV Contrast, patient injected with 100 mL of Isovue 300. FINDINGS: Lung bases are clear. There is no pleural effusion. Heart size is normal. There is no pericardial eff usion. Stomach appears normal. Liver spleen pancreas gallbladder appear normal. Bile ducts are not di lated. There is no adrenal mass. Kidneys show satisfactory contrast opacification. There is no hydronephrosi s. There is no retroperitoneal adenopathy. Bladder distends smoothly. There is no inguinal hernia. Th ere is 1.5 cm cyst on the left ovary. There is no free fluid in the pelvis. Uterus is anteverted. The re is no evidence of ascites. There is no mesenteric edema. There is no sign of free air. There is no sign of thickened appendix. There is 1 cm cyst on the right ovary. Lumbar vertebra have normal spacing and alignment. Posterior elements are intact. Bony pelvis is inta ct. IMPRESSION: NEGATIVE CT SCAN ABDOMEN AND PELVIS. NO SIGN OF TRAUMATIC INJURY.
[2019-04-16] MEDS: SODIUM CHLORIDE 0.9% 1,000 ML IV SCH ×3 (19:43→23:42)
[2019-04-16 20:55] LABS: Glucose,Whole Blood 111 mg/dL (75-99)
[2019-04-16] MEDS ORDERED: CYANOCOBALAMIN 1,000 MCG/ML 1 ML VIAL IM ONE (22:00)
[2019-04-16] MEDS: FAMOTIDINE 20 MG TAB PO SCH (23:19)
[2019-04-16] MEDS: diphenhydrAMINE 25 MG CAP PO PRN (23:39)
[2019-04-17] MEDS: SODIUM CHLORIDE 0.9% 1,000 ML IV SCH ×5 (05:54→23:59)
[2019-04-17 06:37] LABS: African American GFR (CKD) >90 (>60 ml/min/1.73 sqM); Anion Gap 6 mmol/L; Blood Urea Nitrogen 15 mg/dL (7-17); Calcium 8.7 mg/dL (8.4-10.2); Carbon Dioxide 26 mmol/L (22-30); Chloride 108 mmol/L (98-107); Glucose 84 mg/dL (74-99); Non-African American GFR(CKD) >90 (>60 ml/min/1.73 sqM); Potassium 4.6 mmol/L (3.5-5.1); Sodium 140 mmol/L (137-145)
[2019-04-17] MEDS: NICOTINE 21MG/24HR PATCH TRANSDERM SCH (08:26)
[2019-04-17] MEDS: ACETAMINOPHEN TAB 325 MG TAB PO PRN ×3 (08:26→22:57)
[2019-04-17] MEDS: HEPARIN SODIUM,PORCINE 5,000 UNIT/ML 1 ML VIAL SQ SCH ×2 (08:27→20:53)
[2019-04-17] MEDS: FAMOTIDINE 20 MG TAB PO SCH ×2 (08:27→20:53)
[2019-04-17] MEDS: ASPIRIN 81 MG PO SCH (08:27)
--- NOTE | 2019-04-17 09:24 | CDI ---
Documentation Clarification Form Date: 04/17/2019 8:48:22 AM From: Quin Beaulieu RN, CCDS Admit Date: 04/16/2019 1:41:00 PM Patient Name: Lucila Richey Visit Number: [id number] ATTENTION: The Clinical Documentation Specialists (CDI) and [facility] Coding Staff appreciate your assistance in clarifying documentation. Please respond to the clarification below the line at the bottom and electronically sign. The CDI & [facility] Coding staff will review the response and follow-up if needed. Please note: Queries are made part of the Legal Health Record. If you have any questions, please contact the author of this message via ITS. Dr. Curran Sheet The patient has a documented significant weight loss with emaciation and cachexia, can you please provide further clinical significance. History/Risk Factors: MS, Anxiety, Depression, PTSD, Nicotine Dependence, Chronic Paroxysmal migraines, Fibromyalgia Clinical Indicators: 04/16 Cardiology progress note: "she is 33 years of age, very frail looking younger all, she has 5 children. Patient states that over the past one year, actually since September of this year she has lost approximately 50 pounds in weight, she also noticed that her hair is starting to fall out. She has frequent diarrhea. female frail, somewhat emaciated Labs: WNL Current BMI: 19.8 Insufficient energy intake: abdominal pain and diarrhea Weight Loss: 04/16 "despite she has a good appetite she lost weight from 150to 114 since 09/2018." 04/16 Progress Note: "Generalized weakness and hypotension." Treatment: Dietary Consult: 04/15 4783 "24% loss of UBW in 6 months" Supplements: none ordered Lab monitoring: Am Daily In your professional opinion, can you please clarify if these findings signify one of the following conditions? Mild Protein-Calorie Malnutrition Moderate Protein-Calorie Malnutrition Severe Protein-Calorie Malnutrition Other condition, please specify Unable to determine (Last Revision: November 2018) Moderate Protein-Calorie Malnutrition MTDD
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
[2019-04-17] MEDS ORDERED: CYANOCOBALAMIN 1,000 MCG/ML 1 ML VIAL IM ONE (10:30)
[2019-04-17] MEDS: traMADol 50 MG TAB PO PRN (11:45)
[2019-04-17] MEDS: CALCIUM CARB-VIT D 500MG-200UN 1 EACH TAB PO SCH ×2 (11:46→17:41)
--- NOTE | 2019-04-17 15:06 | CONS ---
CONSULTATION DATE OF DICTATION: 04/17/2019 REASON FOR CONSULTATION: Chronic diarrhea, weight loss of 6 months' duration. HISTORY OF PRESENT ILLNESS: Patient is a 33-year-old pleasant white female with history of GERD, fibromyalgia and chronic back pain and questionable multiple sclerosis, who was admitted to the hospital because of severe chest pain for the last few days' duration. She had cardiac workup done and so far everything has been negative. While in the hospital, she has been complaining of progressive weight loss of almost 30 pounds in the last 6 months' duration. She has been having intermittent diarrhea, but lately the diarrhea has been severe and has about 5-6 loose watery bowel movements daily. She complains of diffuse abdominal pain mostly in the periumbilical area, occasionally radiating to the epigastric area and sometimes into the lower abdominal area. She denies any nausea, vomiting. She does have longstanding history of GERD and has been on Pepcid 20 mg daily on outpatient basis. She denies any rectal bleeding or melena. She denies any recent antibiotic use. No new medications that were given to her recently. She was treated with steroids for some skin condition when she went to the emergency room a few months ago. No family history of inflammatory bowel disease. PAST MEDICAL HISTORY: Significant for fibromyalgia and GERD, chronic migraines, back pain. PAST SURGICAL HISTORY: Back surgery, appendectomy. MEDICATIONS: At home include Tylenol p.r.n. ALLERGIES: To KENALOG and ADHESIVE TAPE. SOCIAL HISTORY: Chronic smoker. No alcohol use. FAMILY HISTORY: Brother had disease. Mother had liver cancer. REVIEW OF SYSTEMS: CARDIOPULMONARY: She denies any chest pain, shortness of breath. GENITOURINARY: No dysuria or hematuria. MUSCULOSKELETAL: Chronic back pain. NEUROLOGY: Unremarkable, other than chronic migraine headaches and she sees Dr. Cm on outpatient basis and being worked up for possible multiple sclerosis. PSYCHIATRY: Unremarkable. She does have history of anxiety, depression. ENT/VISION: Unremarkable. CONSTITUTIONAL: Weight loss of 35 pounds, no fever, chills or night sweats. HEMATOLOGY: Unremarkable. ENDOCRINE: Unremarkable. GI: As mentioned above. PHYSICAL EXAMINATION: She appears comfortable. No apparent distress. Vital signs are stable. Blood pressure is 97/67, pulse is 70, temperature 97. HEENT: Examination unremarkable, conjunctivae are pink, sclerae nonicteric, oral cavity no lesions. NECK: No JVD or lymph node enlargement. CHEST: Clear to auscultation. HEART: Regular rate and rhythm. ABDOMEN: Soft. There was very minimal tenderness in the epigastric area. Rest of the abdomen was benign. Bowel sounds are positive. No organomegaly. EXTREMITIES: No pedal edema. SKIN: No rashes. NEUROLOGIC: Alert and oriented x3. No focal deficits. LABS: WBC 8.7, hemoglobin 14, platelets normal. Basic metabolic panel is within normal limits. ALT, AST, T-bilirubin, alkaline phosphatase are normal. TSH 2.1. Hepatitis serologies for A, B and C were negative. IMPRESSION: 1. Atypical chest pain. Cardiac workup was negative. She has been having intermittent chest pain for the last 2-3 days duration. 2. Possible gastroesophageal reflux disease, presently on Pepcid 20 mg twice daily. 3. Chronic intermittent diarrhea of 6 months' duration. She has bowel movements that ranged from 2-6 a day which are loose to watery in consistency with no blood or mucus in the stool, associated diffuse abdominal pain. No recent antibiotic use. Rule out infectious etiology. 4. Progressive weight loss of 35 pounds in the last 6 months' duration. Recent TSH was within normal limits. CT of the abdomen and pelvis done yesterday was unremarkable. RECOMMENDATIONS: 1. Obtain stool studies. 2. Celiac panel. 3. Continue with regular diet. 4. Pepcid 20 mg twice daily. 5. If the stool studies are negative, will consider EGD/colonoscopy during this hospitalization. Thank you for this consultation. Will follow with you closely during hospital stay. MMODL / IJN: [id number] /
[2019-04-17] MEDS: diphenhydrAMINE 25 MG CAP PO PRN (20:55)
[2019-04-18 01:24] LABS: Gliadin AB IgA, Deaminated NEGATIVE (NEGATIVE); Gliadin AB IgA, Unit 9.2 U/mL
[2019-04-18 01:25] LABS: Gliadin AB IgG, Deaminated POSITIVE (NEGATIVE)
[2019-04-18] MEDS: traMADol 50 MG TAB PO PRN (06:58)
[2019-04-18] MEDS: ONDANSETRON 4 MG/2 ML VIAL IVP PRN ×2 (07:01→14:42)
[2019-04-18] MEDS: FAMOTIDINE 20 MG TAB PO SCH ×2 (07:36→20:09)
[2019-04-18] MEDS: CYANOCOBALAMIN 500 MCG TAB PO SCH (07:36)
[2019-04-18] MEDS: CALCIUM CARB-VIT D 500MG-200UN 1 EACH TAB PO SCH ×2 (07:36→17:31)
[2019-04-18] MEDS: NICOTINE 21MG/24HR PATCH TRANSDERM SCH (07:36)
[2019-04-18] MEDS: ASPIRIN 81 MG PO SCH (07:36)
[2019-04-18] MEDS: HEPARIN SODIUM,PORCINE 5,000 UNIT/ML 1 ML VIAL SQ SCH ×2 (07:36→20:08)
[2019-04-18 07:44] LABS: African American GFR (CKD) >90 (>60 ml/min/1.73 sqM); Anion Gap 7 mmol/L; Blood Urea Nitrogen 20 mg/dL (7-17); Calcium 9.6 mg/dL (8.4-10.2); Carbon Dioxide 28 mmol/L (22-30); Chloride 106 mmol/L (98-107); Glucose 89 mg/dL (74-99); Non-African American GFR(CKD) >90 (>60 ml/min/1.73 sqM); Potassium 5.1 mmol/L (3.5-5.1); Sodium 141 mmol/L (137-145)
[2019-04-18] MEDS: ACETAMINOPHEN TAB 325 MG TAB PO PRN ×2 (10:26→16:37)
[2019-04-18] MEDS: DEXTROSE 5%-0.9% NACL 1,000 ML IV SCH ×3 (10:31→23:50)
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
[2019-04-18] MEDS: SODIUM CHLORIDE 0.9% 1,000 ML IV SCH ×2 (15:39→20:09)
--- NOTE | 2019-04-18 17:31 | PN ---
PROGRESS NOTE DATE OF DICTATION: 04/18/2019 The patient is a 33-year-old pleasant white female admitted to the hospital with chest pain. While in the hospital, she has been complaining of abdominal pain, diarrhea, weight loss for the last 3 months' duration. As part of workup, she had stool studies done that were negative. She also had a celiac panel done that was positive for tissue transglutaminase IgA and IgG antibody, suspicious for celiac disease. Patient has no family history of celiac disease. PHYSICAL EXAMINATION: She appears comfortable. No apparent distress. Vital signs are stable. Blood pressure 114/69, pulse rate 95, temperature 98.3. HEENT examination unremarkable. Conjunctivae pink. Sclerae anicteric. Oral cavity no lesions. NECK: No JVD or lymph node enlargement. CHEST: Clear to auscultation. HEART: Regular rate and rhythm. ABDOMEN: Soft. Bowel sounds are positive. No organomegaly. EXTREMITIES: No pedal edema. SKIN: No rashes. NEUROLOGIC: Alert and oriented x3. No focal deficits. LABS: Labs from today show tissue transglutaminase IgG antibody positive at 33, tissue transglutaminase IgA antibody positive, and deaminated IgG gliadin antibody positive. CBC is within normal limits. Stool studies were negative. IMPRESSION: 1. This is a lady with progressive weight loss, abdominal pain, abdominal bloating, diarrhea for the last 6 months' duration; lost about 40 pounds so far. Celiac panel was positive, indicating we are most likely dealing with celiac disease. 2. Atypical chest pain, resolving. RECOMMENDATIONS: Will proceed with EGD with duodenal biopsies tomorrow. I discussed with the patient risks, benefits and complications of the procedure. In the meantime, we discussed about gluten-free diet. The patient seems to understand. We will follow her closely. Thank you for this consultation. MMODL / IJN: [id number] /
[2019-04-18] MEDS: diphenhydrAMINE 25 MG CAP PO PRN (21:05)
[2019-04-18] MEDS ORDERED: CYANOCOBALAMIN 1,000 MCG/ML 1 ML VIAL IM ONE (22:00)
[2019-04-18] MEDS ORDERED: LIDOCAINE 1% 20 ML VIAL (10MG/ML) FOR IV START INTRADERMA PRN (22:43)
[2019-04-18] MEDS: LACTATED RINGERS 1,000 ML IV SCH (23:51)
[2019-04-19] MEDS: SODIUM CHLORIDE 0.9% 1,000 ML IV SCH ×4 (00:58→22:11)
[2019-04-19] MEDS: DEXTROSE 5%-0.9% NACL 1,000 ML IV SCH ×4 (04:59→23:54)
[2019-04-19 07:48] LABS: African American GFR (CKD) >90 (>60 ml/min/1.73 sqM); Anion Gap 6 mmol/L; Blood Urea Nitrogen 14 mg/dL (7-17); Calcium 8.8 mg/dL (8.4-10.2); Carbon Dioxide 26 mmol/L (22-30); Chloride 109 mmol/L (98-107); Glucose 94 mg/dL (74-99); Non-African American GFR(CKD) >90 (>60 ml/min/1.73 sqM); Potassium 4.6 mmol/L (3.5-5.1); Sodium 141 mmol/L (137-145)
[2019-04-19] MEDS: CALCIUM CARB-VIT D 500MG-200UN 1 EACH TAB PO SCH ×2 (09:14→17:17)
[2019-04-19] MEDS: CYANOCOBALAMIN 500 MCG TAB PO SCH (09:14)
[2019-04-19] MEDS: HEPARIN SODIUM,PORCINE 5,000 UNIT/ML 1 ML VIAL SQ SCH ×2 (09:47→20:37)
[2019-04-19] MEDS: FAMOTIDINE 20 MG TAB PO SCH ×2 (09:47→20:37)
[2019-04-19] MEDS: NICOTINE 21MG/24HR PATCH TRANSDERM SCH (09:47)
[2019-04-19] MEDS: ASPIRIN 81 MG PO SCH (09:47)
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
[2019-04-19] MEDS: HYDROcodone/APAP 5-325MG 1 EACH TAB PO PRN ×2 (12:41→18:52)
[2019-04-19] MEDS ORDERED: PROPOFOL 10 MG/ML 20 ML VIAL IV ONE (13:29)
[2019-04-19] MEDS ORDERED: LIDOCAINE 1% INJ 10MG/ML (20 ML MDV) ONE (13:29)
[2019-04-19] MEDS ORDERED: MIDAZOLAM 2 MG/2 ML VIAL ONE (13:29)
[2019-04-19] MEDS ORDERED: IV FLUID CONTINUATION 1,000 ML IV ONE (13:31)
--- NOTE | 2019-04-19 13:40 | P.PCN ---
Date of Procedure: 04/19/19 Procedure(s) Performed: BRIEF HISTORY: Patient is a 33-year-old, pleasant, white female, scheduled for an upper endoscopy as a part of evaluation of chronic diarrhea and progressive weight loss for the last 6 months duration. She has bowel movements anywhere from now 6-8 a day which are loose to watery in consistency. As a part of workup stool studies were negative. Celiac serology was positive. Hence he scheduled for an upper endoscopy with duodenal biopsies today.. PROCEDURE PERFORMED: Esophagogastroduodenoscopy with biopsy. PREOPERATIVE DIAGNOSIS: Chronic diarrhea and positive celiac serology. IV sedation per anesthesia. PROCEDURE: After informed consent was obtained, the patient was brought into the endoscopy unit. IV sedation was administered by Anesthesia under continuous monitoring. Initially the Olympus GIF-140 video endoscope was inserted into the mouth. Esophagus intubated without any difficulty. It was gradually advanced into the stomach and duodenum and carefully examined. The bulb and the second part of the duodenum had mild paucity of the duodenal folds and scalloping of the mucosa.. Biopsies were done from the duodenum to evaluate for celiac disease. The scope at this time was withdrawn to the stomach, adequately insufflated with air, and upon careful examination, mucosa of the antrum had some erythema noted in the prepyloric area which was biopsied. The, body, cardia and the fundus appeared normal. The scope was then withdrawn into the esophagus. The GE junction was located at 39 cm from the incisors. The esophagus appeared normal. There were no erosions or ulcerations seen and the patient tolerated the procedure well. IMPRESSION: 1. Mild possibility of the duodenal folds with scalloping of the mucosa suspicious for celiac disease status post multiple biopsies. 2. Mild antral gastritis. RECOMMENDATIONS: The findings of this examination were discussed with the patient. She was advised to follow with the biopsy results. She will be started on a gluten-free diet. She can be discharged home with outpatient follow-up in one to 2 weeks..
[2019-04-19 16:22] VITALS: BMI 19.5
[2019-04-19] MEDS: LACTATED RINGERS 1,000 ML IV SCH (20:40)
[2019-04-20] MEDS: SODIUM CHLORIDE 0.9% 1,000 ML IV SCH (03:25)
[2019-04-20] MEDS: ONDANSETRON 4 MG/2 ML VIAL IVP PRN (06:51)
[2019-04-20] MEDS: HYDROcodone/APAP 5-325MG 1 EACH TAB PO PRN (06:53)
[2019-04-20 07:21] LABS: African American GFR (CKD) >90 (>60 ml/min/1.73 sqM); Anion Gap 5 mmol/L; Blood Urea Nitrogen 11 mg/dL (7-17); Calcium 8.6 mg/dL (8.4-10.2); Carbon Dioxide 25 mmol/L (22-30); Chloride 110 mmol/L (98-107); Glucose 86 mg/dL (74-99); Non-African American GFR(CKD) >90 (>60 ml/min/1.73 sqM); Potassium 4.1 mmol/L (3.5-5.1); Sodium 140 mmol/L (137-145)
[2019-04-20 07:50] VITALS: BP 98/59; PULSE 67; RESP 16; TEMP 97.5
[2019-04-20] MEDS: NICOTINE 21MG/24HR PATCH TRANSDERM SCH (08:31)
[2019-04-20] MEDS: FAMOTIDINE 20 MG TAB PO SCH (08:31)
[2019-04-20] MEDS: CYANOCOBALAMIN 500 MCG TAB PO SCH (08:31)
[2019-04-20] MEDS: HEPARIN SODIUM,PORCINE 5,000 UNIT/ML 1 ML VIAL SQ SCH (08:31)
[2019-04-20] MEDS: ASPIRIN 81 MG PO SCH (08:31)
[2019-04-20] MEDS: CALCIUM CARB-VIT D 500MG-200UN 1 EACH TAB PO SCH (08:31)
--- NOTE | 2019-04-20 22:44 | DS ---
DISCHARGE SUMMARY DATE OF SERVICE: 04/20/2019 FINAL DIAGNOSES: 1. Subacute diarrhea possibly celiac disease. 2. Chest pain possibly musculoskeletal. 3. Vitamin D deficiency. 4. History of nicotine dependence. 5. Generalized weakness. 6. Multiple complaints including alopecia. 7. Chronic paroxysmal migraines. 8. Degenerative joint disease. 9. Anxiety, depression. 10.Fibromyalgia. 11.gastroesophageal reflux disease. DISCHARGE DISPOSITION: The patient will be discharged in stable condition with guarded prognosis. Total time taken 35 minutes. Discharge cleared by multiple consultants. HISTORY OF PRESENT ILLNESS: This is a 33-year-old woman who was admitted with multiple symptomatology including mainly chronic diarrhea and multiple symptomatology including weight loss, alopecia, and other symptoms. The patient had detailed gastroenterology workup by Dr. Mitchell. Endoscopies showed only mild gastritis. A CT scan of the abdomen and pelvis was also done which showed no acute abnormality. However, as far as the serologies concerned, issue transglutaminase IgG and IgA was positive as well as Gliadin IgG was also positive. C difficile was negative and other serological panels for infection including HIV were negative as well. The patient is recommended outpatient followup. Patient also complaining of migraine attacks. Patient would like to follow up with Dr. Álvarez in the outpatient setting. Outpatient followup is being arranged. On exam, vitals signs stable. Cardiovascular: S1. S2. Abdomen soft, nontender. Nervous System: No focal deficits. DISCHARGE ADVICE AND MEDICATIONS: 1. Discharge diet is cardiac diet. 2. Activity limited until followup. 3. Follow up with Dr. Álvarez in 1 week. 4. Follow up with Gastroenterology and Cardiology as recommended. DISCHARGE MEDICATIONS: Tylenol p.r.n. Further medications and recommendations per outpatient setting. MMODL / IJN: [id number] /
== END 2019-04-20 14:08 | disposition home or self-care (01) | DRG 392 ==
LOC: EC 14:20 → 3SCARD 16:21 → OBSVTOIN 04-16 13:41 → 4SSUR 04-17 21:30
PROVIDERS: ADMIT Internal Medicine; ATTEND Internal Medicine
PROC: 0DB78ZX Excision of Stomach, Pylorus, Via Natural or Artificial Opening Endoscopic, Diagnostic (ICD-10-PCS; 2019-04-19)
PROC: 0DB98ZX Excision of Duodenum, Via Natural or Artificial Opening Endoscopic, Diagnostic (ICD-10-PCS; principal; 2019-04-19 12:20)
DX: K90.0 Celiac disease (principal); E44.0 Moderate protein-calorie malnutrition; Z68.1 Body mass index [BMI] 19.9 or less, adult; I95.9 Hypotension, unspecified; M41.9 Scoliosis, unspecified; G35 Multiple sclerosis; E53.8 Deficiency of other specified B group vitamins; E55.9 Vitamin D deficiency, unspecified; E86.0 Dehydration; E86.1 Hypovolemia; G89.29 Other chronic pain; M54.9 Dorsalgia, unspecified; M79.7 Fibromyalgia; K29.70 Gastritis, unspecified, without bleeding; R63.3 Feeding difficulties; S20.229A Contusion of unspecified back wall of thorax, initial encounter; K21.9 Gastro-esophageal reflux disease without esophagitis; F41.9 Anxiety disorder, unspecified; F32.9 Major depressive disorder, single episode, unspecified; H91.90 Unspecified hearing loss, unspecified ear; L65.9 Nonscarring hair loss, unspecified; M19.90 Unspecified osteoarthritis, unspecified site; G43.909 Migraine, unspecified, not intractable, without status migrainosus; F15.11 Other stimulant abuse, in remission; F17.210 Nicotine dependence, cigarettes, uncomplicated; Z71.6 Tobacco abuse counseling; Z86.19 Personal history of other infectious and parasitic diseases; Z90.49 Acquired absence of other specified parts of digestive tract; Z88.6 Allergy status to analgesic agent; Z88.8 Allergy status to other drugs, medicaments and biological substances; Z91.048 Other nonmedicinal substance allergy status; Z83.49 Family history of other endocrine, nutritional and metabolic diseases; Z80.0 Family history of malignant neoplasm of digestive organs
CPT/HCPCS: 36415; 43239; 71046; 74177; 80048; 80053; 80061; 80074; 80306; 81025; 82306; 82607; 82746; 83036; 83516; 83630; 83735; 84145; 84443; 84484; 85025; 85027; 85379; 85610; 85652; 85730; 87045; 87046; 87324; 87328; 87329; 87390; 88305; 93005; 93306; 99285

== ENCOUNTER → 2019-04-24 | Outpatient (CLI) | payer OTHER ==
[2019-04-24 16:13] LABS: Basophils # (A) 0.1 k/uL (0-0.2); Basophils % (A) 1 %; Eosinophils # (A) 0.1 k/uL (0-0.7); Eosinophils % (A) 2 %; HGB 12.3 gm/dL (11.4-16.0); Lymphocytes % (A) 32 %; MCH 30.5 pg (25.0-35.0); MCHC 33.3 g/dL (31.0-37.0); MCV 91.6 fL (80.0-100.0); Mean Platelet Volume 7.5; Monocytes # (A) 0.4 k/uL (0-1.0); Monocytes % (A) 6 %; Neutrophils # (A) 3.6 k/uL (1.3-7.7); Neutrophils % (A) 58 %; Platelet Count 274 k/uL (150-450); RBC 4.04 m/uL (3.80-5.40); RDW 12.2 % (11.5-15.5); WBC 6.2 k/uL (3.8-10.6)
[2019-04-25 01:05] LABS: African American GFR (CKD) 110.7 (60.0-200.0); Anion Gap 7.5 mmol/L (4.00-12.00); BUN/Creat Ratio 23.75 Ratio (12.00-20.00); Calcium 9.4 mg/dL (8.7-10.3); Carbon Dioxide 27.5 mmol/L (21.6-31.8); Non-African American GFR(CKD) 95.5 (60.0-200.0)
== END | disposition home or self-care (01) ==
LOC: LABWHC1 15:18
PROVIDERS: ATTEND Hospitalist
DX: K90.0 Celiac disease (principal)
CPT/HCPCS: 36415; 80048; 85025

== ENCOUNTER 2019-08-06 19:07 | Inpatient (IN) | payer OTHER ==
[2019-08-06 20:31] LABS: Basophils % (A) 0 %; Eosinophils # (A) 0.1 k/uL (0-0.7); Eosinophils % (A) 2 %; HCT 41.6 % (34.0-46.0); HGB 13.9 gm/dL (11.4-16.0); Lymphocytes # (A) 1.9 k/uL (1.0-4.8); Lymphocytes % (A) 26 %; MCH 30.1 pg (25.0-35.0); MCHC 33.3 g/dL (31.0-37.0); MCV 90.4 fL (80.0-100.0); Mean Platelet Volume 9.1; Monocytes # (A) 0.4 k/uL (0-1.0); Monocytes % (A) 5 %; Neutrophils # (A) 4.7 k/uL (1.3-7.7); Neutrophils % (A) 65 %; Platelet Count 302 k/uL (150-450); RDW 12.1 % (11.5-15.5); WBC 7.3 k/uL (3.8-10.6)
[2019-08-06 20:43] LABS: ALT 15 U/L (4-34); AST 21 U/L (14-36); African American GFR (CKD) >90 (>60 ml/min/1.73 sqM); Albumin 5.1 g/dL (3.5-5.0); Alkaline Phosphatase 52 U/L (38-126); Anion Gap 10 mmol/L; Blood Urea Nitrogen 17 mg/dL (7-17); Calcium 10.3 mg/dL (8.4-10.2); Carbon Dioxide 26 mmol/L (22-30); Chloride 101 mmol/L (98-107); Glucose 103 mg/dL (74-99); Magnesium 1.9 mg/dL (1.6-2.3); Non-African American GFR(CKD) >90 (>60 ml/min/1.73 sqM); Potassium 3.9 mmol/L (3.5-5.1); Sodium 137 mmol/L (137-145); Total Bilirubin 0.3 mg/dL (0.2-1.3); Total Protein 8.4 g/dL (6.3-8.2)
[2019-08-06] MEDS ORDERED: fentaNYL (PF) 50 MCG/ML 2 ML AMP IVP STA (20:44)
[2019-08-06] MEDS ORDERED: ONDANSETRON 4 MG/2 ML VIAL IVP STA (20:45)
--- NOTE | 2019-08-06 21:03 | XR ---
EXAMINATION TYPE: XR chest 2V DATE OF EXAM: 08/06/2019 COMPARISON: 04/14/2019 HISTORY: Cough TECHNIQUE: FINDINGS: Heart and mediastinum are normal. Lungs are clear. Diaphragm is normal. Bony thorax is inta ct. There is mild thoracic dextroscoliosis. IMPRESSION: No active cardiopulmonary disease. Normal heart. No change.
[2019-08-06 21:04] LABS: HCG,Qualitative Serum Not Detected
[2019-08-06 21:12] LABS: INR 0.9 (<1.2); Partial Thromboplastin Time 22.2 sec (22.0-30.0); Prothrombin Time 9.6 sec (9.0-12.0)
--- NOTE | 2019-08-06 21:44 | CT ---
EXAMINATION TYPE: CT brain wo con DATE OF EXAM: 08/06/2019 COMPARISON: 03/31/2016 HISTORY: headache CT DLP: 1091.4 mGycm Automated exposure control for dose reduction was used. Multiple axial sections were obtained of the brain without contrast. Ventricles have normal size. There is no mass effect nor midline shift. There is no sign of intracran ial hemorrhage. Calvarium is intact. IMPRESSION: Negative head CT scan. No change compared to old exam.
[2019-08-06] MEDS ORDERED: NALOXONE 0.4 MG/ML 1 ML VIAL IV PRN (22:20)
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
[2019-08-06] MEDS ORDERED: ASPIRIN 81 MG PO STA (22:22)
[2019-08-07] MEDS: MORPHINE SULFATE 4 MG/ML SYRINGE IV PRN ×2 (00:43→05:30)
[2019-08-07 07:54] LABS: Basophils % (A) 0 %; Eosinophils # (A) 0.2 k/uL (0-0.7); Eosinophils % (A) 3 %; HCT 37.5 % (34.0-46.0); HGB 12.6 gm/dL (11.4-16.0); Lymphocytes # (A) 1.8 k/uL (1.0-4.8); Lymphocytes % (A) 29 %; MCH 30.3 pg (25.0-35.0); MCHC 33.6 g/dL (31.0-37.0); MCV 90.3 fL (80.0-100.0); Mean Platelet Volume 8.1; Monocytes # (A) 0.4 k/uL (0-1.0); Monocytes % (A) 6 %; Neutrophils # (A) 3.9 k/uL (1.3-7.7); Neutrophils % (A) 61 %; Platelet Count 226 k/uL (150-450); RBC 4.15 m/uL (3.80-5.40); RDW 12.1 % (11.5-15.5); WBC 6.4 k/uL (3.8-10.6)
[2019-08-07] MEDS: ASCORBIC ACID 500 MG TAB PO SCH (07:54)
[2019-08-07] MEDS: CYANOCOBALAMIN 500 MCG TAB PO SCH (07:54)
[2019-08-07 08:34] LABS: African American GFR (CKD) >90 (>60 ml/min/1.73 sqM); Anion Gap 6 mmol/L; Blood Urea Nitrogen 17 mg/dL (7-17); Calcium 9.1 mg/dL (8.4-10.2); Carbon Dioxide 26 mmol/L (22-30); Chloride 104 mmol/L (98-107); Glucose 86 mg/dL (74-99); Non-African American GFR(CKD) >90 (>60 ml/min/1.73 sqM); Potassium 3.8 mmol/L (3.5-5.1); Sodium 136 mmol/L (137-145)
[2019-08-07] MEDS ORDERED: DOBUTamine DRIP for NUC MED 500 MG in DEXTROSE/WATER 1 250ML.BAG IV ONE (08:43)
[2019-08-07] MEDS ORDERED: ST JOHN S WORT 150 MG PO SCH (09:00)
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
[2019-08-07] MEDS: SODIUM CHLORIDE 0.9% 1,000 ML IV SCH ×3 (11:30→23:01)
--- NOTE | 2019-08-07 11:55 | ECHOS ---
STRESS ECHOCARDIOGRAM DOBUTAMINE ECHO INDICATIONS: Chest pain. MEDICATIONS: BASELINE HEART RATE: 63 BASELINE BLOOD PRESSURE: 111/49 MAXIMUM HEART RATE: 160 MAXIMUM BLOOD PRESSURE: 136/68 85% MPHR: 157 100% MPHR: 180 METS: MAXIMUM STAGE REACHED: TOTAL EXERCISE TIME: CLINICAL INFORMATION: Baseline EKG shows sinus rhythm, normal axis, normal intervals. The patient was given intravenous dobutamine over a period of 11-1/2 minutes as per protocol, achieving 87% of predicted maximal heart rate without chest pain or diagnostic ST-segment depression. Baseline echo shows normal left ventricular size, wall motion and systolic function. Post dobutamine infusion, there is normal hyperdynamic response of all segments of myocardium noted. CONCLUSIONS: 1. Negative stress test by EKG criteria. 2. Negative dobutamine echo. MMODL / IJN: [id number] /
[2019-08-07] MEDS: ALPRAZolam 0.25 MG TAB PO PRN ×2 (13:58→21:24)
[2019-08-07] MEDS: HYDROcodone/APAP 5-325MG 1 EACH TAB PO PRN ×2 (13:58→21:24)
--- NOTE | 2019-08-07 16:52 | HP ---
HISTORY AND PHYSICAL DATE OF SERVICE: 08/07/2019 CHIEF COMPLAINTS: Chest pain, headache, dizziness and weakness. HISTORY OF PRESENT ILLNESS: This 33-year-old woman with a past medical history of multiple medical problems, including fibromyalgia, history of GERD, history of back pain, DJD, migraine, history of ESBL, history of anxiety, depression, history of nicotine dependence, being followed by Dr. Álvarez, was complaining of left-sided chest pain which radiated to the arm, and the patient also complained of left-sided headache and dizziness. The patient was also feeling weak. She was recently diagnosed to have celiac disease. Patient has seen Dr. Martin Mitchell also. Patient had a stress test today by Cardiology which was negative. Patient was admitted for further evaluation and treatment. There is no history of any fever, rigor or chills. No history of any seizures. No history of hematochezia, melena at this time. No history of any weakness at this time. CT scan of the brain in the ER was negative. PAST MEDICAL HISTORY: Fibromyalgia, GERD, celiac disease, ESBL urine E coli, anxiety, depression. HOME MEDICATIONS: 1. Prabha's Wort 150 mg p.o. daily. 2. Vitamin B12 1000 mcg p.o. daily. 3. Vitamin C 1000 mg p.o. daily. ALLERGIES: KENALOG, ADHESIVE TAPES, IBUPROFEN. FAMILY HISTORY: History of Fabrice-Sachs disease and history of cancer. SOCIAL HISTORY: History of smoking, continued ongoing. REVIEW OF SYSTEMS: ENT: No diminished hearing. No diminished vision. CARDIOVASCULAR SYSTEM: No angina, palpitations. RESPIRATORY SYSTEM: No cough, hemoptysis. GI: As mentioned earlier. : No dysuria or retention. NERVOUS SYSTEM: No numbness, weakness. ALLERGY/IMMUNOLOGY: No asthma, hayfever. MUSCULOSKELETAL: As mentioned earlier. HEMATOLOGY/ONCOLOGY: No history of anemia. ENDOCRINE: No history of diabetes, hypothyroidism. CONSTITUTIONAL: As mentioned earlier. DERMATOLOGY: Negative. RHEUMATOLOGY: Negative. PSYCHIATRY: As mentioned earlier. PHYSICAL EXAMINATION: Patient alert and oriented x3. Pulse 75, blood pressure 102/75, respiration 18, temperature 97.5, pulse ox 99% on room air. No orthostatic changes. HEENT: Conjunctivae normal. NECK: No jugular venous distention. CARDIOVASCULAR SYSTEM: S1, S2 muffled. RESPIRATORY SYSTEM: Breath sounds diminished at the bases. No rhonchi. No crackles. ABDOMEN: Soft, non-tender. No mass palpable. LEGS: No edema. No swelling. NERVOUS SYSTEM: Higher functions as mentioned earlier. Cranial nerves II through XII grossly intact. Moves all 4 limbs. No signs of cerebellar dysfunction. No focal deficit. SKIN: No ulcer, rash, bleeding. JOINTS: No active deforming arthropathy. LYMPHATICS: No lymph node palpable in neck, axillae or groin. LABS: CBC within normal limits. Sodium 136. ASSESSMENT: 1. Chest pain, possibly musculoskeletal, with a negative stress echo. 2. Hyponatremia. 3. Headache, for evaluation. 4. Rule out transient ischemic attack. 5. History of recently diagnosed celiac disease. 6. History of fibromyalgia. 7. Gastroesophageal reflux disease. 8. History of migraine. 9. History of back pain, degenerative joint disease. 10.History of MS workup by Dr. Cm as an outpatient. 11.Extended-spectrum beta-lactamase Escherichia coli in the urine. 12.History of appendectomy. 13.History of back surgery. 14.History of anxiety, depression. 15.Continued ongoing nicotine dependence. 16.Mild protein-calorie malnutrition with a body mass index of 19.6. RECOMMENDATIONS AND DISCUSSION: In this 33-year-old woman who presented with multiple complex medical issues, we will monitor the patient closely, continue the current management medications, continue with symptomatic treatment. Would also recommend MRA. Cardiac workup was negative, as mentioned earlier. I would also recommend that the patient be closely followed with neuro checks. Prognosis guarded. Further recommendations to follow. A copy of this dictation is being forwarded to Dr. Álvarez, who is the primary physician. MMODL / IJN: [id number] /
--- NOTE | 2019-08-07 20:36 | MR ---
EXAMINATION TYPE: MR brain wo/w con DATE OF EXAM: 08/07/2019 COMPARISON: CT brain 08/06/2019 HISTORY: Pressure behind left eye, headache TECHNIQUE: Multiplanar, multisequence images of the brain and brainstem is performed without and with IV contras t, utilizing 5.5 mL intravenous Gadavist . FINDINGS: Diffusion weighted images demonstrate no evidence of a recent infarct or other diffusion ab normality. There is no extra-axial fluid collection. Scattered hyperintensities are present within the deep white matter on inversion recovery T2-weighted sequences approximately 10-15 lesions. Larges t in the left frontal periventricular white matter measures 5 to 6 mm on axial image 18. The ventricu lar system and cisternal spaces are normal in size and appearance. The brain volume is age appropria te. Midline structures demonstrate normal morphology. The craniocervical junction appears within normal limits. Post contrast images demonstrate no abnormal enhancement. The dural venous sinuses appear pa tent. The visualized sinuses are clear and the globes are intact. IMPRESSION: Nonspecific white matter demyelination, consider hypertension, migraine headaches, Lyme d isease, vasculitis, multiple sclerosis in the appropriate clinical setting.
[2019-08-08] MEDS: ALPRAZolam 0.25 MG TAB PO PRN ×2 (06:55→20:48)
[2019-08-08] MEDS: HYDROcodone/APAP 5-325MG 1 EACH TAB PO PRN ×3 (06:55→20:48)
[2019-08-08] MEDS: SODIUM CHLORIDE 0.9% 1,000 ML IV SCH ×2 (06:58→20:37)
[2019-08-08] MEDS: CYANOCOBALAMIN 500 MCG TAB PO SCH (08:47)
[2019-08-08] MEDS: ASCORBIC ACID 500 MG TAB PO SCH (08:47)
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
[2019-08-08] MEDS ORDERED: CYANOCOBALAMIN 1,000 MCG/ML 1 ML VIAL IM SCH (20:00)
[2019-08-08] MEDS: FOLIC ACID 1 MG TAB PO SCH (20:48)
[2019-08-08] MEDS ORDERED: MELATONIN 5 MG TABLET PO PRN (22:57)
[2019-08-09] MEDS: SODIUM CHLORIDE 0.9% 1,000 ML IV SCH ×2 (02:21→08:43)
[2019-08-09 02:44] LABS: Folate, Serum 10.3 ng/mL
[2019-08-09] MEDS: HYDROcodone/APAP 5-325MG 1 EACH TAB PO PRN ×2 (04:19→10:15)
[2019-08-09] MEDS: ALPRAZolam 0.25 MG TAB PO PRN (04:19)
[2019-08-09 07:01] LABS: Anti-DNA, DS unit <1.0 IU/mL; DNA Double-Stranded NEGATIVE (NEGATIVE)
--- NOTE | 2019-08-09 07:47 | DS ---
DISCHARGE SUMMARY FINAL DIAGNOSES: 1. Chest pain, possibly musculoskeletal with negative stress test and stress echo. 2. Headache for evaluation of possible migraine. 3. Hyponatremia. 4. Transient ischemic attack ruled out. 5. History of recently diagnosed celiac disease. 6. Fibromyalgia. 7. Gastroesophageal reflux disease. 8. History of migraine. 9. History of back pain, degenerative joint disease. 10.History of MS workup by Dr. Cm as an outpatient. 11.History ESBL E coli in the urine previously. 12.History of appendectomy. 13.History of back surgery. 14.History of anxiety, depression. 15.Continued ongoing nicotine dependence. 16.Mild protein calorie malnutrition, body mass index 19.6. DISCHARGE DISPOSITION: The patient will be discharged in stable condition with guarded prognosis. HISTORY OF PRESENT ILLNESS: This is a 33-year-old woman with a past medical history of multiple medical problems to be followed by Dr. Álvarez in the outpatient setting, was admitted with chest pain, multiple symptoms and headache also. Cardiology saw the patient. Myocardial infarction ruled out. Stress echo was negative. The patient also had multiple other abnormalities as mentioned earlier. Patient also complains of headache. Patient had MRI scan which showed no acute abnormality at this time and recommend neurology evaluation with neurology clearing the patient for discharge. On exam, vitals are stable. CARDIOVASCULAR: S1, S2. ABDOMEN: Soft. NERVOUS SYSTEM: No focal discharges. DISCHARGE ADVICE: Diet is cardiac diet. Activity limited until followup. Follow up with Dr. Álvarez in 2-3 days. Follow with Cardiology, Neurology as recommended. MEDICATIONS: 1. Prabha's Wort 150 mg daily. 2. Vitamin B12 one thousand mcg p.o. daily. 3. Vitamin C 1000 mg p.o. daily. Once again, the patient will be discharged in stable condition with guarded prognosis. MMODL / IJN: [id number] /
[2019-08-09 08:03] VITALS: BP 88/51; PULSE 78; RESP 18; TEMP 97.6
[2019-08-09] MEDS: CYANOCOBALAMIN 500 MCG TAB PO SCH (09:14)
[2019-08-09] MEDS: FOLIC ACID 1 MG TAB PO SCH (09:15)
[2019-08-09] MEDS: ASCORBIC ACID 500 MG TAB PO SCH (09:15)
--- NOTE | 2019-08-09 12:36 | CONS ---
CONSULTATION DATE OF SERVICE: August 09, 2019. HISTORY: This is a 33-year-old white female with a history of headaches and pressure sensation initially over her left eye and then her right eye as well. The patient states that she also has occasional blurred vision and further went on to state that she had a temporary loss of vision in her left eye that lasted approximately 3 minutes. Since being admitted to the hospital, she has had a CT scan of her head, which was negative. The patient continues to experience pressure sensation over and behind her eyes and then I was asked to evaluate and determine whether there is any ocular pathology. Visual acuity with correction measured 20/20 right eye and 20/50 left eye. The pupils were equal and reactive to light. There was no afferent defect. Extraocular movements were full in all gaze positions. On penlight exam, the lids were normal. The conjunctivae were quiet. Both corneas were clear. The anterior chambers were well formed and the lenses appeared clear. Intraocular pressure was measured at 19 right eye and 17 left eye. IMPRESSION: Visual disturbance. I could find no evidence of ocular pathology in this patient at this time. Upon discharge, I think a computerized visual field test should be performed where we can determine whether there is any evidence of peripheral pathology. Of course sinus etiology for this patient's pressure symptoms should be considered, but in light of her negative CT scan this seems unlikely. Upon discharge, I asked that she follow up with me in my office where a more thorough ocular exam could be performed. Thank you for this consult. YURI / ROLANDON: [id number] /
--- NOTE | 2019-08-09 22:40 | PN ---
PROGRESS NOTE DATE OF SERVICE: 08/08/2019 This 33-year-old woman was admitted with chest pain also had some complaints of headache and associated difficulties also. Neurology consultation was sought. No chest pain. No palpitations. No fever. EXAM: Alert and oriented times three. Pulse is 85. Blood pressure 127/73, respiration 17, temp 98.1, pulse ox 98% on room air. HEENT: Conjunctivae normal. Neck: No JVD or lymph node enlargement. RESPIRATORY: Breath sounds diminished in the bases. No rhonchi. No crackles. ABDOMEN: Soft, nontender. LEGS: No edema. No swelling. Nervous System: No focal deficits. LABS: Noted. CBC, BMP noted. SENIOR RECEPTIONIST was also negative. Stool OB is negative. ASSESSMENT: 1. Chest pain possibly musculoskeletal with negative stress test and stress echo. 2. Headache for evaluation possible migraine. 3. Hypertension. 4. Transient ischemic attack ruled out. 5. Visual difficulties, recently diagnosed iliac disease, fibromyalgia, gastroesophageal reflux disease. 6. Multiple medical issues. RECOMMENDATIONS AND DISCUSSION: Recommend to continue current management, symptomatic treatment. Otherwise, at this time, neurology and ophthalmology evaluation. Monitor closely. See orders for details. Prognosis guarded. Further recommendations to follow. MMODL / IJN: [id number] /
--- NOTE | 2019-08-10 10:51 | DS ---
DISCHARGE SUMMARY DATE OF SERVICE: 08/09/2019 This 33-year-old woman who was admitted with chest pain also had multiple neurologic symptoms and was seen by Neurology as well as [employer], Dr. Hanna. Please refer to above consultants' dictation for discharge diagnosis. On exam, vitals are stable. CARDIOVASCULAR SYSTEM: S1, S2 muffled. ABDOMEN: Soft. NERVOUS SYSTEM: No focal deficit. See the previous dictation for list of medications also. MMODL / IJN: [id number] /
== END 2019-08-09 13:27 | disposition home or self-care (01) | DRG 313 ==
LOC: EC 19:07 → 1SOBS 22:21 → UNDODISOB 08-09 13:27 → OBSVTOIN 08-09 13:27
PROVIDERS: ADMIT Hospitalist; ATTEND Hospitalist
DX: R07.89 Other chest pain (principal); E44.1 Mild protein-calorie malnutrition; E87.1 Hypo-osmolality and hyponatremia; Z68.1 Body mass index [BMI] 19.9 or less, adult; H53.129 Transient visual loss, unspecified eye; I11.9 Hypertensive heart disease without heart failure; M51.24 Other intervertebral disc displacement, thoracic region; M50.31 Other cervical disc degeneration, high cervical region; M51.26 Other intervertebral disc displacement, lumbar region; M19.90 Unspecified osteoarthritis, unspecified site; M79.7 Fibromyalgia; K90.0 Celiac disease; G43.909 Migraine, unspecified, not intractable, without status migrainosus; M41.9 Scoliosis, unspecified; F41.8 Other specified anxiety disorders; K21.9 Gastro-esophageal reflux disease without esophagitis; F17.211 Nicotine dependence, cigarettes, in remission; Z71.6 Tobacco abuse counseling; Z79.899 Other long term (current) drug therapy; Z86.19 Personal history of other infectious and parasitic diseases; Z90.49 Acquired absence of other specified parts of digestive tract; Z98.890 Other specified postprocedural states; Z88.6 Allergy status to analgesic agent; Z88.8 Allergy status to other drugs, medicaments and biological substances; Z91.048 Other nonmedicinal substance allergy status; Z83.49 Family history of other endocrine, nutritional and metabolic diseases; Z80.0 Family history of malignant neoplasm of digestive organs
CPT/HCPCS: 36415; 70450; 70553; 71046; 80048; 80053; 82272; 82607; 82746; 83605; 83690; 83735; 83921; 84443; 84484; 84703; 85025; 85379; 85610; 85652; 85730; 86038; 86140; 86225; 93005; 93351; 96374; 96375; 99285

== ENCOUNTER 2020-06-13 10:24 | Emergency (ER) | payer OTHER ==
[2020-06-13] MEDS ORDERED: SODIUM CHLORIDE 0.9% 1,000 ML IV STA (10:54)
[2020-06-13] MEDS ORDERED: LORazepam 2 MG/ML INJ IV STA (10:55)
--- NOTE | 2020-06-13 11:00 | ED ---
General Adult HPI - General Chief complaint: Recheck/Abnormal Lab/Rx Stated complaint: Multiple complaints Time Seen by Provider: 06/13/20 10:39 Source: patient, RN notes reviewed Mode of arrival: wheelchair Limitations: no limitations - History of Present Illness Initial comments: Patient is a pleasant 34-year-old female presenting to the emergency Department with multiple complaints. Onset of symptoms was once ago, worse today. Patient complains of pain all over including her chest or abdomen and her extremities. Patient feels lightheaded. Patient is tearful. Patient states her eyes are red. Patient states she is having fluid from her ears. Patient states she can feel her feet. Patient has had a mild cough however this was a month ago. Patient also had a fever around a month ago. Patient states she is not unable to get in to see a doctor because she has been taking care of her children who are also sick. - Related Data Home Medications Medication Instructions Recorded Confirmed Acetaminophen [Tylenol] 650 mg PO ONCE PRN 06/13/20 06/13/20 Allergies Allergy/AdvReac Type Severity Reaction Status Date / Time triamcinolone [From Kenalog] Allergy Dyspnea/Yony Verified 06/13/20 12:07 h/Swelling adhesive tape AdvReac Rash/Hives Verified 06/13/20 12:07 ibuprofen AdvReac GERD Verified 06/13/20 12:07 Review of Systems ROS Statement: Those systems with pertinent positive or pertinent negative responses have been documented in the HPI. ROS Other: All systems not noted in ROS Statement are negative. Constitutional: Reports: as per HPI Eyes: Reports: as per HPI ENT: Reports: as per HPI Respiratory: Reports: as per HPI. Denies: dyspnea Cardiovascular: Reports: as per HPI Endocrine: Reports: fatigue Gastrointestinal: Reports: abdominal pain Skin: Reports: change in hair/nails (Hair loss for years). Denies: rash Neurological: Denies: headache Psychiatric: Denies: anxiety (Patient denies feeling anxious) Past Medical History Past Medical History: Fibromyalgia, GERD/Reflux Additional Past Medical History / Comment(s): BACK PAIN AND DDD, Migraines,. 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 Cm managing), anemia History of Any Multi-Drug Resistant Organisms: ESBL Date of last positivie culture/infection: 10/18/17 MDRO Source:: ESBL URINE Past Surgical History: Appendectomy, Back Surgery Additional Past Surgical History / Comment(s): PAIN CLINIC PROCEDURES Past Anesthesia/Blood Transfusion Reactions: No Reported Reaction Past Psychological History: Anxiety, Depression Past Alcohol Use History: None Reported Past Drug Use History: None Reported - Past Family History Brother(s) Additional Family Medical History / Comment(s): purnima-pam Mother Family Medical History: Cancer Additional Family Medical History / Comment(s): LIVER CANCER General Exam Limitations: no limitations General appearance: alert, anxious Head exam: Present: atraumatic Eye exam: Present: PERRL, EOMI. Absent: nystagmus ENT exam: Present: normal oropharynx Neck exam: Present: normal inspection Respiratory exam: Present: normal lung sounds bilaterally Cardiovascular Exam: Present: regular rate, normal rhythm Expanded Peripheral pulses: 2+: Radial (R), Radial (L), Dorsalis Pedis (R), Dorsalis Pedis (L) GI/Abdominal exam: Present: soft. Absent: tenderness Extremities exam: Present: normal inspection. Absent: pedal edema, calf tenderness Back exam: Present: normal inspection Neurological exam: Present: alert, CN II-XII intact. Absent: motor sensory deficit Expanded Neurological exam: Present: protecting the airway Speech: Present: fluid speech Sensory exam: Upper Extremity Light Touch: Normal, Lower Extremity Light Touch: Normal Motor strength exam: RUE: 5, LUE: 5, RLE: 5, LLE: 5 Eye Response: (4) open spontaneously Motor Response: (6) obeys commands Verbal Response: (5) oriented Psychiatric exam: Present: anxious Skin exam: Present: normal color. Absent: rash Course Vital Signs 06/13/20 06/13/20 06/13/20 10:34 11:36 12:28 Temperature 98.7 F Pulse Rate 112 H 85 93 Respiratory 18 18 18 Rate Blood Pressure 126/84 111/75 113/65 O2 Sat by Pulse 100 98 97 Oximetry EKG Findings - EKG Comments: EKG Findings:: Normal sinus rhythm at 80. ID 166. QRS 86. QT 372. QTC 429. Normal axis. Normal QRS. No acute ST change. Medical Decision Making - Medical Decision Making Patient reevaluated and feeling much better. Patient able to ambulate without difficulty. Patient updated on results and need for follow-up. - Lab Data Result diagrams: 06/13/20 11:00 06/13/20 11:00 Lab Results 06/13/20 06/13/20 06/13/20 Range/Units 11:00 11:00 11:00 WBC 9.8 (3.8-10.6) k/uL RBC 4.70 (3.80-5.40) m/uL Hgb 14.4 (11.4-16.0) gm/dL Hct 41.3 (34.0-46.0) % MCV 87.8 (80.0-100.0) fL MCH 30.6 (25.0-35.0) pg MCHC 34.9 (31.0-37.0) g/dL RDW 12.2 (11.5-15.5) % Plt Count 242 (150-450) k/uL MPV 8.4 Neutrophils % 81 % Lymphocytes % 13 % Monocytes % 4 % Eosinophils % 1 % Basophils % 1 % Neutrophils # 7.9 H (1.3-7.7) k/uL Lymphocytes # 1.2 (1.0-4.8) k/uL Monocytes # 0.4 (0-1.0) k/uL Eosinophils # 0.1 (0-0.7) k/uL Basophils # 0.1 (0-0.2) k/uL PT 10.1 (9.0-12.0) sec INR 0.9 (<1.2) APTT 21.5 L (22.0-30.0) sec Sodium 139 (137-145) mmol/L Potassium 4.2 (3.5-5.1) mmol/L Chloride 106 (98-107) mmol/L Carbon Dioxide 24 (22-30) mmol/L Anion Gap 9 mmol/L BUN 12 (7-17) mg/dL Creatinine 0.64 (0.52-1.04) mg/dL Est GFR (CKD-EPI)AfAm >90 (>60 ml/min/1.73 sqM) Est GFR (CKD-EPI)NonAf >90 (>60 ml/min/1.73 sqM) Glucose 102 H (74-99) mg/dL Calcium 10.6 H (8.4-10.2) mg/dL Magnesium 1.9 (1.6-2.3) mg/dL Total Bilirubin 0.6 (0.2-1.3) mg/dL AST 17 (14-36) U/L ALT 9 (4-34) U/L Alkaline Phosphatase 59 (38-126) U/L Troponin I (0.000-0.034) ng/mL Total Protein 8.3 H (6.3-8.2) g/dL Albumin 4.8 (3.5-5.0) g/dL TSH 1.310 (0.465-4.680) mIU/L Free T4 1.08 (0.78-2.19) ng/dL Free T3 pg/mL 4.4 (2.8-5.3) pg/ml Urine Color Urine Appearance (Clear) Urine pH (5.0-8.0) Ur Specific [place] (1.001-1.035) Urine Protein (Negative) Urine Glucose (UA) (Negative) Urine Ketones (Negative) Urine Blood (Negative) Urine Nitrite (Negative) Urine Bilirubin (Negative) Urine Urobilinogen (<2.0) mg/dL Ur Leukocyte Esterase (Negative) Urine RBC (0-5) /hpf Urine WBC (0-5) /hpf Ur Squamous Epith Cells (0-4) /hpf Amorphous Sediment (None) /hpf Urine Bacteria (None) /hpf Urine Mucus (None) /hpf 06/13/20 06/13/20 Range/Units 11:00 11:36 WBC (3.8-10.6) k/uL RBC (3.80-5.40) m/uL Hgb (11.4-16.0) gm/dL Hct (34.0-46.0) % MCV (80.0-100.0) fL MCH (25.0-35.0) pg MCHC (31.0-37.0) g/dL RDW (11.5-15.5) % Plt Count (150-450) k/uL MPV Neutrophils % % Lymphocytes % % Monocytes % % Eosinophils % % Basophils % % Neutrophils # (1.3-7.7) k/uL Lymphocytes # (1.0-4.8) k/uL Monocytes # (0-1.0) k/uL Eosinophils # (0-0.7) k/uL Basophils # (0-0.2) k/uL PT (9.0-12.0) sec INR (<1.2) APTT (22.0-30.0) sec Sodium (137-145) mmol/L Potassium (3.5-5.1) mmol/L Chloride (98-107) mmol/L Carbon Dioxide (22-30) mmol/L Anion Gap mmol/L BUN (7-17) mg/dL Creatinine (0.52-1.04) mg/dL Est GFR (CKD-EPI)AfAm (>60 ml/min/1.73 sqM) Est GFR (CKD-EPI)NonAf (>60 ml/min/1.73 sqM) Glucose (74-99) mg/dL Calcium (8.4-10.2) mg/dL Magnesium (1.6-2.3) mg/dL Total Bilirubin (0.2-1.3) mg/dL AST (14-36) U/L ALT (4-34) U/L Alkaline Phosphatase (38-126) U/L Troponin I <0.012 (0.000-0.034) ng/mL Total Protein (6.3-8.2) g/dL Albumin (3.5-5.0) g/dL TSH (0.465-4.680) mIU/L Free T4 (0.78-2.19) ng/dL Free T3 pg/mL (2.8-5.3) pg/ml Urine Color Light Yellow Urine Appearance Cloudy H (Clear) Urine pH 7.5 (5.0-8.0) Ur Specific [place] 1.013 (1.001-1.035) Urine Protein Negative (Negative) Urine Glucose (UA) Negative (Negative) Urine Ketones Negative (Negative) Urine Blood Negative (Negative) Urine Nitrite Negative (Negative) Urine Bilirubin Negative (Negative) Urine Urobilinogen <2.0 (<2.0) mg/dL Ur Leukocyte Esterase Small H (Negative) Urine RBC 1 (0-5) /hpf Urine WBC 3 (0-5) /hpf Ur Squamous Epith Cells 7 H (0-4) /hpf Amorphous Sediment Rare H (None) /hpf Urine Bacteria Moderate H (None) /hpf Urine Mucus Many H (None) /hpf Disposition Clinical Impression: Paresthesia Disposition: HOME SELF-CARE Condition: Stable Instructions (If sedation given, give patient instructions): Paresthesia (ED), Anxiety (ED) Additional Instructions: Please do follow-up with a primary care physician in the being the week, numbers provided. Return for change or worsening symptoms or other concerns. Is patient prescribed a controlled substance at d/c from ED?: No Referrals: Nai Álvarez MD [STAFF PHYSICIAN] - 1-2 days Rodriguez Power MD [REFERRING] - 1-2 days Time of Disposition: 12:51
[2020-06-13 11:10] LABS: Basophils # (A) 0.1 k/uL (0-0.2); Basophils % (A) 1 %; Eosinophils # (A) 0.1 k/uL (0-0.7); Eosinophils % (A) 1 %; HCT 41.3 % (34.0-46.0); HGB 14.4 gm/dL (11.4-16.0); Lymphocytes # (A) 1.2 k/uL (1.0-4.8); Lymphocytes % (A) 13 %; MCH 30.6 pg (25.0-35.0); MCHC 34.9 g/dL (31.0-37.0); MCV 87.8 fL (80.0-100.0); Mean Platelet Volume 8.4; Monocytes # (A) 0.4 k/uL (0-1.0); Monocytes % (A) 4 %; Neutrophils # (A) 7.9 k/uL (1.3-7.7); Neutrophils % (A) 81 %; Platelet Count 242 k/uL (150-450); RDW 12.2 % (11.5-15.5); WBC 9.8 k/uL (3.8-10.6)
[2020-06-13 11:20] LABS: ALT 9 U/L (4-34); AST 17 U/L (14-36); African American GFR (CKD) >90 (>60 ml/min/1.73 sqM); Albumin 4.8 g/dL (3.5-5.0); Alkaline Phosphatase 59 U/L (38-126); Anion Gap 9 mmol/L; Blood Urea Nitrogen 12 mg/dL (7-17); Calcium 10.6 mg/dL (8.4-10.2); Carbon Dioxide 24 mmol/L (22-30); Chloride 106 mmol/L (98-107); Glucose 102 mg/dL (74-99); Magnesium 1.9 mg/dL (1.6-2.3); Non-African American GFR(CKD) >90 (>60 ml/min/1.73 sqM); Potassium 4.2 mmol/L (3.5-5.1); Sodium 139 mmol/L (137-145); Total Bilirubin 0.6 mg/dL (0.2-1.3); Total Protein 8.3 g/dL (6.3-8.2)
[2020-06-13 11:27] LABS: INR 0.9 (<1.2); Prothrombin Time 10.1 sec (9.0-12.0)
[2020-06-13 11:32] LABS: Partial Thromboplastin Time 21.5 sec (22.0-30.0)
[2020-06-13 11:37] LABS: T4, Free (Free Thyroxine) 1.08 ng/dL (0.78-2.19)
--- NOTE | 2020-06-13 11:49 | XR ---
EXAMINATION TYPE: XR chest 2V DATE OF EXAM: 06/13/2020 COMPARISON: NONE HISTORY: Weakness, chest pain TECHNIQUE: Frontal and lateral views of the chest are obtained. FINDINGS: There is no focal air space opacity, pleural effusion, or pneumothorax seen. The cardiac silhouette size is within normal limits. The osseous structures are intact, Chandra scoliosis of the thoracic spine is again seen. There are overlying cardiac leads, mild pectus deformity may be presen t. IMPRESSION: No acute cardiopulmonary process.
[2020-06-13 12:10] LABS: Amorphous Sediment,Urine Rare /hpf; Appearance,Urine Cloudy (Clear); Bacteria,Urine Moderate /hpf; Bilirubin,Urine Negative (Negative); Blood,Urine Negative (Negative); Color,Urine Light Yellow; Glucose,Urine (UA) Negative (Negative); Ketones,Urine Negative (Negative); Leukocyte Esterase,Urine Small (Negative); Mucus,Urine Many /hpf; Nitrite,Urine Negative (Negative); PH, Urine 7.5 (5.0-8.0); Protein,Urine Negative (Negative); RBC,Urine 1 /hpf (0-5); Specific Gravity,Urine 1.013 (1.001-1.035); Squamous Epithelial Cell,Urine 7 /hpf (0-4); Urobilinogen,Urine <2.0 mg/dL (<2.0); WBC,Urine 3 /hpf (0-5)
[2020-06-13 13:32] VITALS: BP 107/62; PULSE 71; RESP 20; TEMP 98
== END 2020-06-13 13:05 | disposition home or self-care (01) ==
LOC: EC 10:24
DX: R20.2 Paresthesia of skin (principal); R07.9 Chest pain, unspecified; R10.9 Unspecified abdominal pain; R42 Dizziness and giddiness; Z88.1 Allergy status to other antibiotic agents; Z88.6 Allergy status to analgesic agent; Z91.048 Other nonmedicinal substance allergy status; Z90.49 Acquired absence of other specified parts of digestive tract; Z86.69 Personal history of other diseases of the nervous system and sense organs
CPT/HCPCS: 36415; 93005; 84439; 84481; 80053; 83735; 84443; 84484; 85025; 85610; 85730; 81001; 71046; 99285; 96374; 96361 ×2; J2060

== ENCOUNTER 2020-10-06 16:39 | Observation (INO) | payer OTHER ==
[2020-10-06] MEDS ORDERED: MORPHINE SULFATE 4 MG/ML SYRINGE IVP STA (17:19)
[2020-10-06 17:31] LABS: Basophils % (A) 0 %; Eosinophils # (A) 0.1 k/uL (0-0.7); Eosinophils % (A) 1 %; HGB 13.1 gm/dL (11.4-16.0); Lymphocytes # (A) 1.6 k/uL (1.0-4.8); Lymphocytes % (A) 18 %; MCHC 35.3 g/dL (31.0-37.0); MCV 87.7 fL (80.0-100.0); Mean Platelet Volume 8.2; Monocytes # (A) 0.4 k/uL (0-1.0); Monocytes % (A) 5 %; Neutrophils # (A) 6.6 k/uL (1.3-7.7); Neutrophils % (A) 75 %; Platelet Count 265 k/uL (150-450); RBC 4.22 m/uL (3.80-5.40); WBC 8.8 k/uL (3.8-10.6)
[2020-10-06 17:43] LABS: ALT 8 U/L (4-34); AST 16 U/L (14-36); African American GFR (CKD) >90 (>60 ml/min/1.73 sqM); Albumin 4.3 g/dL (3.5-5.0); Alkaline Phosphatase 64 U/L (38-126); Anion Gap 10 mmol/L; Blood Urea Nitrogen 13 mg/dL (7-17); Calcium 9.5 mg/dL (8.4-10.2); Carbon Dioxide 21 mmol/L (22-30); Chloride 107 mmol/L (98-107); Glucose 95 mg/dL (74-99); Magnesium 1.8 mg/dL (1.6-2.3); Non-African American GFR(CKD) >90 (>60 ml/min/1.73 sqM); Potassium 3.8 mmol/L (3.5-5.1); Sodium 138 mmol/L (137-145); Total Bilirubin 0.5 mg/dL (0.2-1.3); Total Protein 7.3 g/dL (6.3-8.2)
--- NOTE | 2020-10-06 17:55 | ED ---
Chest Pain HPI - General Chief Complaint: Chest Pain Stated Complaint: Chest Pain Time Seen by Provider: 10/06/20 16:45 Source: patient, EMS Mode of arrival: EMS Limitations: no limitations - History of Present Illness Initial Comments: Patient is a 34-year-old female with past history of fibromyalgia, GERD who presents emergency Department with reported chest pain and weakness on the left side of her body. She reports that her symptoms have been going on for the past 2-3 days. Chest pain began 3 days ago located over the left side of her chest. Has associated nausea and shortness of breath. She denies previous history of cardiac disease. Denies stress testing. Patient was admitted previously for chest pain and could not tolerate the stress test. She was told to follow up with cardiology in the outpatient setting however states that due to Covid she was unable to. Patient also reports to left upper and lower extremity weakness. Has had visual changes in both eyes which include floaters. She denies previous history of stroke. Admits that she has had difficulty finding her words. The strokelike symptoms have been present for 2 days. She denies any fevers or chills. No head trauma. Patient is not on any blood thinners. No nausea. No other alleviating, precipitating or modifying factors - Related Data Home Medications Medication Instructions Recorded Confirmed Unknown Otc Allergy Tab (Unknown 3 tab PO ONCE PRN 10/06/20 10/06/20 Strength) Allergies Allergy/AdvReac Type Severity Reaction Status Date / Time triamcinolone [From Kenalog] Allergy Dyspnea/Yony Verified 10/06/20 19:12 h/Swelling adhesive tape AdvReac Rash/Hives Verified 10/06/20 19:12 ibuprofen AdvReac GERD Verified 10/06/20 19:12 Review of Systems ROS Statement: Those systems with pertinent positive or pertinent negative responses have been documented in the HPI. ROS Other: All systems not noted in ROS Statement are negative. EKG Findings - EKG Comments: EKG Findings:: EKG demonstrates a sinus rhythm with a ventricular rate of 82. ND interval 164. QRS 76. QTC 441. No acute ST segment elevations or depressions Past Medical History Past Medical History: Fibromyalgia, GERD/Reflux Additional Past Medical History / Comment(s): BACK PAIN AND DDD, Migraines,. 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 Cm managing), anemia History of Any Multi-Drug Resistant Organisms: ESBL Date of last positivie culture/infection: 10/18/17 MDRO Source:: ESBL URINE Past Surgical History: Appendectomy, Back Surgery Additional Past Surgical History / Comment(s): PAIN CLINIC PROCEDURES Past Anesthesia/Blood Transfusion Reactions: No Reported Reaction Past Psychological History: Anxiety, Depression Smoking Status: Former smoker Past Alcohol Use History: None Reported Past Drug Use History: None Reported - Past Family History Brother(s) Additional Family Medical History / Comment(s): parker Mother Family Medical History: Cancer Additional Family Medical History / Comment(s): LIVER CANCER General Exam Limitations: no limitations Course Vital Signs 10/06/20 10/06/20 10/06/20 16:44 17:30 18:00 Temperature 98.1 F Pulse Rate 75 67 69 Respiratory 20 20 20 Rate Blood Pressure 113/80 107/67 100/67 O2 Sat by Pulse 100 100 100 Oximetry 10/06/20 19:00 Temperature Pulse Rate 64 Respiratory 18 Rate Blood Pressure 116/74 O2 Sat by Pulse Oximetry Chest Pain MDM - MDM Upon arrival patient is placed into room 18. A thorough history and physical exam was performed. Stroke is not activated as the patient reports to symptoms for the past 2 days. She does have some left upper and left lower extremity weakness. Does have difficulty identifying several objects on the paperwork and therefore she is given an NIH of 3. Laboratory studies are reviewed and are all within normal limits. CT of the brain is performed as well as CT angiography which demonstrates no acute ischemic changes or occlusions. Chest x-ray demonstrates no acute process. I discussed results of the patient. She is given an aspirin. Due to left-sided weakness did recommend admission with neurology consultation. Patient agreed to this. She'll be admitted to [facility]. Patient remained in stable condition awaiting a bed Disposition Clinical Impression: Left-sided weakness, Chest pain Disposition: ADMITTED IP TO THIS HOSP Condition: Stable Is patient prescribed a controlled substance at d/c from ED?: No Referrals: None,Stated [Primary Care Provider] - 1-2 days Decision to Admit Reason: Admit from EC Decision Date: 10/06/20 Decision Time: 20:16
[2020-10-06 17:59] LABS: D-Dimer 0.25 mg/L FEU (<0.60); Prothrombin Time 10.9 sec (9.0-12.0)
--- NOTE | 2020-10-06 18:36 | CT ---
EXAMINATION TYPE: CT brain wo con DATE OF EXAM: 10/06/2020 COMPARISON: 08/06/2019 HISTORY: Left sided weakness. CT DLP: 1102.8 mGycm Automated exposure control for dose reduction was used. Ventricles and sulci appear normal. There is no mass effect nor midline shift. There is no sign of in tracranial hemorrhage. The calvarium is intact. There is no evidence of cerebral edema. IMPRESSION: Negative unenhanced head CT scan. No change.
--- NOTE | 2020-10-06 18:52 | XR ---
EXAMINATION TYPE: XR chest 2V DATE OF EXAM: 10/06/2020 COMPARISON: 06/13/2020 HISTORY: Chest pain TECHNIQUE: FINDINGS: Heart and mediastinum are normal. Lungs are clear. Diaphragm is normal. Bony thorax appears normal. There are chest leads. IMPRESSION: Normal chest. No change.
--- NOTE | 2020-10-06 19:03 | CT ---
EXAMINATION TYPE: CT angio head neck DATE OF EXAM: 10/06/2020 COMPARISON: None HISTORY: Left sided weakness. CT DLP: 379.7 mGycm Automated exposure control for dose reduction was used. CONTRAST: Performed with IV Contrast, patient injected with 65 mL of Isovue 370. Images obtained from the aortic arch to the vertex of the brain with IV contrast. There are 3-D post processed images . Findings There is normal branching pattern of the great vessels on the aortic arch. There is bilateral arteria l flow in the subclavian arteries. There is arterial flow in the common internal and external carotid arteries bilaterally. There is wide patency of the carotid artery bifurcations. There is arterial fl ow in both vertebral arteries. There is no evidence of carotid or vertebral artery aneurysm or dissec tion. There is arterial flow in the anterior middle and posterior cerebral arteries. I see no evidence of h emodynamic stenosis. There is no evidence of aneurysm or neovascularity. There is no mass effect. The re is normal enhancement of the venous sinuses. IMPRESSION: Normal CT angiogram of the neck. Normal CT angiogram of the brain.
[2020-10-06] MEDS ORDERED: NALOXONE 0.4 MG/ML 1 ML VIAL IV PRN (20:18)
[2020-10-06] MEDS ORDERED: ASPIRIN 325 MG TAB PO STA (20:29)
[2020-10-06] MEDS ORDERED: MORPHINE SULFATE 2 MG/ML SYRINGE IVP ONE (20:31)
[2020-10-06] MEDS ORDERED: ATORVASTATIN 40 MG TAB PO STA (20:32)
--- NOTE | 2020-10-07 00:32 | P.HPIM ---
History of Present Illness H&P Date: 10/06/20 The patient is a 34-year-old female with a PMH of fibromyalgia and GERD who presented to the emergency room with complaints of chest pain, weakness of the left side of the body, and urinary incontinence. The patient reports that her symptoms came on gradually over the past 2-3 days, initially started as a tingling and numbness of the left arm and leg, and progressed to severe weakness of the left extremities along with the chest pain after she woke up this morning. Reports that the chest pain is on the left side, intermittent, 5 out of 10, sharp and pressure-like, and radiating to the left arm. Patient also reports that yesterday she noticed that she was standing in her kitchen when she suddenly had an episode of urinary incontinence. Also reports seeing floaters throughout her visual gibbons. She denied any previous such episodes. Denied any previous history of strokes. She denied experiencing shortness of breath, nausea, vomiting, palpitations. Also denied fever, chills, cough, headache, or dizziness. CT angiogram of the head and neck was unremarkable in the emergency room. Chest x-ray was unremarkable. EKG revealed normal sinus rhythm at [address]/T-wave changes noted as reviewed by me. Laboratory evaluation revealed troponin less than 0.012. Review of Systems Pertinent positives and negatives as discussed in HPI, a complete review of systems was performed and all other systems are negative. Past Medical History Past Medical History: Fibromyalgia, GERD/Reflux Additional Past Medical History / Comment(s): BACK PAIN AND DDD, Migraines,. 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 Cm managing), anemia History of Any Multi-Drug Resistant Organisms: ESBL Date of last positivie culture/infection: 10/18/17 MDRO Source:: ESBL URINE Past Surgical History: Appendectomy, Back Surgery Additional Past Surgical History / Comment(s): PAIN CLINIC PROCEDURES Past Anesthesia/Blood Transfusion Reactions: No Reported Reaction Past Psychological History: Anxiety, Depression Smoking Status: Former smoker Past Alcohol Use History: None Reported Past Drug Use History: None Reported - Past Family History Brother(s) Additional Family Medical History / Comment(s): purnima-sachs Mother Family Medical History: Cancer Additional Family Medical History / Comment(s): LIVER CANCER Medications and Allergies Home Medications Medication Instructions Recorded Confirmed Type Unknown Otc Allergy Tab (Unknown 3 tab PO ONCE PRN 10/06/20 10/06/20 History Strength) Allergies Allergy/AdvReac Type Severity Reaction Status Date / Time triamcinolone [From Kenalog] Allergy Dyspnea/Yony Verified 10/06/20 19:12 h/Swelling adhesive tape AdvReac Rash/Hives Verified 10/06/20 19:12 ibuprofen AdvReac GERD Verified 10/06/20 19:12 Physical Exam Vitals: Vital Signs Temp Pulse Resp BP Pulse Ox 10/06/20 21:48 75 19 105/64 99 10/06/20 19:00 64 18 116/74 10/06/20 18:00 69 20 100/67 100 10/06/20 17:30 67 20 107/67 100 10/06/20 16:44 98.1 F 75 20 113/80 100 Intake and Output 10/06/20 10/06/20 10/06/20 06:59 14:59 22:59 Other: Weight 58.967 kg General: non toxic, no distress, appears older than stated age, normal weight Derm: no unusual rashes/lesions no unusual ecchymoses, warm, dry Head: atraumatic, normocephalic, symmetric Eyes: EOMI, no lid lag, anicteric sclera, pupils equal round reactive to light ENT: Nose and ears atraumatic, no thrush, no pharyngeal erythema Neck: No thyromegaly, no cervical lymphadenopathy, trachea midline, supple Mouth: no lip lesion, mucus membranes moist Cardiovascular: S1S2 reg, no murmur, positive posterior tibial pulse bilateral, no edema, capillary refill less than 2 seconds Lungs: CTA bilateral, no rhonchi, no rales , no accessory muscle use Abdominal: soft, nontender to palpation, no guarding, no appreciable organomegaly, normal bowel sounds Ext: no gross muscle atrophy, no contractures, Neuro: CN II-XI grossly intact, dliminished light touch of LUE to shoulder and LLE to hip, strength 2/5 of LUE and LLE, strength 5/5 of RUE and RLE, Psych: Alert, oriented, tearful affect Results CBC & Chem 7: 10/06/20 17:25 10/06/20 17:25 Labs: Abnormal Lab Results - Last 24 Hours (Table) 10/06/20 Range/Units 17:25 Carbon Dioxide 21 L (22-30) mmol/L Assessment and Plan Plan: L sided weakness, urinary incontinence, visual disturbance -Differential includes multiple sclerosis versus CVA -Neurology consult -Defer further imaging to the consulting service -Echocardiogram -Cardiac monitoring -Continue with aspirin and Lipitor Chest pain, atypical -Cardiac monitoring for now -Trend troponin DVT prophylaxis -Heparin subq The patient is admitted with an anticipated less than 2 midnight stay for evaluation of chest pain CODE STATUS: Full COde Discussed with: Patient Anticipated discharge date: in am Anticipated discharge place: Home A total of 35 minutes was spent on the care of this complex patient more than 50% of the time was spent in counseling and care coordination.
[2020-10-07 07:18] LABS: Basophils % (A) 1 %; Eosinophils # (A) 0.1 k/uL (0-0.7); Eosinophils % (A) 2 %; HGB 11.4 gm/dL (11.4-16.0); Lymphocytes # (A) 1.7 k/uL (1.0-4.8); Lymphocytes % (A) 26 %; MCHC 34.7 g/dL (31.0-37.0); MCV 89.5 fL (80.0-100.0); Mean Platelet Volume 9.4; Monocytes # (A) 0.4 k/uL (0-1.0); Monocytes % (A) 6 %; Neutrophils # (A) 4.3 k/uL (1.3-7.7); Neutrophils % (A) 66 %; Platelet Count 227 k/uL (150-450); RBC 3.68 m/uL (3.80-5.40); WBC 6.5 k/uL (3.8-10.6)
[2020-10-07 07:48] LABS: African American GFR (CKD) >90 (>60 ml/min/1.73 sqM); Anion Gap 5 mmol/L; Blood Urea Nitrogen 13 mg/dL (7-17); Calcium 8.8 mg/dL (8.4-10.2); Carbon Dioxide 26 mmol/L (22-30); Chloride 105 mmol/L (98-107); Glucose 84 mg/dL (74-99); Non-African American GFR(CKD) >90 (>60 ml/min/1.73 sqM); Potassium 4.2 mmol/L (3.5-5.1); Sodium 136 mmol/L (137-145)
[2020-10-07] MEDS: ACETAMINOPHEN TAB 325 MG TAB PO PRN ×3 (07:59→20:29)
--- NOTE | 2020-10-07 11:18 | P.CNNES ---
History of Present Illness Consult date: 10/07/20 Requesting physician: Monica White Reason for Consult: acute left sided weakness History of Present Illness: a 34-year-old the woman with medical history of migraine, celiac disease, anxiety, depression fibromyalgia, GERD that presented to the emergency department on 10/06/2020 for chest pain and weakness over the left side of the body. Patient stated that for the last 34 days she's been having chest pain i t's over the left chest that's going the to the left shoulder arm region. She said that yesterday she left at around 8:30 in the morning and then when she woke up around 2 to 2:30 PM in the afternoon yesterday she noticed that her left arm was heavy and she could not lift it up then later she noticed her left leg was heavy. She feels her left-sided is weak and she has numbness over the left side. She also noticed that the she is having the blurry vision over the left eye and difficulty getting the words out. And she said that in the last 2 days and she felt like when she is walking and she's feeling dizzy and does not feel right. She feels her brain is not working right. Patient denies any headache associate with her symptoms. She stated that she does have history of migraine but the last migraine was a couple years ago possibly 3. According to the patient she had a similar episode like this about a year ago but not as severe and was told everything was fine and likely was due to an anxiety at. She said that she has a chest pain been going on for some time as well and last time she had at the O was about a month ago and she came to the ED because of chest pain and she was told that as he was because of an anxiety and she was given something and for anxiety in the ED. She denies of being on any antiplatelet or anticoagulation. Denies of being on any statins. She said that she is on any medication. She does smoke and she said she stopped about a month ago. Regarding her social status she said that she has 5 kids and her is incarcerated for about the last 2 years. She does not feel any stress currently that she's complaining of. She said that she is adopted and does not know her family history. Some of the workup in the hospital consisted of: Initial vital signs: Blood pressure of 113/80, heart rate of 75, respiratory of 20, temperature of 98.1 Fahrenheit oral and pulse ox of 100% room air. CT of the head is reported as negative unenhanced head CT scan there is no change. CT angiography of the head and neck was reported as normal for both EKG is reported as normal sinus rhythm. Possible left atrial enlargement. Borderline EKG. White blood cell is 8.8 which is normal. Initial serum glucose 95 which is also considered normal. The basic electrolyte panel was reviewed and unremarkable. Rankin virus PCR was not detected. Review of Systems Review of system: The 12 point system was reviewed and apparent positive and negative per HPI. Past Medical History Past Medical History: Fibromyalgia, GERD/Reflux Additional Past Medical History / Comment(s): BACK PAIN AND DDD, Migraines,. 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 Cm managing), anemia, Celiac disease History of Any Multi-Drug Resistant Organisms: ESBL Date of last positivie culture/infection: 10/18/17 MDRO Source:: ESBL URINE Past Surgical History: Appendectomy, Back Surgery Additional Past Surgical History / Comment(s): PAIN CLINIC PROCEDURES, 3rd degree michaels to spine from heater 2019 Past Anesthesia/Blood Transfusion Reactions: No Reported Reaction Past Psychological History: Anxiety, Depression Smoking Status: Former smoker Past Alcohol Use History: None Reported Additional Past Alcohol Use History / Comment(s): started smoking age 14 [id number] Past Drug Use History: None Reported Additional Drug Use History / Comment(s): 2017 smoking meth - Past Family History Brother(s) Additional Family Medical History / Comment(s): purnima-sac Mother Family Medical History: Cancer Additional Family Medical History / Comment(s): LIVER CANCER Medications and Allergies Home Medications Medication Instructions Recorded Confirmed Type Unknown Otc Allergy Tab (Unknown 3 tab PO ONCE PRN 10/06/20 10/06/20 History Strength) Allergies Allergy/AdvReac Type Severity Reaction Status Date / Time triamcinolone [From Kenalog] Allergy Dyspnea/Yony Verified 10/06/20 19:12 h/Swelling adhesive tape AdvReac Rash/Hives Verified 10/06/20 19:12 ibuprofen AdvReac GERD Verified 10/06/20 19:12 Physical Examination - Vital Signs Vital Signs: Vital Signs Temp Pulse Pulse Resp BP BP Pulse Ox 10/07/20 07:00 98.5 F 73 16 108/64 99 10/07/20 02:36 55 L 18 104/69 99 10/06/20 21:48 75 19 105/64 99 10/06/20 19:00 64 18 116/74 10/06/20 18:00 69 20 100/67 100 10/06/20 17:30 67 20 107/67 100 10/06/20 16:44 98.1 F 75 20 113/80 100 Intake and Output 10/06/20 10/07/20 10/07/20 22:59 06:59 14:59 Intake Total 118 Balance 118 Intake: Oral 118 Other: Weight 58.967 kg 58.967 kg GENERAL: The patient is lying in bed and seems very anxious. She looks older than her age. CHEST: The heart rate is regular rate rhythm. No murmurs to auscultation. No carotid bruit bilaterally. LUNG: Clear to auscultation bilaterally no wheezing noted throughout. Not labored breathing. ABDOMEN/GI: Bowel sounds present in all 4 quadrants. No tenderness to palpation throughout. PSYCH: Is very anxious. NEUROLOGICAL: Higher mental function: The patient is awake, alert, oriented to self, place and time. Patient is following commands. No aphasia and no neglect. Cranial nerves: The pupils are round, equal and reactive to light and accommodation. Visual gibbons are full to confrontation throughout. Extraocular movement is intact no nystagmus is noted. Facial sensation is decreased to touch over the entire left side to touch. The facial strength is normal throughout. Hearing is normal bilaterally to hand rub. Tongue is midline and moved [id number] without any difficulty. No dysarthria is noted. Shoulder shrug could not assess left because of weakness otherwise normal over the right. Motor: Gait is deferred. The strength is upon asking the patient to lift the left upper extremity above gravity she was only raising left wrist antigravity and she said she cannot. But when i lifted her entire upper extremity above gravity she maintained above gravity without drift. With lower extremity same thing she said she cannot lift lower extremity but upon bending her knee and leaving it there she was able to maintain it and when lifting lower extremity she was able to hold it then withing 5 second gradually felt down the bed. Normal tone and bulk. Cerebellum: Could not assess left up normal on the right finger to nose. Sensation: Sensation is decreased to touch over the entire left side. Reflexes (right/left): 2+ throughout except patellar are 3+ bilaterally. Plantars are downgoing bilaterally. Results - Laboratory Findings CBC and BMP: 10/07/20 04:44 10/07/20 04:44 Abnormal Lab Findings: Abnormal Labs 10/06/20 10/07/20 10/07/20 17:25 04:44 04:44 RBC 3.68 L Hct 33.0 L Sodium 136 L Carbon Dioxide 21 L Assessment and Plan Assessment: Acute left-sided weakness, numbness, left visual disturbance, difficulty getting her words out. I feel this is more pseudostroke (coversion) from her underlying anxiety/depression. I cannot definitely exclude stroke. On examination it was not consistent with pure stroke (since she said she cannot lift upper or lower extremity above gravity but upon manually lifting her extremities above gravity she was able to support them up). Acute left Chest pain History of low vitamin B12 (215 on 07/2019) Anxiety Depression Celiac disease History of migraine headache. Ex-tobacco use History of fibromyalgia Plan: CT of the head is reported as negative unenhanced head CT scan there is no change. CT angiography of the head and neck was reported as normal for both. In the ED the patient was given aspirin 325 once as well as Lipitor once. I started the patient on aspirin 81 mg and Lipitor 40 mg for secondary stroke prophylaxis. I ordered MRI Brain STAT. Also ordered MRI Cervical spine. Ordered 2-D echo, lipid panel, TSH, Vitamin B12 level, homocysteine and Methylmalonic acid. Q4 hour neuro checks. On continous cardiac monitoring Consulting physical therapy and occupation therapy I consulted the psychiatry team Recommend consulting cardiology team regarding reported left chest pain. The plan was discussed with the patient's nurse Thank you for the consultation. Darren Silva M.D. Neuro-hospitalist Time with Patient: Greater than 30
[2020-10-07] MEDS: ASPIRIN 81 MG PO SCH (11:23)
--- NOTE | 2020-10-07 13:31 | ECHOF ---
Referral Reason:stroke. Do with bubble study MEASUREMENTS -------- HEIGHT: 165.1 cm WEIGHT: 59.0 kg BP: 108/64 RVIDd: 2.9 cm (< 3.3) IVSd: 0.9 cm (0.6 - 1.1) LVIDd: 4.3 cm (3.9 - 5.3) LVPWd: 1.1 cm (0.6 - 1.1) IVSs: 1.3 cm LVIDs: 2.8 cm LVPWs: 1.5 cm LAESV Index (A-L): 18.59 ml/m Ao Diam: 2.6 cm (2.0 - 3.7) AV Cusp: 2.1 cm (1.5 - 2.6) LA Diam: 2.9 cm (2.7 - 3.8) MV EXCURSION: 22.018 mm (> 18.000) MV EF SLOPE: 73 mm/s (70 - 150) EPSS: 0.1 cm MV E Devon: 0.96 m/s MV DecT: 239 ms MV A Devon: 0.54 m/s MV E/A Ratio: 1.78 RAP: 5.00 mmHg RVSP: 14.14 mmHg FINDINGS -------- Resting bradycardia (HR<60bpm). This was a technically good study. The left ventricular size is normal. Left ventricular wall thickness is normal. Overall left vent ricular systolic function is normal with, an EF between 55 - 60 %. The diastolic filling pattern is normal for the age of the patient 9.14. The right ventricle is normal in size. Normal LA size by volume 22+/-6 ml/m2. The right atrial size is normal. Contrast study was performed with 2 iv injections of 8 ccs of agitated normal saline, at rest, and po st-Valsalva. Interatrial and interventricular septum intact. Negative saline study for a PFO The aortic valve is trileaflet and appears structurally normal. There is no evidence of aortic regu rgitation. There is no evidence of aortic stenosis. No mitral regurgitation. Mild tricuspid regurgitation present. There is no evidence of pulmonary hypertension. The right v entricular systolic pressure, as measured by Doppler, is 14.14mmHg. Trace/mild (physiologic) pulmonic regurgitation. The aortic root size is normal. Normal inferior vena cava with normal inspiratory collapse consistent with estimated right atrial pre ssure of 5 mmHg. There is no pericardial effusion. CONCLUSIONS -------- 1. The left ventricular size is normal. 2. Left ventricular wall thickness is normal. 3. Overall left ventricular systolic function is normal with, an EF between 55 - 60 %. 4. The diastolic filling pattern is normal for the age of the patient 9.14 5. Contrast study was performed with 2 iv injections of 8 ccs of agitated normal saline, at rest, and post-Valsalva. 6. Negative saline study for a PFO 7. Mild tricuspid regurgitation present. 8. Trace/mild (physiologic) pulmonic regurgitation. MULTI OPERATION FORMING MACHINE SETTER: Sharona Zhou RDCS
--- NOTE | 2020-10-07 13:57 | P.CN ---
Psychiatric Consult - . Consult date: 10/07/20 Consult:: 10/07/20 13:42 IDENTIFYING DATA: This patient is a 34-year-old female who currently lives with her 5 kids in a trailer and is unemployed. Patient is currently however is currently incarcerated. REASON FOR REFERRAL: Psychiatry was consulted for "anxiety, preudostroke from exam" HISTORY OF PRESENT ILLNESS: The patient presented to the hospital on 511 complaining with chest pain and weakness on her left side. According to ER report patient has been complaining of this for 2-3 days. Patient also had associated symptoms of nausea and shortness of breath. She had word finding difficulties initially. Patient's computed tomography scan did not show any acute findings. Neurology was on board and evaluated patient and place consult for psychiatry. Patient's nurse claims that patient was tearful at the bedside however was denying any stress in her life. She was seen at the bedside and agreeable to speak to senior grant writer. Patient was fairly appropriate however claimed repeatedly that she is not having any stress in her life. She states that she was having chest pain and weakness on her arms and legs on the left side. She states that she also has "I've problems" and states that she was having pain in her left eye and having visual changes. She states that she does have older kids that she lives with 5 of them, however states that "I don't need help taking care of my kids" and states that her is being released from custodial at the end of the month. She states that he was incarcerated for 2 years for buying a stolen furnace. She claims that she is feeling "indifferent" about it. She states that she also has 1 son who is 9 years old and that has Asperger's. She states that he goes to counseling and therapy regularly which has been helping him. She is denying any depression at this time or any anxiety. She states that the chest pain has been going on and off for one month now. She claims that she was being worked up for MS in the past and claims that there was "tovar matter changes" and was seeing a neurologist. She states that she has been sleeping more since being in the hospital. At this time patient denies any suicidal or homical ideations, intent or plan. Patient denies any auditory, visual hallucinations and denies any paranoia or delusions. Patients admits to using no recreational drugs PAST PSYCHIATRIC HISTORY: Patient has a a history of anxiety and depression. Patient denies being on any psychiatric medications. Patient denies any previous psychiatric hospitalizations. She does not have a outpatient psychiatrist at this time however did go to counseling several years ago at [facility]. Patient denies any history of suicide attempts in the past. PAST MEDICAL HISTORY: Fibromyalgia, GERD, migraines, back pain. ALLERGIES: as per EMR. CHEMICAL DEPENDENCY HISTORY: as per HPI. FAMILY PSYCHIATRIC/SUBSTANCE USE HISTORY: She claims that both her mother and sister have some form of mental illness. SOCIAL HISTORY: Patient was born and raised in [place] and also in [place]. She claims that she was adopted at the age of 75 years old. She states that she completed high school and completed a certificate in cosmetology. She states that she worked various jobs in the past however is currently unemployed. She states that she was in group home from 2015 for drug related charges.. MENTAL STATUS EXAM: General Appearance: Patient appears to be thin, wearing a bandanna, stated age is alert, pleasant, and attempts to be cooperative. Patient appears to have fair hygiene and grooming wearing hospital gown with fair eye contact. Behavior: Patient is calmly lying in bed without any agitated behavior. Speech: Patient's speech is fluent and nonpressured. Mood/Affect: Patient reports their mood is "ok", affect is congruent Suicidality/Homicidality: Patient denies having any suicidal or homicidal ideation intent or plan. Perceptions: Patient denies any visual hallucinations and denies any auditory hallucinations Though content/process: There is no evidence of any delusional thought content and thought process is linear and goal-directed. Focused on her physical symptoms. Memory and concentration: AOX3, grossly intact for the purposes of this session. Can spell "WORLD" backwards Judgment and insight: fair IMPRESSIONS: Conversion disorder versus organic general medical/neurological condition (possibly MS??) history of depression and anxiety PLAN: -At this time patient DOES NOT meet criteria for inpatient psychiatric admission. -Would recommend the following medication changes/additions: At this time no psychiatric medications are indicated as patient claims that her mood and anxiety symptoms are relatively controlled and does not want medications. -tea tree farm worker to provide patient with outpatient mental health/psychiatry resources for appropriate follow up upon discharge -appreciate neurology recs, will await results of MRI w and w/o contrast to rule out any organic neurological abnormalities. -Communicated plan to patient's nurse -Will follow along as needed or if requested. -Please contact with any questions.
--- NOTE | 2020-10-07 16:34 | P.PN ---
Subjective Progress Note Date: 10/07/20 Patient was evaluated by me today. She is still complaining of left-sided chest pain radiating to her arm. She denies any shortness of breath. She reported that the weakness is improved. Objective - Vital Signs Vital signs: Vital Signs Temp 98.2 F 10/07/20 14:36 Pulse 58 L 10/07/20 14:36 Resp 16 10/07/20 14:36 BP 88/57 10/07/20 14:36 Pulse Ox 99 10/07/20 14:36 Intake & Output 10/06/20 10/07/20 10/07/20 18:59 06:59 18:59 Intake Total 118 Balance 118 Weight 58.967 kg 58.967 kg Intake: Oral 118 Other: # Voids 1 - Exam General: The patient is awake and alert, in no distress Eye: there is normal conjunctiva bilaterally. Neck: The neck is supple, there is no JVD. Cardiovascular: Normal S1-S2, no S3-S4, no murmurs. Respiratory: Lungs clear to auscultation bilaterally Gastrointestinal: Abdomen is soft, nontender Musculoskeletal: There is no pedal edema. Neurological:. Speech is normal. Skin: Skin is warm and dry - Labs CBC & Chem 7: 10/07/20 04:44 10/07/20 04:44 Labs: Abnormal Lab Results - Last 24 Hours (Table) 10/06/20 10/07/20 10/07/20 Range/Units 17:25 04:44 04:44 RBC 3.68 L (3.80-5.40) m/uL Hct 33.0 L (34.0-46.0) % Sodium 136 L (137-145) mmol/L Carbon Dioxide 21 L (22-30) mmol/L Assessment and Plan Assessment: This is a 34-year-old female that presented to the emergency room with a complaint of left-sided weakness, numbness, and visual disturbances. Patient was evaluated in the ER and placed on observation for further management of her medical problems noted below. 1. Left-sided weakness and numbness, exact etiology unclear. Concern about underlying conversion disorder. Computed tomography scan of the head negative. CT angiogram of the head and neck also negative. Patient was seen and evaluated by neurology. MRI of the brain ordered. Echocardiogram ordered by neurology showed preserved ejection fraction with no evidence of PFO. Patient started on aspirin and Lipitor 2. Chest pain, most likely atypical in nature. ACS ruled out. D-dimer is normal. Cardiology consulted for further evaluation. 3. Underlying depression and anxiety, seen and evaluated by psychiatry. Patient is refusing to take any medication recommended by psychiatry We will continue to monitor closely. Anticipate discharge home tomorrow.
[2020-10-07] MEDS ORDERED: MORPHINE SULFATE 2 MG/ML SYRINGE IVP STA (18:11)
[2020-10-07] MEDS ORDERED: ATORVASTATIN 40 MG TAB PO SCH (21:00)
[2020-10-08] MEDS: ACETAMINOPHEN TAB 325 MG TAB PO PRN ×2 (02:23→08:50)
[2020-10-08 03:33] VITALS: TEMP 98.1
[2020-10-08 07:57] VITALS: BP 99/60; PULSE 57; RESP 18
[2020-10-08] MEDS: ASPIRIN 81 MG PO SCH (08:52)
--- NOTE | 2020-10-08 10:39 | P.CRDCN ---
History of Present Illness Consult date: 10/08/20 History of present illness: HISTORY OF PRESENT ILLNESS: This is a 34-year-old female with a past medical history significant for fibromyalgia, GERD, back pain, anxiety, depression, nicotine dependence and methamphetamine use. 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 We have been asked to see the patient in consultation for chest pain. Patient examined at the bedside. Patient states she presented to the hospital secondary to left-sided a rm and leg weakness. She states that she began having left-sided chest pain a couple days ago. Patient states the pain is worse with deep inspiration. Patient also has tenderness upon palpation of left-sided chest wall. She denies any radiation of the pain. She denies shortness of breath. EKG reveals sinus mechanism with no signs of acute ischemia Chest xray negative for acute process Laboratory data: WBC 6.5. Hemoglobin 11.4. Platelet count 227. Sodium 136. Potassium 4.2. BUN 13. Creatinine 0.69. Troponin negative 3. Current home cardiac medications include none Echocardiogram performed revealed ejection fraction 55-60%. Negative agitated bubble study REVIEW OF SYSTEMS: At the time of my exam: CONSTITUTIONAL: Denies fever or chills. HEENT: Denies blurred vision, vision changes, or eye pain. Denies hemoptysis CARDIOVASCULAR: Denies chest pain. Denies orthopnea. Denies PND. Denies palpitations RESPIRATORY: Denies shortness of breath. GASTROINTESTINAL: Denies abdominal pain. Denies nausea or vomiting. HEMATOLOGIC: Denies bleeding disorders. GENITOURINARY: Denies any blood in urine. SKIN: Denies pruitis. Denies rash. PHYSICAL EXAM: VITAL SIGNS: Reviewed. GENERAL: Well-developed in no acute distress. HEENT: Head is normocephalic. Pupils are equal, round. Sclerae anicteric. Mucous membranes of the mouth are moist. Neck supple. No JVD or thyromegaly LUNGS: Respirations even and unlabored. Lungs essentially clear to auscultation bilaterally. HEART: Regular rate and rhythm. S1 and S2 heard. Tenderness with palpation of left-sided chest wall ABDOMEN: Soft. Nondistended. Nontender. EXTREMITIES: No clubbing or cyanosis. Peripheral pulses intact. No lower extremity edema NEUROLOGIC: Awake and alert. Oriented x 3. ASSESSMENT: Left sided weakness Chest pain, reproducible with chest wall palpation, troponins negative 3 Fibromyalgia GERD Anxiety Depression Nicotine dependence Former methamphetamine use PLAN: An acute coronary event has been ruled out Neurology following Patient is declining to have stress test performed at this time. She may follow up outpatient with Dr. Healy for stress testing in the future We will sign off. Please reconsult if needed Nurse practitioner note has been reviewed by physician. Signing provider agrees with the documented findings, assessment, and plan of care. Past Medical History Past Medical History: Fibromyalgia, GERD/Reflux Additional Past Medical History / Comment(s): BACK PAIN AND DDD, Migraines,. 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 Cm managing), anemia, Celiac disease History of Any Multi-Drug Resistant Organisms: ESBL Date of last positivie culture/infection: 10/18/17 MDRO Source:: ESBL URINE Past Surgical History: Appendectomy, Back Surgery Additional Past Surgical History / Comment(s): PAIN CLINIC PROCEDURES, 3rd degree michaels to spine from heater 2019 Past Anesthesia/Blood Transfusion Reactions: No Reported Reaction Past Psychological History: Anxiety, Depression Smoking Status: Former smoker Past Alcohol Use History: None Reported Additional Past Alcohol Use History / Comment(s): started smoking age 14 [id number] Past Drug Use History: None Reported Additional Drug Use History / Comment(s): 2016 smoking meth - Past Family History Brother(s) Additional Family Medical History / Comment(s): purnima-sachs Mother Family Medical History: Cancer Additional Family Medical History / Comment(s): LIVER CANCER Medications and Allergies Home Medications Medication Instructions Recorded Confirmed Type Unknown Otc Allergy Tab (Unknown 3 tab PO ONCE PRN 10/06/20 10/06/20 History Strength) Allergies Allergy/AdvReac Type Severity Reaction Status Date / Time triamcinolone [From Kenalog] Allergy Dyspnea/Yony Verified 10/06/20 19:12 h/Swelling adhesive tape AdvReac Rash/Hives Verified 10/06/20 19:12 ibuprofen AdvReac GERD Verified 10/06/20 19:12 Physical Exam Vitals: Vital Signs Temp Pulse Resp BP Pulse Ox 10/08/20 07:00 98.1 F 57 L 18 99/60 99 10/08/20 02:15 16 10/08/20 02:00 98.1 F 49 L 17 102/67 100 10/07/20 20:32 107/67 10/07/20 20:00 98.4 F 57 L 17 90/58 98 10/07/20 14:36 98.2 F 58 L 16 88/57 99 Intake and Output 10/07/20 10/08/20 10/08/20 22:59 06:59 14:59 Other: Voiding Method Toilet # Voids 1 1 Results 10/07/20 04:44 10/07/20 04:44 Current Medications Generic Name Dose Route Start Last Admin Trade Name Freq PRN Reason Stop Dose Admin Acetaminophen 650 mg 10/06/20 20:30 10/08/20 02:23 Acetaminophen Tab 325 Mg Tab PO 650 mg Q6HR PRN Administration Pain Aspirin 81 mg 10/07/20 11:00 10/07/20 11:23 Aspirin 81 Mg PO 81 mg DAILY MIGUEL A Administration Atorvastatin Calcium 40 mg 10/07/20 21:00 10/07/20 20:29 Atorvastatin 40 Mg Tab PO 40 mg HS MIGUEL A Administration Naloxone HCl 0.2 mg 10/06/20 20:18 Naloxone 0.4 Mg/Ml 1 Ml Vial IV Q2M PRN Opioid Reversal Intake and Output 10/07/20 10/08/20 10/08/20 22:59 06:59 14:59 Other: Voiding Method Toilet # Voids 1 1 10/07/20 04:44 10/07/20 04:44
--- NOTE | 2020-10-08 11:48 | MR ---
PRE AND POSTCONTRAST ENHANCED MRI OF THE BRAIN: CLINICAL HISTORY: Left sided weakness, concern for stroke, head feels heavy. CONTRAST: Gadavist 6ml. Multiplanar and multispin-echo imaging of the brain was performed both before and after the administr ation of contrast. The ventricles, basal cisterns and sulci overlying the cerebral convexities are within normal limits. There is no evidence for midline shift or mass effect. Acute intracranial hemorrhage or extra-axial collection is not evident. Noted within the deep and subcortical white matter of both cerebral hemispheres are small foci of inc reased signal on T2 FLAIR imaging and measuring up to 3.5 mm. Total number of lesions on the right is between 8 and 10 and on the left between 10 and 12. The lesions are of uncertain etiology and could reflect sequela of chronic migraine headaches, Lyme's disease, vasculitis, demyelination and less lik kemi chronic small vessel ischemia. Following contrast administration, there is no evidence for pathologic enhancement or enhancing mass. The paranasal sinuses and mastoid air cells are well-aerated. IMPRESSION: 1. Nonspecific T2 lesions. Correlate clinically. EXAMINATION TYPE: MR brain/cspine wo/w DATE OF EXAM: 10/08/2020 11:33 AM COMPARISON: NONE HISTORY: Left sided weakness, concern for stroke, head feels heavy. CONTRAST: The patient was injected with 6 mL intravenous Gadavist gadolinium contrast. Multiplanar MultiSpin echo imaging of the cervical spine was performed. C2-C3: No evidence for degenerative disc disease. No disc bulge/herniation or protrusion. No Canal stenosis. Foramina are patent bilaterally. C3-C4: No evidence for degenerative disc disease. No disc bulge/herniation or protrusion. No Canal stenosis. Foramina are patent bilaterally. C4-C5: No evidence for degenerative disc disease. No disc bulge/herniation or protrusion. No Canal stenosis. Foramina are patent bilaterally. C5-C6: No evidence for degenerative disc disease. No disc bulge/herniation or protrusion. No Canal stenosis. Foramina are patent bilaterally. C6-C7:No evidence for degenerative disc disease. No disc bulge/herniation or protrusion. No Canal s tenosis. Foramina are patent bilaterally. C7-T1: No evidence for degenerative disc disease. No disc bulge/herniation or protrusion. No Canal stenosis. Foramina are patent bilaterally. No cervical spine fracture. There is normal alignment. Cervical spinal cord is of normal signal. C raniovertebral junction relationships are within normal limits. No pathologic enhancement. IMPRESSION: 1. No significant abnormality appreciated.
--- NOTE | 2020-10-08 14:09 | P.PN ---
Progress Note - Text Progress Note Date: 10/08/20 Interval History: Patient was seen today for psychiatric follow-up regarding patient's condition. Patient had her MRI completed which did not show any abnormalities. Patient was seen today at the bedside and agreeable to speak to sheet writer. She appeared to have a mildly improved affect however states that she "doesn't know what's going on". She states that she still having some "I problems" and also states that her brain feels "foggy" at times. She states that overall she is improving sinc e yesterday. She states that her strength has been improving as well. She was minimizing some of her stressors at home. She did admit to having some mild depression and anxiety. She claims that she is able to sleep fairly throughout the night last night. She was agreeable to start antidepressant today. She is denying any suicidal or homicidal ideations intent or plan. She is denying any auditory or visual hallucinations. Mental Status Exam: General Appearance: Patient appears to be thin, wearing a bandanna, stated age is alert, pleasant, and attempts to be cooperative. Patient appears to have fair hygiene and grooming wearing hospital gown with fair eye contact. Behavior: Patient is calmly lying in bed without any agitated behavior. Speech: Patient's speech is fluent and nonpressured. Mood/Affect: Patient reports their mood is "better", affect is congruent and constricted Suicidality/Homicidality: Patient denies having any suicidal or homicidal ideation intent or plan. Perceptions: Patient denies any visual hallucinations and denies any auditory hallucinations Though content/process: There is no evidence of any delusional thought content and thought process is linear and goal-directed. less Focused on her physical symptoms. Memory and concentration: AOX3, grossly intact for the purposes of this session. Judgment and insight: fair Assessment Likely conversion disorder Depressive disorder unspecified Plan: -At this time patient DOES NOT meet criteria for inpatient psychiatric admission. -Would recommend the following medication changes/additions: Patient claims that she is willing to try Lexapro at a low dose. Start 5 mg daily for mood/anxiety. -aquaculture worker to provide patient with outpatient mental health/psychiatry resources for appropriate follow up upon discharge -appreciate neurology recs. spoke with neurology about this case today -Reviewed MRI report. -At this time psychiatry will sign off. -Please contact with any questions.
[2020-10-08] MEDS ORDERED: ESCITALOPRAM 5 MG TAB PO SCH (14:15)
--- NOTE | 2020-10-08 14:41 | P.DS ---
Providers Date of admission: 10/06/20 20:18 Expected date of discharge: 10/08/20 Attending physician: Sandy Diaz MD Consults: 10/06/20 20:19 Consult Physician Urgent Consulting Provider: Darren Silva Consult Reason/Comments: acute left sided weakness Do you want consulting provider notified?: Yes 10/07/20 10:55 Consult Physician Urgent Consulting Provider: Hernandez Ambrosio Consult Reason/Comments: anxiety. Appears Pseudostroke from exam. Do you want consulting provider notified?: Yes Primary care physician: Stated None Hospital Course: This is a 34-year-old female that presented to the emergency room with a nonspecific complaint of left-sided weakness, numbness, and visual disturbances. Patient was evaluated in the ER and placed on observation for further managemen t of her medical problems noted below. 1. Left-sided weakness and numbness, exact etiology unclear. Concern about underlying conversion disorder. Computed tomography scan of the head negative. CT angiogram of the head and neck also negative. Patient was seen and evaluated by neurology. MRI of the cervical spine was normal. MRI of the brain showed nonspecific T2 lesions of unclear etiology. Patient advised to follow-up with neurology outpatient. Echocardiogram ordered by neurology showed preserved ejection fraction with no evidence of PFO. Patient started on aspirin and Lipitor 2. Chest pain, atypical in nature and reproducible on exam. ACS ruled out. D- dimer is normal. Cardiology consulted but patient refused cardiac stress testing. She can follow up outpatient as directed. 3. Underlying depression and anxiety: Now with conversion disorder. seen and evaluated by psychiatry. Patient initially refused treatment then she agreed to Lexapro 5 mg daily. Follow up outpatient as directed. Patient will be discharged home in a stable condition. For further details about this hospitalization please refer to the electronic chart. Time spent on discharge > 30 minutes including counseling and coordination of care Patient Condition at Discharge: Stable Plan - Discharge Summary Discharge Rx Participant: No New Discharge Prescriptions: New Aspirin 81 mg PO DAILY #30 chewable Atorvastatin Calcium [Lipitor] 20 mg PO HS #30 tab Escitalopram [Lexapro] 5 mg PO DAILY #30 tab Continue Unknown Otc Allergy Tab (Unknown Strength) 3 tab PO ONCE PRN PRN Reason: Cold Symptoms Discharge Medication List Unknown Otc Allergy Tab (Unknown Strength) 3 tab PO ONCE PRN 10/06/20 [History] Aspirin 81 mg PO DAILY #30 chewable 10/08/20 [Rx] Atorvastatin Calcium [Lipitor] 20 mg PO HS #30 tab 10/08/20 [Rx] Escitalopram [Lexapro] 5 mg PO DAILY #30 tab 10/08/20 [Rx] Follow up Appointment(s)/Referral(s): Gabi Mendoza MD [Medical Doctor] - 1 Week None,Stated [Primary Care Provider] - 1-2 days Neli Healy MD [STAFF PHYSICIAN] - 1 Week Discharge Disposition: HOME SELF-CARE
--- NOTE | 2020-10-08 15:44 | P.PN ---
Subjective Progress Note Date: 10/08/20 She was seen at bedside and she was complaining that she is having pain over the left side as well as weakness but feels her weakness is slightly improving today compared to yesterday. Objective - Vital Signs Vital signs: Vital Signs Temp 98.1 F 10/08/20 07:00 Pulse 57 L 10/08/20 07:00 Resp 18 10/08/20 07:00 BP 99/60 10/08/20 07:00 Pulse Ox 99 10/08/20 07:00 Intake & Output 10/07/20 10/08/20 10/08/20 18:59 06:59 18:59 Intake Total 118 236 Balance 118 236 Weight 58.967 kg Intake: Oral 118 236 Other: Voiding Method Toilet Toilet # Voids 1 1 - Exam GENERAL: The patient is lying in bed and seems very anxious. She looks older th an her age. PSYCH: Is very anxious. NEUROLOGICAL: Higher mental function: The patient is awake, alert, oriented to self, place and time. Patient is following commands. No aphasia and no neglect. Cranial nerves: The pupils are round, equal and reactive to light and accommodation. Visual gibbons are full to confrontation throughout. Extraocular movement is intact no nystagmus is noted. Facial sensation is decreased to touch over the entire left side to touch. The facial strength is normal thr oughout. Hearing is normal bilaterally to hand rub. Tongue is midline and moved [id number] without any difficulty. No dysarthria is noted. Shoulder shrug could not assess left because of weakness otherwise normal over the right. Motor: Gait is deferred. The strength is raising the left side above gravity but there is a lot of effort related.. Normal tone and bulk. Cerebellum: Could not assess left up normal on the right finger to nose. Sensation: Sensation is decreased to touch over the entire left side. Reflexes (right/left): 2+ throughout except patellar are 3+ bilaterally. - Labs CBC & Chem 7: 10/07/20 04:44 10/07/20 04:44 Assessment and Plan Assessment: Acute left-sided weakness, numbness, left visual disturbance, difficulty getting her words out. Seems conversion (effort related on examination). MRI Brain negative for acute or subactue ischemic stroke. Acute left Chest pain History of low vitamin B12 (215 on 07/2019) Anxiety Depression Celiac disease History of migraine headache. Ex-tobacco use History of fibromyalgia Plan: * CT of the head is reported as negative unenhanced head CT scan there is no change. * CT angiography of the head and neck was reported as normal for both. * MRI the brain is reported as nonspecific T2 legion. Correlate clinically. There is no acute ischemic or subacute ischemia seen upon the reviewing. * The area it is mentioned that the patient is noted to have deep and subcortical white matter of both cerebral hemisphere are small foci of increased signal on T2 flair imaging and measuring up to 3.5 mm. Total number of lesions on the right is between 8 and 10 on the left between 10 and 12. The lesions are of uncertain etiology and could reflect sequela of chronic migraine headaches, Lyme disease, vasculitis, demyelinating and less likely chronic small vessel ischemia. * 2-D echo was reported as overall left ventricle systolic function is normal with ejection fraction of 55-60%. Negative PFO. Normal left atrial size by volume. * Homocysteine level is 10.17 which is considered normal. * TSH is 2.5 which is normal * Continue aspirin 81 mg and Lipitor 40 mg for secondary stroke prophylaxis. * Q4 hour neuro checks. * On continous cardiac monitoring * Physical therapy and occupation therapy are consulted. * Vitamin B12 is 368 which is on the low normal size and I recommend the patient to be on vitamin B12 1000 micrograms daily. * Psychiatry team is on board * Cardiology team is consulted. * I recommend the patient to follow-up with a neurologist as an outpatient within 1-2 weeks and recommend the use a lumbar puncture as an outpatient to rule out demylinating disease. Also recommend further workup as an outpatient. The patient the symptoms are not a stroke. * The plan was discussed with the patient's nurse. Darren Silva M.D. Neuro-hospitalist Time with Patient: Less than 30
== END 2020-10-08 15:50 | disposition home or self-care (01) ==
LOC: EC 16:39 → 6NMEDSUR 20:18
PROVIDERS: ADMIT Internal Medicine; ATTEND Internal Medicine
DX: R07.89 Other chest pain (principal); R53.1 Weakness; R20.0 Anesthesia of skin; R06.02 Shortness of breath; H43.393 Other vitreous opacities, bilateral; R11.0 Nausea; H53.8 Other visual disturbances; R32 Unspecified urinary incontinence; R20.2 Paresthesia of skin; R42 Dizziness and giddiness; M79.7 Fibromyalgia; K90.0 Celiac disease; F44.9 Dissociative and conversion disorder, unspecified; K21.9 Gastro-esophageal reflux disease without esophagitis; M54.9 Dorsalgia, unspecified; G43.909 Migraine, unspecified, not intractable, without status migrainosus; D64.9 Anemia, unspecified; F41.9 Anxiety disorder, unspecified; F32.9 Major depressive disorder, single episode, unspecified; Z20.822 Contact with and (suspected) exposure to COVID-19; Z87.891 Personal history of nicotine dependence; Z88.8 Allergy status to other drugs, medicaments and biological substances; Z91.048 Other nonmedicinal substance allergy status; Z90.49 Acquired absence of other specified parts of digestive tract; Z16.24 Resistance to multiple antibiotics; Z56.0 Unemployment, unspecified; Z80.0 Family history of malignant neoplasm of digestive organs; Z82.0 Family history of epilepsy and other diseases of the nervous system
CPT/HCPCS: 96376 ×2; 96374; 99285; 36415; 93005; 93306; 97162; 97166; 83921; 85379; 80053; 80048; 84443; 82607; 83735; 84484 ×2; 85025 ×2; 85610; 85730; 83090; 87635; 71046; 70496; 70450; 70498; 70553; 72156; G0378 ×3; J2270 ×2; A9585; Q9967

== ENCOUNTER 2020-11-12 16:36 | Observation (INO) | payer OTHER ==
[2020-11-12] MEDS ORDERED: LORazepam 2 MG/ML INJ IV STA (17:27)
[2020-11-12] MEDS ORDERED: ASPIRIN 81 MG PO STA (17:27)
--- NOTE | 2020-11-12 17:28 | ED ---
General Adult HPI - General Chief complaint: Chest Pain Stated complaint: Chest Pain Time Seen by Provider: 11/12/20 17:10 Source: patient, RN notes reviewed Mode of arrival: ambulatory Limitations: no limitations - History of Present Illness Initial comments: Patient is a pleasant 35-year-old female presenting to the emergency Department with complaints of chest discomfort. Onset of symptoms was around 6 months ago. Patient was having an outpatient stress test done today. Patient states her symptoms started getting worse. Patient states in addition she started feeling near syncopal. Patient states they checked her blood pressure and it was low and they gave her water. Patient states they tried to contact cardiology but ended up discharging her. Patient has continued symptoms. Patient admits to feeling anxious. Patient does have some associated dyspnea. - Related Data Previous Rx's Medication Instructions Recorded Aspirin 81 mg PO DAILY #30 chewable 10/08/20 Atorvastatin Calcium [Lipitor] 20 mg PO HS #30 tab 10/08/20 Escitalopram [Lexapro] 5 mg PO DAILY #30 tab 10/08/20 Allergies Allergy/AdvReac Type Severity Reaction Status Date / Time triamcinolone [From Kenalog] Allergy Dyspnea/Yony Verified 11/12/20 18:48 h/Swelling adhesive tape AdvReac Rash/Hives Verified 11/12/20 18:48 ibuprofen AdvReac GERD Verified 11/12/20 18:48 Review of Systems ROS Statement: Those systems with pertinent positive or pertinent negative responses have been documented in the HPI. ROS Other: All systems not noted in ROS Statement are negative. Constitutional: Denies: fever Eyes: Denies: eye pain ENT: Denies: ear pain Respiratory: Reports: as per HPI Cardiovascular: Reports: as per HPI, chest pain, palpitations Endocrine: Denies: fatigue Gastrointestinal: Denies: abdominal pain Genitourinary: Denies: dysuria Musculoskeletal: Denies: back pain Skin: Denies: rash Neurological: Denies: weakness Psychiatric: Reports: anxiety Past Medical History Past Medical History: Fibromyalgia, GERD/Reflux Additional Past Medical History / Comment(s): BACK PAIN AND DDD, Migraines,. 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 Cm managing), anemia History of Any Multi-Drug Resistant Organisms: ESBL Date of last positivie culture/infection: 10/18/17 MDRO Source:: ESBL URINE Past Surgical History: Appendectomy, Back Surgery Additional Past Surgical History / Comment(s): PAIN CLINIC PROCEDURES Past Anesthesia/Blood Transfusion Reactions: No Reported Reaction Past Psychological History: Anxiety, Depression Smoking Status: Former smoker Past Alcohol Use History: None Reported Past Drug Use History: None Reported - Past Family History Brother(s) Additional Family Medical History / Comment(s): purnima-[place] Mother Family Medical History: Cancer Additional Family Medical History / Comment(s): LIVER CANCER General Exam Limitations: no limitations General appearance: alert, in no apparent distress Head exam: Present: normocephalic Eye exam: Present: normal appearance Neck exam: Present: normal inspection Respiratory exam: Present: normal lung sounds bilaterally Cardiovascular Exam: Present: regular rate, normal rhythm Expanded Peripheral pulses: 2+: Radial (R), Radial (L), Dorsalis Pedis (R), Dorsalis Pedis (L) GI/Abdominal exam: Present: soft. Absent: tenderness Extremities exam: Present: normal inspection. Absent: pedal edema, calf tenderness Neurological exam: Present: alert Psychiatric exam: Present: normal affect, normal mood Skin exam: Present: normal color Course Vital Signs 11/12/20 16:39 Temperature 98.4 F Pulse Rate 74 Respiratory 18 Rate Blood Pressure 125/84 O2 Sat by Pulse 98 Oximetry EKG Findings - EKG Comments: EKG Findings:: Normal sinus rhythm with rate of 63. [place] 168. QRS 88. QT 426. QTc 435. Normal axis. Normal QRS. No acute ST change. Medical Decision Making - Medical Decision Making Patient reevaluated and unchanged. Patient updated on results and plan. Case was discussed with Dr. Knight, who will admit covering hospital call. - Lab Data Result diagrams: 11/12/20 17:34 11/12/20 17:34 Lab Results 11/12/20 11/12/20 11/12/20 Range/Units 17:34 17:34 17:34 WBC 6.3 (3.8-10.6) k/uL RBC 4.01 (3.80-5.40) m/uL Hgb 12.2 (11.4-16.0) gm/dL Hct 35.2 (34.0-46.0) % MCV 87.7 (80.0-100.0) fL MCH 30.5 (25.0-35.0) pg MCHC 34.8 (31.0-37.0) g/dL RDW 12.3 (11.5-15.5) % Plt Count 242 (150-450) k/uL MPV 8.7 Neutrophils % 59 % Lymphocytes % 31 % Monocytes % 5 % Eosinophils % 3 % Basophils % 1 % Neutrophils # 3.7 (1.3-7.7) k/uL Lymphocytes # 2.0 (1.0-4.8) k/uL Monocytes # 0.3 (0-1.0) k/uL Eosinophils # 0.2 (0-0.7) k/uL Basophils # 0.1 (0-0.2) k/uL PT 9.9 (9.0-12.0) sec INR 0.9 (<1.2) APTT 22.5 (22.0-30.0) sec D-Dimer 0.22 (<0.60) mg/L FEU Sodium 138 (137-145) mmol/L Potassium 4.0 (3.5-5.1) mmol/L Chloride 105 (98-107) mmol/L Carbon Dioxide 25 (22-30) mmol/L Anion Gap 8 mmol/L BUN 11 (7-17) mg/dL Creatinine 0.62 (0.52-1.04) mg/dL Est GFR (CKD-EPI)AfAm >90 (>60 ml/min/1.73 sqM) Est GFR (CKD-EPI)NonAf >90 (>60 ml/min/1.73 sqM) Glucose 92 (74-99) mg/dL Calcium 9.9 (8.4-10.2) mg/dL Magnesium 2.2 (1.6-2.3) mg/dL Total Bilirubin 0.2 (0.2-1.3) mg/dL AST 19 (14-36) U/L ALT 9 (4-34) U/L Alkaline Phosphatase 63 (38-126) U/L Troponin I (0.000-0.034) ng/mL Total Protein 7.4 (6.3-8.2) g/dL Albumin 4.6 (3.5-5.0) g/dL 11/12/20 Range/Units 17:34 WBC (3.8-10.6) k/uL RBC (3.80-5.40) m/uL Hgb (11.4-16.0) gm/dL Hct (34.0-46.0) % MCV (80.0-100.0) fL MCH (25.0-35.0) pg MCHC (31.0-37.0) g/dL RDW (11.5-15.5) % Plt Count (150-450) k/uL MPV Neutrophils % % Lymphocytes % % Monocytes % % Eosinophils % % Basophils % % Neutrophils # (1.3-7.7) k/uL Lymphocytes # (1.0-4.8) k/uL Monocytes # (0-1.0) k/uL Eosinophils # (0-0.7) k/uL Basophils # (0-0.2) k/uL PT (9.0-12.0) sec INR (<1.2) APTT (22.0-30.0) sec D-Dimer (<0.60) mg/L FEU Sodium (137-145) mmol/L Potassium (3.5-5.1) mmol/L Chloride (98-107) mmol/L Carbon Dioxide (22-30) mmol/L Anion Gap mmol/L BUN (7-17) mg/dL Creatinine (0.52-1.04) mg/dL Est GFR (CKD-EPI)AfAm (>60 ml/min/1.73 sqM) Est GFR (CKD-EPI)NonAf (>60 ml/min/1.73 sqM) Glucose (74-99) mg/dL Calcium (8.4-10.2) mg/dL Magnesium (1.6-2.3) mg/dL Total Bilirubin (0.2-1.3) mg/dL AST (14-36) U/L ALT (4-34) U/L Alkaline Phosphatase (38-126) U/L Troponin I <0.012 (0.000-0.034) ng/mL Total Protein (6.3-8.2) g/dL Albumin (3.5-5.0) g/dL - Radiology Data Radiology results: image reviewed (Chest x-ray shows no acute process) Disposition Clinical Impression: Chest pain Disposition: ADMITTED IP TO THIS [facility] Is patient prescribed a controlled substance at d/c from ED?: No Referrals: None,Stated [Primary Care Provider] - 1-2 days Decision Time: 18:54
[2020-11-12 17:48] LABS: Basophils # (A) 0.1 k/uL (0-0.2); Basophils % (A) 1 %; Eosinophils # (A) 0.2 k/uL (0-0.7); Eosinophils % (A) 3 %; HCT 35.2 % (34.0-46.0); HGB 12.2 gm/dL (11.4-16.0); Lymphocytes % (A) 31 %; MCH 30.5 pg (25.0-35.0); MCHC 34.8 g/dL (31.0-37.0); MCV 87.7 fL (80.0-100.0); Mean Platelet Volume 8.7; Monocytes # (A) 0.3 k/uL (0-1.0); Monocytes % (A) 5 %; Neutrophils # (A) 3.7 k/uL (1.3-7.7); Neutrophils % (A) 59 %; Platelet Count 242 k/uL (150-450); RBC 4.01 m/uL (3.80-5.40); RDW 12.3 % (11.5-15.5); WBC 6.3 k/uL (3.8-10.6)
[2020-11-12 18:00] LABS: D-Dimer 0.22 mg/L FEU (<0.60); INR 0.9 (<1.2); Partial Thromboplastin Time 22.5 sec (22.0-30.0); Prothrombin Time 9.9 sec (9.0-12.0)
[2020-11-12 18:02] LABS: ALT 9 U/L (4-34); AST 19 U/L (14-36); African American GFR (CKD) >90 (>60 ml/min/1.73 sqM); Albumin 4.6 g/dL (3.5-5.0); Alkaline Phosphatase 63 U/L (38-126); Anion Gap 8 mmol/L; Blood Urea Nitrogen 11 mg/dL (7-17); Calcium 9.9 mg/dL (8.4-10.2); Carbon Dioxide 25 mmol/L (22-30); Chloride 105 mmol/L (98-107); Glucose 92 mg/dL (74-99); Magnesium 2.2 mg/dL (1.6-2.3); Non-African American GFR(CKD) >90 (>60 ml/min/1.73 sqM); Sodium 138 mmol/L (137-145); Total Bilirubin 0.2 mg/dL (0.2-1.3); Total Protein 7.4 g/dL (6.3-8.2)
--- NOTE | 2020-11-12 18:03 | XR ---
EXAMINATION TYPE: XR chest 2V DATE OF EXAM: 11/12/2020 COMPARISON: 10/06/2020 HISTORY: Weakness TECHNIQUE: FINDINGS: Heart and mediastinum are normal. Lungs are clear. Diaphragm is normal. There is slight tho racic dextroscoliosis. There are chest leads. Bony thorax is intact. IMPRESSION: No active cardiopulmonary disease. Mild thoracic dextroscoliosis. Normal heart. No change .
[2020-11-12] MEDS ORDERED: NITROGLYCERIN SL TABS 0.4 MG TAB SUBLINGUAL PRN (18:57)
[2020-11-12] MEDS ORDERED: MORPHINE SULFATE 4 MG/ML SYRINGE IVP STA (19:43)
[2020-11-13] MEDS: NITROGLYCERIN OINT 1 INCH/GM PACKET TOPICAL SCH ×2 (02:16→07:12)
[2020-11-13] MEDS ORDERED: ASPIRIN 325 MG TAB PO SCH (09:00)
[2020-11-13 09:24] VITALS: RESP 18; TEMP 97.6
[2020-11-13 09:25] LABS: Chol/HDL Ratio 2.64
--- NOTE | 2020-11-13 10:35 | CONS ---
CONSULTATION Mrs. Richey is a 35-year-old female who presented to the emergency room with symptoms of chest discomfort. The patient had a regular stress test yesterday walked on the treadmill for close to 8 minutes, had no EKG changes. She had chest discomfort for a while and yesterday after the stress test, she felt quite anxious, came into the emergency room and subsequently was admitted. The patient has symptoms of chest discomfort and non exertion pattern. She has dyspnea on exertion. She has dizziness, palpitation. She has a history of anxiety and a prior history of drug use, but not recently. She was in the hospital recently and at that time had normal cardiac enzymes and no acute EKG changes. She had an echocardiogram that revealed a preserved left ventricular size and systolic function. The patient had a prior history of methamphetamine use as well history of tobacco use. She has history of hyperlipidemia, but no history of diabetes or documented hypertension. She had a dobutamine stress echocardiogram in July of 2019 that was unremarkable. She is average in exercise tolerance and has no exertional chest discomfort. She denies any documented arrhythmia. She was evaluated by the psychiatric service during her last admission and was diagnosed with depression and anxiety. The patient was started on Lexapro at the time of discharge, but apparently she ran out of it. MEDICATION: Medications at home included Lexapro, Lipitor, and aspirin. REVIEW OF SYSTEMS: Respiratory system: She has dyspnea on exertion. No recent wheezing. No fever. GI system: No recent GI bleeding. No peptic ulcer disease. system: No dysuria or hematuria. Nervous :System no stroke or seizure. PHYSICAL EXAMINATION: She is a 35-year-old female, alert, oriented, in no apparent distress. Blood pressure 103/70 with a heart rate in the 50s to 60s. She blood pressure in the 90s earlier. HEAD: Normocephalic. Eyes sclerae anicteric. NECK: Good carotid upstroke. No bruit. No jugular venous distention. LUNGS: Clear to auscultation. HEART: Regular rate and rhythm, S1, S2. No S3. No S4. No murmur or rub. ABDOMEN: Soft, nontender. Positive bowel sounds. No organomegaly. EXTREMITIES: No edema. Intact distal pulses. LAB DATA: Lab data revealed BUN and creatinine of 11 and 0.62, potassium 4.0. Troponin less than 0.012 for 3 samples. Cholesterol 116, LDL of 55, hemoglobin of 12.2. EKG revealed a sinus mechanism, normal axis and intervals. No acute changes. Chest x-ray shows no acute infiltrate. IMPRESSION: 1. Chest discomfort atypical for ischemic heart disease. No evidence to suggest acute coronary syndrome. Patient had a regular stress test yesterday that was reported to be normal. 2. History of anxiety. 3. Prior history of drug use, has not used drugs in a few years. RECOMMENDATIONS: From the cardiac standpoint I see no evidence of acute coronary syndrome. Patient should be able to be discharged home and follow up as an outpatient with Dr. Her. Thank you for this consult. We will follow with you. MMODL / IJN: [id number] /
[2020-11-13 12:05] VITALS: BP 98/66; PULSE 66
--- NOTE | 2020-11-13 12:11 | P.HPIM ---
History of Present Illness 35-year-old female had an outpatient stress test because of her on and off chest pain which is pressure like sensation radiating to down the left arm. Patient had exercise stress test without any EKG changes. Patient the stress test was reviewed by cardiology and it was negative. Patient was discharged home and patient was shopping at [employer] and started having chest pain again on and off with the diaphoresis patient was also described a pleuritic competent unsure whether it's acid reflux. Patient was also complaining of dizziness and palpitations has just had dyspnea on exertion. Patient was a admitted a month ago because of her complaints of left-sided weakness all the workup was negative and patient was believed to have psychosomatic are conversion disorder. Patient was discharged on statin and patient is requesting the prescription again. Patient felt better with her previous prescription doesn't have a primary doctor. Patient had a d-dimer that was negative. Patient chest pain worsens with deep breathing. No pneumonia on the chest x-ray Review of Systems REVIEW OF SYSTEMS: CONSTITUTIONAL: No fever, no malaise, no fatigue. HEENT: No recent visual problems or hearing problems. Denied any sore throat. CARDIOVASCULAR: No orthopnea, PND, no palpitations, no syncope. PULMONARY: No shortness of breath, no cough, no hemoptysis. GASTROINTESTINAL: No diarrhea, no nausea, no vomiting, no abdominal pain. NEUROLOGICAL: No headaches, no weakness, no numbness. HEMATOLOGICAL: Denies any bleeding or petechiae. GENITOURINARY: Denies any burning micturition, frequency, or urgency. MUSCULOSKELETAL/RHEUMATOLOGICAL: Denies any joint pain, swelling, or any muscle pain. ENDOCRINE: Denies any polyuria or polydipsia. The rest of the 14-point review of systems is negative. Past Medical History Past Medical History: Fibromyalgia, GERD/Reflux Additional Past Medical History / Comment(s): BACK PAIN AND DDD, Migraines,. 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 Cm managing), anemia History of Any Multi-Drug Resistant Organisms: ESBL Date of last positivie culture/infection: 10/18/17 MDRO Source:: ESBL URINE Past Surgical History: Appendectomy, Back Surgery Additional Past Surgical History / Comment(s): PAIN CLINIC PROCEDURES Past Anesthesia/Blood Transfusion Reactions: No Reported Reaction Past Psychological History: Anxiety, Depression Smoking Status: Former smoker Past Alcohol Use History: None Reported Past Drug Use History: None Reported - Past Family History Brother(s) Additional Family Medical History / Comment(s): purnima-[place] Mother Family Medical History: Cancer Additional Family Medical History / Comment(s): LIVER CANCER Medications and Allergies Home Medications Medication Instructions Recorded Confirmed Type Aspirin 81 mg PO DAILY #30 chewable 10/08/20 11/12/20 Rx Atorvastatin Calcium [Lipitor] 20 mg PO HS #30 tab 10/08/20 11/12/20 Rx Escitalopram [Lexapro] 5 mg PO DAILY #30 tab 10/08/20 11/12/20 Rx Allergies Allergy/AdvReac Type Severity Reaction Status Date / Time triamcinolone [From Kenalog] Allergy Dyspnea/Yony Verified 11/12/20 18:48 h/Swelling adhesive tape AdvReac Rash/Hives Verified 11/12/20 18:48 ibuprofen AdvReac GERD Verified 11/12/20 18:48 Physical Exam Vitals: Vital Signs Temp Pulse Resp BP Pulse Ox 11/13/20 09:22 97.6 F 54 L 18 103/72 100 11/13/20 06:00 49 L 16 84/52 96 11/13/20 00:00 75 16 98/64 97 11/12/20 20:00 62 16 106/77 97 11/12/20 16:39 98.4 F 74 18 125/84 98 Intake and Output 11/12/20 11/13/20 11/13/20 22:59 06:59 14:59 Other: Weight 58.967 kg PHYSICAL EXAMINATION: GENERAL: The patient is alert and oriented x3, not in any acute distress. Well developed, well nourished. HEENT: Pupils are round and equally reacting to light. EOMI. No scleral icterus. No conjunctival pallor. Normocephalic, atraumatic. No pharyngeal erythema. No thyromegaly. CARDIOVASCULAR: S1 and S2 present. No murmurs, rubs, or gallops. PULMONARY: Chest is clear to auscultation, no wheezing or crackles. ABDOMEN: Soft, nontender, nondistended, normoactive bowel sounds. No palpable organomegaly. MUSCULOSKELETAL: No joint swelling or deformity. EXTREMITIES: No cyanosis, clubbing, or pedal edema. NEUROLOGICAL: Gross neurological examination did not reveal any focal deficits. SKIN: No rashes. Results CBC & Chem 7: 11/12/20 17:34 11/12/20 17:34 Assessment and Plan Plan: -Chest pain: Ruled out acute coronary syndromes and also ruled out pulmonary embolism, doesn't have any pneumonia stress test was negative. Patient will be discharged cleared by cardiology. Patient will be referred to PCP. Possible etiologies conversion disorder or psychosomatic. -Hyperlipidemia -Depression -
--- NOTE | 2020-11-13 12:11 | P.DS ---
Providers Date of admission: 11/12/20 18:58 Attending physician: Rachel Knight Primary care physician: Stated None Hospital Course: As mentioned in HPI Plan - Discharge Summary New Discharge Prescriptions: Continue Aspirin 81 mg PO DAILY #30 chewable Escitalopram [Lexapro] 5 mg PO DAILY #30 tab Atorvastatin Calcium [Lipitor] 20 mg PO HS #30 tab Discharge Medication List Aspirin 81 mg PO DAILY #30 chewable 11/13/20 [Rx] Atorvastatin Calcium [Lipitor] 20 mg PO HS #30 tab 11/13/20 [Rx] Escitalopram [Lexapro] 5 mg PO DAILY #30 tab 11/13/20 [Rx] Follow up Appointment(s)/Referral(s): Rodriguez Power MD [REFERRING] - 1 Week Joel Her MD [STAFF PHYSICIAN] - 1 Week
== END 2020-11-13 12:24 | disposition home or self-care (01) ==
LOC: EC 16:36 → 6NMEDSUR 18:58
PROVIDERS: ADMIT Internal Medicine; ATTEND Internal Medicine
DX: R07.1 Chest pain on breathing (principal); R00.2 Palpitations; F41.9 Anxiety disorder, unspecified; R42 Dizziness and giddiness; E78.5 Hyperlipidemia, unspecified; R53.1 Weakness; F32.9 Major depressive disorder, single episode, unspecified; Z20.822 Contact with and (suspected) exposure to COVID-19; M41.9 Scoliosis, unspecified; M79.7 Fibromyalgia; M51.36 Other intervertebral disc degeneration, lumbar region; M54.9 Dorsalgia, unspecified; Z79.82 Long term (current) use of aspirin; Z79.899 Other long term (current) drug therapy; Z91.048 Other nonmedicinal substance allergy status; Z88.6 Allergy status to analgesic agent; Z88.1 Allergy status to other antibiotic agents; Z16.24 Resistance to multiple antibiotics; Z87.891 Personal history of nicotine dependence; Z87.898 Personal history of other specified conditions; Z90.49 Acquired absence of other specified parts of digestive tract; Z80.0 Family history of malignant neoplasm of digestive organs; Z83.49 Family history of other endocrine, nutritional and metabolic diseases
CPT/HCPCS: 96374; 96375; 99285; 36415; 93005 ×2; 85379; 80061; 80053; 83735; 84484 ×2; 85025; 85610; 85730; 87635; 71046; G0378 ×2; J2060; J2270

== ENCOUNTER 2020-12-17 12:03 | Emergency (ER) | payer OTHER ==
[2020-12-17 12:45] VITALS: RESP 18
[2020-12-17] MEDS ORDERED: HYDROmorphone 1 MG/ML 1 ML SYRINGE IVP STA (13:15)
[2020-12-17] MEDS ORDERED: ONDANSETRON 4 MG/2 ML VIAL IVP STA ×2 (13:15→14:41)
[2020-12-17] MEDS ORDERED: SODIUM CHLORIDE 0.9% 1,000 ML IV STA (13:15)
[2020-12-17 13:58] LABS: Basophils % (A) 0 %; Eosinophils % (A) 0 %; HCT 39.4 % (34.0-46.0); HGB 13.1 gm/dL (11.4-16.0); Lymphocytes # (A) 1.6 k/uL (1.0-4.8); Lymphocytes % (A) 16 %; MCH 30.2 pg (25.0-35.0); MCHC 33.3 g/dL (31.0-37.0); MCV 90.6 fL (80.0-100.0); Mean Platelet Volume 8.7; Monocytes # (A) 0.5 k/uL (0-1.0); Monocytes % (A) 5 %; Neutrophils # (A) 7.7 k/uL (1.3-7.7); Neutrophils % (A) 77 %; Platelet Count 309 k/uL (150-450); RBC 4.34 m/uL (3.80-5.40); RDW 12.6 % (11.5-15.5)
[2020-12-17 14:16] LABS: INR 0.9 (<1.2); Prothrombin Time 10.2 sec (9.0-12.0)
[2020-12-17 14:23] LABS: ALT 15 U/L (4-34); AST 22 U/L (14-36); African American GFR (CKD) >90 (>60 ml/min/1.73 sqM); Albumin 4.9 g/dL (3.5-5.0); Alkaline Phosphatase 86 U/L (38-126); Anion Gap 11 mmol/L; Blood Urea Nitrogen 13 mg/dL (7-17); Calcium 10.4 mg/dL (8.4-10.2); Carbon Dioxide 25 mmol/L (22-30); Chloride 104 mmol/L (98-107); Glucose 82 mg/dL (74-99); Lipase 100 U/L (23-300); Non-African American GFR(CKD) >90 (>60 ml/min/1.73 sqM); Partial Thromboplastin Time 21.5 sec (22.0-30.0); Potassium 4.1 mmol/L (3.5-5.1); Sodium 140 mmol/L (137-145); Total Bilirubin 0.2 mg/dL (0.2-1.3)
--- NOTE | 2020-12-17 14:33 | CT ---
EXAMINATION TYPE: CT abdomen pelvis w con DATE OF EXAM: 12/17/2020 COMPARISON: 04/16/2019 HISTORY: tarry stool, vomiting blood CT DLP: 521 mGycm CONTRAST: CT scan of the abdomen and pelvis is performed without Oral Contrast and with IV Contrast, patient in jected with 100 mL of Isovue 300. FINDINGS: LUNG BASES-: No visible nodule. No infiltrate. LIVER/GB: No calcified gallstones. No space occupying hepatic lesion. Biliary tree is of normal ca liber. PANCREAS: No inflammation. No distinct mass. SPLEEN: No splenic enlargement. No lesion seen. ADRENALS: No nodule. No thickening. KIDNEYS/BLADDER: No hydronephrosis. No nephrolithiasis. No distinct renal mass. Urinary bladder g rossly unremarkable. BOWEL: Normal appendix. Normal bowel caliber. No inflammation. GENITAL ORGANS: No gross abnormality. LYMPH NODES: No greater than 1cm abdominal or pelvic lymph nodes are appreciated. AORTA: No significant abnormality. OSSEOUS STRUCTURES: No significant abnormality is seen. OTHER: No significant additional abnormality is seen. IMPRESSION: 1. No significant abnormality to account for the patient's symptoms.
[2020-12-17 14:51] LABS: Appearance,Urine Clear (Clear); Bilirubin,Urine Negative (Negative); Blood,Urine Negative (Negative); Color,Urine Light Yellow; Glucose,Urine (UA) Negative (Negative); Ketones,Urine Negative (Negative); Leukocyte Esterase,Urine Negative (Negative); Nitrite,Urine Negative (Negative); PH, Urine 6.5 (5.0-8.0); Protein,Urine Negative (Negative); Urobilinogen,Urine <2.0 mg/dL (<2.0)
[2020-12-17 14:53] LABS: Specific Gravity,Urine >1.050 (1.001-1.035)
[2020-12-17 15:13] LABS: Amphetamine Screen,Urine Not Detected (NotDetected); Barbiturate Screen,Urine Not Detected (NotDetected); Benzodiazepines Screen,Urine Not Detected (NotDetected); Cocaine Screen,Urine Not Detected (NotDetected); Methadone Screen, Urine Not Detected (NotDetected); Opiate Screen,Urine Detected (NotDetected); Oxycodone Screen, Urine Not Detected (NotDetected); Phencyclidine Screen,Urine Not Detected (NotDetected); Tricyclic Antidepressant,Urine Not Detected (NotDetected); Urn Cannabinoid Scrn Not Detected (NotDetected)
--- NOTE | 2020-12-17 15:28 | ED ---
General Adult HPI - General Chief complaint: GI Bleed Stated complaint: Vomiting Blood Time Seen by Provider: 12/17/20 12:50 Source: patient, RN notes reviewed Mode of arrival: ambulatory Limitations: no limitations - History of Present Illness Initial comments: Patient is a 35-year-old female that presents to emergency department complaining of black tarry stools and nausea vomiting. She notes that he does have a history of celiac disease and is 19 wound in a while. Patient was a frail 35-year-old female that does not appear to be in any pain just minimal discomfort. She noted that she has been unable to keep any food or drinks down. She denied any chest pain shortness of breath headache diarrhea fever fatigue chills. - Related Data Previous Rx's Medication Instructions Recorded Aspirin 81 mg PO DAILY #30 chewable 11/13/20 Atorvastatin Calcium [Lipitor] 20 mg PO HS #30 tab 11/13/20 Escitalopram [Lexapro] 5 mg PO DAILY #30 tab 11/13/20 Ondansetron Odt [Zofran Odt] 4 mg PO Q8HR PRN #10 tab 12/17/20 Allergies Allergy/AdvReac Type Severity Reaction Status Date / Time adhesive tape Allergy Rash/Hives Verified 12/17/20 13:51 triamcinolone [From Kenalog] Allergy Dyspnea/Yony Verified 12/17/20 13:51 h/Swelling ibuprofen AdvReac GERD Verified 12/17/20 13:51 Review of Systems ROS Statement: Those systems with pertinent positive or pertinent negative responses have been documented in the HPI. ROS Other: All systems not noted in ROS Statement are negative. Past Medical History Past Medical History: Fibromyalgia, GERD/Reflux Additional Past Medical History / Comment(s): BACK PAIN AND DDD, Migraines,. 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 Cm managing), anemia History of Any Multi-Drug Resistant Organisms: ESBL Date of last positivie culture/infection: 10/18/17 MDRO Source:: ESBL URINE Past Surgical History: Appendectomy, Back Surgery Additional Past Surgical History / Comment(s): PAIN CLINIC PROCEDURES Past Anesthesia/Blood Transfusion Reactions: No Reported Reaction Past Psychological History: Anxiety, Depression Smoking Status: Former smoker Past Alcohol Use History: None Reported Past Drug Use History: None Reported, Heroin, Marijuana, Methamphetamine - Past Family History Brother(s) Additional Family Medical History / Comment(s): purnima-[place] Mother Family Medical History: Cancer Additional Family Medical History / Comment(s): LIVER CANCER General Exam Limitations: no limitations General appearance: alert, in no apparent distress Head exam: Present: atraumatic, normocephalic, normal inspection Eye exam: Present: normal appearance, PERRL, EOMI. Absent: scleral icterus, conjunctival injection, periorbital swelling Neck exam: Present: normal inspection Respiratory exam: Present: normal lung sounds bilaterally. Absent: respiratory distress, wheezes, rales, rhonchi, stridor Cardiovascular Exam: Present: regular rate, normal rhythm, normal heart sounds. Absent: systolic murmur, diastolic murmur, rubs, gallop, clicks GI/Abdominal exam: Present: soft, normal bowel sounds, other (Discomfort in all quadrants.). Absent: distended, tenderness, guarding, rebound, rigid Rectal exam: Present: normal inspection, normal rectal tone Extremities exam: Present: normal inspection, full ROM, normal capillary refill. Absent: tenderness, pedal edema, joint swelling, calf tenderness Neurological exam: Present: alert, oriented X3 Psychiatric exam: Present: normal affect, normal mood Skin exam: Present: warm, dry, intact, normal color. Absent: rash Course Vital Signs 12/17/20 12:41 Temperature 98.4 F Pulse Rate 101 H Respiratory 18 Rate Blood Pressure 112/57 O2 Sat by Pulse 99 Oximetry Medical Decision Making - Medical Decision Making 35-year-old female complaining of black tarry stools and nausea vomiting. Labs, CT of the abdomen and pelvis, 4 mg of morphine, 4 mg of Zofran, 1 L normal saline ordered. Labs unremarkable. Computed tomography scan negative for any acute process. For mole milligrams of Zofran given for nausea. Case discussed with Dr. Oneill, patient can discharge home with follow-up to GI specialist and primary care. - Lab Data Result diagrams: 12/17/20 13:26 12/17/20 13:26 Lab Results 12/17/20 12/17/20 12/17/20 Range/Units 13:26 13:26 13:26 WBC 10.0 (3.8-10.6) k/uL RBC 4.34 (3.80-5.40) m/uL Hgb 13.1 (11.4-16.0) gm/dL Hct 39.4 (34.0-46.0) % MCV 90.6 (80.0-100.0) fL MCH 30.2 (25.0-35.0) pg MCHC 33.3 (31.0-37.0) g/dL RDW 12.6 (11.5-15.5) % Plt Count 309 (150-450) k/uL MPV 8.7 Neutrophils % 77 % Lymphocytes % 16 % Monocytes % 5 % Eosinophils % 0 % Basophils % 0 % Neutrophils # 7.7 (1.3-7.7) k/uL Lymphocytes # 1.6 (1.0-4.8) k/uL Monocytes # 0.5 (0-1.0) k/uL Eosinophils # 0.0 (0-0.7) k/uL Basophils # 0.0 (0-0.2) k/uL PT 10.2 (9.0-12.0) sec INR 0.9 (<1.2) APTT 21.5 L (22.0-30.0) sec Sodium (137-145) mmol/L Potassium (3.5-5.1) mmol/L Chloride (98-107) mmol/L Carbon Dioxide (22-30) mmol/L Anion Gap mmol/L BUN (7-17) mg/dL Creatinine (0.52-1.04) mg/dL Est GFR (CKD-EPI)AfAm (>60 ml/min/1.73 sqM) Est GFR (CKD-EPI)NonAf (>60 ml/min/1.73 sqM) Glucose (74-99) mg/dL Plasma Lactic Acid Abdulaziz (0.7-2.0) mmol/L Calcium (8.4-10.2) mg/dL Magnesium (1.6-2.3) mg/dL Total Bilirubin (0.2-1.3) mg/dL AST (14-36) U/L ALT (4-34) U/L Alkaline Phosphatase (38-126) U/L Troponin I (0.000-0.034) ng/mL Total Protein (6.3-8.2) g/dL Albumin (3.5-5.0) g/dL Lipase (23-300) U/L Urine Color Urine Appearance (Clear) Urine pH (5.0-8.0) Ur Specific [place] (1.001-1.035) Urine Protein (Negative) Urine Glucose (UA) (Negative) Urine Ketones (Negative) Urine Blood (Negative) Urine Nitrite (Negative) Urine Bilirubin (Negative) Urine Urobilinogen (<2.0) mg/dL Ur Leukocyte Esterase (Negative) Stool Occult Blood Negative (Negative) Urine Opiates Screen (NotDetected) Ur Oxycodone Screen (NotDetected) Urine Methadone Screen (NotDetected) Ur Propoxyphene Screen (NotDetected) Ur Barbiturates Screen (NotDetected) U Tricyclic Antidepress (NotDetected) Ur Phencyclidine Scrn (NotDetected) Ur Amphetamines Screen (NotDetected) U Methamphetamines Scrn (NotDetected) U Benzodiazepines Scrn (NotDetected) Urine Cocaine Screen (NotDetected) U Marijuana (THC) Screen (NotDetected) Blood Type Blood Type Recheck Bld Type Recheck Status Antibody Screen Spec Expiration Date 12/17/20 12/17/20 12/17/20 Range/Units 13:26 13:26 13:26 WBC (3.8-10.6) k/uL RBC (3.80-5.40) m/uL Hgb (11.4-16.0) gm/dL Hct (34.0-46.0) % MCV (80.0-100.0) fL MCH (25.0-35.0) pg MCHC (31.0-37.0) g/dL RDW (11.5-15.5) % Plt Count (150-450) k/uL MPV Neutrophils % % Lymphocytes % % Monocytes % % Eosinophils % % Basophils % % Neutrophils # (1.3-7.7) k/uL Lymphocytes # (1.0-4.8) k/uL Monocytes # (0-1.0) k/uL Eosinophils # (0-0.7) k/uL Basophils # (0-0.2) k/uL PT (9.0-12.0) sec INR (<1.2) APTT (22.0-30.0) sec Sodium 140 (137-145) mmol/L Potassium 4.1 (3.5-5.1) mmol/L Chloride 104 (98-107) mmol/L Carbon Dioxide 25 (22-30) mmol/L Anion Gap 11 mmol/L BUN 13 (7-17) mg/dL Creatinine 0.58 (0.52-1.04) mg/dL Est GFR (CKD-EPI)AfAm >90 (>60 ml/min/1.73 sqM) Est GFR (CKD-EPI)NonAf >90 (>60 ml/min/1.73 sqM) Glucose 82 (74-99) mg/dL Plasma Lactic Acid Abdulaziz 1.3 (0.7-2.0) mmol/L Calcium 10.4 H (8.4-10.2) mg/dL Magnesium 2.0 (1.6-2.3) mg/dL Total Bilirubin 0.2 (0.2-1.3) mg/dL AST 22 (14-36) U/L ALT 15 (4-34) U/L Alkaline Phosphatase 86 (38-126) U/L Troponin I <0.012 (0.000-0.034) ng/mL Total Protein 8.0 (6.3-8.2) g/dL Albumin 4.9 (3.5-5.0) g/dL Lipase 100 (23-300) U/L Urine Color Urine Appearance (Clear) Urine pH (5.0-8.0) Ur Specific [place] (1.001-1.035) Urine Protein (Negative) Urine Glucose (UA) (Negative) Urine Ketones (Negative) Urine Blood (Negative) Urine Nitrite (Negative) Urine Bilirubin (Negative) Urine Urobilinogen (<2.0) mg/dL Ur Leukocyte Esterase (Negative) Stool Occult Blood (Negative) Urine Opiates Screen (NotDetected) Ur Oxycodone Screen (NotDetected) Urine Methadone Screen (NotDetected) Ur Propoxyphene Screen (NotDetected) Ur Barbiturates Screen (NotDetected) U Tricyclic Antidepress (NotDetected) Ur Phencyclidine Scrn (NotDetected) Ur Amphetamines Screen (NotDetected) U Methamphetamines Scrn (NotDetected) U Benzodiazepines Scrn (NotDetected) Urine Cocaine Screen (NotDetected) U Marijuana (THC) Screen (NotDetected) Blood Type Blood Type Recheck Bld Type Recheck Status Antibody Screen Spec Expiration Date 12/17/20 12/17/20 12/17/20 Range/Units 13:26 13:26 13:26 WBC (3.8-10.6) k/uL RBC (3.80-5.40) m/uL Hgb (11.4-16.0) gm/dL Hct (34.0-46.0) % MCV (80.0-100.0) fL MCH (25.0-35.0) pg MCHC (31.0-37.0) g/dL RDW (11.5-15.5) % Plt Count (150-450) k/uL MPV Neutrophils % % Lymphocytes % % Monocytes % % Eosinophils % % Basophils % % Neutrophils # (1.3-7.7) k/uL Lymphocytes # (1.0-4.8) k/uL Monocytes # (0-1.0) k/uL Eosinophils # (0-0.7) k/uL Basophils # (0-0.2) k/uL PT (9.0-12.0) sec INR (<1.2) APTT (22.0-30.0) sec Sodium (137-145) mmol/L Potassium (3.5-5.1) mmol/L Chloride (98-107) mmol/L Carbon Dioxide (22-30) mmol/L Anion Gap mmol/L BUN (7-17) mg/dL Creatinine (0.52-1.04) mg/dL Est GFR (CKD-EPI)AfAm (>60 ml/min/1.73 sqM) Est GFR (CKD-EPI)NonAf (>60 ml/min/1.73 sqM) Glucose (74-99) mg/dL Plasma Lactic Acid Abdulaziz (0.7-2.0) mmol/L Calcium (8.4-10.2) mg/dL Magnesium (1.6-2.3) mg/dL Total Bilirubin (0.2-1.3) mg/dL AST (14-36) U/L ALT (4-34) U/L Alkaline Phosphatase (38-126) U/L Troponin I (0.000-0.034) ng/mL Total Protein (6.3-8.2) g/dL Albumin (3.5-5.0) g/dL Lipase (23-300) U/L Urine Color Light Yellow Urine Appearance Clear (Clear) Urine pH 6.5 (5.0-8.0) Ur Specific [place] >1.050 H (1.001-1.035) Urine Protein Negative (Negative) Urine Glucose (UA) Negative (Negative) Urine Ketones Negative (Negative) Urine Blood Negative (Negative) Urine Nitrite Negative (Negative) Urine Bilirubin Negative (Negative) Urine Urobilinogen <2.0 (<2.0) mg/dL Ur Leukocyte Esterase Negative (Negative) Stool Occult Blood (Negative) Urine Opiates Screen Detected H (NotDetected) Ur Oxycodone Screen Not Detected (NotDetected) Urine Methadone Screen Not Detected (NotDetected) Ur Propoxyphene Screen Not Detected (NotDetected) Ur Barbiturates Screen Not Detected (NotDetected) U Tricyclic Antidepress Not Detected (NotDetected) Ur Phencyclidine Scrn Not Detected (NotDetected) Ur Amphetamines Screen Not Detected (NotDetected) U Methamphetamines Scrn Not Detected (NotDetected) U Benzodiazepines Scrn Not Detected (NotDetected) Urine Cocaine Screen Not Detected (NotDetected) U Marijuana (THC) Screen Not Detected (NotDetected) Blood Type AB Positive Blood Type Recheck AB Pos Bld Type Recheck Status No Antibody Screen NEGATIVE Spec Expiration Date 12/20/20202325 - Radiology Data Radiology results: report reviewed, image reviewed CT of the abdomen and pelvissignificant abnormality to account for patient's symptoms. Disposition Clinical Impression: Abdominal pain Disposition: HOME SELF-CARE Condition: Stable Instructions (If sedation given, give patient instructions): Abdominal Pain (ED) Additional Instructions: Please return to the Emergency Department if symptoms worsen or any other concerns. Follow-up with primary care and GI specialists in the next several days. Take Zofran as prescribed. Is patient prescribed a controlled substance at d/c from ED?: No Referrals: None,Stated [Primary Care Provider] - 1-2 days Gregorio Zepeda MD [STAFF PHYSICIAN] - 1-2 days Time of Disposition: 16:06
[2020-12-17] MEDS ORDERED: ACET/COD 300 MG/30 MG STARTER PACK 6 TAB BTL PO STA (16:14)
[2020-12-17 16:35] VITALS: BP 109/75; PULSE 74; TEMP 98
== END 2020-12-17 16:29 | disposition home or self-care (01) ==
LOC: EC 12:03
DX: R10.84 Generalized abdominal pain (principal); K21.9 Gastro-esophageal reflux disease without esophagitis; M79.7 Fibromyalgia; Z79.82 Long term (current) use of aspirin; Z79.899 Other long term (current) drug therapy; Z87.891 Personal history of nicotine dependence; Z88.6 Allergy status to analgesic agent
CPT/HCPCS: 36415; 86900; 86901; 80053; 83605; 83690; 83735; 84484; 85025; 85610; 85730; 86850; 82272; 81003; 80306; 74177; 96374; 96375; 96376; 96361; 99284; J2405; J1170; Q9967

== ENCOUNTER 2020-12-20 12:45 | Emergency (ER) | payer OTHER ==
[2020-12-20] MEDS ORDERED: SODIUM CHLORIDE 0.9% 1,000 ML IV STA (12:50)
[2020-12-20] MEDS ORDERED: MORPHINE SULFATE 4 MG/ML SYRINGE IV STA (12:50)
[2020-12-20] MEDS ORDERED: METOCLOPRAMIDE 5 MG/ML 2 ML VIAL IVP STA (12:50)
[2020-12-20 12:52] VITALS: RESP 16; TEMP 97.7
[2020-12-20 13:10] LABS: Basophils % (A) 1 %; Eosinophils # (A) 0.1 k/uL (0-0.7); Eosinophils % (A) 1 %; HCT 34.9 % (34.0-46.0); HGB 11.7 gm/dL (11.4-16.0); Lymphocytes # (A) 1.2 k/uL (1.0-4.8); Lymphocytes % (A) 21 %; MCH 30.5 pg (25.0-35.0); MCHC 33.6 g/dL (31.0-37.0); MCV 90.6 fL (80.0-100.0); Mean Platelet Volume 8.5; Monocytes # (A) 0.3 k/uL (0-1.0); Monocytes % (A) 6 %; Neutrophils % (A) 70 %; Platelet Count 260 k/uL (150-450); RBC 3.85 m/uL (3.80-5.40); RDW 12.4 % (11.5-15.5); WBC 5.7 k/uL (3.8-10.6)
[2020-12-20 13:17] LABS: Appearance,Urine Clear (Clear); Bilirubin,Urine Negative (Negative); Blood,Urine Negative (Negative); Color,Urine Light Yellow; Glucose,Urine (UA) Negative (Negative); Ketones,Urine Negative (Negative); Leukocyte Esterase,Urine Negative (Negative); Nitrite,Urine Negative (Negative); Protein,Urine Negative (Negative); Specific Gravity,Urine 1.004 (1.001-1.035); Urobilinogen,Urine <2.0 mg/dL (<2.0)
[2020-12-20 13:22] LABS: ALT 10 U/L (4-34); AST 18 U/L (14-36); African American GFR (CKD) >90 (>60 ml/min/1.73 sqM); Albumin 3.9 g/dL (3.5-5.0); Alkaline Phosphatase 70 U/L (38-126); Amylase 57 U/L (30-110); Anion Gap 9 mmol/L; Blood Urea Nitrogen 6 mg/dL (7-17); Calcium 8.9 mg/dL (8.4-10.2); Carbon Dioxide 22 mmol/L (22-30); Chloride 108 mmol/L (98-107); Glucose 102 mg/dL (74-99); Lipase 109 U/L (23-300); Non-African American GFR(CKD) >90 (>60 ml/min/1.73 sqM); Potassium 3.7 mmol/L (3.5-5.1); Sodium 139 mmol/L (137-145); Total Bilirubin 0.3 mg/dL (0.2-1.3); Total Protein 6.7 g/dL (6.3-8.2)
--- NOTE | 2020-12-20 13:47 | ED ---
Abdominal Pain HPI - General Chief Complaint: Abdominal Pain Stated Complaint: Abd Pain Time Seen by Provider: 12/20/20 12:47 Source: EMS, RN notes reviewed Mode of arrival: EMS Limitations: no limitations - History of Present Illness Initial Comments: Patient is a 35-year-old female that presents to the emergency department complaining of nausea vomiting abdominal pain. She was recently seen on the where labs were within normal limits computed tomography scan was negative for any acute process. Patient is otherwise a well-appearing 35-year-old female. She did not appear to be in any acute distress or pain while sitting up in bed during exam and interview. She denied any chest pain shortness of breath headache diarrhea constipation fever fatigue chills. - Related Data Previous Rx's Medication Instructions Recorded Aspirin 81 mg PO DAILY #30 chewable 11/13/20 Atorvastatin Calcium [Lipitor] 20 mg PO HS #30 tab 11/13/20 Escitalopram [Lexapro] 5 mg PO DAILY #30 tab 11/13/20 Ondansetron Odt [Zofran Odt] 4 mg PO Q8HR PRN #10 tab 12/17/20 Allergies Allergy/AdvReac Type Severity Reaction Status Date / Time adhesive tape Allergy Rash/Hives Verified 12/17/20 13:51 triamcinolone [From Kenalog] Allergy Dyspnea/Yony Verified 12/17/20 13:51 h/Swelling ibuprofen AdvReac GERD Verified 12/17/20 13:51 Review of Systems ROS Statement: Those systems with pertinent positive or pertinent negative responses have been documented in the HPI. ROS Other: All systems not noted in ROS Statement are negative. Past Medical History Past Medical History: Fibromyalgia, GERD/Reflux Additional Past Medical History / Comment(s): BACK PAIN AND DDD, Migraines,. 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 Cm managing), anemia History of Any Multi-Drug Resistant Organisms: ESBL Date of last positivie culture/infection: 10/18/17 MDRO Source:: ESBL URINE Past Surgical History: Appendectomy, Back Surgery Additional Past Surgical History / Comment(s): PAIN CLINIC PROCEDURES Past Anesthesia/Blood Transfusion Reactions: No Reported Reaction Past Psychological History: Anxiety, Depression Smoking Status: Former smoker Past Alcohol Use History: None Reported Past Drug Use History: None Reported, Heroin, Marijuana, Methamphetamine - Past Family History Brother(s) Additional Family Medical History / Comment(s): [place] Mother Family Medical History: Cancer Additional Family Medical History / Comment(s): LIVER CANCER General Exam Limitations: no limitations General appearance: alert, in no apparent distress Head exam: Present: atraumatic, normocephalic, normal inspection Eye exam: Present: normal appearance, PERRL, EOMI. Absent: scleral icterus, conjunctival injection, periorbital swelling Neck exam: Present: normal inspection Respiratory exam: Present: normal lung sounds bilaterally. Absent: respiratory distress, wheezes, rales, rhonchi, stridor Cardiovascular Exam: Present: regular rate, normal rhythm, normal heart sounds. Absent: systolic murmur, diastolic murmur, rubs, gallop, clicks GI/Abdominal exam: Present: soft, normal bowel sounds, other (Generalized abdominal discomfort in all quadrants.). Absent: distended, tenderness, guarding, rebound, rigid Extremities exam: Present: normal inspection, full ROM, normal capillary refill. Absent: tenderness, pedal edema, joint swelling, calf tenderness Neurological exam: Present: alert, oriented X3 Psychiatric exam: Present: normal affect, normal mood Skin exam: Present: warm, dry, intact, normal color. Absent: rash Course Vital Signs 12/20/20 12:47 Temperature 97.7 F Pulse Rate 78 Respiratory 16 Rate Blood Pressure 126/91 O2 Sat by Pulse 95 Oximetry Medical Decision Making - Medical Decision Making 35-year-old female complaining of nausea vomiting and abdominal pain. Labs, 1 L normal saline, 4 mg of morphine, and milligrams of Reglan, KUB ordered. Labs unremarkable from previous, slight improvement from 12/17/2020. KUB nonacute abdomen. Patient will be given oral tolerance test and then discharged home for follow-up with GI. Patient was able tolerate oral fluids Case discussed with Dr. Oneill, patient discharge home in stable condition with follow-up to primary care and GI specialist. - Lab Data Result diagrams: 12/20/20 Unknown 12/20/20 Unknown Lab Results 12/20/20 12/20/20 12/20/20 Range/Units Unknown Unknown Unknown WBC 5.7 (3.8-10.6) k/uL RBC 3.85 (3.80-5.40) m/uL Hgb 11.7 (11.4-16.0) gm/dL Hct 34.9 (34.0-46.0) % MCV 90.6 (80.0-100.0) fL MCH 30.5 (25.0-35.0) pg MCHC 33.6 (31.0-37.0) g/dL RDW 12.4 (11.5-15.5) % Plt Count 260 (150-450) k/uL MPV 8.5 Neutrophils % 70 % Lymphocytes % 21 % Monocytes % 6 % Eosinophils % 1 % Basophils % 1 % Neutrophils # 4.0 (1.3-7.7) k/uL Lymphocytes # 1.2 (1.0-4.8) k/uL Monocytes # 0.3 (0-1.0) k/uL Eosinophils # 0.1 (0-0.7) k/uL Basophils # 0.0 (0-0.2) k/uL Sodium (137-145) mmol/L Potassium (3.5-5.1) mmol/L Chloride (98-107) mmol/L Carbon Dioxide (22-30) mmol/L Anion Gap mmol/L BUN (7-17) mg/dL Creatinine (0.52-1.04) mg/dL Est GFR (CKD-EPI)AfAm (>60 ml/min/1.73 sqM) Est GFR (CKD-EPI)NonAf (>60 ml/min/1.73 sqM) Glucose (74-99) mg/dL Calcium (8.4-10.2) mg/dL Total Bilirubin (0.2-1.3) mg/dL AST (14-36) U/L ALT (4-34) U/L Alkaline Phosphatase (38-126) U/L Total Protein (6.3-8.2) g/dL Albumin (3.5-5.0) g/dL Amylase (30-110) U/L Lipase (23-300) U/L Urine Color Light Yellow Urine Appearance Clear (Clear) Urine pH 7.0 (5.0-8.0) Ur Specific [place] 1.004 (1.001-1.035) Urine Protein Negative (Negative) Urine Glucose (UA) Negative (Negative) Urine Ketones Negative (Negative) Urine Blood Negative (Negative) Urine Nitrite Negative (Negative) Urine Bilirubin Negative (Negative) Urine Urobilinogen <2.0 (<2.0) mg/dL Ur Leukocyte Esterase Negative (Negative) Urine HCG, Qual Not Detected (Not Detectd) 12/20/20 Range/Units Unknown WBC (3.8-10.6) k/uL RBC (3.80-5.40) m/uL Hgb (11.4-16.0) gm/dL Hct (34.0-46.0) % MCV (80.0-100.0) fL MCH (25.0-35.0) pg MCHC (31.0-37.0) g/dL RDW (11.5-15.5) % Plt Count (150-450) k/uL MPV Neutrophils % % Lymphocytes % % Monocytes % % Eosinophils % % Basophils % % Neutrophils # (1.3-7.7) k/uL Lymphocytes # (1.0-4.8) k/uL Monocytes # (0-1.0) k/uL Eosinophils # (0-0.7) k/uL Basophils # (0-0.2) k/uL Sodium 139 (137-145) mmol/L Potassium 3.7 (3.5-5.1) mmol/L Chloride 108 H (98-107) mmol/L Carbon Dioxide 22 (22-30) mmol/L Anion Gap 9 mmol/L BUN 6 L (7-17) mg/dL Creatinine 0.59 (0.52-1.04) mg/dL Est GFR (CKD-EPI)AfAm >90 (>60 ml/min/1.73 sqM) Est GFR (CKD-EPI)NonAf >90 (>60 ml/min/1.73 sqM) Glucose 102 H (74-99) mg/dL Calcium 8.9 (8.4-10.2) mg/dL Total Bilirubin 0.3 (0.2-1.3) mg/dL AST 18 (14-36) U/L ALT 10 (4-34) U/L Alkaline Phosphatase 70 (38-126) U/L Total Protein 6.7 (6.3-8.2) g/dL Albumin 3.9 (3.5-5.0) g/dL Amylase 57 (30-110) U/L Lipase 109 (23-300) U/L Urine Color Urine Appearance (Clear) Urine pH (5.0-8.0) Ur Specific [place] (1.001-1.035) Urine Protein (Negative) Urine Glucose (UA) (Negative) Urine Ketones (Negative) Urine Blood (Negative) Urine Nitrite (Negative) Urine Bilirubin (Negative) Urine Urobilinogen (<2.0) mg/dL Ur Leukocyte Esterase (Negative) Urine HCG, Qual (Not Detectd) - Radiology Data Radiology results: report reviewed, image reviewed Disposition Clinical Impression: Abdominal pain Disposition: HOME SELF-CARE Condition: Stable Instructions (If sedation given, give patient instructions): Abdominal Pain (ED) Additional Instructions: Please return to the Emergency Department if symptoms worsen or any other concerns. Follow-up with primary care next 1-2 days. Follow with GI specialist in the next 1-2 days. Eat a bland diet, with easy digestion. Is patient prescribed a controlled substance at d/c from ED?: No Referrals: None,Stated [Primary Care Provider] - 1-2 days Gregorio Zepeda MD [STAFF PHYSICIAN] - 1-2 days Time of Disposition: 14:01
[2020-12-20 14:10] VITALS: BP 106/67; PULSE 60
--- NOTE | 2020-12-20 14:38 | XR ---
EXAMINATION TYPE: XR KUB DATE OF EXAM: 12/20/2020 COMPARISON: NONE HISTORY: Abdominal pain TECHNIQUE: 2 views FINDINGS: 2 views upright show no sign of intestinal obstruction or pneumoperitoneum. Fecal pattern i s normal. There is mild lumbar levoscoliosis. There is no evidence of a mass. There are no pathologic calcifications over the kidneys. Lung bases are clear. IMPRESSION: Nonacute abdomen.
== END 2020-12-20 14:09 | disposition home or self-care (01) ==
LOC: EC 12:45
DX: R10.84 Generalized abdominal pain (principal); M79.7 Fibromyalgia; K21.9 Gastro-esophageal reflux disease without esophagitis; Z90.89 Acquired absence of other organs; F32.9 Major depressive disorder, single episode, unspecified; Z87.891 Personal history of nicotine dependence
CPT/HCPCS: 36415; 80053; 82150; 83690; 85025; 81003; 81025; 74018; 99284; 96374; 96375; J2270; J2765

== ENCOUNTER → 2021-04-16 | Outpatient (CLI) | payer OTHER ==
[2021-04-16 18:45] LABS: Basophils # (A) 0.02 X 10*3/uL (0.00-0.10); Basophils % (A) 0.2 %; Eosinophils # (A) 0.06 X 10*3/uL (0.04-0.35); Eosinophils % (A) 0.6 %; HCT 36.2 % (37.2-46.3); HGB 11.6 g/dL (12.0-15.0); Lymphocytes # (A) 2.14 X 10*3/uL (0.90-5.00); Lymphocytes % (A) 22.2 %; MCH 29.2 pg (27.0-32.0); MCV 91.2 fL (80.0-97.0); Monocytes # (A) 0.64 X 10*3/uL (0.20-1.00); Monocytes % (A) 6.6 %; Neutrophils # (A) 6.76 X 10*3/uL (1.80-7.70); Neutrophils % (A) 70.2 %; Platelet Count 237 X 10*3/uL (140-440); RBC 3.97 X 10*6/uL (4.10-5.20); RDW 12.3 % (11.5-14.5); Reticulocyte % 1.03 % (0.10-1.80); WBC 9.64 X 10*3/uL (4.50-10.00)
[2021-04-16 20:08] LABS: African American GFR (CKD) 128.3 (60.0-200.0); Blood Urea Nitrogen 11.1 mg/dL (9.0-27.0); Non-African American GFR(CKD) 110.7 (60.0-200.0)
== END | disposition home or self-care (01) ==
LOC: LABWHC1 12:44
PROVIDERS: ATTEND Physician Assistant Medical
DX: L30.9 Dermatitis, unspecified (principal)
CPT/HCPCS: 36415; 82565; 82955; 84520; 85025; 85045

== ENCOUNTER 2021-05-10 14:56 | Emergency (ER) | payer OTHER ==
[2021-05-10] MEDS ORDERED: ONDANSETRON 4 MG/2 ML VIAL IVP STA (16:20)
[2021-05-10] MEDS ORDERED: KETOROLAC 15 MG/ML 1 ML VIAL IVP STA (16:20)
[2021-05-10] MEDS ORDERED: SODIUM CHLORIDE 0.9% 1,000 ML IV ONE (16:20)
--- NOTE | 2021-05-10 16:37 | ED ---
URI HPI - General Chief Complaint: Upper Respiratory Infection Stated Complaint: Difficulty Breathing, COVID+ Time Seen by Provider: 05/10/21 16:09 Source: patient Mode of arrival: ambulatory Limitations: no limitations - History of Present Illness Initial Comments: 35 year-old female patient presents for evaluation of cough, shortness of breath, and pain with breathing. States she has been sick for the last couple of months but worsened about 6 days ago. States that she has been having fevers, loss of appetite, and persistent cough. States she feels short of breath. States over the last couple of months she has been on two separate antibiotics and steroid prescriptions. She denies taking any medication for fever today. Denies vomiting but states she has been having diarrhea. Does have celiac disease. Denies any other medical problems. - Related Data Previous Rx's Medication Instructions Recorded Aspirin 81 mg PO DAILY #30 chewable 11/13/20 Atorvastatin Calcium [Lipitor] 20 mg PO HS #30 tab 11/13/20 Escitalopram [Lexapro] 5 mg PO DAILY #30 tab 11/13/20 Ondansetron Odt [Zofran Odt] 4 mg PO Q8HR PRN #10 tab 12/17/20 Allergies Allergy/AdvReac Type Severity Reaction Status Date / Time adhesive tape Allergy Rash/Hives Verified 05/10/21 16:00 triamcinolone [From Kenalog] Allergy Dyspnea/Yony Verified 05/10/21 16:00 h/Swelling ibuprofen AdvReac GERD Verified 05/10/21 16:00 Review of Systems ROS Statement: Those systems with pertinent positive or pertinent negative responses have been documented in the HPI. ROS Other: All systems not noted in ROS Statement are negative. Past Medical History Past Medical History: Fibromyalgia, GERD/Reflux Additional Past Medical History / Comment(s): BACK PAIN AND DDD, Migraines,. 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 Absent: scleral icterus, conjunctival injection, periorbital swelling ENT exam: Present: normal oropharynx Respiratory exam: Present: normal lung sounds bilaterally. Absent: respiratory distress, wheezes, rales, rhonchi, stridor Cardiovascular Exam: Present: regular rate, normal rhythm, normal heart sounds. Absent: systolic murmur, diastolic murmur, rubs, gallop, clicks Neurological exam: Present: alert, oriented X3, CN II-XII intact Psychiatric exam: Present: normal affect, normal mood Skin exam: Present: warm, dry, intact, normal color. Absent: rash Course Vital Signs 05/10/21 05/10/21 05/10/21 15:56 17:01 17:46 Temperature 98.1 F 98.2 F Pulse Rate 92 72 73 Respiratory 20 20 18 Rate Blood Pressure 108/79 102/62 100/65 O2 Sat by Pulse 98 99 98 Oximetry Medical Decision Making - Medical Decision Making 35 year-old female patient presents for evaluation of shortness of breath and chest discomfort after testing postive for COVID. Physical exam was unremarkable. Lungs clear to auscultation. Oxygen saturation 98% on room air. Chest xray negative. She had IV inserted, given toradol and fluids. She received monoclonal antibody infusion, tolerated this well. She'll be discharged to follow-up with her primary care physician for recheck in 1-2 days. Return parameters were discussed in detail. She verbalizes understanding and agrees with this plan. My attending is Dr. Celaya. - Radiology Data Radiology results: report reviewed, image reviewed Two-view x-ray of the chest is obtained. Report was reviewed in its entirety. Impression by Dr. Ferrell shows no acute cardiopulmonary process. Disposition Clinical Impression: COVID-19 Disposition: HOME SELF-CARE Condition: Good Instructions (If sedation given, give patient instructions): Coronavirus Disease 2019 (COVID-19) Additional Instructions: Tips to help you feel better: -Maintain adequate fluid intake - especially water. -Rest, you are healing your body will require extra sleep. -Eat even if you do not feel like it - broth, jello, toast are fine if you cannot eat full meals. -Take tylenol and motrin alternating (if you have no allergies or have not been instructed to avoid these medications) to help with body aches and fevers. -Obtain over the counter vitamin C, zinc, and vitamin D3. -Take medications as prescribed. Follow-up with your primary care physician for recheck in 1-2 days. Return for any new, worsening, or concerning symptoms. Is patient prescribed a controlled substance at d/c from ED?: No Referrals: None,Stated [Primary Care Provider] - 1-2 days Time of Disposition: 18:30
[2021-05-10] MEDS ORDERED: SODIUM CHLORIDE 0.9% 50 ML IVPB ONE (16:45)
--- NOTE | 2021-05-10 16:55 | XR ---
EXAMINATION TYPE: XR chest 2V DATE OF EXAM: 05/10/2021 COMPARISON: 11/12/2020 HISTORY: Cough and shortness of breath TECHNIQUE: Frontal and lateral views of the chest are obtained. FINDINGS: There is no focal air space opacity, pleural effusion, or pneumothorax seen. The cardiac silhouette size is within normal limits. The osseous structures are intact. IMPRESSION: No acute cardiopulmonary process.
[2021-05-10] MEDS ORDERED: BAMLANIVIMAB (EUA) 700 MG, ETESEVIMAB (EUA) 1,400 MG in SODIUM CHLORIDE 0.9% 50 ML IVPB ONE (17:00)
[2021-05-10 17:06] VITALS: TEMP 98.2
[2021-05-10 17:46] VITALS: PULSE 73; RESP 18
[2021-05-10 18:55] VITALS: BP 103/67
== END 2021-05-10 16:41 | disposition home or self-care (01) ==
LOC: EC 14:56
DX: U07.1 COVID-19 (principal); Z91.09 Other allergy status, other than to drugs and biological substances; Z88.4 Allergy status to anesthetic agent; Z88.6 Allergy status to analgesic agent; Z87.891 Personal history of nicotine dependence
CPT/HCPCS: 71046; 99285; 96374; 96361; J2405; J1885; J3490

== ENCOUNTER 2021-05-12 03:30 | Emergency (ER) | payer OTHER ==
[2021-05-12 03:37] VITALS: BP 110/79; PULSE 86; RESP 18; TEMP 98.3
--- NOTE | 2021-05-12 04:07 | ED ---
General Adult HPI - General Chief complaint: Skin/Abscess/Foreign Body Stated complaint: Covid+, rash Time Seen by Provider: 05/12/21 03:53 Source: patient, RN notes reviewed Mode of arrival: ambulatory Limitations: no limitations - History of Present Illness Initial comments: Patient is a pleasant 35-year-old female presenting to the emergency department with rash. Patient states she received monoclonal antibodies just a couple of days ago. Patient states she had COVID-19 symptoms for a month or 2 prior to this. Patient states rash was on her chest and abdomen and arm on the right side. Patient states it looked like red spots. Patient states that has now resolved. Patient states earlier she did have some heart racing however that has resolved as well. Patient is having some discomfort of her mouth. Patient had difficulty placing her dentures in. Patient recently has been on steroids. - Related Data Previous Rx's Medication Instructions Recorded Aspirin 81 mg PO DAILY #30 chewable 11/13/20 Atorvastatin Calcium [Lipitor] 20 mg PO HS #30 tab 11/13/20 Escitalopram [Lexapro] 5 mg PO DAILY #30 tab 11/13/20 Ondansetron Odt [Zofran Odt] 4 mg PO Q8HR PRN #10 tab 12/17/20 Nystatin [Nystatin Oral Susp] 5 ml PO BID #100 ml 05/12/21 Allergies Allergy/AdvReac Type Severity Reaction Status Date / Time adhesive tape Allergy Rash/Hives Verified 05/12/21 03:36 triamcinolone [From Kenalog] Allergy Dyspnea/Yony Verified 05/12/21 03:36 h/Swelling ibuprofen AdvReac GERD Verified 05/12/21 03:36 Review of Systems ROS Statement: Those systems with pertinent positive or pertinent negative responses have been documented in the HPI. ROS Other: All systems not noted in ROS Statement are negative. Constitutional: Denies: fever Eyes: Denies: eye pain ENT: Reports: as per HPI. Denies: ear pain Respiratory: Denies: dyspnea Cardiovascular: Reports: palpitations. Denies: chest pain Endocrine: Denies: fatigue Gastrointestinal: Denies: abdominal pain Genitourinary: Denies: dysuria Musculoskeletal: Denies: back pain Skin: Reports: as per HPI Neurological: Denies: weakness Past Medical History Past Medical History: Fibromyalgia, GERD/Reflux Additional Past Medical History / Comment(s): BACK PAIN AND DDD, Migraines,. 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 Cm managing), anemia History of Any Multi-Drug Resistant Organisms: ESBL Date of last positivie culture/infection: 10/18/17 MDRO Source:: ESBL URINE Past Surgical History: Appendectomy, Back Surgery Additional Past Surgical History / Comment(s): PAIN CLINIC PROCEDURES Past Anesthesia/Blood Transfusion Reactions: No Reported Reaction Past Psychological History: Anxiety, Depression Smoking Status: Former smoker Past Alcohol Use History: None Reported Past Drug Use History: None Reported, Heroin, Marijuana, Methamphetamine - Past Family History Brother(s) Additional Family Medical History / Comment(s): purnima-[place] Mother Family Medical History: Cancer Additional Family Medical History / Comment(s): LIVER CANCER General Exam Limitations: no limitations General appearance: alert, in no apparent distress Head exam: Present: normocephalic Eye exam: Present: normal appearance ENT exam: Present: other (There is a minimal whitish coating on the tongue) Neck exam: Present: normal inspection Respiratory exam: Present: normal lung sounds bilaterally Cardiovascular Exam: Present: regular rate, normal rhythm GI/Abdominal exam: Present: soft. Absent: tenderness Extremities exam: Present: normal inspection Back exam: Present: normal inspection Neurological exam: Present: alert Psychiatric exam: Present: normal affect, normal mood Skin exam: Present: warm, dry, normal color. Absent: rash, erythema, urticaria, vesicles, petechiae Course Vital Signs 05/12/21 03:33 Temperature 98.3 F Pulse Rate 86 Respiratory 18 Rate Blood Pressure 110/79 O2 Sat by Pulse 100 Oximetry Medical Decision Making - Medical Decision Making Patient recently and steroids with possibility of mild thrush. Patient will be placed on nystatin swish and swallow. Rash has resolved. Disposition Clinical Impression: Thrush Disposition: HOME SELF-CARE Condition: Stable Instructions (If sedation given, give patient instructions): Oral Candidiasis (ED) Additional Instructions: Prescription has been sent to pharmacy. Please follow-up with primary care physician in the next day or 2 for recheck. Return for difficulty breathing, not tolerating fluids, return of rash or fever, worsening symptoms or other concerns. Prescriptions: Nystatin [Nystatin Oral Susp] 5 ml PO BID #100 ml Is patient prescribed a controlled substance at d/c from ED?: No Referrals: Lachelle Almanzar MD [STAFF PHYSICIAN] - 1-2 days
== END 2021-05-12 04:21 | disposition home or self-care (01) ==
LOC: EC 03:30
DX: B37.9 Candidiasis, unspecified (principal); K21.9 Gastro-esophageal reflux disease without esophagitis; M79.7 Fibromyalgia; F41.9 Anxiety disorder, unspecified; F32.A Depression, unspecified; F12.90 Cannabis use, unspecified, uncomplicated; Z79.82 Long term (current) use of aspirin; Z88.6 Allergy status to analgesic agent; Z88.1 Allergy status to other antibiotic agents; Z90.49 Acquired absence of other specified parts of digestive tract; Z87.891 Personal history of nicotine dependence
CPT/HCPCS: 99282

== ENCOUNTER 2021-05-25 17:13 | Emergency (ER) | payer OTHER ==
[2021-05-25 18:00] VITALS: TEMP 97.6
[2021-05-25] MEDS ORDERED: MORPHINE SULFATE 2 MG/ML SYRINGE IVP STA (18:56)
[2021-05-25] MEDS ORDERED: ONDANSETRON 4 MG/2 ML VIAL IVP STA (18:56)
[2021-05-25] MEDS ORDERED: ASPIRIN 81 MG PO STA (18:56)
[2021-05-25] MEDS ORDERED: SODIUM CHLORIDE 0.9% 1,000 ML IV STA (18:56)
--- NOTE | 2021-05-25 19:44 | ED ---
General Adult HPI - General Source: patient Mode of arrival: ambulatory <Felicia Kebede - Last Filed: 05/25/21 21:14> <Monica White - Last Filed: 05/28/21 23:52> - General Chief complaint: Chest Pain Stated complaint: chest pain Time Seen by Provider: 05/25/21 18:39 - History of Present Illness Initial comments: Presents to the emergency department with chest pain and shortness of breath that began this morning. Patient states she was diagnosed with COVID-19 in the past month, but has had [id number] symptoms for the past couple of months. She states she received antibody infusion on May 12. She states after the infusion she felt okay for 2 days following infusion and has been having extreme fatigue ever since. Patient states she has no appetite. She states when she woke up this morning, she has had chest pain and pain with taking deep breaths. He shouldn't states she feels short of breath. Patient denies any vomiting or dizziness. (Felicia Kebede) - Related Data Home Medications Medication Instructions Recorded Confirmed No Known Home Medications 05/25/21 05/25/21 Allergies Allergy/AdvReac Type Severity Reaction Status Date / Time adhesive tape Allergy Rash/Hives Verified 05/25/21 21:05 triamcinolone [From Kenalog] Allergy Dyspnea/Yony Verified 05/25/21 21:05 h/Swelling ibuprofen AdvReac GERD Verified 05/25/21 21:05 Review of Systems ROS Other: All systems not noted in ROS Statement are negative. <Felicia Kebede - Last Filed: 05/25/21 21:14> ROS Other: All systems not noted in ROS Statement are negative. <Monica White - Last Filed: 05/28/21 23:52> ROS Statement: Those systems with pertinent positive or pertinent negative responses have been documented in the HPI. Past Medical History Past Medical History: Fibromyalgia, GERD/Reflux Additional Past Medical History / Comment(s): BACK PAIN AND DDD, Migraines,. 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 Cm managing), anemia History of Any Multi-Drug Resistant Organisms: ESBL Date of last positivie culture/infection: 10/18/17 MDRO Source:: ESBL URINE Past Surgical History: Appendectomy, Back Surgery Additional Past Surgical History / Comment(s): PAIN CLINIC PROCEDURES Past Anesthesia/Blood Transfusion Reactions: No Reported Reaction Past Psychological History: Anxiety, Depression Smoking Status: Former smoker Past Alcohol Use History: None Reported Past Drug Use History: None Reported, Heroin, Marijuana, Methamphetamine - Past Family History Brother(s) Additional Family Medical History / Comment(s): [place] Mother Family Medical History: Cancer Additional Family Medical History / Comment(s): LIVER CANCER <Felicia Kebede - Last Filed: 05/25/21 21:14> General Exam General appearance: alert, in no apparent distress Head exam: Present: atraumatic, normocephalic, normal inspection Respiratory exam: Present: normal lung sounds bilaterally. Absent: respiratory distress, wheezes, rales, rhonchi, stridor Cardiovascular Exam: Present: regular rate, normal rhythm, normal heart sounds. Absent: systolic murmur, diastolic murmur, rubs, gallop, clicks GI/Abdominal exam: Present: soft, normal bowel sounds. Absent: distended, tenderness, guarding, rebound, rigid Neurological exam: Present: alert, oriented X3 Psychiatric exam: Present: normal affect Skin exam: Present: warm, dry, intact, normal color. Absent: rash <Felicia Kebede - Last Filed: 05/25/21 21:14> Course Vital Signs 05/25/21 05/25/21 05/25/21 17:56 19:10 19:20 Temperature 97.6 F Pulse Rate 98 66 Respiratory 18 25 H Rate Blood Pressure 131/79 116/83 O2 Sat by Pulse 100 100 100 Oximetry 05/25/21 05/25/21 05/25/21 21:00 21:30 21:40 Temperature Pulse Rate 54 L Respiratory 16 Rate Blood Pressure 116/83 100/60 O2 Sat by Pulse 100 Oximetry 05/25/21 21:50 Temperature Pulse Rate 56 L Respiratory 22 Rate Blood Pressure O2 Sat by Pulse Oximetry EKG Findings - EKG Comments: EKG Findings:: Ventricular rate77 bpm. NH interval 156ms. RS duration 88ms and QT/QTc [id number]. PRT axes 70 79 53. Sinus rhythm <Felicia Kebede - Last Filed: 05/25/21 21:14> Medical Decision Making - Lab Data Result diagrams: 05/25/21 18:56 05/25/21 18:56 <Felicia Kebede - Last Filed: 05/25/21 21:14> - Lab Data Result diagrams: 05/25/21 18:56 05/25/21 18:56 <Monica White - Last Filed: 05/28/21 23:52> - Medical Decision Making This 35-year-old female past medical history of COVID-19 in the last month presents today with shortness of breath and chest pain. She states she received anybody infusions on May 12 and felt okay for a few days but then began feeling extremely fatigued. She states today when she woke up she had shortness of breath. Labs came back unremarkable. CTA with no pulmonary embolism. EKG with no abnormalities. Vitals stable. Patient sent home in stable condition. Patient to take vitamin C, vitamin D, zinc. Strict return precautions given. Advised to get a pulse oximeter home and to come back to the emergency de partment if oxygen is less than 90%. Told to follow up with primary care provider in next 1-2 days. (Felicia Kebede) I was available for consultation in the emergency department. The history and physical exam were done by the midlevel provider. I was consulted for this patie nts care. I reviewed the case with the midlevel provider and based on their presentation of the patient, I agree with the assessment, medical decision making and plan of care as documented. Chart was dictated using [employer] dictation software. Attempts were made to correct any dictation errors however some typographical errors may persist. Patient was seen during a national state of emergency due to the Covid-19 pandemic. (Monica White) - Lab Data Lab Results 05/25/21 05/25/21 05/25/21 Range/Units 18:56 18:56 18:56 WBC 5.3 (3.8-10.6) k/uL RBC 3.97 (3.80-5.40) m/uL Hgb 12.2 (11.4-16.0) gm/dL Hct 36.4 (34.0-46.0) % MCV 91.6 (80.0-100.0) fL MCH 30.6 (25.0-35.0) pg MCHC 33.4 (31.0-37.0) g/dL RDW 12.6 (11.5-15.5) % Plt Count 302 (150-450) k/uL MPV 8.2 Neutrophils % 69 % Lymphocytes % 23 % Monocytes % 6 % Eosinophils % 1 % Basophils % 1 % Neutrophils # 3.7 (1.3-7.7) k/uL Lymphocytes # 1.2 (1.0-4.8) k/uL Monocytes # 0.3 (0-1.0) k/uL Eosinophils # 0.0 (0-0.7) k/uL Basophils # 0.0 (0-0.2) k/uL PT 10.3 (9.0-12.0) sec INR 1.0 (<1.2) APTT 22.0 (22.0-30.0) sec D-Dimer 0.27 (<0.60) mg/L FEU Sodium (137-145) mmol/L Potassium (3.5-5.1) mmol/L Chloride (98-107) mmol/L Carbon Dioxide (22-30) mmol/L Anion Gap mmol/L BUN (7-17) mg/dL Creatinine (0.52-1.04) mg/dL Est GFR (CKD-EPI)AfAm (>60 ml/min/1.73 sqM) Est GFR (CKD-EPI)NonAf (>60 ml/min/1.73 sqM) Glucose (74-99) mg/dL Calcium (8.4-10.2) mg/dL Magnesium (1.6-2.3) mg/dL Total Bilirubin (0.2-1.3) mg/dL AST (14-36) U/L ALT (4-34) U/L Alkaline Phosphatase (38-126) U/L Lactate Dehydrogenase (313-618) U/L Troponin I (0.000-0.034) ng/mL C-Reactive Protein (<1.0) mg/dL Total Protein (6.3-8.2) g/dL Albumin (3.5-5.0) g/dL Urine Color Light Yellow Urine Appearance Clear (Clear) Urine pH 7.5 (5.0-8.0) Ur Specific Chestnut 1.029 (1.001-1.035) Urine Protein Negative (Negative) Urine Glucose (UA) Negative (Negative) Urine Ketones Negative (Negative) Urine Blood Negative (Negative) Urine Nitrite Negative (Negative) Urine Bilirubin Negative (Negative) Urine Urobilinogen <2.0 (<2.0) mg/dL Ur Leukocyte Esterase Trace H (Negative) Urine RBC <1 (0-5) /hpf Urine WBC 2 (0-5) /hpf Ur Squamous Epith Cells 1 (0-4) /hpf Urine Bacteria Rare H (None) /hpf 05/25/21 05/25/21 Range/Units 18:56 18:56 WBC (3.8-10.6) k/uL RBC (3.80-5.40) m/uL Hgb (11.4-16.0) gm/dL Hct (34.0-46.0) % MCV (80.0-100.0) fL MCH (25.0-35.0) pg MCHC (31.0-37.0) g/dL RDW (11.5-15.5) % Plt Count (150-450) k/uL MPV Neutrophils % % Lymphocytes % % Monocytes % % Eosinophils % % Basophils % % Neutrophils # (1.3-7.7) k/uL Lymphocytes # (1.0-4.8) k/uL Monocytes # (0-1.0) k/uL Eosinophils # (0-0.7) k/uL Basophils # (0-0.2) k/uL PT (9.0-12.0) sec INR (<1.2) APTT (22.0-30.0) sec D-Dimer (<0.60) mg/L FEU Sodium 139 (137-145) mmol/L Potassium 4.3 (3.5-5.1) mmol/L Chloride 101 (98-107) mmol/L Carbon Dioxide 27 (22-30) mmol/L Anion Gap 11 mmol/L BUN 15 (7-17) mg/dL Creatinine 0.61 (0.52-1.04) mg/dL Est GFR (CKD-EPI)AfAm >90 (>60 ml/min/1.73 sqM) Est GFR (CKD-EPI)NonAf >90 (>60 ml/min/1.73 sqM) Glucose 89 (74-99) mg/dL Calcium 9.3 (8.4-10.2) mg/dL Magnesium 2.1 (1.6-2.3) mg/dL Total Bilirubin 0.3 (0.2-1.3) mg/dL AST 18 (14-36) U/L ALT 9 (4-34) U/L Alkaline Phosphatase 56 (38-126) U/L Lactate Dehydrogenase 365 (313-618) U/L Troponin I <0.012 (0.000-0.034) ng/mL C-Reactive Protein <0.5 (<1.0) mg/dL Total Protein 7.6 (6.3-8.2) g/dL Albumin 4.3 (3.5-5.0) g/dL Urine Color Urine Appearance (Clear) Urine pH (5.0-8.0) Ur Specific Chestnut (1.001-1.035) Urine Protein (Negative) Urine Glucose (UA) (Negative) Urine Ketones (Negative) Urine Blood (Negative) Urine Nitrite (Negative) Urine Bilirubin (Negative) Urine Urobilinogen (<2.0) mg/dL Ur Leukocyte Esterase (Negative) Urine RBC (0-5) /hpf Urine WBC (0-5) /hpf Ur Squamous Epith Cells (0-4) /hpf Urine Bacteria (None) /hpf Disposition Is patient prescribed a controlled substance at d/c from ED?: No Time of Disposition: 21:14 <Felicia Kebede - Last Filed: 05/25/21 21:14> <Monica White - Last Filed: 05/28/21 23:52> Clinical Impression: COVID-19 Disposition: HOME SELF-CARE Condition: Stable Additional Instructions: Return to the emergency department if symptoms worsen. Take sink, vitamin D, vitamin C. Pulse oximeter from [facility] come back to the emergency department if oxygen less than 90%. Follow-up with primary care provider in next 1-2 days. Referrals: None,Stated [Primary Care Provider] - 1-2 days
[2021-05-25 19:46] LABS: Basophils % (A) 1 %; Eosinophils % (A) 1 %; HCT 36.4 % (34.0-46.0); HGB 12.2 gm/dL (11.4-16.0); Lymphocytes # (A) 1.2 k/uL (1.0-4.8); Lymphocytes % (A) 23 %; MCH 30.6 pg (25.0-35.0); MCHC 33.4 g/dL (31.0-37.0); MCV 91.6 fL (80.0-100.0); Mean Platelet Volume 8.2; Monocytes # (A) 0.3 k/uL (0-1.0); Monocytes % (A) 6 %; Neutrophils # (A) 3.7 k/uL (1.3-7.7); Neutrophils % (A) 69 %; Platelet Count 302 k/uL (150-450); RBC 3.97 m/uL (3.80-5.40); RDW 12.6 % (11.5-15.5); WBC 5.3 k/uL (3.8-10.6)
[2021-05-25 19:59] LABS: ALT 9 U/L (4-34); AST 18 U/L (14-36); African American GFR (CKD) >90 (>60 ml/min/1.73 sqM); Albumin 4.3 g/dL (3.5-5.0); Alkaline Phosphatase 56 U/L (38-126); Anion Gap 11 mmol/L; Blood Urea Nitrogen 15 mg/dL (7-17); C Reactive Protein <0.5 mg/dL (<1.0); Calcium 9.3 mg/dL (8.4-10.2); Carbon Dioxide 27 mmol/L (22-30); Chloride 101 mmol/L (98-107); Glucose 89 mg/dL (74-99); LDH 365 U/L (313-618); Magnesium 2.1 mg/dL (1.6-2.3); Non-African American GFR(CKD) >90 (>60 ml/min/1.73 sqM); Potassium 4.3 mmol/L (3.5-5.1); Sodium 139 mmol/L (137-145); Total Bilirubin 0.3 mg/dL (0.2-1.3); Total Protein 7.6 g/dL (6.3-8.2)
[2021-05-25 20:24] LABS: Prothrombin Time 10.3 sec (9.0-12.0)
--- NOTE | 2021-05-25 20:30 | CT ---
EXAMINATION TYPE: CT chest angio for PE CT DLP: 176.4 mGycm, Automated exposure control for dose reduction was used. DATE OF EXAM: 05/25/2021 7:53 PM COMPARISON: Chest radiograph from same day. CLINICAL INDICATION:Female, 35 years old with history of chest pain, sob; PHH, h/o covid and fatigue TECHNIQUE/CONTRAST: CTA scan of the thorax is performed with IV Contrast, patient injected with 100 mL of Isovue 370, pul monary embolism protocol. MIP images are created and reviewed. FINDINGS: Pulmonary Artery: There is no evidence for a filling defect within the pulmonary vasculature to sugge st acute pulmonary embolism. The pulmonary artery is of normal size. Lungs/Pleura: No evidence of focal consolidation, pleural effusion or pneumothorax. Right lower lobe groundglass opacity identified. Airway: Patent and grossly unremarkable. Heart: Within normal limits for size. Vasculature: No evidence of aortic aneurysm. Mediastinum: No gross evidence of adenopathy. Musculoskeletal: No acute osseous abnormalities Soft Tissues: Unremarkable. Lower neck: No significant findings. Upper Abdomen: No significant findings. IMPRESSION: 1. No evidence of pulmonary embolism. 2. Single right lower lobe groundglass pulmonary opacity which may represent an atypical pulmonary in fection such as COVID-19.
[2021-05-25 20:41] LABS: Appearance,Urine Clear (Clear); Bacteria,Urine Rare /hpf; Bilirubin,Urine Negative (Negative); Blood,Urine Negative (Negative); Color,Urine Light Yellow; Glucose,Urine (UA) Negative (Negative); Ketones,Urine Negative (Negative); Leukocyte Esterase,Urine Trace (Negative); Nitrite,Urine Negative (Negative); PH, Urine 7.5 (5.0-8.0); Protein,Urine Negative (Negative); RBC,Urine <1 /hpf (0-5); Specific Gravity,Urine 1.029 (1.001-1.035); Squamous Epithelial Cell,Urine 1 /hpf (0-4); Urobilinogen,Urine <2.0 mg/dL (<2.0); WBC,Urine 2 /hpf (0-5)
[2021-05-25 22:03] VITALS: BP 100/60; PULSE 56; RESP 22
== END 2021-05-25 22:03 | disposition home or self-care (01) ==
LOC: EC 17:13
DX: U07.1 COVID-19 (principal); K21.9 Gastro-esophageal reflux disease without esophagitis; M79.7 Fibromyalgia; F41.9 Anxiety disorder, unspecified; F32.A Depression, unspecified; F12.90 Cannabis use, unspecified, uncomplicated; Z88.1 Allergy status to other antibiotic agents; Z88.6 Allergy status to analgesic agent; Z90.49 Acquired absence of other specified parts of digestive tract; Z87.891 Personal history of nicotine dependence
CPT/HCPCS: 99285; 96374; 96375; 36415; 93005; 85379; 80053; 83615; 83735; 84484; 85025; 85610; 85730; 86140; 81001; 71275; J2405; J2270; Q9967

== ENCOUNTER 2021-07-01 01:34 | Observation (INO) | payer OTHER ==
[2021-07-01] MEDS ORDERED: SODIUM CHLORIDE 0.9% 500 ML 500 ML IV STA (02:33)
[2021-07-01] MEDS ORDERED: MAG HYDROX/AL HYDROX/SIMETH 30 ML, HYOSCYAMINE ELIXIR 10 ML, LIDOCAINE VISCOUS 2% 10 ML PO STA ×3 (02:34)
[2021-07-01] MEDS ORDERED: MORPHINE SULFATE 4 MG/ML SYRINGE IV STA (02:57)
[2021-07-01] MEDS ORDERED: METOCLOPRAMIDE 5 MG/ML 2 ML VIAL IVP STA (02:57)
[2021-07-01 02:58] LABS: Basophils % (A) 1 %; Eosinophils # (A) 0.1 k/uL (0-0.7); Eosinophils % (A) 1 %; HCT 38.5 % (34.0-46.0); HGB 12.7 gm/dL (11.4-16.0); Lymphocytes # (A) 1.6 k/uL (1.0-4.8); Lymphocytes % (A) 38 %; MCH 30.2 pg (25.0-35.0); MCHC 33.1 g/dL (31.0-37.0); MCV 91.5 fL (80.0-100.0); Mean Platelet Volume 7.9; Monocytes # (A) 0.3 k/uL (0-1.0); Monocytes % (A) 7 %; Neutrophils # (A) 2.2 k/uL (1.3-7.7); Neutrophils % (A) 51 %; Platelet Count 279 k/uL (150-450); RBC 4.21 m/uL (3.80-5.40); RDW 13.1 % (11.5-15.5); WBC 4.3 k/uL (3.8-10.6)
[2021-07-01 03:03] LABS: Appearance,Urine Clear (Clear); Bilirubin,Urine Negative (Negative); Blood,Urine Negative (Negative); Color,Urine Yellow; Glucose,Urine (UA) Negative (Negative); Ketones,Urine Negative (Negative); Leukocyte Esterase,Urine Negative (Negative); Nitrite,Urine Negative (Negative); PH, Urine 5.5 (5.0-8.0); Protein,Urine Negative (Negative); Specific Gravity,Urine 1.022 (1.001-1.035); Urobilinogen,Urine <2.0 mg/dL (<2.0)
[2021-07-01 03:14] LABS: ALT 10 U/L (4-34); AST 16 U/L (14-36); African American GFR (CKD) >90 (>60 ml/min/1.73 sqM); Albumin 4.5 g/dL (3.5-5.0); Alkaline Phosphatase 46 U/L (38-126); Amylase 76 U/L (30-110); Anion Gap 7 mmol/L; Blood Urea Nitrogen 15 mg/dL (7-17); Calcium 9.8 mg/dL (8.4-10.2); Carbon Dioxide 25 mmol/L (22-30); Chloride 104 mmol/L (98-107); Glucose 94 mg/dL (74-99); Lipase 98 U/L (23-300); Non-African American GFR(CKD) >90 (>60 ml/min/1.73 sqM); Potassium 3.9 mmol/L (3.5-5.1); Sodium 136 mmol/L (137-145); Total Bilirubin 0.4 mg/dL (0.2-1.3); Total Protein 7.9 g/dL (6.3-8.2)
[2021-07-01 03:29] LABS: Amphetamine Screen,Urine Not Detected (NotDetected); Barbiturate Screen,Urine Not Detected (NotDetected); Benzodiazepines Screen,Urine Not Detected (NotDetected); Cocaine Screen,Urine Not Detected (NotDetected); Methadone Screen, Urine Not Detected (NotDetected); Opiate Screen,Urine Not Detected (NotDetected); Oxycodone Screen, Urine Not Detected (NotDetected); Phencyclidine Screen,Urine Not Detected (NotDetected); Tricyclic Antidepressant,Urine Not Detected (NotDetected); Urn Cannabinoid Scrn Not Detected (NotDetected)
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
[2021-07-01] MEDS ORDERED: NALOXONE 0.4 MG/ML 1 ML VIAL IV PRN (06:37)
[2021-07-01] MEDS ORDERED: MORPHINE SULFATE 4 MG/ML SYRINGE IV PRN (06:37)
[2021-07-01] MEDS: SODIUM CHLORIDE 0.9% 1,000 ML IV SCH ×2 (06:51→21:25)
[2021-07-01] MEDS ORDERED: PANTOPRAZOLE 40 MG/10 ML VIAL IV SCH (09:00)
--- NOTE | 2021-07-01 09:09 | US ---
EXAMINATION TYPE: US gallbladder DATE OF EXAM: 07/01/2021 COMPARISON: CT A&P 12/17/2020 CLINICAL HISTORY: gall stones. Patient has known celiac disease; patient presents with epigastric juliane n for weeks. EXAM MEASUREMENTS: Liver Length: 16.3 cm Gallbladder Wall: 0.16 cm CBD: 0.27 cm Right Kidney: 10.6 x 3.6 x 4.7 cm Pancreas: wnl as seen Liver: Appears wnl Gallbladder: Appears wnl Evidence for sonographic Randall's sign: Yes CBD: wnl Right Kidney: No hydronephrosis or masses seen Pancreas remains within normal limits. Visualized liver shows no worrisome mass or ductal dilatation. Mild hepatomegaly is redemonstrated. No intraluminal gallstones. No right-sided hydronephrosis IMPRESSION: No gallstones or ultrasound evidence for acute cholecystitis.
[2021-07-01] MEDS ORDERED: ACETAMINOPHEN TAB 325 MG TAB PO PRN (10:31)
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
--- NOTE | 2021-07-01 10:43 | P.DS ---
Providers Date of admission: 07/01/21 06:37 Attending physician: Shraddha [place] Consults: 07/01/21 06:38 Consult Physician Routine Consulting Provider: Sandra Mitchell Consult Reason/Comments: Intractable abdominal pain. Your patient. Do you want consulting provider notified?: Yes Primary care physician: Stated None Hospital Course: Please refer to my history of present illness for further details Patient Condition at Discharge: Fair Plan - Discharge Summary Discharge Rx Participant: No New Discharge Prescriptions: New Omeprazole [PriLOSEC] 40 mg PO AC-BRKFST #14 cap Discontinued hydrOXYzine HCL 10 mg PO HS PRN PRN Reason: Itching No Action Acetaminophen Tab [Tylenol] 650 mg PO Q4H PRN PRN Reason: Pain Clobex Topical Solution 1 applic TOPICAL HS PRN PRN Reason: scalp irritation Cetirizine HCl 10 mg PO DAILY Discharge Medication List Acetaminophen Tab [Tylenol] 650 mg PO Q4H PRN 07/01/21 [History] Cetirizine HCl 10 mg PO DAILY 07/01/21 [History] Clobex Topical Solution 1 applic TOPICAL HS PRN 07/01/21 [History] Omeprazole [PriLOSEC] 40 mg PO AC-BRKFST #14 cap 07/01/21 [Rx] Follow up Appointment(s)/Referral(s): Sandra Mitchell MD [STAFF PHYSICIAN] - 1 Week Arnulfo Babb [STAFF PHYSICIAN] - 1 Week Patient Instructions/Handouts: Abdominal Pain (ED) Discharge Disposition: HOME SELF-CARE
[2021-07-01] MEDS: PANTOPRAZOLE 40 MG/10 ML VIAL IV SCH ×2 (13:33→21:18)
[2021-07-01] MEDS: traMADol 50 MG TAB PO PRN ×2 (13:42→21:23)
[2021-07-01] MEDS ORDERED: PEG 3350-NA SULF,BICARB,CL/KCL 4,000 ML BOTTLE PO ONE (16:00)
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
[2021-07-01 20:01] LABS: Urine Alcohol Negative (Negative); Urine Barbiturate Negative (Negative); Urine Cocaine Negative (Negative); Urine Methadone Negative (Negative); Urine Opiates Positive (Negative); Urine Phencyclidine Negative (Negative)
[2021-07-01 21:31] LABS: Gliadin AB IgA, Deaminated NEGATIVE (NEGATIVE); Gliadin AB IgA, Unit 3.9 U/mL; Gliadin AB IgG, Deaminated POSITIVE (NEGATIVE); Gliadin AB IgG, Unit 17.4 U/mL; Tis Transglutaminase IgA Unit 8.4 AI; Tissue Transglutaminase IgA NEGATIVE (NEGATIVE); Tissue Transglutaminase IgG NEGATIVE (NEGATIVE)
[2021-07-02] MEDS ORDERED: PHENYLEPHRINE-0.9% NACL SYG 1,000 MCG/10 ML SYRINGE ONE (06:35)
[2021-07-02] MEDS ORDERED: LIDOCAINE 1% INJ 10MG/ML (20 ML MDV) ONE (06:35)
[2021-07-02] MEDS ORDERED: PROPOFOL 10 MG/ML 20 ML VIAL IV ONE (06:35)
[2021-07-02] MEDS ORDERED: GLYCOPYRROLATE 0.2 MG/ML 2 ML VIAL ONE (06:35)
[2021-07-02] MEDS ORDERED: SODIUM CHLORIDE 0.9% 1,000 ML IV ONE ×2 (07:13)
--- NOTE | 2021-07-02 07:20 | P.PCN ---
Date of Procedure: 07/02/21 Procedure(s) Performed: Brief history: Patient is a pleasant 35-year-old white female admitted hospital with abdominal pain, severe diarrhea and progressive weight is a 30 pounds in the last 2 months duration. He was diagnosed with celiac disease) 3 years ago and has been on a strict gluten-free diet. Stool studies were negative. Because of the persistent symptoms she is scheduled for an upper endoscopy as well as colonoscopy. Procedure performed: Esophagogastroduodenoscopy with biopsy Colonoscopy with random biopsies. Preoperative diagnosis: Chronic severe abdominal pain History of celiac disease Chronic diarrhea and progressive weight loss of 30 pounds Anesthesia: MAC Procedure: After informed consent was obtained from the patient was brought into the endoscopy unit and IV sedation was administered by anesthesia under continuous monitoring. Initially upper endoscopy was done. The Olympus GF 160 video endoscope was inserted inserted into the mouth and esophagus intubated without any difficulty and was gradually advanced into the stomach and duodenum and carefully examined. The bulb and second part of the duodenum had decreased duodenal folds and multiple biopsies were done from this area to evaluate for celiac disease. . The scope was then withdrawn into the stomach adequately insufflated with air and upon careful examination the antrum had patchy areas of erythema and biopsies were done from this area. The body, cardia and fundus appeared normal. The scope was then withdrawn into the esophagus. The GE junction was located at 40 cm to the incisors. It appeared regular with no erythema erosions or ulcerations. Rest of the esophagus appeared normal. Jus burgos tolerated the procedure well. At this time the patient continued to remain sedation. Initial digital rectal examination was normal. Olympus CF 160 video colonoscope was then inserted into the rectum and gradually advanced to the cecum without any difficulty. Careful examination was performed as the scope was gradually being withdrawn. The prep was excellent. terminal ileum intubated and 20 cm visualized and appeared normal. Random biopsies were done from this area. The cecum, ascending colon, transverse colon, descending colon, sigmoid colon and rectum appeared normal. random biopsies were done from ascending and descending colon to rule out metastases/collagenous colitis. Retroflexion was performed in the rectum and no lesions were noted. Patient tolerated the procedure well. Impression: 1. upper endoscopy revealed minimal antral gastritis and mild positive the duodenal folds status post multiple biopsies 2. Colonoscopy was within normal limits with no evidence of colitis or colorectal neoplasia. Recommendations: Findings of this examination were discussed with the patient as well as a her family. She was advised to follow with the biopsy results. Diet will be advanced as tolerated and she can be discharged home today with outpatient follow-up in one week.
[2021-07-02 07:44] VITALS: TEMP 98
[2021-07-02] MEDS: PANTOPRAZOLE 40 MG/10 ML VIAL IV SCH (07:50)
[2021-07-02] MEDS: traMADol 50 MG TAB PO PRN (07:51)
[2021-07-02] MEDS ORDERED: LORATADINE 10 MG TAB PO SCH (09:00)
[2021-07-02 11:01] LABS: Cryptosporidium Antigen Negative (Negative)
[2021-07-02] MEDS: SODIUM CHLORIDE 0.9% 1,000 ML IV SCH (11:29)
[2021-07-02 11:30] VITALS: BP 104/79; PULSE 64; RESP 18
--- NOTE | 2021-07-02 15:56 | P.DS ---
Providers Date of admission: 07/01/21 06:37 Attending physician: Shraddha [place] Consults: 07/01/21 06:38 Consult Physician Routine Consulting Provider: Sandra Mitchell Consult Reason/Comments: Intractable abdominal pain. Your patient. Do you want consulting provider notified?: Yes Primary care physician: Stated None Hospital Course: Final Diagnosis History of celiac disease, gluten-free diet Complaints of dark stools, hemoglobin stable at 12 no evidence for dark stools Complaints of diarrhea, presently with no diarrhea noted Complains of weight loss, further workup needed outpatient, patient of benefit from seeing a dietitian History of gastroesophageal reflux disease History of anxiety depression History of chronic drug use with heroin, marijuana, methamphetamine recently quit History of chronic tobacco use, recently quit Discharge disposition Patient stable for discharge she has been cleared from GI services after EGD today to follow up in the office in one week. Hospital course This is a 35-year-old feeling presents to the with complaints of dark stools, diarrhea, weight loss. She does state that she was diagnosis celiac disease and follows a gluten-free diet outpatient. Also complains of abdominal pain that is worse with eating. She was evaluated by GI services thsi admission underwent a gallbladder ultrasound which showed no gallstones or ultrasound evidence for acute cholecystitis. She underwent EGD/Colonoscopy which revealed minimal antral gastritis and mild positive duodenal folds status post multiple biopsies, colonoscopy was within normal limits with no evidence of colitis or colorectal neoplasia. Biopsies were taken. Labs are unremarkable, stool negative, urine drug toxicology positive for opiates that she did receive tramadol this admission, Gliadin IgG positive. C. diff and COVID Negative. Vital signs, patient is afebrile, heart rate 64, blood pressure 104/79 and she is 98% on room air. 07/02/2021 Patient evaluated the bedside status post EGD colonoscopy. She still complains of abdominal pain that is improving, advised to follow a more bland diet and increase her diet as tolerated and to follow up with Dr. Mitchell the office next week to discuss EGD colonoscopy as well as biopsy results. Vital signs are currently stable, labs are unremarkable. There is no evidence for an acute bleed. She denies any chest pain, shortness of breath, denies any vomiting diarrhea. Lungs are clear to auscultation, S1-S2 auscultated, normoactive bowel sounds and abdomen is nontender with palpation. Focal neurological exam is negative. We did discharge patient on a PPI. Please see medication reconciliation for a list of current medications. Thank you for allowing us to participate in the care of this patient. Patient Condition at Discharge: Stable Plan - Discharge Summary Discharge Rx Participant: No New Discharge Prescriptions: New Omeprazole [PriLOSEC] 40 mg PO AC-BRKFST #14 cap Continue Acetaminophen Tab [Tylenol] 650 mg PO Q4H PRN PRN Reason: Pain Clobex Topical Solution 1 applic TOPICAL HS PRN PRN Reason: scalp irritation Cetirizine HCl 10 mg PO DAILY Discontinued hydrOXYzine HCL 10 mg PO HS PRN PRN Reason: Itching Discharge Medication List Acetaminophen Tab [Tylenol] 650 mg PO Q4H PRN 07/01/21 [History] Cetirizine HCl 10 mg PO DAILY 07/01/21 [History] Clobex Topical Solution 1 applic TOPICAL HS PRN 07/01/21 [History] Omeprazole [PriLOSEC] 40 mg PO AC-BRKFST #14 cap 07/01/21 [Rx] Follow up Appointment(s)/Referral(s): Hernandez Hua DO [STAFF PHYSICIAN] - 07/05/21 (please make follow up appointment for primary care provider. ) Sandra Mitchell MD [STAFF PHYSICIAN] - 07/07/21 2:30 pm Patient Instructions/Handouts: Abdominal Pain (ED) Activity/Diet/Wound Care/Special Instructions: . Discharge Disposition: HOME SELF-CARE
== END 2021-07-02 11:40 | disposition home or self-care (01) ==
LOC: EC 01:34 → 6NMEDSUR 06:37
PROVIDERS: ADMIT Hospitalist; ATTEND Hospitalist
DX: K90.0 Celiac disease (principal); K29.50 Unspecified chronic gastritis without bleeding; K21.9 Gastro-esophageal reflux disease without esophagitis; R19.5 Other fecal abnormalities; M79.7 Fibromyalgia; R00.1 Bradycardia, unspecified; D64.9 Anemia, unspecified; G43.909 Migraine, unspecified, not intractable, without status migrainosus; R16.0 Hepatomegaly, not elsewhere classified; F41.9 Anxiety disorder, unspecified; F32.A Depression, unspecified; G89.29 Other chronic pain; M54.9 Dorsalgia, unspecified; M41.9 Scoliosis, unspecified; Z16.12 Extended spectrum beta lactamase (ESBL) resistance; Z20.822 Contact with and (suspected) exposure to COVID-19; Z71.3 Dietary counseling and surveillance; Z79.899 Other long term (current) drug therapy; Z88.6 Allergy status to analgesic agent; Z88.8 Allergy status to other drugs, medicaments and biological substances; Z91.048 Other nonmedicinal substance allergy status; Z87.828 Personal history of other (healed) physical injury and trauma; Z90.49 Acquired absence of other specified parts of digestive tract; Z87.891 Personal history of nicotine dependence; Z87.2 Personal history of diseases of the skin and subcutaneous tissue; Z87.898 Personal history of other specified conditions; Z98.890 Other specified postprocedural states; Z80.0 Family history of malignant neoplasm of digestive organs; Z83.49 Family history of other endocrine, nutritional and metabolic diseases; Z83.3 Family history of diabetes mellitus
CPT/HCPCS: 96376 ×2; 96375 ×2; 96361; 96374; 99285; 36415; 93005; 88305; 80053; 84443; 82150; 83690; 84484; 85025; 81003; 87324; 80306 ×2; 83516 ×4; 87045; 87329; 87328; 87046; 87635; 76705; 45380; 43239; G0378 ×2; J2270; J2765; J2001; J2370; J2704; C9113 ×2

== ENCOUNTER 2021-08-27 23:16 | Emergency (ER) | payer OTHER ==
[2021-08-27 23:50] VITALS: TEMP 98.4
[2021-08-28 00:22] LABS: Basophils % (A) 1 %; Eosinophils # (A) 0.2 k/uL (0-0.7); Eosinophils % (A) 2 %; HCT 39.8 % (34.0-46.0); HGB 13.4 gm/dL (11.4-16.0); Lymphocytes # (A) 2.4 k/uL (1.0-4.8); Lymphocytes % (A) 37 %; MCH 30.4 pg (25.0-35.0); MCHC 33.8 g/dL (31.0-37.0); MCV 90.2 fL (80.0-100.0); Mean Platelet Volume 8.1; Monocytes # (A) 0.4 k/uL (0-1.0); Monocytes % (A) 6 %; Neutrophils # (A) 3.5 k/uL (1.3-7.7); Neutrophils % (A) 53 %; Platelet Count 318 k/uL (150-450); RBC 4.42 m/uL (3.80-5.40); RDW 12.8 % (11.5-15.5); WBC 6.6 k/uL (3.8-10.6)
[2021-08-28 00:28] LABS: INR 0.9 (<1.2); Prothrombin Time 10.4 sec (9.0-12.0)
[2021-08-28 00:29] LABS: Partial Thromboplastin Time 22.5 sec (22.0-30.0)
[2021-08-28 00:31] LABS: ALT 10 U/L (4-34); AST 18 U/L (14-36); African American GFR (CKD) >90 (>60 ml/min/1.73 sqM); Albumin 4.5 g/dL (3.5-5.0); Alkaline Phosphatase 47 U/L (38-126); Anion Gap 9 mmol/L; Blood Urea Nitrogen 12 mg/dL (7-17); Calcium 9.4 mg/dL (8.4-10.2); Carbon Dioxide 22 mmol/L (22-30); Chloride 106 mmol/L (98-107); Glucose 91 mg/dL (74-99); Non-African American GFR(CKD) >90 (>60 ml/min/1.73 sqM); Potassium 3.8 mmol/L (3.5-5.1); Sodium 137 mmol/L (137-145); Total Bilirubin 0.4 mg/dL (0.2-1.3); Total Protein 7.8 g/dL (6.3-8.2)
--- NOTE | 2021-08-28 03:13 | XR ---
EXAMINATION TYPE: XR chest 2V DATE OF EXAM: 08/28/2021 COMPARISON: 05/10/2021 HISTORY: Chest pain TECHNIQUE: 2 views FINDINGS: There is mild thoracic dextroscoliosis. Heart and mediastinum are normal. Diaphragm is norm al. There are no hilar masses. Bony thorax is intact. IMPRESSION: No active cardiopulmonary disease. Normal heart. No change.
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
[2021-08-28 05:19] VITALS: BP 106/71; PULSE 74; RESP 20
== END 2021-08-28 06:06 | disposition home or self-care (01) ==
LOC: EC 23:16
DX: R07.89 Other chest pain (principal); K21.9 Gastro-esophageal reflux disease without esophagitis; F32.A Depression, unspecified; F41.9 Anxiety disorder, unspecified; Z87.891 Personal history of nicotine dependence; Z79.899 Other long term (current) drug therapy
CPT/HCPCS: 36415; 71046; 80053; 83735; 84484; 85025; 85379; 85610; 85730; 87635; 93005; 99285

== ENCOUNTER 2021-08-29 22:20 | Observation (INO) | payer OTHER ==
[2021-08-30] MEDS ORDERED: SODIUM CHLORIDE 0.9% 1,000 ML IV STA ×2 (00:19)
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
[2021-08-30 01:06] LABS: Basophils # (A) 0.1 k/uL (0-0.2); Basophils % (A) 1 %; Eosinophils # (A) 0.1 k/uL (0-0.7); Eosinophils % (A) 2 %; HCT 41.3 % (34.0-46.0); HGB 14.1 gm/dL (11.4-16.0); Lymphocytes # (A) 2.5 k/uL (1.0-4.8); Lymphocytes % (A) 34 %; MCH 30.9 pg (25.0-35.0); MCHC 34.1 g/dL (31.0-37.0); MCV 90.7 fL (80.0-100.0); Mean Platelet Volume 8.2; Monocytes # (A) 0.3 k/uL (0-1.0); Monocytes % (A) 5 %; Neutrophils # (A) 4.1 k/uL (1.3-7.7); Neutrophils % (A) 57 %; Platelet Count 304 k/uL (150-450); RBC 4.55 m/uL (3.80-5.40); RDW 12.7 % (11.5-15.5); WBC 7.2 k/uL (3.8-10.6)
--- NOTE | 2021-08-30 01:15 | CT ---
EXAMINATION TYPE: CT brain wo con DATE OF EXAM: 08/30/2021 COMPARISON: 10/06/2020 HISTORY: weakness/dizziness. prior on PACS CT DLP: 1086.4 mGycm Automated exposure control for dose reduction was used. Ventricles and sulci appear normal. There is no mass effect or midline shift. There is no sign of int racranial hemorrhage. Calvarium is intact. There is normal aeration of the mastoids sinuses. IMPRESSION: Negative unenhanced head CT scan. No change
[2021-08-30 01:17] LABS: Partial Thromboplastin Time 23.5 sec (22.0-30.0); Prothrombin Time 10.8 sec (9.0-12.0)
[2021-08-30 01:26] LABS: Albumin 4.9 g/dL (3.5-5.0); Glucose 90 mg/dL (74-99); Total Protein 8.5 g/dL (6.3-8.2)
[2021-08-30] MEDS ORDERED: NALOXONE 0.4 MG/ML 1 ML VIAL IV PRN (01:27)
[2021-08-30] MEDS ORDERED: ONDANSETRON 4 MG/2 ML VIAL IVP PRN (01:27)
[2021-08-30 01:28] LABS: ALT 11 U/L (4-34); AST 19 U/L (14-36); Acetaminophen <10.0 ug/mL; African American GFR (CKD) >90 (>60 ml/min/1.73 sqM); Alcohol <10 mg/dL; Alkaline Phosphatase 55 U/L (38-126); Anion Gap 9 mmol/L; Blood Urea Nitrogen 13 mg/dL (7-17); Calcium 9.5 mg/dL (8.4-10.2); Carbon Dioxide 25 mmol/L (22-30); Chloride 103 mmol/L (98-107); Magnesium 2.2 mg/dL (1.6-2.3); Non-African American GFR(CKD) >90 (>60 ml/min/1.73 sqM); Phosphorus 3.7 mg/dL (2.5-4.5); Salicylate <1.0 mg/dL; Sodium 137 mmol/L (137-145); Total Bilirubin 0.6 mg/dL (0.2-1.3)
[2021-08-30] MEDS: LORazepam 2 MG/ML INJ IV PRN ×2 (02:52→16:19)
[2021-08-30] MEDS: SODIUM CHLORIDE 0.9% 1,000 ML IV SCH ×4 (02:53→23:44)
[2021-08-30 03:09] LABS: Appearance,Urine Cloudy (Clear); Bacteria,Urine Moderate /hpf; Bilirubin,Urine Negative (Negative); Blood,Urine Negative (Negative); Color,Urine Yellow; Glucose,Urine (UA) Negative (Negative); Ketones,Urine Trace (Negative); Leukocyte Esterase,Urine Moderate (Negative); Mucus,Urine Many /hpf; Nitrite,Urine Positive (Negative); Protein,Urine Negative (Negative); RBC,Urine 1 /hpf (0-5); Specific Gravity,Urine 1.021 (1.001-1.035); Squamous Epithelial Cell,Urine 12 /hpf (0-4); Urobilinogen,Urine <2.0 mg/dL (<2.0); WBC,Urine 15 /hpf (0-5)
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
[2021-08-30] MEDS: PANTOPRAZOLE 40 MG TABLET PO SCH (08:38)
--- NOTE | 2021-08-30 09:21 | P.PN ---
Subjective Progress Note Date: 08/30/21 Hospital course: Patient is a very pleasant 35-year-old female with a past medical history celiac disease, GERD, and polysubstance abuse. Patient presented to the ER with multiple complaints. Patient reports that her hair is sensitive and if she touches her hair she feels pain all the way down her spine. Patient reports that she is also been weak and dizzy described as feeling as though the room is spinning and when she closes her eyes she sometimes sees rainbows and floaters. Patient states in addition to this she is having numbness and tingling in bilateral hands and feet in which she states is a little worse on the left. Patient reports she has also had increased episodes of anxiety and has been depressed. Patient reports having significant anxiety causing issues with her bowels and significant weight loss. Patient reports this depression and anxiety is also resulted in weakness and inability to carry out her necessary activities of daily living. Patient has history of IVDA with heroin and methamphetamine and has had multiple visits to the ER for same complaints. Patient was recently hospitalized back in June and underwent an extensive GI workup with EGD and colonoscopies revealing gastritis, biopsies were all negative. In the emergency department patient again receiving full evaluation with CBC, CMP, and coags all unremarkable. Urinalysis contaminated, but showing no signs of infection. An EKG was completed revealing normal sinus rhythm at 71 bpm with no noted T-wave or ST abnormalities. CT brain negative for acute process. Patient was admitted under our services to observation with consultation to psychiatry and neurology. Vital signs unremarkable. Plans for discharge later today. Physical exam: Patient seen and fully evaluated at the bedside this morning. Difficult to decipher what patient is experiencing or feeling as any questions asked, the patient then stated that she was now having those same complaints. Patient yomaira l signs unremarkable. She appeared to be resting comfortably. Vital signs reviewed and stable. Thin, Frail, emaciated appearance. General: Nontoxic, no distress and appears stated age. Derm: Skin warm and dry, normal coloration for ethnicity. Head: Atraumatic, normocephalic and symmetric. Eyes: EOMs intact, no lid lag, and anicteric sclera Mouth: no lip lesions, mucus membranes moist Cardiovascular: regular rate and rhythm with normal S1S2, no murmur, positive posterior tibial pulses bilaterally, and cap refill < 2 seconds. Lungs: Respirations even, regular, and unlabored on room air. Lungs CTA bilaterally, no rhonchi, no rales, no wheezing, and no accessory muscle usage. Abdominal: soft, nontender to palpation, no guarding, no appreciable organomegaly Ext: ROM intact. No gross muscle atrophy, no edema, no contractures Neuro: Speech clear, face symmetrical and CN II-XII grossly intact with no noted focal neuro deficits Psych: Alert and oriented to person, place, time, and situation. Appropriate and pleasant affect. Assessment and Plan of Care: Anxiety, depression, generalized weakness and dizzy spells Polysubstance abuse Generalized pain -CT brain negative -Neurology consulted, appreciate recommendations. -Psychiatry consulted, appreciate recommendations. -Urine drug screen -Orthostatic vitals -Telemetry monitoring -Urine hCG History of GERD History of celiac disease -Continue with gluten-free diet -Continue with Protonix CODE STATUS: Full code DVT prophylaxis: Heparin Discussed with: Patient and RN Anticipated discharge date: Plans for discharge later today Anticipated discharge place: Home versus inpatient psychiatric unit A total of 34 minutes was spent on the care of this complex patient more than 50% of the time was spent in counseling and care coordination. I reviewed the documentation as provided by the STEPHAN above, who is the original author of this note. I agree with the documented assessment and plan, with the following changes: None Objective - Vital Signs Vital signs: Vital Signs Temp 97.6 F 08/30/21 07:00 Pulse 66 08/30/21 07:00 Resp 18 08/30/21 07:00 BP 99/64 08/30/21 07:00 Pulse Ox 99 08/30/21 07:00 Intake & Output 08/29/21 08/30/21 08/30/21 18:59 06:59 18:59 Weight 49.895 kg - Labs CBC & Chem 7: 08/30/21 00:53 08/30/21 00:53 Labs: Abnormal Lab Results - Last 24 Hours (Table) 08/30/21 08/30/21 Range/Units 00:53 02:56 Total Protein 8.5 H (6.3-8.2) g/dL Urine Appearance Cloudy H (Clear) Urine Ketones Trace H (Negative) Urine Nitrite Positive H (Negative) Ur Leukocyte Esterase Moderate H (Negative) Urine WBC 15 H (0-5) /hpf Ur Squamous Epith Cells 12 H (0-4) /hpf Urine Bacteria Moderate H (None) /hpf Urine Mucus Many H (None) /hpf
[2021-08-30] MEDS: HEPARIN SODIUM,PORCINE/PF 5,000 UNIT/0.5 ML SYRINGE SQ SCH ×3 (09:38→23:41)
[2021-08-30 11:44] VITALS: BMI 18.3
--- NOTE | 2021-08-30 14:34 | P.CN ---
Psychiatric Consult - . Consult date: 08/30/21 Consult:: 08/30/21 13:16 IDENTIFYING DATA: This patient is a 34-year-old female who currently lives with her 5 kids in a in a house, unemployed, living with her boyfriend. Has 5 kids. REASON FOR REFERRAL: Psychiatry was consulted for anxiety and depression HISTORY OF PRESENT ILLNESS: The patient presented to the hospital on 08/30 with complaints of weakness, weight loss anxiety. Patient was also noted to be anxious and emotional during conversations in the ER. She apparently was recently discharged from the ER about 2 days ago. She was admitted medically after receiving a CT of her brain which is negative. Patient's nurse states that patient is not endorsing any suicidal thoughts. Patient was seen lying in her bed and agreeable to speak further. She was fairly calm and directable during conversation. She did appear to be upset at times when speaking mainly about her somatic symptoms. She claims that she was having chest pain and numbness and tingling in her hands and feet. She states that she was also feeling dizzy mainly after she ate. She states that she does have a history of weight loss about 60 pounds for the past 6 months. She states that she had an EGD and colonoscopy in June for her celiac disease however states that the actimize architect feeds that her celiac is "getting better". She states that she is trying to eat gluten-free. She claims that she has been mainly stressed lately and relates it back to her somatic symptoms. She states that she does have mild anxiety. Denying any depression at this time. She states that she has been under a lot of stress rate recently. At this time patient denies any suicidal or homical ideations, intent or plan. Patient denies any auditory, visual hallucinations and denies any paranoia or delusions. Patients admits to using no recreational drugs. He is denying any access to guns or weapons. She states that her appetite has been poor. Sleep has been fair. PAST PSYCHIATRIC HISTORY: Patient has a a history of anxiety and depression. P atient denies being on any psychiatric medications. Patient denies any previous psychiatric hospitalizations. She does not have a outpatient psychiatrist at this time however did go to counseling several years ago at [facility]. Patient denies any history of suicide attempts in the past. PAST MEDICAL HISTORY: Fibromyalgia, GERD, migraines, back pain. ALLERGIES: as per EMR. CHEMICAL DEPENDENCY HISTORY: as per HPI. FAMILY PSYCHIATRIC/SUBSTANCE USE HISTORY: She claims that both her mother and sister have some form of mental illness. SOCIAL HISTORY: Patient was born and raised in [place] and also in [place]. She claims that she was adopted at the age of 75 years old. She states that she completed high school and completed a certificate in cosmetology. She states that she worked various jobs in the past however is currently unemployed. She states that she was in longterm from 2015 for drug related charges.. MENTAL STATUS EXAM: General Appearance: Patient appears to be thin, stated age is alert, pleasant, and attempts to be cooperative. Patient appears to have fair hygiene and grooming wearing hospital gown with fair eye contact. Behavior: Patient is calmly lying in bed without any agitated behavior. Speech: Patient's speech is fluent and nonpressured. Mood/Affect: Patient reports their mood is "fine just upset", affect is congruent and constricted Suicidality/Homicidality: Patient denies having any suicidal or homicidal ideation intent or plan. Perceptions: Patient denies any visual hallucinations and denies any auditory hallucinations Though content/process: There is no evidence of any delusional thought content and thought process is linear and goal-directed. Focused on her physical symptoms. Memory and concentration: AOX3, grossly intact for the purposes of this session. Can spell "WORLD" backwards Judgment and insight: fair IMPRESSIONS: Adjustment disorder with distrubances in mood and anxiety Conversion disorder versus organic general medical/neurological condition? PLAN: -At this time patient DOES NOT meet criteria for inpatient psychiatric admission. -Would recommend the following medication changes/additions: Started Remeron 15 mg daily at bedtime for insomnia/mood/anxiety. -compensator worker to provide patient with outpatient mental health/psychiatry resources for appropriate follow up upon discharge -appreciate neurology recs, patient should continue to follow up with one primary care doctor to prevent multiple work ups, and excessive testing. -Communicated plan to patient's nurse -at this time psychiatry will sign off. -Please contact with any questions.
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
[2021-08-30] MEDS: ACETAMINOPHEN TAB 325 MG TAB PO PRN (20:44)
[2021-08-30 20:49] LABS: Urine Alcohol Negative (Negative); Urine Barbiturate Negative (Negative); Urine Cocaine Negative (Negative); Urine Methadone Negative (Negative); Urine Opiates Negative (Negative); Urine Phencyclidine Negative (Negative)
[2021-08-30] MEDS ORDERED: MIRTAZAPINE 15 MG TAB PO SCH (21:00)
[2021-08-31] MEDS: ACETAMINOPHEN TAB 325 MG TAB PO PRN ×2 (07:33→13:22)
[2021-08-31] MEDS: HEPARIN SODIUM,PORCINE/PF 5,000 UNIT/0.5 ML SYRINGE SQ SCH (08:36)
[2021-08-31] MEDS: PANTOPRAZOLE 40 MG TABLET PO SCH (08:36)
[2021-08-31] MEDS: SODIUM CHLORIDE 0.9% 1,000 ML IV SCH (10:10)
--- NOTE | 2021-08-31 11:10 | MR ---
EXAMINATION TYPE: MR brain wo/w con DATE OF EXAM: 08/31/2021 COMPARISON: MR brain 10/08/2020, CT brain 08/30/2021 HISTORY: Numbness tingling, rule out MS. TECHNIQUE: Multiplanar, multisequence images of the brain and brainstem is performed without and with IV contras t, utilizing 5 mL intravenous Gadavist . FINDINGS: Diffusion weighted images demonstrate no evidence of a recent infarct or other diffusion ab normality. There is no extra-axial fluid collection or significant change in white matter signal abn ormality, 2-3 lesions appears somewhat less conspicuous. The ventricular system and cisternal spaces are normal in size and appearance. The brain volume is age appropriate. Midline structures demonstrate normal morphology. The craniocervical junction appears within normal limits. Post contrast images demonstrate no abnormal enhancement. The dural venous sinuses appear pa tent. The visualized sinuses are clear and the globes are intact. Minimal inflammatory change present in the mastoid air cells on the left IMPRESSION: Essentially stable nonspecific white matter demyelination as described, to 3 lesions appe ar less conspicuous, no enhancing mass. No evident subacute ischemia.
[2021-08-31] MEDS ORDERED: FOLIC ACID 1 MG TAB PO SCH (13:00)
[2021-08-31] MEDS ORDERED: CYANOCOBALAMIN 500 MCG TAB PO SCH (13:00)
[2021-08-31 13:43] VITALS: BP 102/64; PULSE 82; RESP 17; TEMP 97.5
--- NOTE | 2021-08-31 13:48 | P.DS ---
Providers Date of admission: 08/30/21 01:27 Expected date of discharge: 08/31/21 Attending physician: German Bermudez MD Consults: 08/30/21 01:27 Consult Physician Routine Consulting Provider: Darren Silva Consult Reason/Comments: paresthesias Do you want consulting provider notified?: Yes Consult Physician Routine Consulting Provider: Renata Ma Consult Reason/Comments: psych Do you want consulting provider notified?: Yes 08/30/21 06:41 Consult Physician Routine Consulting Provider: Hernandez Ambrosio Consult Reason/Comments: anxiety, depression Do you want consulting provider notified?: Yes Consult Physician Routine Consulting Provider: Marii Dawson Consult Reason/Comments: dizzy episodes, headaches Do you want consulting provider notified?: Yes Primary care physician: Stated None Hospital Course: Discharge Diagnosis: Anxiety, depression, generalized weakness and dizzy spells. Evaluated by psychiatry who recommended patient being started on Remeron 15 mg nightly. Polysubstance abuse, recommend continued cessation of all drug use. UDS was negative at time of admission. Generalized pain, follow-up with neurology outpatient for continued long-term monitoring and management. History of GERD History of celiac disease, Continue with gluten-free diet Hospital Course: Patient is a very pleasant 35-year-old female with a past medical history celiac disease, GERD, and polysubstance abuse. Patient presented to the ER with multiple complaints. Patient reported that her hair is sensitive and if she touches her hair she feels pain all the way down her spine. Patient reports that she is also been weak and dizzy and described as feeling as though the room is spinning and when she closes her eyes she sometimes sees rainbows and floaters. Patient states in addition to this she is having numbness and tingling in bilateral hands and feet in which she states is a little worse on the left. Patient reports she has also had increased episodes of anxiety and has been depressed. Patient reports having significant anxiety causing issues with her bowels and significant weight loss. Patient reports this depression and anxiety is also resulted in weakness and inability to carry out her necessary activities of daily living. Patient has history of IVDA with heroin and methamphetamine and has had multiple visits to the ER for same complaints. Patient was recently hospitalized back in June and underwent an extensive GI workup with EGD and colonoscopies revealing gastritis, biopsies were all negative. In the emergency department patient again receiving full evaluation with CBC, CMP, and coags all unremarkable. Urinalysis contaminated, but showing no signs of infection. An EKG was completed revealing normal sinus rhythm at 71 bpm with no noted T-wave or ST abnormalities. CT brain negative for acute process. Patient was admitted under our services to observation with consultation to psychiatry and neurology. Vital signs unremarkable. Orthostatic vitals negatives for orthostatic hypotension. Patient was evaluated by psychiatry who recommended patient being started on Remeron 15 mg nightly for treatment of her mood/anxiety/insomnia and to follow up outpatient with psychiatry as recommended. Neurology evaluated recommended MRI to rule out MS. MRI brain with and without contrast was negative for acute intercranial process revealing essentially stable nonspecific white matter demyelination with 3 lesions appearing less consideration was and no enhancing mass. Additional labs revealing Folate low end of normal at 6.30 and vitamin B12 321.0. Patient started on oral folic acid and B12 supplements. Neurology also recommending starting on daily low-dose aspirin 81 mg and cleared pt for outpatient follow- up. Patient medically stable for discharge. Vital signs unremarkable, patient ambulatory in room with a steady gait. Patient requesting additional medications for her anxiety. Informed patient that controlled substance will not be given at time of discharge. Patient started on hydroxyzine 25 mg 4 times daily as needed for anxiety. Patient instructed that she will need to follow up outpatient with psychiatry and neurology for continued medical management. Physical exam: Vital signs reviewed and stable. Thin, Frail, emaciated appearance. General: Nontoxic, no distress and appears stated age. Derm: Skin warm and dry, normal coloration for ethnicity. Head: Atraumatic, normocephalic and symmetric. Eyes: EOMs intact, no lid lag, and anicteric sclera Mouth: no lip lesions, mucus membranes moist Cardiovascular: regular rate and rhythm with normal S1S2, no murmur, positive posterior tibial pulses bilaterally, and cap refill < 2 seconds. Lungs: Respirations even, regular, and unlabored on room air. Lungs CTA bilaterally, no rhonchi, no rales, no wheezing, and no accessory muscle usage. Abdominal: soft, nontender to palpation, no guarding, no appreciable organomegaly Ext: ROM intact. No gross muscle atrophy, no edema, no contractures Neuro: Speech clear, face symmetrical and CN II-XII grossly intact with no noted focal neuro deficits Psych: Alert and oriented to person, place, time, and situation. Appropriate and pleasant affect. A total of 36 minutes of time were spent preparing this complex discharge summary. I reviewed the documentation as provided by the STEPHAN above, who is the original author of this note. I agree with the documented assessment and plan, with the following changes: None Patient Condition at Discharge: Stable Plan - Discharge Summary Discharge Rx Participant: Yes New Discharge Prescriptions: New Mirtazapine [Remeron] 15 mg PO HS 30 Days #30 tab hydrOXYzine pamoate [Vistaril] 25 mg PO QID PRN #120 cap PRN Reason: Anxiety Folic Acid 1 mg PO DAILY 30 Days #30 tab Cyanocobalamin [Vitamin B-12] 1,000 mcg PO DAILY 30 Days #60 tab Aspirin 81 mg PO DAILY 30 Days #30 tab Discharge Medication List Aspirin 81 mg PO DAILY 30 Days #30 tab 08/31/21 [Rx] Cyanocobalamin [Vitamin B-12] 1,000 mcg PO DAILY 30 Days #60 tab 08/31/21 [Rx] Folic Acid 1 mg PO DAILY 30 Days #30 tab 08/31/21 [Rx] Mirtazapine [Remeron] 15 mg PO HS 30 Days #30 tab 08/31/21 [Rx] hydrOXYzine pamoate [Vistaril] 25 mg PO QID PRN #120 cap 08/31/21 [Rx] Follow up Appointment(s)/Referral(s): Gabi Mendoza MD [Medical Doctor] - 1 Week (office will call you to set up an appointment ) Arnulfo Babb [STAFF PHYSICIAN] - 1 Week Patient Instructions/Handouts: Multiple Sclerosis (GEN) Activity/Diet/Wound Care/Special Instructions: Activity: As tolerated. Take breaks as needed. Diet: Encourage oral intake. Special Instructions: Take all of your medications as directed and remember to keep all of your doctor's appointments and follow-up as needed. You will need to follow up outpatient with neurology and psychiatry and it is important to establish care with a primary care provider. Contact Information has been provided to you to establish care with a primary care provider. If the changes in your vision return (such as floaters or rainbows when closing your eyes) you will need to follow up outpatient with an paraprofessional aide to evaluate your vision. Thank you for allowing us to participate in your care, it was truly a pleasure having you for our patient!!! Discharge Disposition: HOME SELF-CARE
[2021-08-31] MEDS ORDERED: ASPIRIN 81 MG PO STA (14:27)
[2021-09-01] MEDS ORDERED: ASPIRIN 81 MG PO SCH (09:00)
[2021-09-02 11:31] LABS: Lyme IgG/IgM 0.11 Index
--- NOTE | 2021-09-06 12:47 | P.PN ---
Subjective Progress Note Date: 08/31/21 Patient was seen for a follow-up. Patient states she is feeling better. She is laying comfortably in the bed. Patient complains of mild dizziness, blurred vision and weakness. Patient states that she started smoking at age 12, and by age 16 she was smoking a pack a day, which she continued until age 34. Overall she has smoked 18 pack years. She quit smoking 1 year ago. Objective - Vital Signs Vital signs: Vital Signs Temp 97.5 F L 08/31/21 13:42 Pulse 82 08/31/21 13:42 Resp 17 08/31/21 13:42 BP 102/64 08/31/21 13:42 Pulse Ox 100 08/31/21 13:42 - Exam Patient's mental status, speech and language functions are normal. Cranial nerves are normal. Face is symmetric. Tongue protrudes to the midline. Visual gibbons are full. On muscle strength testing the strength appears better as compared to yesterday. Still with fluctuating weakness with inconsistent response. - Labs CBC & Chem 7: 08/30/21 00:53 08/30/21 00:53 Assessment and Plan Assessment: * Multiple neurological symptoms including one-week history of numbness of left side of the body (including face arm and leg), visual disturbance of the left and more recent onset of diplopia for 2 days. Patient has been seen multiple times for similar episodes of transient neurological symptoms. Previous MRI of the brain revealed some nonspecific white matter lesions, suggestive of possible small vessel disease versus demyelinating process. Rule out MS versus conversion disorder. * History of celiac disease, with persistent diarrhea * History of B12 deficiency, currently not on any vitamin replacement * Anxiety disorder * Fibromyalgia * X tobacco use Plan: * MRI of the brain with and without contrast revealed essentially stable nonspecific white matter demyelination. 2-3 lesions appear less conspicuous. No enhancing mass. No evident subacute ischemia. I personally reviewed MRI of the brain and agree with the findings. No new lesions, no enhancing lesions. I reviewed MRI of the brain with the patient as well in detail. * Patient's clinical symptoms are quite suggestive of demyelinating disease like MS. However MRI of the brain and previous lumbar puncture on 05/04/2017 were normal. Patient was recommended to follow-up with a neurologist locally. * Patient has history of vitamin B12 deficiency, currently not on replacement. Patient also has history of celiac disease, chronic diarrhea, weight loss, but currently not taking any B12 replacement although was recommended on the last visits. * B12 321, MMA 0.16, folate 6.3 (4.4-31.0). Patient will be started on vitamin B12 1000 g orally and folic acid 1 mg orally daily. * B6 level 10, Lyme titer negative. TSH is normal. Hepatic panel and renal functions normal. * Patient strongly recommended tobacco cessation. * Neurologically clear. Patient recommended to follow up with a neurologist. She may see an MS specialist preferably, to rule out MS.
== END 2021-08-31 15:18 | disposition home or self-care (01) ==
LOC: EC 22:20 → 6NMEDSUR 08-30 01:27
PROVIDERS: ADMIT Internal Medicine; ATTEND Internal Medicine
DX: R42 Dizziness and giddiness (principal); R53.1 Weakness; R62.7 Adult failure to thrive; G81.94 Hemiplegia, unspecified affecting left nondominant side; F41.9 Anxiety disorder, unspecified; F32.A Depression, unspecified; F19.10 Other psychoactive substance abuse, uncomplicated; R52 Pain, unspecified; K21.9 Gastro-esophageal reflux disease without esophagitis; K90.0 Celiac disease; R20.0 Anesthesia of skin; R20.2 Paresthesia of skin; F15.11 Other stimulant abuse, in remission; M79.7 Fibromyalgia; M41.9 Scoliosis, unspecified; D64.9 Anemia, unspecified; F17.210 Nicotine dependence, cigarettes, uncomplicated; F44.9 Dissociative and conversion disorder, unspecified; Z80.0 Family history of malignant neoplasm of digestive organs; G43.909 Migraine, unspecified, not intractable, without status migrainosus; R63.4 Abnormal weight loss; Z83.3 Family history of diabetes mellitus; Z79.899 Other long term (current) drug therapy
CPT/HCPCS: 96376; 96361 ×3; 96372 ×2; 96374; 99285; 36415; 93005; 84207; 83921; 83880; 80053; 82607; 82746; 83605; 83735; 84100; 84443; 84484; 85025; 85610; 85730; 81001; 86618; 80306; 80143; 87086; 87077; 87186; 80179; 70450; 70553; G0378 ×2; G0480; J2060; J1644 ×2; A9585; 80320

== ENCOUNTER 2021-09-16 23:50 | Emergency (ER) | payer OTHER ==
[2021-09-17] MEDS ORDERED: SODIUM CHLORIDE 0.9% 500 ML 500 ML IV STA (00:53)
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
[2021-09-17 01:31] LABS: Basophils # (A) 0.1 k/uL (0-0.2); Basophils % (A) 1 %; Eosinophils # (A) 0.2 k/uL (0-0.7); Eosinophils % (A) 2 %; HCT 40.6 % (34.0-46.0); HGB 13.3 gm/dL (11.4-16.0); Lymphocytes # (A) 2.2 k/uL (1.0-4.8); Lymphocytes % (A) 27 %; MCH 29.7 pg (25.0-35.0); MCHC 32.6 g/dL (31.0-37.0); MCV 90.9 fL (80.0-100.0); Monocytes # (A) 0.4 k/uL (0-1.0); Monocytes % (A) 5 %; Neutrophils # (A) 5.3 k/uL (1.3-7.7); Neutrophils % (A) 65 %; Platelet Count 292 k/uL (150-450); RBC 4.47 m/uL (3.80-5.40); RDW 12.2 % (11.5-15.5); WBC 8.2 k/uL (3.8-10.6)
[2021-09-17 02:10] LABS: ALT 11 U/L (4-34); AST 19 U/L (14-36); African American GFR (CKD) >90 (>60 ml/min/1.73 sqM); Albumin 4.9 g/dL (3.5-5.0); Alcohol <10 mg/dL; Alkaline Phosphatase 53 U/L (38-126); Anion Gap 11 mmol/L; Blood Urea Nitrogen 12 mg/dL (7-17); Calcium 9.3 mg/dL (8.4-10.2); Carbon Dioxide 27 mmol/L (22-30); Chloride 101 mmol/L (98-107); Glucose 90 mg/dL (74-99); Non-African American GFR(CKD) >90 (>60 ml/min/1.73 sqM); Potassium 3.7 mmol/L (3.5-5.1); Sodium 139 mmol/L (137-145); Total Bilirubin 0.5 mg/dL (0.2-1.3); Total Protein 8.6 g/dL (6.3-8.2)
--- NOTE | 2021-09-17 02:12 | CT ---
EXAMINATION TYPE: CT brain wo con DATE OF EXAM: 09/17/2021 COMPARISON: 08/30/2021 HISTORY: fall. h/o fibromyalgia CT DLP: 1123.4 mGycm Automated exposure control for dose reduction was used. Ventricles and sulci appear normal. There is no mass effect or midline shift. There is no sign of int racranial hemorrhage. The calvarium is intact. There is no evidence of cerebral edema. Skull base is intact. IMPRESSION: Negative unenhanced head CT scan.
--- NOTE | 2021-09-17 02:14 | XR ---
EXAMINATION TYPE: XR chest 1V portable DATE OF EXAM: 09/17/2021 COMPARISON: August 28, 2021 HISTORY: Pain. Fall. TECHNIQUE: Single view FINDINGS: Heart and mediastinum are normal. Lungs are clear. Diaphragm is normal. Bony thorax appears intact. There are chest leads. There is mild thoracic dextroscoliosis. No pneumothorax. IMPRESSION: No active cardiopulmonary disease. No change.
[2021-09-17 02:46] LABS: Appearance,Urine Clear (Clear); Bilirubin,Urine Negative (Negative); Blood,Urine Negative (Negative); Color,Urine Colorless; Glucose,Urine (UA) Negative (Negative); Ketones,Urine Negative (Negative); Leukocyte Esterase,Urine Negative (Negative); Nitrite,Urine Negative (Negative); Protein,Urine Negative (Negative); Specific Gravity,Urine 1.005 (1.001-1.035); Urobilinogen,Urine <2.0 mg/dL (<2.0)
[2021-09-17 02:51] VITALS: BP 106/93; PULSE 77; RESP 22; TEMP 97.3
[2021-09-17 02:57] LABS: Amphetamine Screen,Urine Not Detected (NotDetected); Barbiturate Screen,Urine Not Detected (NotDetected); Benzodiazepines Screen,Urine Not Detected (NotDetected); Cocaine Screen,Urine Not Detected (NotDetected); Methadone Screen, Urine Not Detected (NotDetected); Opiate Screen,Urine Not Detected (NotDetected); Oxycodone Screen, Urine Not Detected (NotDetected); Phencyclidine Screen,Urine Not Detected (NotDetected); Tricyclic Antidepressant,Urine Not Detected (NotDetected); Urn Cannabinoid Scrn Not Detected (NotDetected)
[2021-09-18 11:12] LABS: Lyme IgG/IgM 0.19 Index
== END 2021-09-17 03:00 | disposition home or self-care (01) ==
LOC: EC 23:50
DX: R55 Syncope and collapse (principal); R51.9 Headache, unspecified; R20.2 Paresthesia of skin; R42 Dizziness and giddiness; K21.9 Gastro-esophageal reflux disease without esophagitis; M79.7 Fibromyalgia; F32.A Depression, unspecified; F41.9 Anxiety disorder, unspecified; Z87.891 Personal history of nicotine dependence; Z79.82 Long term (current) use of aspirin; Z79.899 Other long term (current) drug therapy; W19.XXXA Unspecified fall, initial encounter
CPT/HCPCS: 36415; 93005; 80053; 84443; 84484; 85025; 81003; 86618; 80306; 71045; 70450; 99284; 96360; G0480; 80320

== ENCOUNTER 2021-11-09 00:56 | Observation (INO) | payer OTHER ==
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
[2021-11-09] MEDS ORDERED: SODIUM CHLORIDE 0.9% 1,000 ML IV STA (03:57)
[2021-11-09 05:04] LABS: Basophils # (A) 0.1 k/uL (0-0.2); Basophils % (A) 1 %; Eosinophils # (A) 0.2 k/uL (0-0.7); Eosinophils % (A) 4 %; HCT 38.5 % (34.0-46.0); HGB 12.5 gm/dL (11.4-16.0); Lymphocytes % (A) 32 %; MCH 29.6 pg (25.0-35.0); MCHC 32.4 g/dL (31.0-37.0); MCV 91.5 fL (80.0-100.0); Mean Platelet Volume 8.4; Monocytes # (A) 0.3 k/uL (0-1.0); Monocytes % (A) 5 %; Neutrophils # (A) 3.6 k/uL (1.3-7.7); Neutrophils % (A) 58 %; Platelet Count 248 k/uL (150-450); RBC 4.21 m/uL (3.80-5.40); RDW 12.1 % (11.5-15.5); WBC 6.3 k/uL (3.8-10.6)
[2021-11-09 05:13] LABS: Lactic Acid, Venous 0.6 mmol/L (0.7-2.0)
[2021-11-09 05:15] LABS: ALT 11 U/L (4-34); AST 19 U/L (14-36); African American GFR (CKD) >90 (>60 ml/min/1.73 sqM); Albumin 4.7 g/dL (3.5-5.0); Alkaline Phosphatase 43 U/L (38-126); Anion Gap 8 mmol/L; Blood Urea Nitrogen 10 mg/dL (7-17); Calcium 8.9 mg/dL (8.4-10.2); Carbon Dioxide 27 mmol/L (22-30); Chloride 104 mmol/L (98-107); Glucose 79 mg/dL (74-99); Magnesium 2.2 mg/dL (1.6-2.3); Non-African American GFR(CKD) >90 (>60 ml/min/1.73 sqM); Phosphorus 3.5 mg/dL (2.5-4.5); Potassium 3.8 mmol/L (3.5-5.1); Sodium 139 mmol/L (137-145); Total Bilirubin 0.2 mg/dL (0.2-1.3); Total Protein 7.9 g/dL (6.3-8.2)
[2021-11-09 05:46] LABS: Prothrombin Time 10.5 sec (9.0-12.0)
[2021-11-09 06:21] LABS: Partial Thromboplastin Time 19.2 sec (22.0-30.0)
[2021-11-09] MEDS ORDERED: busPIRone HCl 5 MG TAB PO PRN (13:27)
--- NOTE | 2021-11-09 13:33 | P.CN ---
Psychiatric Consult - . Consult date: 11/09/21 Consult:: 11/09/21 12:52 IDENTIFYING DATA: This patient is a 36-year-old female who currently lives with her 5 kids in a in a house, unemployed, living with her boyfriend. Has 5 kids. REASON FOR REFERRAL: Psychiatry was consulted for depression HISTORY OF PRESENT ILLNESS: The patient presented to the hospital yesterday with complaints of generalized weakness and numbness and tingling. Patient apparently has had multiple readmissions for similar complaints in the past. Patient was seen at the bedside today and agreeable to speak to junior underwriter. Patient claims that she feels overwhelmed that she is "not getting better". She claims that she is not having any depression at this time and does not have any stressors however does state that she doesn't feel the same. She claims she has been having multiple somatic issues going on for several months now. She claims that she isn't having visual changes, "I can't feel my thumb" and also combines of headaches and some chest pain at times. She states that her "equilibrium is off". She claims that she has had several different tests done recently and seen a neurologist earlier. She claims that she may have been diagnosed with multiple sclerosis by the neurologist however has not been able to get into see him as an outpatient. She claims that she feels "tired of doing everything" and doesn't have the same energy as before. She is denying any anxiety and denies any depression at this time. At this time patient denies any suicidal or homical ideations, intent or plan. Patient denies any auditory, visual hallucinations and denies any paranoia or delusions. Patients admits to using no recreational drugs. He is denying any access to guns or weapons. She states that her appetite has been fair. Sleep has been fair. PAST PSYCHIATRIC HISTORY: Patient has a a history of anxiety and depression. Patient is currently on Remeron and was previously on Vistaril when necessary for anxiety. Patient denies any previous psychiatric hospitalizations. She does not have a outpatient psychiatrist at this time however did go to counseling several years ago at [facility]. Patient denies any history of suicide attempts in the past. PAST MEDICAL HISTORY: Fibromyalgia, GERD, migraines, back pain. ALLERGIES: as per EMR. CHEMICAL DEPENDENCY HISTORY: as per HPI. FAMILY PSYCHIATRIC/SUBSTANCE USE HISTORY: She claims that both her mother and sister have some form of mental illness. SOCIAL HISTORY: Patient was born and raised in [place] and also in [place]. She claims that she was adopted at the age of 75 years old. She states that she completed high school and completed a certificate in cosmetology. She states that she worked various jobs in the past however is currently unemployed. She states that she was in [facility] 2015 for drug related charges.. MENTAL STATUS EXAM: General Appearance: Patient appears to be thin, wearing a hat, stated age is alert, pleasant, and attempts to be cooperative. Patient appears to have fair hygiene and grooming wearing hospital gown with fair eye contact. Behavior: Patient is calmly lying in bed without any agitated behavior. Attempts to cooperate. Speech: Patient's speech is fluent and nonpressured. Rambles at times. Mood/Affect: Patient reports their mood is "fine i guess", affect is congruent and constricted Suicidality/Homicidality: Patient denies having any suicidal or homicidal ideation intent or plan. Perceptions: Patient denies any visual hallucinations and denies any auditory hallucinations Though content/process: There is no evidence of any delusional thought content and thought process is linear and goal-directed. Focused on her physical symptoms. Memory and concentration: AOX3, grossly intact for the purposes of this session. Can spell "WORLD" backwards Judgment and insight: fair IMPRESSIONS: Adjustment disorder Conversion disorder versus organic general medical/neurological condition? PLAN: -At this time patient DOES NOT meet criteria for inpatient psychiatric admission. -Would recommend the following medication changes/additions: Remeron 7.5 mg daily at bedtime for insomnia/mood/anxiety. d/c vistaril and replaced with Buspar 5 mg bid prn for anxiety -terrazzo worker apprentice to provide patient with outpatient mental health/psychiatry resources for appropriate follow up upon discharge -Neurology on board, awaiting recoemmndations and test results -Communicated plan to patient's nurse -at this time psychiatry will sign off. -Please contact with any questions.
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
[2021-11-09 14:04] LABS: Appearance,Urine Clear (Clear); Bacteria,Urine Rare /hpf; Bilirubin,Urine Negative (Negative); Blood,Urine Large (Negative); Color,Urine Light Yellow; Glucose,Urine (UA) Negative (Negative); Ketones,Urine Negative (Negative); Leukocyte Esterase,Urine Small (Negative); Mucus,Urine Rare /hpf; Nitrite,Urine Negative (Negative); Protein,Urine Negative (Negative); RBC,Urine 77 /hpf (0-5); Specific Gravity,Urine 1.011 (1.001-1.035); Squamous Epithelial Cell,Urine 3 /hpf (0-4); Urobilinogen,Urine <2.0 mg/dL (<2.0); WBC,Urine 5 /hpf (0-5)
[2021-11-09 14:46] VITALS: BP 128/79; PULSE 93; RESP 18; TEMP 97.6
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
--- NOTE | 2021-11-09 17:22 | EEG ---
ELECTROENCEPHALOGRAM REPORT DATE OF SERVICE: 11/09/2021 PREAMBLE: This is a 36-year-old female who presented with generalized weakness, syncopal spells, dizziness and visual disturbance. This study is performed to evaluate for any epileptiform activity. EEG FINDINGS: This is a 21-channel digital EEG recording with video competent, utilizing 10/20 international system with referential and bipolar montages. Background consists of well developed, well regulated, moderate voltage activity in 9 to 10 hertz alpha. Background is posterior-dominant and reactive to eye opening and closing. Photic driving response was seen with some flash frequencies. Drowsiness was seen with appearance of bilaterally symmetric theta frequency rhythm. Some stage II sleep was attained with presence of vertex waves and sleep spindles. No focal or generalized epileptiform activity was seen. IMPRESSION: This is a normal EEG during wakefulness, drowsiness and brief stage II sleep. No epileptiform activity was seen. MMODL / IJN: [id number] /
--- NOTE | 2021-11-09 17:23 | US ---
EXAMINATION TYPE: US carotid duplex BILAT DATE OF EXAM: 11/09/2021 COMPARISON: NONE CLINICAL HISTORY: 36-year-old female Syncope. TECHNIQUE: Carotid duplex ultrasound examination. Indirect Doppler criteria was utilized. FINDINGS: EXAM MEASUREMENTS: RIGHT: Peak Systolic Velocity (PSV) cm/sec ----- Right CCA: 114 ----- Right ICA: 113 ----- Right ECA: 94.8 ICA/CCA ratio: 1.00 RIGHT: End Diastole cm/sec ----- Right CCA: 24.7 ----- Right ICA: 28.1 ----- Right ECA: 8.5 LEFT: Peak Systolic Velocity (PSV) cm/sec ----- Left CCA: 112 ----- Left ICA: 114. ----- Left ECA: 98.8 ICA/CCA ratio: 1.01 LEFT: End Diastole cm/sec ----- Left CCA: 19.5 ----- Left ICA: 26.4 ----- Left ECA: 15.4 VERTEBRALS (direction of flow): Right Vertebral: Antegrade Left Vertebral: Antegrade . IMPRESSION: No hemodynamically significant internal carotid artery stenosis on either side. Criteria for Assigning % of Stenosis / Diameter reduction (Estimation based on the indirect measurements of the internal carotid artery velocities (ICA PSV). 1. Normal (no stenosis)=ICA PSV < 125 cm/s: ratio < 2.0: ICA EDV<40 cm/s. 2. Less than 50% stenosis=ICA PSV < 125 cm/s: ratio < 2.0: ICA EDV<40 cm/s. 3. 50 to 69% stenosis=ICA PSV of 125 to 230 cm/s: ration 2.0 ? 4.0: ICA EDV 40-100 cm/s. 4. Greater than 70% stenosis to near occlusion= ICA PSV > 230 cm/s: ratio > 4.0: ICA EDV > 100 cm/s. 5. Near occlusion= ICA PSV velocities may be low or undetectable: variable ratio and ICA EDV. 6. Total occlusion=unable to detect flow.
[2021-11-09] MEDS ORDERED: MIRTAZAPINE 15 MG TAB PO SCH (21:00)
--- NOTE | 2021-11-09 23:16 | P.DS ---
Providers Date of admission: 11/09/21 05:43 Attending physician: Shraddha [place] Consults: 11/09/21 05:43 Consult Physician Routine Consulting Provider: Marii Dawson Consult Reason/Comments: weak Do you want consulting provider notified?: Yes Consult Physician Routine Consulting Provider: Deshawn Shannon Consult Reason/Comments: depression Do you want consulting provider notified?: Already Contacted Primary care physician: Stated None Hospital Course: Final Diagnosis Generalized weakness and fatigue as well as numbness in her upper extremity with unclear etiology. Patient is undergoing workup for demyelinating disease like multiple sclerosis. Syncopal spell Chronic fatigue with excessive sleepiness Weight loss and inability to gain weight History fibromylagia Anxiety disorder History of Celiacs disease History of B12 and Folate deficiency History of methamphetamine use Hematuria follow up urinalysis outpatient Discharge Disposition Patient is stable for discharge from observation unit, she will follow up with primary care outpatient, Dr vadim Mitchell, and Dr Cm as previously scheduled. She will also follow up with [facility]. She has been evaluated by psychiatry and will discharge on current recommendations including discontinuing vistiral, adding buspar 10 mg po tid and remeron 7.5 mg HS. Neurology has evaluated the patient and cleared for discharge as well. Hospital Course This is a 36 year female with past medical history significant for fibromyalgia, GERD, back pain, migraine, celiac disease, anemia. She presents with concern for generalized weakness and fatigue. States that 2 days ago she passed out and hit her head. She was getting out of bed in the morning and passed out and fell for which developed a small bump. She also reports a floater in her left eye that has been increasing. She reports seeing ophthalmology about 1 year ago for contacts and has not seen him since she developed this floater in her eye. She has ongoing workup for multiple sclerosis inpatient and this had to follow up with Dr. Cm in the outpatient setting. She also has history of meth use states that she quit 2 years ago she is a former smoker she quit smoking cigarettes one year ago and she does not drink alcohol. She states that she is currently no longer using methamphetamine. She does report ongoing issues with inability to gain weight she states that she has a decreased appetite but when she eats food she does overall feel sick and foggy. She denies any vomiting after eating, she denies diarrhea she does have normal bowel movements soft brown every other day. There has been no blood in the stool. She denies any abdominal pain. She does state that she has issues with hair growth or hair has not grown much over the past couple years. She also complains of some g eneralized weakness states that she is fatigued and wants to sleep all day. He denies a past medical history of anorexia, bulimia. She also states that she is compliant with her celiac diet and is strictly gluten-free. She denies chest pain, shortness of breath. No fever or chills. No thyroid issues. She was seen in consultation this admission by psychology and neurology. She underwent carotid Doppler as well as EEG. She can continue this workup outpatient for MS with Dr. Cm as scheduled. She is also establishing care with a primary provider outpatient she states that Dr. Christianson has scheduled an appointment for 2 months out. Her blood count panel is unremarkable, there is no anemia, and chemistry is essentially unremarkable, troponin is negative, TSH is 2.910, sodium 139, potassium 3.8, BUN 10, creatinine 0.62. Urinalysis is showing large blood, small leukocyte Estrace. She is afebrile, heart rate is 73, blood pressure 119/84, 100% on room air. Psychiatry evaluation recommends Remeron 7.5 mg at bedtime discontinue Vistaril and start BuSpar 5 mg twice a day as needed for anxiety. Carotid doppler is read as No hemodynamically significant internal carotid artery stenosis on either side. EEG is read as normal EEG during wakefullness, drowsiness and brief stage 2 sleep. No epileptiform activity was seen. Patient underwent brain CT previous admission in August of this year which is negative. Patient will be discharge home. Please see H & P for additional information. Please see medication reconciliation for a list of current medication. Thank you for allowing us to participate in the care of this patient. The impression and plan of care has been dictated by Emperatriz Milton, Nurse Practitioner as directed. Dr. Lucero MD I have performed a history and physical examination and medical decision making of this patient, discussed the same with the dictator, and agree with the dictators assessment and plan as written, documented as a scribe. Based on total visit time, I have performed more than 50% of this visit. Patient Condition at Discharge: Stable Plan - Discharge Summary New Discharge Prescriptions: New Mirtazapine [Remeron] 7.5 mg PO HS #30 tab busPIRone HCl [Buspar] 5 mg PO BID PRN #90 tab PRN Reason: Anxiety Cyanocobalamin [Vitamin B-12] 1,000 mcg PO DAILY tab Continue Cyanocobalamin [Vitamin B-12] 1,000 mcg PO DAILY 30 Days #60 tab Discharge Medication List Cyanocobalamin [Vitamin B-12] 1,000 mcg PO DAILY 30 Days #60 tab 08/31/21 [Rx] Cyanocobalamin [Vitamin B-12] 1,000 mcg PO DAILY tab 11/09/21 [Rx] Mirtazapine [Remeron] 7.5 mg PO HS #30 tab 11/09/21 [Rx] busPIRone HCl [Buspar] 5 mg PO BID PRN #90 tab 11/09/21 [Rx] Follow up Appointment(s)/Referral(s): [facility] [Outside] - 1 Week Darren Cm MD [STAFF PHYSICIAN] - 1 Week (Please call for an appointment.) Arnulfo Babb [STAFF PHYSICIAN] - 1 Week Activity/Diet/Wound Care/Special Instructions: Follow up with community mental health outpatient Keep appointment with Dr Cm Discharge/Stand Alone Forms: Who Do I Call?, Outpatient Counseling Discharge Disposition: HOME SELF-CARE
[2021-11-10] MEDS ORDERED: CYANOCOBALAMIN 500 MCG TAB PO SCH (09:00)
== END 2021-11-09 18:22 | disposition home or self-care (01) ==
LOC: EC 00:56 → 6NMEDSUR 05:43
PROVIDERS: ADMIT Hospitalist; ATTEND Hospitalist
DX: R53.1 Weakness (principal); R53.83 Other fatigue; R20.0 Anesthesia of skin; R40.0 Somnolence; R20.2 Paresthesia of skin; R11.2 Nausea with vomiting, unspecified; R63.0 Anorexia; R55 Syncope and collapse; R42 Dizziness and giddiness; R63.4 Abnormal weight loss; F41.9 Anxiety disorder, unspecified; Z68.1 Body mass index [BMI] 19.9 or less, adult; K90.0 Celiac disease; R31.9 Hematuria, unspecified; E53.8 Deficiency of other specified B group vitamins; M79.7 Fibromyalgia; D64.9 Anemia, unspecified; M41.9 Scoliosis, unspecified; G43.909 Migraine, unspecified, not intractable, without status migrainosus; K21.9 Gastro-esophageal reflux disease without esophagitis; M54.9 Dorsalgia, unspecified; H43.392 Other vitreous opacities, left eye; F43.22 Adjustment disorder with anxiety; F32.A Depression, unspecified; Z87.891 Personal history of nicotine dependence; Z56.0 Unemployment, unspecified; Z16.24 Resistance to multiple antibiotics; Z79.899 Other long term (current) drug therapy; Z88.8 Allergy status to other drugs, medicaments and biological substances; Z91.048 Other nonmedicinal substance allergy status; Z80.0 Family history of malignant neoplasm of digestive organs; Z83.3 Family history of diabetes mellitus; Z82.0 Family history of epilepsy and other diseases of the nervous system
CPT/HCPCS: 99285; 36415; 95816; 80053; 82607; 82140; 82746; 83605; 83735; 84100; 84443; 84484; 85025; 85610; 85730; 81001; 82306; 83036; 93880; G0378

== ENCOUNTER 2021-12-10 03:47 | Emergency (ER) | payer OTHER ==
[2021-12-10 03:54] VITALS: TEMP 98.1
--- NOTE | 2021-12-10 05:15 | CT ---
EXAMINATION TYPE: CT mastoid wo con DATE OF EXAM: 12/10/2021 COMPARISON: None HISTORY: lt ear pain x 3-4 days & blurred vision CT DLP: 189.3 mGycm Automated exposure control for dose reduction was used. Images obtained from the upper temporal bones to the skull base with no contrast. There is fairly normal aeration of the paranasal sinuses. Orbital margins are intact. No retro-orbita l mass. There is fairly normal aeration of the mastoids sinuses. The external auditory canals appear normal. There is normal aeration of the epitympanic recess bilaterally. Internal auditory canals appe ar normal. No evidence of cerebellopontine angle mass. There is normal aeration of the middle ear cav ity bilaterally. IMPRESSION: Negative CT scan of the temporal bones. I do not see a cause for patient's symptoms.
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
[2021-12-10 06:03] VITALS: BP 111/76; PULSE 70; RESP 16
== END 2021-12-10 06:03 | disposition home or self-care (01) ==
LOC: EC 03:47
DX: J32.9 Chronic sinusitis, unspecified (principal); K21.9 Gastro-esophageal reflux disease without esophagitis; M79.7 Fibromyalgia; F41.9 Anxiety disorder, unspecified; F32.A Depression, unspecified; Z87.891 Personal history of nicotine dependence; Z88.8 Allergy status to other drugs, medicaments and biological substances; Z88.1 Allergy status to other antibiotic agents; Z88.6 Allergy status to analgesic agent; Z79.899 Other long term (current) drug therapy
CPT/HCPCS: 70486; 99283

== ENCOUNTER 2021-12-27 11:58 | Emergency (ER) | payer OTHER ==
[2021-12-27 12:05] VITALS: TEMP 97.6
[2021-12-27] MEDS ORDERED: ONDANSETRON 4 MG/2 ML VIAL IVP STA (12:27)
[2021-12-27] MEDS ORDERED: HYDROmorphone 0.5 MG/0.5 ML SYRINGE IVP STA ×3 (12:27→14:09)
[2021-12-27] MEDS ORDERED: KETOROLAC 15 MG/ML 1 ML VIAL IVP STA (12:27)
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
--- NOTE | 2021-12-27 13:20 | CT ---
EXAMINATION TYPE: CT brain guilhermeine wo con DATE OF EXAM: 12/27/2021 COMPARISON: CT brain 09/17/2021 HISTORY: Trauma and pain CT DLP: 999.3 mGycm Automated exposure control for dose reduction was used. TECHNIQUE: CT scan of the head and cervical spine are performed without contrast. FINDINGS: There is no acute intracranial hemorrhage, mass effect, or midline shift identified. The ventricles and sulci are within normal limits in size. Deep white matter low-attenuation is present. The globes are intact and the visualized sinuses are clear. The left zygoma shows a lucency, questio nable mild depression. There is overlying probable ecchymosis, possible punctate foreign body within the skin. There is a displaced left maxillary sinus wall fracture laterally, there is surrounding air within the soft tissues, air-fluid level in the left maxillary sinus, additional anterior wall commi nuted fractures suspected of the left maxillary sinus. There is a left mandibular fracture present wh ich is nondisplaced coursing to the body of the mandible. Cervical spine is visualized in its entirety from C1 through upper thoracic levels and demonstrates s atisfactory alignment without evidence of acute fracture or dislocation. Prevertebral soft tissue ap pears within normal limits. The C1-C2 articulation is unremarkable. Some degenerative disc changes are present in the cervical spine IMPRESSION: 1. There is no acute fracture or dislocation evident in the cervical spine. 2. No acute intracranial hemorrhage, mass effect, or midline shift is seen. 3. Left mandible fracture, x-ray sinus fractures, mildly depressed and nondisplaced left zygoma fract ure is suspected.
--- NOTE | 2021-12-27 13:38 | CT ---
EXAMINATION TYPE: CT facial bones wo con DATE OF EXAM: 12/27/2021 COMPARISON: Prior CT brain September 17, 2021 HISTORY: Fall. Left sided facial/neck pain. CT DLP: 999.3 mGycm. Automated Exposure Control for Dose Reduction was Utilized. TECHNIQUE: CT scan of the facial bones is performed without contrast. FINDINGS: There is acute nondisplaced oblique fracture through the right mandibular symphysis on imag e 24. There is acute oblique nondisplaced fracture through the left-sided vertical ramus coronal imag es 46 through 48. Temporomandibular joints are maintained bilaterally. Old fracture deformity to the nasal bridge with right nasal septal deviation is redemonstrated. No ne w soft tissue swelling or new fracture at this level. There is acute minimally displaced fracture through the left orbital rim extending into the floor axi al image 51 with small foci of air into the left inferior anterior orbit axial image 55. Globes are i ntact bilaterally. Small focus of air and fluid adjacent to lateral left maxillary sinus wall axial i mage 64 without displaced fracture. Nondisplaced fracture needs to be considered. Intraconal fat is p reserved bilaterally. No inferior rectus muscle entrapment or displacement on the left. There is New acute comminuted displaced fracture through the anterior left maxillary sinus wall axial image 44 through the posterolateral left maxillary sinus wall coronal images 34 through 36. There is new small amount of dependent fluid or hemorrhage in the left maxillary sinus. Remainder paranasal s inuses are clear. Zygomatic arches are intact bilaterally. The pterygoid plates are intact bilaterally. Lack of dentition incidentally noted. IMPRESSION: 1. Acute nondisplaced oblique fracture right mandibular symphysis and acute nondisplaced oblique frac ture horizontal ramus left mandible. 2. Acute comminuted slightly displaced fracture through the left orbital floor. Suspect acute nondisp laced fracture lateral left orbital wall. Comminuted fracture deformities through the anterior and po sterior lateral left maxillary sinus blunt with small amount of hemorrhage into the left maxillary si nus.
[2021-12-27] MEDS ORDERED: ACET/COD 300 MG/30 MG STARTER PACK 6 TAB BTL PO STA (14:12)
[2021-12-27] MEDS ORDERED: traMADol 50 MG STARTER PACK 3 TAB BTL PO STA (14:12)
[2021-12-27] MEDS: IBUPROFEN 600 MG STARTER PACK 4 TAB BTL PO STA ×2 (14:18→14:21)
[2021-12-27 14:23] VITALS: BP 120/84; PULSE 90; RESP 16
== END 2021-12-27 14:22 | disposition home or self-care (01) ==
LOC: EC 11:58
DX: S02.642A Fracture of ramus of left mandible, initial encounter for closed fracture (principal); S02.32XA Fracture of orbital floor, left side, initial encounter for closed fracture; S02.40DA Maxillary fracture, left side, initial encounter for closed fracture; Z87.891 Personal history of nicotine dependence; Z91.048 Other nonmedicinal substance allergy status; Z88.8 Allergy status to other drugs, medicaments and biological substances; Z88.6 Allergy status to analgesic agent; W18.40XA Slipping, tripping and stumbling without falling, unspecified, initial encounter
CPT/HCPCS: 72125; 70486; 70450; 99284; 96374; 96376; 96375; J2405; J1885; J1170

== ENCOUNTER 2022-08-10 17:55 | Emergency (ER) | payer OTHER ==
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
[2022-08-10 18:42] VITALS: TEMP 97.9
[2022-08-10 20:53] LABS: Basophils # (A) 0.1 k/uL (0-0.2); Basophils % (A) 0 %; Eosinophils # (A) 0.1 k/uL (0-0.7); Eosinophils % (A) 1 %; HCT 33.2 % (34.0-46.0); HGB 11.2 gm/dL (11.4-16.0); Lymphocytes # (A) 1.6 k/uL (1.0-4.8); Lymphocytes % (A) 11 %; MCH 29.8 pg (25.0-35.0); MCHC 33.6 g/dL (31.0-37.0); MCV 88.5 fL (80.0-100.0); Mean Platelet Volume 8.5; Monocytes # (A) 0.7 k/uL (0-1.0); Monocytes % (A) 5 %; Neutrophils # (A) 11.6 k/uL (1.3-7.7); Neutrophils % (A) 82 %; Platelet Count 321 k/uL (150-450); RBC 3.75 m/uL (3.80-5.40); RDW 12.7 % (11.5-15.5); WBC 14.3 k/uL (3.8-10.6)
[2022-08-10 20:59] VITALS: BP 119/91
[2022-08-10 21:18] LABS: ALT 12 U/L (4-34); AST 17 U/L (14-36); African American GFR (CKD) >90 (>60 ml/min/1.73 sqM); Albumin 3.8 g/dL (3.5-5.0); Alkaline Phosphatase 119 U/L (38-126); Anion Gap 5 mmol/L; Blood Urea Nitrogen 8 mg/dL (7-17); Calcium 9.3 mg/dL (8.4-10.2); Carbon Dioxide 25 mmol/L (22-30); Chloride 103 mmol/L (98-107); Glucose 75 mg/dL (74-99); Non-African American GFR(CKD) >90 (>60 ml/min/1.73 sqM); Potassium 4.1 mmol/L (3.5-5.1); Sodium 133 mmol/L (137-145); Total Bilirubin 0.3 mg/dL (0.2-1.3); Total Protein 7.3 g/dL (6.3-8.2)
[2022-08-10 21:20] LABS: Appearance,Urine Cloudy (Clear); Bacteria,Urine Rare /hpf; Bilirubin,Urine Negative (Negative); Blood,Urine Negative (Negative); Color,Urine Light Yellow; Glucose,Urine (UA) Negative (Negative); Ketones,Urine Negative (Negative); Leukocyte Esterase,Urine Moderate (Negative); Mucus,Urine Few /hpf; Nitrite,Urine Negative (Negative); PH, Urine 6.5 (5.0-8.0); Protein,Urine Negative (Negative); RBC,Urine 1 /hpf (0-5); Specific Gravity,Urine 1.014 (1.001-1.035); Squamous Epithelial Cell,Urine 9 /hpf (0-4); Urobilinogen,Urine <2.0 mg/dL (<2.0); WBC,Urine 8 /hpf (0-5)
[2022-08-11] MEDS ORDERED: AMOXICILLIN 875 MG TAB PO ONE
[2022-08-11 00:10] VITALS: PULSE 68; RESP 16
== END 2022-08-11 00:09 | disposition home or self-care (01) ==
LOC: EC 17:55
DX: O99.713 Diseases of the skin and subcutaneous tissue complicating pregnancy, third trimester (principal); R59.0 Localized enlarged lymph nodes; O99.353 Diseases of the nervous system complicating pregnancy, third trimester; H66.016 Acute suppurative otitis media with spontaneous rupture of ear drum, recurrent, bilateral; O99.343 Other mental disorders complicating pregnancy, third trimester; F41.9 Anxiety disorder, unspecified; F32.A Depression, unspecified; Z91.048 Other nonmedicinal substance allergy status; Z88.8 Allergy status to other drugs, medicaments and biological substances; Z88.6 Allergy status to analgesic agent; Z87.891 Personal history of nicotine dependence; Z20.822 Contact with and (suspected) exposure to COVID-19; Z3A.36 36 weeks gestation of pregnancy
CPT/HCPCS: 36415; 80053; 81001; 83605; 85025; 86308; 87636; 99283

== ENCOUNTER 2022-08-30 06:00 | Inpatient (IN) | payer OTHER ==
[2022-08-30] MEDS ORDERED: LIDOCAINE 0.5% (PF) 5 MG/ML (50 ML SDV) SQ PRN (06:28)
[2022-08-30] MEDS ORDERED: TERBUTALINE 1 MG/ML VIAL SQ PRN (06:28)
[2022-08-30] MEDS ORDERED: METHYLERGONOVINE 0.2 MG/ML 1 ML AMP IM PRN (06:28)
[2022-08-30] MEDS ORDERED: OXYTOCIN 10 UNIT/ML 1 ML VIAL IM PRN (06:28)
[2022-08-30] MEDS ORDERED: TRANEXAMIC ACID IN NACL,ISO-OS 1,000 MG in EMPTY BAG 1 BAG IV PRN (06:28)
[2022-08-30] MEDS ORDERED: miSOPROStoL 200 MCG TAB PO PRN (06:28)
[2022-08-30] MEDS ORDERED: CARBOPROST TROMETHAMINE 250 MCG/ML 1 ML AMP IM PRN (06:28)
[2022-08-30] MEDS: LACTATED RINGERS 1,000 ML IV SCH ×2 (06:30→21:39)
[2022-08-30] MEDS ORDERED: PENICILLIN G POTASSIUM 5,000,000 UNIT in DEXTROSE 5% IN WATER 100 ML IVPB STA ×2 (06:34)
[2022-08-30] MEDS: OXYTOCIN 30 UNITS/500 ML NS 30 UNIT in SALINE 1 500ML.BAG IV SCH ×2 (06:58→14:30)
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
[2022-08-30 08:01] LABS: Basophils % (A) 0 %; Eosinophils # (A) 0.1 k/uL (0-0.7); Eosinophils % (A) 1 %; HCT 30.7 % (34.0-46.0); HGB 10.3 gm/dL (11.4-16.0); Lymphocytes # (A) 1.7 k/uL (1.0-4.8); Lymphocytes % (A) 16 %; MCH 29.1 pg (25.0-35.0); MCHC 33.6 g/dL (31.0-37.0); MCV 86.8 fL (80.0-100.0); Mean Platelet Volume 10.6; Monocytes # (A) 0.6 k/uL (0-1.0); Monocytes % (A) 6 %; Neutrophils # (A) 7.5 k/uL (1.3-7.7); Neutrophils % (A) 74 %; Platelet Count 336 k/uL (150-450); RBC 3.54 m/uL (3.80-5.40); RDW 13.4 % (11.5-15.5); WBC 10.1 k/uL (3.8-10.6)
[2022-08-30] MEDS: BUTORPHANOL 1 MG/ML 1 ML VIAL IV PRN ×2 (09:06→11:11)
[2022-08-30] MEDS: PENICILLIN G POTASSIUM 2,500,000 UNIT in DEXTROSE 5% IN WATER 100 ML IVPB SCH ×4 (10:49→21:38)
[2022-08-30] MEDS ORDERED: diphenhydrAMINE 50 MG/ML 1 ML VIAL IVP PRN ×2 (14:01)
[2022-08-30] MEDS ORDERED: HYDROCORTISONE 2.5% RECTAL CREAM 30 GM TUBE RECTAL PRN (14:01)
[2022-08-30] MEDS ORDERED: ZOLPIDEM 5 MG TAB PO PRN (14:01)
[2022-08-30] MEDS ORDERED: LANOLIN CREAM 5 GM TUBE TOPICAL PRN (14:01)
[2022-08-30] MEDS ORDERED: diphenhydrAMINE 50 MG CAP PO PRN (14:01)
[2022-08-30] MEDS ORDERED: diphenhydrAMINE 25 MG CAP PO PRN (14:01)
[2022-08-30] MEDS ORDERED: BENZOCAINE/MENTHOL SPRAY 1 GM/SPRAY AEROSOL TOPICAL PRN (14:01)
[2022-08-30] MEDS ORDERED: IBUPROFEN 600 MG TAB PO PRN (14:01)
[2022-08-30] MEDS ORDERED: SIMETHICONE 80 MG CHEWABLE PO PRN (14:01)
--- NOTE | 2022-08-30 14:04 | P.PROBDLV ---
Vaginal Delivery Note - . Vaginal Delivery Note: DATE OF SERVICE: 08/30/2022 PROCEDURE: Spontaneous Vaginal Delivery ATTENDING: Dr. Bessy Ervin MD ESTIMATED BLOOD LOSS: 200 mL FINDINGS: VFI, Apgars 02/04 PROCEDURE: Patient was a 36 y/o at 39 weeks and 2 days who presented to labor and delivery for elective indurction of labor. Oxytocin was started and the patient had stadol for pain control early in labor. She quickly progressed to complete dilation. Head delivered without difficulty followed by shoulders and body over intact perineum. Infant placed on maternal abdomen and bulb suctioned. Cord was clamped and cut after a 30 second delay. Placenta delivered whole with gentle cord traction. Oxytocin was started to facilitate uterine tone. Uterine fundus firm and bleeding minimal upon fundal massage. Perineal inspection revealed intact perineum. Patient stable .
[2022-08-30] MEDS ORDERED: OXYTOCIN 30 UNITS/500 ML NS 30 UNIT in SALINE 1 500ML.BAG IV SCH (14:15)
[2022-08-30] MEDS: ACETAMINOPHEN TAB 325 MG TAB PO PRN ×2 (14:25→21:18)
[2022-08-30] MEDS: SENNOSIDES-DOCUSATE SODIUM 1 EACH TAB PO SCH (21:23)
[2022-08-31 00:20] LABS: Urine Alcohol Negative (Negative)
[2022-08-31] MEDS: LACTATED RINGERS 1,000 ML IV SCH ×3 (02:03→21:53)
[2022-08-31] MEDS: PENICILLIN G POTASSIUM 2,500,000 UNIT in DEXTROSE 5% IN WATER 100 ML IVPB SCH ×8 (02:04→21:55)
[2022-08-31] MEDS: ACETAMINOPHEN TAB 325 MG TAB PO PRN ×4 (03:27→18:07)
[2022-08-31 08:10] LABS: Basophils % (A) 0 %; Eosinophils # (A) 0.1 k/uL (0-0.7); Eosinophils % (A) 1 %; HCT 28.8 % (34.0-46.0); HGB 9.8 gm/dL (11.4-16.0); Lymphocytes # (A) 1.4 k/uL (1.0-4.8); Lymphocytes % (A) 14 %; MCH 29.8 pg (25.0-35.0); MCHC 34.1 g/dL (31.0-37.0); MCV 87.4 fL (80.0-100.0); Mean Platelet Volume 8.6; Monocytes # (A) 0.6 k/uL (0-1.0); Monocytes % (A) 6 %; Neutrophils % (A) 78 %; Platelet Count 281 k/uL (150-450); RDW 13.1 % (11.5-15.5); WBC 10.2 k/uL (3.8-10.6)
[2022-08-31] MEDS: SENNOSIDES-DOCUSATE SODIUM 1 EACH TAB PO SCH ×2 (08:20→21:54)
--- NOTE | 2022-08-31 08:46 | P.PNOBGVD ---
Subjective - Subjective Principal diagnosis: s/p vaginal delivery Interval history: The patient is doing well this morning and had no acute events overnight. She had some light-headedness yesterday. She reports moderate lochia, passing flatus, voiding without difficulty, ambulating, and eating/drinking without nausea or vomiting. She is bottle-feeding her in the nursery. is being scored for narcotic withdrawal in the nursery. She denies chest pain, shortness of breathing, fevers, or chills overnight. She denies pain or swelling in the legs. Patient reports: Reports appetite normal, Reports voiding normally, Reports pain well controlled, Reports ambulating normally : doing well, in NICU Objective - Latest Vital Signs Latest vital signs: Vital Signs Temp Pulse Resp BP BP Pulse Ox 08/31/22 08:00 97.8 F 72 18 129/67 08/31/22 04:00 97.5 F L 90 16 115/76 96 08/31/22 00:00 97.9 F 63 16 125/76 99 08/30/22 20:00 98.0 F 92 16 132/69 100 08/30/22 16:17 75 16 133/77 08/30/22 16:08 98.2 F 76 16 130/76 08/30/22 15:38 80 16 132/71 08/30/22 15:23 98.2 F 76 16 128/76 08/30/22 14:30 98.2 F 74 16 119/59 99 08/30/22 14:15 96 16 125/82 08/30/22 14:00 94 16 135/79 Intake and Output 08/30/22 08/31/22 08/31/22 22:59 06:59 14:59 Output Total 150 Balance -150 Output: Output, Quantitative 150 Blood Loss Other: # Voids 1 1 - Exam Extremities: Present: normal Abdomen: Present: normal appearance, soft Uterus: Present: normal, firm - Labs Labs: Abnormal Lab Results - Last 24 Hours (Table) 08/31/22 Range/Units 07:47 RBC 3.30 L (3.80-5.40) m/uL Hgb 9.8 L (11.4-16.0) gm/dL Hct 28.8 L (34.0-46.0) % Neutrophils # 8.0 H (1.3-7.7) k/uL Assessment and Plan Assessment: 36 yo PPD#1 s/p normal vaginal delivery after elective induction of labor Plan: Meeting all milestones appropriately. Will plan for discharge home tomorrow, given that the baby will stay in the nicu for ROSALIND scoring.
[2022-08-31 12:30] LABS: Urine Barbiturate Negative (Negative); Urine Cocaine Negative (Negative); Urine Methadone Negative (Negative); Urine Opiates Positive (Negative); Urine Phencyclidine Negative (Negative)
[2022-08-31 18:05] VITALS: RESP 16
[2022-09-01] MEDS: ACETAMINOPHEN TAB 325 MG TAB PO PRN ×2 (01:10→09:04)
[2022-09-01] MEDS: SENNOSIDES-DOCUSATE SODIUM 1 EACH TAB PO SCH ×2 (08:07→09:04)
[2022-09-01 10:23] VITALS: BP 122/82; PULSE 77; TEMP 97.7
[2022-09-01] MEDS: PENICILLIN G POTASSIUM 2,500,000 UNIT in DEXTROSE 5% IN WATER 100 ML IVPB SCH ×2 (11:51)
[2022-09-01] MEDS: LACTATED RINGERS 1,000 ML IV SCH (11:52)
--- NOTE | 2022-09-01 11:56 | P.DS ---
Providers Date of admission: 08/30/22 06:09 Expected date of discharge: 09/01/22 Attending physician: Bessy Ervin MD Primary care physician: Stated None Hospital Course: 36 year old now day #2 s/p normal vaginal delivery after elective induction of labor. She is meeting all milestones appropriately including breast pumping without difficulty, tolerating PO, ambulating and voiding without difficulty. She denies pain/swelling in legs, chest pain, shortness of breath, fevers, chills. Yesterday she had an episode of severe pressure and pain behind the right eye. She recently ruptured her right ear drum and thought it might be related to that. She still has some right eye itching and irritation but the pressure has resolved. I discussed that if this continues she can be referred to an opthamologist. I discussed discharge instructions including pelvic rest for 6 weeks. She is considering LARCs vs permanent sterilization of herself/her partner for contraception. We will discuss again at her 6 week visit. She is encouraged to call the office for heavy bleeding, foul-smelling discharge, breast complaints, or any other concerns she has. She will return to see me in 6 weeks. Assessment: 36yo PPD#2 s/p normal vaginal delivery Patient Condition at Discharge: Good Plan - Discharge Summary New Discharge Prescriptions: No Action Suv-Uaox-Aksed Acid [-U Capsule (formulary)] 1 cap PO DAILY Discharge Medication List [id number] Acid [-U Capsule (formulary)] 1 cap PO DAILY 08/10/22 [History] Follow up Appointment(s)/Referral(s): Bessy Ervin MD [STAFF PHYSICIAN] - 6 Weeks Patient Instructions/Handouts: Your Baby (DC), Abstinence Syndrome (DC), Caring for Your Baby (DC), Bleeding (DC), Vaginal Delivery (DC), Perineal Care (DC), How to Increase Your Milk Supply (DC), How to Tell if Your Baby is Getting Enough Breast Milk (DC), Depression (DC) Activity/Diet/Wound Care/Special Instructions: Pelvic rest for 6 weeks. Otherwise activity as tolerated. Discharge/Stand Alone Forms: Outpatient Counseling, Area PCPs Discharge Disposition: HOME SELF-CARE
== END 2022-09-01 14:18 | disposition home or self-care (01) | DRG 560 ==
LOC: 4FBP 06:09
PROVIDERS: ADMIT Obstetrics & Gynecology; ATTEND Obstetrics & Gynecology
PROC: 10907ZC Drainage of Amniotic Fluid, Therapeutic from Products of Conception, Via Natural or Artificial Opening (ICD-10-PCS; principal; 2022-08-30)
PROC: 3E033VJ Introduction of Other Hormone into Peripheral Vein, Percutaneous Approach (ICD-10-PCS; principal; 2022-08-30)
PROC: 10E0XZZ Delivery of Products of Conception, External Approach (ICD-10-PCS; principal; 2022-08-30)
DX: O99.324 Drug use complicating childbirth (principal); O99.62 Diseases of the digestive system complicating childbirth; O99.892 Other specified diseases and conditions complicating childbirth; O99.824 Streptococcus B carrier state complicating childbirth; O99.02 Anemia complicating childbirth; Z37.0 Single live birth; Z3A.39 39 weeks gestation of pregnancy; Z28.310 Unvaccinated for COVID-19; K90.0 Celiac disease; K21.9 Gastro-esophageal reflux disease without esophagitis; M79.7 Fibromyalgia; M41.9 Scoliosis, unspecified; M54.9 Dorsalgia, unspecified; H57.89 Other specified disorders of eye and adnexa; Z79.899 Other long term (current) drug therapy; Z14.8 Genetic carrier of other disease; Z86.19 Personal history of other infectious and parasitic diseases; Z87.891 Personal history of nicotine dependence; Z88.6 Allergy status to analgesic agent; Z88.8 Allergy status to other drugs, medicaments and biological substances
CPT/HCPCS: 80306; 85025; 86850; 86900; 86901

== ENCOUNTER 2024-04-20 09:49 | Emergency (ER) | payer OTHER ==
[2024-04-20 10:14] VITALS: BP 118/69; PULSE 99; RESP 20; TEMP 97.5
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
[2024-04-20] MEDS: KETOROLAC 15 MG/ML 1 ML VIAL IM STA (10:45)
--- NOTE | 2024-04-20 11:04 | XR ---
EXAMINATION TYPE: XR knee complete bilateral DATE OF EXAM: 04/20/2024 11:00 AM COMPARISON: None. CLINICAL INDICATION: Female, 38 years old with history of pain, pain TECHNIQUE: XR knee complete bilateral XX views were obtained. FINDINGS: There is no acute fracture/dislocation. The tri-compartment joint spaces appear within normal limits . The overlying soft tissue appears unremarkable. IMPRESSION: No acute fracture or dislocation [facility], , 04/20/2024 11:01 AM
[2024-04-20] MEDS: ACET/COD 300 MG/30 MG STARTER PACK 6 TAB BTL PO STA (12:03)
== END 2024-04-20 12:14 | disposition home or self-care (01) ==
LOC: EC 09:49
DX: M25.562 Pain in left knee (principal); Z87.891 Personal history of nicotine dependence; Z88.6 Allergy status to analgesic agent; Z88.8 Allergy status to other drugs, medicaments and biological substances
CPT/HCPCS: 73562; 99283; 96372; J1885

== ENCOUNTER 2024-08-10 17:06 | Observation (INO) | payer OTHER ==
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
[2024-08-10 18:59] LABS: Basophils % (A) 1 %; Eosinophils # (A) 0.1 k/uL (0-0.7); Eosinophils % (A) 2 %; HCT 39.9 % (34.0-46.0); HGB 13.1 gm/dL (11.4-16.0); Lymphocytes # (A) 1.3 k/uL (1.0-4.8); Lymphocytes % (A) 32 %; MCH 29.5 pg (25.0-35.0); MCHC 32.8 g/dL (31.0-37.0); MCV 89.8 fL (80.0-100.0); Mean Platelet Volume 7.5; Monocytes # (A) 0.3 k/uL (0-1.0); Monocytes % (A) 7 %; Neutrophils # (A) 2.4 k/uL (1.3-7.7); Neutrophils % (A) 58 %; Platelet Count 276 k/uL (150-450); RBC 4.44 m/uL (3.80-5.40); RDW 12.4 % (11.5-15.5); WBC 4.1 k/uL (3.8-10.6)
[2024-08-10 19:25] LABS: ALT 16 U/L (4-34); AST 21 U/L (14-36); African American GFR (CKD) >90 (>60 ml/min/1.73 sqM); Albumin 4.3 g/dL (3.5-5.0); Alkaline Phosphatase 43 U/L (38-126); Anion Gap 7 mmol/L; Blood Urea Nitrogen 12 mg/dL (7-17); C Reactive Protein <0.5 mg/dL (<1.0); Calcium 9.2 mg/dL (8.4-10.2); Carbon Dioxide 28 mmol/L (22-30); Chloride 101 mmol/L (98-107); Glucose 86 mg/dL (74-99); Non-African American GFR(CKD) >90 (>60 ml/min/1.73 sqM); Potassium 4.5 mmol/L (3.5-5.1); Sodium 136 mmol/L (137-145); Total Bilirubin 0.3 mg/dL (0.2-1.3); Total Protein 7.2 g/dL (6.3-8.2)
[2024-08-10 19:34] LABS: Influenza A Detected (Not Detectd); Influenza B Not Detected (Not Detectd); RSV Not Detected (Not Detectd)
[2024-08-10] MEDS ORDERED: ACETAMINOPHEN TAB 325 MG TAB PO PRN (20:29)
[2024-08-10] MEDS ORDERED: LORazepam 0.5 MG TAB PO PRN (20:29)
[2024-08-10] MEDS ORDERED: NALOXONE 0.4 MG/ML 1 ML VIAL IV PRN (20:29)
[2024-08-10] MEDS: SODIUM CHLORIDE 0.9% 1,000 ML IV SCH (21:12)
[2024-08-10] MEDS: OSELTAMIVIR 75 MG CAP PO SCH (21:14)
[2024-08-10] MEDS: methylPREDNISolone SOD SUCCIN 500 MG in SODIUM CHLORIDE 0.9% 100 ML IVPB STA (22:58)
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
--- NOTE | 2024-08-11 09:48 | P.DS ---
Providers Date of admission: 08/10/24 20:29 Attending physician: Shraddha [place] Consults: 08/10/24 20:29 Consult Physician Routine Consulting Provider: Rocío Isidro Consult Reason/Comments: ms Do you want consulting provider notified?: Yes Primary care physician: Adryan Butt [facility] Course: Patient came in with complaints of possible MS exacerbation with mostly complaints of generalized weakness and when specifically asked she states that her right side is weak but she is able to walk normally without any peripheral extremity side patient on clinical exam does not appear to have any significant focal weakness. Patient denied any other symptoms. Patient is found to have influenza. Apparently patient was diagnosed with MS 4 years ago unknown whether patient had lumbar puncture done and oligoclonal banding testing but apparently she had MRI at that time patient is not on any medications for multiple sclerosis but she says she is on medication for urinary incontinence. She also feels foggy has symptoms of runny nose and cough for about a week. REVIEW OF SYSTEMS: All other systems are negative except those mentioned in the HPI PHYSICAL EXAMINATION: GENERAL: The patient is alert and oriented x3, not in any acute distress. Thin built female HEENT: Pupils are round and equally reacting to light. EOMI. No scleral icterus. No conjunctival pallor. Normocephalic, atraumatic. No pharyngeal erythema. No thyromegaly. CARDIOVASCULAR: S1 and S2 present. No murmurs, rubs, or gallops. PULMONARY: Chest is clear to auscultation, no wheezing or crackles. ABDOMEN: Soft, nontender, nondistended, normoactive bowel sounds. No palpable organomegaly. MUSCULOSKELETAL: No joint swelling or deformity. EXTREMITIES: No cyanosis, clubbing, or pedal edema. NEUROLOGICAL: Gross neurological examination did not reveal any focal deficits. SKIN: No rashes. Assessment and plan -Symptoms of generalized weakness without any focal weakness on exam: I do not have any clear evidence of multiple sclerosis exacerbation at this time awaiting neurology evaluation. Patient is presently on systemic steroids. If neurology clears patient probably can be discharged -Influenza infection which can explain-endorse cough and generalized weakness along with fogginess. Patient is not requiring oxygen -Urinary incontinence Plan - Discharge Summary New Discharge Prescriptions: No Action Varenicline [Chantix Starter Pack] See Taper PO DIRECTED Oxybutynin Chloride [oxyBUTYnin chloride ER] 15 mg PO DAILY HYDROcodone/APAP 5-325MG [[place] 5-325] 1 tab PO Q6H Discharge Medication List HYDROcodone/APAP 5-325MG [[place] 5-325] 1 tab PO Q6H 08/11/24 [History] Oxybutynin Chloride [oxyBUTYnin chloride ER] 15 mg PO DAILY 08/11/24 [History] Varenicline [Chantix Starter Pack] See Taper PO DIRECTED 08/11/24 [History] Follow up Appointment(s)/Referral(s): Adryan Dumont [Primary Care Provider] - 3 Days Discharge Disposition: HOME SELF-CARE
[2024-08-11] MEDS: OXYBUTYNIN 15 MG TAB.ER.24 PO SCH (11:40)
[2024-08-11] MEDS: HYDROcodone/APAP 5-325MG 1 EACH TAB PO PRN (11:42)
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
[2024-08-11 16:45] VITALS: PULSE 67
[2024-08-11 18:48] VITALS: BP 123/81; RESP 16; TEMP 97.9
== END 2024-08-11 18:48 | disposition home or self-care (01) ==
LOC: EC 17:06 → 6NMEDSUR 20:29
PROVIDERS: ADMIT Hospitalist; ATTEND Hospitalist
DX: R53.1 Weakness (principal); J10.1 Influenza due to other identified influenza virus with other respiratory manifestations; R32 Unspecified urinary incontinence; G35 Multiple sclerosis; G43.909 Migraine, unspecified, not intractable, without status migrainosus; M79.7 Fibromyalgia; K21.9 Gastro-esophageal reflux disease without esophagitis; F32.A Depression, unspecified; F41.9 Anxiety disorder, unspecified; Z87.891 Personal history of nicotine dependence; Z88.6 Allergy status to analgesic agent
CPT/HCPCS: 96365; 99285; 36415; 80053; 85025; 86140; 81025; 87636; G0378 ×2; J2919